=== PATIENT | female | born 1965 | race Caucasian/White ===

== ENCOUNTER 2020-02-15 08:35 | Outpatient (CLI) | payer BC, SELFPAY ==
--- NOTE | 2020-02-27 07:50 | WPDPFTINT ---
PFT Interpretation PFT Interpretation: This PFT met all criteria for ATS standards and reproducibility although it was noted that the patient was unable to complete parts of the flow volume loop or diffusion capacity due to severe shortness of breath and wheezing. FEV/FVC 61% FEV1 36% or 0.71 liters FVC 34% or 0.91 liters TLC 118% RV 214 % RV/TLC 66% DLCO could not be performed. Flow volume loops showed severe expiratory coving Impression: Severe airflow obstruction with severe air trapping. This pattern is suggestive of COPD. Clinical correlation is advised.
--- NOTE | 2020-02-27 07:54 | WPDSIXMINUTE ---
Six Minute Walk Six Minute Walk: The patients O2 sats started at 95% and dropped as low as 88%. It was noted that the patient stopped three times during testing to catch her breath. Total walk distance 228.6 meters after stopping three times conclusion: This patient does not meet criteria for home oxygen therapy by this test but she stopped three times during the test to catch her breath and she was audibly wheezing. I would recommend repeating 6MWT once more stable.
== END 2020-02-15 08:36 | disposition home or self-care (01) ==
PROVIDERS: PCP Physician Assistant; Visit Provider Nurse Practitioner
DX: J44.9 Chronic obstructive pulmonary disease, unspecified (principal)
CPT/HCPCS: 94060; 94618; 94726; 94729

== ENCOUNTER → 2020-07-28 02:35 | Outpatient (CLI) | payer BC, SELFPAY ==
[2020-07-28 19:11] LABS: SARS-CoV-2 RNA PCR Negative
== END ==
PROVIDERS: PCP Physician Assistant; Visit Provider Internal Medicine Gastroenterology
DX: Z01.812 Encounter for preprocedural laboratory examination (principal); Z20.822 Contact with and (suspected) exposure to COVID-19
CPT/HCPCS: C9803; U0003; U0005

== ENCOUNTER 2020-07-31 02:24 | Day surgery (SDC) | payer BC, SELFPAY ==
[2020-07-25 12:41] VITALS: BMI 32.3
[2020-07-31 07:44] VITALS: BP 151/68; PULSE 78; RESP 18; TEMP 36; O2SAT 94; BMI 32.4
--- NOTE | 2020-07-31 07:56 | P.PNAN_ITS ---
Anes - Initial Pre Proc Eval Procedure: Operation Date: 07/31/20 09:00 Proposed Procedures p Esophagogastroduodenoscopy - Blayne Hendrix MD Date/Time: 07/31/20 07:56 Surgeon: Blayne Hendrix MD Pre Op Diagnosis: gerd Patient Data Age: 55 Gender: F Height: 5 ft Weight: 75.3 kg Last Vital Signs Temp 36.0 C L 07/31/20 07:44 Pulse 78 07/31/20 07:44 Resp 18 07/31/20 07:44 BP 151/68 H 07/31/20 07:44 Pulse Ox 94 07/31/20 07:44 Allergies Allergy/AdvReac Type Severity Reaction Status Date / Time pneumococcal vaccine Allergy Difficulty Verified 07/31/20 07:43 Breathing Home Medications Medication Instructions Recorded Confirmed Type albuterol sulfate 2.5 mg INHALATION Q4-6H PRN 07/04/20 07/25/20 History amlodipine 5 mg tablet 5 mg PO DAILY 07/04/20 07/25/20 History famotidine 40 mg tablet 40 mg PO DAILY 07/04/20 07/25/20 History lisinopril 10 1 tablet PO DAILY 07/04/20 07/25/20 History mg-hydrochlorothiazide 12.5 mg tablet atorvastatin 10 mg tablet 10 mg PO DAILY 07/10/20 07/25/20 History azithromycin 250 mg tablet 250 mg PO DAILY 07/10/20 07/25/20 History budesonide-formoterol HFA 160 2 puff INHALATION Q12H 07/10/20 07/25/20 History mcg-4.5 mcg/actuation aerosol inhaler fluticasone propionate 50 1 spray INTRANASAL BID 07/10/20 07/25/20 History mcg/actuation nasal spray,suspension prednisone 20 mg tablet 20 mg PO BID 07/10/20 07/25/20 History ibuprofen 800 mg PO DAILY 07/25/20 07/25/20 History Patient hx anesthesia problems: none Family hx anesthesia problems: none PMFSH Past Medical History Medical History COPD (chronic obstructive pulmonary disease) GERD (gastroesophageal reflux disease) HTN (hypertension) Hyperlipidemia Obese Social History Social History Years smoked: 30 Smoking status: Former smoker Tobacco type: cigarettes Alcohol intake: never Substance use: never Substance use type: does not use Living arrangements: with family Gender identity (if verbalized by the patient): Female Spiritual care concerns: No Anes - Eval Final PreProcedure Day of Procedure 07/31/20 07:56 Patient weight: obese Heart: regular rate and rhythm Lungs: decreased breath sounds and wheezes Airway: Mallampati scale class II Neurological: alert and oriented Last oral intake: >/= 8 hours ASA classification: III Emergent: no Anesthetic plan: proceed Anesthesia type and monitoring: general GIVS and standard monitoring Other findings: alb neb Informed Consent: The patient's anesthetic plan and its attendant risks and benefits were discussed with the patient/family/POA. Questions were solicited a nd answers provided to the satisfaction of the patient/family/POA.
[2020-07-31 08:05] VITALS: PULSE 71; RESP 22
[2020-07-31] MEDS: ALBUTEROL SULFATE NEB 2.5 MG/3 ML INH INHALATION (08:05)
[2020-07-31] MEDS: LACTATED RINGERS 1,000 ML 150 ML IV CONT (08:13)
[2020-07-31 08:16] VITALS: PULSE 74; RESP 22
--- NOTE | 2020-07-31 08:34 | WPDHPUPDATE1 ---
History and Physical Update Update Date/Time: 07/31/20 08:34 History and Physical has been reviewed, including an updated exam of the patient. There are NO changes in the patient's condition. Risks, benefits, and alternatives have been discussed and questions answered. Patient agrees to proceed with procedure.
[2020-07-31 08:45] VITALS: BP 124/60; PULSE 70; RESP 21; O2SAT 95
[2020-07-31 08:55] VITALS: BP 122/62; PULSE 72; RESP 22; O2SAT 95
[2020-07-31 09:05] VITALS: BP 137/66; PULSE 65; RESP 20; O2SAT 97
== END 2020-07-31 09:20 | disposition home or self-care (01) ==
PROVIDERS: PCP Physician Assistant; Visit Provider Internal Medicine Gastroenterology
PROC: 0DJ08ZZ Inspection of Upper Intestinal Tract, Via Natural or Artificial Opening Endoscopic (ICD-10-PCS; CPT 43235; principal; 2020-07-31 09:00)
DX: K21.9 Gastro-esophageal reflux disease without esophagitis (principal); K29.50 Unspecified chronic gastritis without bleeding; Z79.51 Long term (current) use of inhaled steroids; J44.9 Chronic obstructive pulmonary disease, unspecified; I10 Essential (primary) hypertension; E78.5 Hyperlipidemia, unspecified; Z87.891 Personal history of nicotine dependence; E66.9 Obesity, unspecified; Z68.32 Body mass index [BMI] 32.0-32.9, adult
CPT/HCPCS: 43239; 88305; 88342; 94640; J2001; J2704; J7120

== ENCOUNTER 2020-10-31 00:25 | Day surgery (SDC) | payer BC, SELFPAY ==
[2020-10-19 08:14] VITALS: BMI 32.3
[2020-10-31 07:45] VITALS: BP 137/81; PULSE 82; RESP 16; TEMP 36.1; O2SAT 94
[2020-10-31] MEDS: LACTATED RINGERS 1,000 ML 150 ML IV CONT (07:49)
--- NOTE | 2020-10-31 08:07 | WPDANESEPPF ---
Anes - Initial Pre Proc Eval Procedure: Operation Date: 10/31/20 09:15 Proposed Procedures p Colonoscopy - Blayne Hendrix MD Date/Time: 10/31/20 08:07 Surgeon: Blayne Hendrix MD Pre Op Diagnosis: abnormal stools Patient Data Age: 55 Gender: F Height: 1.52 m Weight: 72.2 kg Last Vital Signs Temp 36.1 C L 10/31/20 07:45 Pulse 82 10/31/20 07:45 Resp 16 10/31/20 07:45 BP 137/81 10/31/20 07:45 Pulse Ox 94 10/31/20 07:45 Allergies Allergy/AdvReac Type Severity Reaction Status Date / Time pneumococcal vaccine Allergy Difficulty Verified 10/31/20 07:44 Breathing Home Medications Medication Instructions Recorded Confirmed Type albuterol sulfate 2.5 mg INHALATION Q4-6H PRN 07/04/20 10/31/20 History famotidine 40 mg tablet 40 mg PO DAILY 07/04/20 10/31/20 History lisinopril 10 1 tablet PO DAILY 07/04/20 10/31/20 History mg-hydrochlorothiazide 12.5 mg tablet atorvastatin 10 mg tablet 10 mg PO DAILY 07/10/20 10/31/20 History budesonide-formoterol HFA 160 2 puff INHALATION Q12H 07/10/20 10/31/20 History mcg-4.5 mcg/actuation aerosol inhaler fluticasone propionate 50 1 spray INTRANASAL BID 07/10/20 10/31/20 History mcg/actuation nasal spray,suspension mometasone 1 applic TOPICAL DAILY 10/19/20 10/31/20 History Patient hx anesthesia problems: none Family hx anesthesia problems: none PMFSH Past Medical History Medical History COPD (chronic obstructive pulmonary disease) GERD (gastroesophageal reflux disease) HTN (hypertension) Hyperlipidemia Obese Social History Social History Smoking packs per day: 1 Smoking cigarettes per day: 20.0 Years smoked: 39 Smoking pack-years: 39.00 Smoking status: Former smoker Tobacco type: cigarettes Alcohol intake: current Drinks per week: 6 Substance use: never Substance use type: does not use Living arrangements: with family Gender identity (if verbalized by the patient): Female Spiritual care concerns: No Anes - Eval Final PreProcedure Day of Procedure 10/31/20 08:07 Patient weight: obese Heart: regular rate and rhythm Lungs: clear to auscultation and normal air movement Airway: Mallampati scale class II Neurological: alert and oriented Last oral intake: >/= 8 hours ASA classification: III Emergent: no Anesthetic plan: proceed Anesthesia type and monitoring: general GIVS Informed Consent: The patient's anesthetic plan and its attendant risks and benefits were discussed with the patient/family/POA. Questions were solicited and answers provided to the satisfaction of the patient/family/POA.
--- NOTE | 2020-10-31 09:30 | PM.HPGS ---
History of Present Illness History of Present Illness Consent: Risks, benefits, and alternatives have been discussed and questions answered. Patient agrees to proceed with procedure. Chief complaint: abnormal stools Narrative: Medina Cox is a 55 year old female with intermittent loose stool and blood for last month, also cramping. She had a colonoscopy over a year ago. Review of Systems Constitutional: Constitutional: Denies headache(s) and Denies weakness Eyes: Eyes: Denies blurry vision ENT: Reports Normal hearing present, Denies headache(s) and Denies neck pain Cardiovascular: Cardiovascular: Denies chest pain and Denies dyspnea Respiratory: Respiratory: Denies dyspnea Gastrointestinal: Gastrointestinal: Reports no additional gastrointestinal complaints Genitourinary: Genitourinary: Denies dysuria Musculoskeletal: Musculoskeletal: Denies neck pain Integumentary/Breasts: Skin/Breast: Denies dry skin Neurologic: Reports Normal hearing present, Denies headache(s) and Denies weakness Psychiatric: Psychiatric: Denies anxiety Endocrine: Endocrine: Denies change in body appearance Hematologic/Lymphatic: Hematologic/Lymphatic: Denies easy bleeding Allergic/Immunologic: Allergic/Immunologic: Denies urticaria PMFSH Past Medical History Medical History (Updated 10/31/20 @ 09:30 by Blayne Hendrix MD) Blood in stool COPD (chronic obstructive pulmonary disease) GERD (gastroesophageal reflux disease) HTN (hypertension) Hyperlipidemia Obese Social History Social History Smoking packs per day: 1 Smoking cigarettes per day: 20.0 Years smoked: 39 Smoking pack-years: 39.00 Smoking status: Former smoker Tobacco type: cigarettes Alcohol intake: current Drinks per week: 6 Substance use: never Substance use type: does not use Living arrangements: with family Gender identity (if verbalized by the patient): Female Spiritual care concerns: No Meds Home Medications and Allergies Home Medications Medication Instructions Recorded Confirmed Type albuterol sulfate 2.5 mg INHALATION Q4-6H PRN 07/04/20 10/31/20 History famotidine 40 mg tablet 40 mg PO DAILY 07/04/20 10/31/20 History lisinopril 10 1 tablet PO DAILY 07/04/20 10/31/20 History mg-hydrochlorothiazide 12.5 mg tablet atorvastatin 10 mg tablet 10 mg PO DAILY 07/10/20 10/31/20 History budesonide-formoterol HFA 160 2 puff INHALATION Q12H 07/10/20 10/31/20 History mcg-4.5 mcg/actuation aerosol inhaler fluticasone propionate 50 1 spray INTRANASAL BID 07/10/20 10/31/20 History mcg/actuation nasal spray,suspension mometasone 1 applic TOPICAL DAILY 10/19/20 10/31/20 History Allergies Allergy/AdvReac Type Severity Reaction Status Date / Time pneumococcal vaccine Allergy Difficulty Verified 10/31/20 07:44 Breathing Vital Signs Vital Signs - 24 hr 10/31/20 07:45 Temperature 96.9 F L Pulse Rate 82 Respiratory Rate 16 Blood Pressure 137/81 Pulse Oximetry 94 Exam Const: General: comfortable and no acute distress HENMT: General nose exam: Normal nares present Eyes: General: appearance normal, both eyes and all related structures Neck: Neck: no JVD Resp: Auscultation: clear to auscultation bilaterally Cardio: Rate: regular rate Rhythm: regular rhythm GI: Inspection: non-distended GI Palp: Yes Soft to palpation Skin: General skin exam: normal color Neuro: General: gait normal Speech: normal speech Extrem: General: normal to inspection Psych: Mental Status: mental status grossly normal Assessment and Plan Assessment and plan (1) Blood in stool: Code(s): K92.1 - Melena Status: Acute Assessment and Plan: colonoscopy, consider random colon bx because loose stool
[2020-10-31 09:50] VITALS: BP 113/66; PULSE 76; RESP 18; O2SAT 96
[2020-10-31 10:00] VITALS: BP 139/79; PULSE 78; RESP 19; O2SAT 98
[2020-10-31 10:10] VITALS: BP 152/86; PULSE 71; RESP 20; O2SAT 98
== END 2020-10-31 10:21 | disposition home or self-care (01) ==
PROVIDERS: PCP Physician Assistant; Visit Provider Internal Medicine Gastroenterology
PROC: 0DJD8ZZ Inspection of Lower Intestinal Tract, Via Natural or Artificial Opening Endoscopic (ICD-10-PCS; CPT 45378; principal; 2020-10-31 09:15)
DX: K92.1 Melena (principal); R19.7 Diarrhea, unspecified; K64.8 Other hemorrhoids; J44.9 Chronic obstructive pulmonary disease, unspecified; K21.9 Gastro-esophageal reflux disease without esophagitis; I10 Essential (primary) hypertension; E78.5 Hyperlipidemia, unspecified; E66.9 Obesity, unspecified; Z68.31 Body mass index [BMI] 31.0-31.9, adult; Z87.891 Personal history of nicotine dependence; Z79.51 Long term (current) use of inhaled steroids
CPT/HCPCS: 45380; 88305; J2704; J7120

== ENCOUNTER 2021-12-10 12:26 | Outpatient (CLI) | payer OTHER, SELFPAY ==
--- NOTE | ~2021-12-10 | XR_ITS ---
EXAM: XR hip LT min 2V DATE: 12/10/2021 12:47 HISTORY: LEFT GROIN PAIN, LEFT HIP PAIN X 2 WKS. NKI . COMPARISON: None available. FINDINGS: Decreased mineralization. Linear ossific fragment adjacent to the greater tuberosity, with sclerotic margins. No lytic or blastic lesion. Mild superior left hip joint space narrowing. No eros ion or periosteal change. Soft tissues within normal limits. IMPRESSION: Possible greater tuberosity avulsion fracture, which may be chronic. Correlate with pain/ tenderness over the greater tuberosity and any history of injury. Mild left hip osteoarthritis. Reviewed, dictated and finalized at location K. IMPRESSION: Possible greater tuberosity avulsion fracture, which may be chronic . Correlate with pain/tenderness over the greater tuberosity and any history of injury. Mild left hip osteoarthritis.
== END 2021-12-10 12:27 | disposition home or self-care (01) ==
PROVIDERS: PCP Nurse Practitioner; Visit Provider Nurse Practitioner
DX: R10.32 Left lower quadrant pain (principal); M16.12 Unilateral primary osteoarthritis, left hip
CPT/HCPCS: 73502

== ENCOUNTER 2021-12-24 12:50 | Outpatient (CLI) | payer OTHER, SELFPAY ==
--- NOTE | ~2021-12-24 | XR_ITS ---
EXAMINATION: XR lg joint inject/asp w image DATE: 12/24/2021 13:48 INDICATION: Left hip pain. TECHNIQUE: A time-out was performed to verify the patient's name, date of , and procedure to b e performed. The procedure including the risks, benefits, and alternatives was discussed with the pat ient. Risks discussed included bleeding and infection. The patient understood the risks and agreed to proceed. The skin overlying the left hip joint was prepped and draped in usual sterile fashion. An esthetic was administered with 1% lidocaine subcutaneously. A 22 G needle was advanced under fluoros copic guidance into the joint. Subsequently, injectate consisting of 5 mL 1% lidocaine and 2 mL 10 m g/mL Kenalog was instilled. The needle was removed and the entry site was cleaned and dressed. Ther e were no immediate complications. Fluoroscopy exposure time was 0.1 minutes. The total number of howard ges was 1. FINDINGS: Real-time fluoroscopy demonstrates the needle in the left hip joint. Patient's pain prior t o procedure:10/07. Patient's pain following the procedure: 11/07. IMPRESSION: 1. Fluoroscopy guided left hip joint injection of local anesthetic and steroid . Reviewed, dictated and finalized at location A.
== END 2021-12-24 12:51 | disposition home or self-care (01) ==
PROVIDERS: PCP Nurse Practitioner; Visit Provider Nurse Practitioner
DX: M25.552 Pain in left hip (principal)
CPT/HCPCS: 20610; 77002; J3301

== ENCOUNTER 2022-02-16 11:54 | Outpatient (CLI) | payer OTHER, SELFPAY ==
--- NOTE | ~2022-02-16 | DEXA_ITS ---
Bone Density Report Name: HUGO BECKER Age: 57 Sex: Female Ethnicity: White Date of : 1965 Indication: postmenopausal; screening for osteoporosis; asthma or emphysema; hysterectomy; Referring Provider: JOSE G, LUZ Leon Study: Bone densitometry was performed. Exam Date: February 16, 2022 Accession number: [id number] Bone Density: Region BMD T-score Z-score Classification AP Spine(L1-L4) 0.641 -3.7 -2.3 Osteoporosis Femoral Neck (Left) 0.587 -2.4 -1.1 Osteopenia Total Hip (Left) 0.848 -0.8 0.1 Normal Femoral Neck (Right) 0.758 -0.8 0.4 Normal Total Hip (Right) 0.877 -0.5 0.4 Normal Total Hip Mean 0.863 -0.7 0.3 Normal World Health Organization criteria for BMD impression classify patients as: Normal (T-score at or above -1.0), Osteopenia (T-score between -1.0 and -2.5), or Osteoporosis (T-score at or below -2.5). 10-year Fracture Risk: FRAX not reported because: Some T-score for Spine Total or Hip Total or Femoral Neck at or below -2.5 Clinical Information Provided by Patient: Has the following medical conditions: Asthma or Emphysema, Hysterectomy Patient maximum height was 60 Drinks caffeinated beverages Onset of menses at age 10 Impression: The patient has osteoporosis, based on the Total Spine T-score. Discussion: HIGH RISK OF FRACTURE. BONE DENSITY IS UNDESIRABLY LOW AT ONE OR MORE SKELETAL SITES, CONSISTENT WITH OSTEOPOROSIS. ALSO, BONE DENSITY IS LOWER THAN EXPECTED FOR AGE AND SEX AT ONE OR MORE SKELETAL SITES; RECOMMEND A DILIGENT SEARCH FOR SECONDARY CAUSES OF BONE LOSS. This patient's lowest T-score meets the World Health Organization's (WHO) criteria for osteoporosis at one or more sites (T-score -2.5 or below). In untreated patients, the risk of osteoporotic fracture increases approximately two-fold for each 1.0 SD decrease in T-score. Low bone density is not the only risk factor for fracture; also consider factors such as patient's age, frailty or poor health, risk of falling, risk of injury, previous osteoporotic fracture, family history of osteoporosis, cigarette smoking, low body weight, etc. Not everyone with low bone mineral density has osteoporosis; osteomalacia and other metabolic bone disorders should also be considered. Patients who have osteoporosis should be evaluated for specific diseases and conditions (secondary causes) that may cause or contribute to bone loss. The [place] [employer]ocrinologists (AACE) and National Osteoporosis Foundation (NOF) recommend pharmacologic intervention for all postmenopausal women whose T-score is in this range. Also, this patient's bone mineral density is below the range considered normal for healthy age-, sex-, and race-matched controls at least one site (Z-score -2.0 or below). This warrants careful e
== END 2022-02-16 11:55 | disposition home or self-care (01) ==
LOC: ANHIMG 11:57
PROVIDERS: PCP Nurse Practitioner; Visit Provider Nurse Practitioner
DX: Z78.0 Asymptomatic menopausal state (principal); F17.218 Nicotine dependence, cigarettes, with other nicotine-induced disorders; M81.0 Age-related osteoporosis without current pathological fracture; M85.852 Other specified disorders of bone density and structure, left thigh
CPT/HCPCS: 77080

== ENCOUNTER 2022-03-06 15:31 | Outpatient (CLI) | payer OTHER, SELFPAY ==
--- NOTE | ~2022-03-06 | MR_ITS ---
EXAMINATION: MR lumbar spine wo/w con DATE: 03/06/2022 17:22 INDICATION: Frequent falls. Lumbar radiculopathy. TECHNIQUE: Magnetic resonance imaging (MRI) of the lumbar spine was performed without and with 19 mL Multihance intravenous contrast. Sequences included sagittal T2-weighted FSE, sagittal T2-weighted FS FSE, and sagittal and axial T1-weighted FSE. Postcontrast sequences included axial T2-weighted FSE, sagittal T1-weighted FSE, and axial and sagittal T1-weighted FS FSE. COMPARISON: None FINDINGS: Alignment is normal. Vertebral body heights are normal. Bilateral L5 pars interarticularis defects. N ormal marrow signal. Disc heights are normal. The conus medullaris terminates at L1. There is normal signal in the caudal spinal cord. No abnormally enhancing lesions identified. Paravertebral soft tiss ues are unremarkable. The following disc levels are specifically discussed: T12-L1: The disc does not extend beyond the endplate margin. There is mild bilateral facet joint oste oarthritis. There is no neural foraminal stenosis. There is no central canal stenosis. L1-L2: Disc is mildly bulging. There is mild bilateral facet joint osteoarthritis. There is no neural foraminal stenosis. There is minimal central canal stenosis. L2-L3: Disc is mildly bulging. There is mild left and minimal right facet joint osteoarthritis. There is mild bilateral neural foraminal stenosis. There is mild central canal stenosis. L3-L4: Disc is mildly bulging. There is mild bilateral facet joint osteoarthritis. There is mild bila teral neural foraminal stenosis. There is mild central canal stenosis. L4-L5: The disc does not extend beyond the endplate margin. There is mild right and minimal left face t joint osteoarthritis. There is mild bilateral neural foraminal stenosis. There is no central canal stenosis. L5-S1: Annular fissure and small central to right paracentral disc extrusion with disc material exten ding 1-2 mm cephalad to the level of the inferior endplate of L5. There is mild bilateral facet joint osteoarthritis. There is mild left and mild to moderate right neural foraminal stenosis. There is no central canal stenosis. IMPRESSION: 1. 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 Reviewed, dictated and finalized at location A. LATION ENGINEMAN
--- NOTE | ~2022-03-06 | XR_ITS ---
XR_CERV2-3V_CR DATE: 03/06/2022 16:33 INDICATION: Chronic neck pain for 3 weeks. No injury. TECHNIQUE: AP, open-mouth, lateral views COMPARISON: None FINDINGS: The cervical curvature is intact on the lateral view. Minimal dextroscoliosis. C1 and C2 are normally aligned and the odontoid process is intact. No fracture or dislocation or lock ed facet or prevertebral soft tissue swelling is detected. There is mild degenerative disc disease at C3-4, C4-5 and C5-6. The patient is edentulous IMPRESSION: Mild degenerative disc disease of mid cervical spine Reviewed, dictated and finalized at Location A. Reviewed, dictated and finalized at location B. NICAL ASSISTANCE CONSULTANT
== END 2022-03-06 15:32 | disposition home or self-care (01) ==
PROVIDERS: PCP Nurse Practitioner; Visit Provider Nurse Practitioner
DX: R29.6 Repeated falls (principal); M47.26 Other spondylosis with radiculopathy, lumbar region; M50.30 Other cervical disc degeneration, unspecified cervical region
CPT/HCPCS: 72040; 72158; A9577

== ENCOUNTER 2022-04-19 14:31 | Outpatient (CLI) | payer OTHER, SELFPAY ==
--- NOTE | ~2022-04-19 | MM_ITS ---
EXAMINATION: MM screening clark BI w autumn HISTORY: Screening mammogram TECHNIQUE: Craniocaudal and mediolateral oblique 3-D tomosynthesis images were obtained and synthetic 2-D images were generated. CAD analysis was submitted and interpreted. COMPARISON: No prior mammogram is available for comparison at this institution. BREAST PARENCHYMAL COMPOSITION: The breasts are almost entirely fatty. FINDINGS: No suspicious mass, calcification, or architectural distortion are identified in either yoli ast to suggest malignancy. There has been no suspicious interval change. IMPRESSION: 1. No mammographic evidence of malignancy. 2. Recommend routine screening mammography in one year. BI-RADS Category 2: Benign finding(s). Reviewed, dictated and finalized at location A. FINISHER
== END 2022-04-19 14:32 | disposition home or self-care (01) ==
LOC: ANHIMG 14:32
PROVIDERS: PCP Nurse Practitioner; Visit Provider Nurse Practitioner
DX: Z12.31 Encounter for screening mammogram for malignant neoplasm of breast (principal)
CPT/HCPCS: 77063; 77067

== ENCOUNTER 2022-05-27 09:58 | Outpatient (CLI) | payer OTHER, SELFPAY ==
--- NOTE | ~2022-05-27 | CT_ITS ---
EXAMINATION:CT diagnostic chest wo con DATE: 05/27/2022 10:31 INDICATION: Severe chronic obstructive pulmonary disease. TECHNIQUE: Computed tomography (CT) of the chest was performed without intravenous contrast. Automate d exposure control and iterative reconstruction technique were employed. The dose-length product (DLP ) was 461.93 mGy-cm. COMPARISON: None. FINDINGS: There is minimal scarring in paraspinal right lower lobe. No pleural effusion. The heart si ze is normal. There are coronary artery calcifications. No pericardial effusion. There are changes of cholecystectomy. There is mild thoracic spondylosis. IMPRESSION: 1. No evidence of malignancy. Reviewed, dictated and finalized at location A. UTIVE OFFICE MANAGER
[2022-05-27 10:25] VITALS: PULSE 81; O2SAT 92
[2022-05-27 10:30] VITALS: PULSE 95; O2SAT 85
[2022-05-27 10:35] VITALS: PULSE 91; O2SAT 87
[2022-05-27 10:40] VITALS: PULSE 92; O2SAT 92
[2022-05-27 10:55] VITALS: PULSE 88; O2SAT 92
--- NOTE | 2022-05-27 11:00 | HOMEO2EVAL ---
Evaluation was performed at [facility] Home Oxygen Evaluation RC: Home Oxygen (O2) Evaluation Start: 05/27/22 10:56 Freq: Status: Active Protocol: RPE Activity Type Activity Date Activity User E-sign Co-sign Detail Recorded Client Recorded Date Recorded By Document 05/27/22 10:25 [email or web address] 05/27/22 11:00 PKH Document 05/27/22 10:30 [email or web address] 05/27/22 11:00 PKH Document 05/27/22 10:35 [email or web address] 05/27/22 11:00 PK Document 05/27/22 10:40 [email or web address] 05/27/22 11:00 PK Document 05/27/22 10:55 [email or web address] 05/27/22 11:00 [facility] 05/27/22 05/27/22 05/27/22 10:25 10:30 10:35 Home O2 Evaluation [Oxygen] -Test Phase Resting Exercise Exercise -Oxygen Delivery Room Air Room Air Nasal Cannula -Oxygen Flow Rate (L/min) 1 [Pulse Oximetry] -Pulse Oximetry (90-100 %) 92 85 L 87 L [Pulse Rate] -Pulse Rate (60-100 beats/min) 81 95 91 [Evaluation] -Activity Tolerance Good [Charges] -Treatment Charges O2 Evaluation - Outpatient 05/27/22 05/27/22 10:40 10:55 Home O2 Evaluation [Oxygen] -Test Phase Exercise Resting -Oxygen Delivery Nasal Cannula Room Air -Oxygen Flow Rate (L/min) 2 [Pulse Oximetry] -Pulse Oximetry (90-100 %) 92 92 [Pulse Rate] -Pulse Rate (60-100 beats/min) 92 88 [Evaluation] -Activity Tolerance [Charges] -Treatment Charges
--- NOTE | 2022-05-27 11:00 | HOMEO2EVAL ---
Evaluation was performed at [facility] Home Oxygen Evaluation RC: Home Oxygen (O2) Evaluation Start: 05/27/22 10:56 Freq: Status: Active Protocol: RPE Activity Type Activity Date Activity User E-sign Co-sign Detail Recorded Client Recorded Date Recorded By Document 05/27/22 10:25 [email or web address] 05/27/22 11:00 PKH Document 05/27/22 10:30 [email or web address] 05/27/22 11:00 PKH Document 05/27/22 10:35 [email or web address] 05/27/22 11:00 PK Document 05/27/22 10:40 [email or web address] 05/27/22 11:00 PK Document 05/27/22 10:55 [email or web address] 05/27/22 11:00 [facility] 05/27/22 05/27/22 05/27/22 10:25 10:30 10:35 Home O2 Evaluation [Oxygen] -Test Phase Resting Exercise Exercise -Oxygen Delivery Room Air Room Air Nasal Cannula -Oxygen Flow Rate (L/min) 1 [Pulse Oximetry] -Pulse Oximetry (90-100 %) 92 85 L 87 L [Pulse Rate] -Pulse Rate (60-100 beats/min) 81 95 91 [Evaluation] -Activity Tolerance Good [Charges] -Treatment Charges O2 Evaluation - Outpatient 05/27/22 05/27/22 10:40 10:55 Home O2 Evaluation [Oxygen] -Test Phase Exercise Resting -Oxygen Delivery Nasal Cannula Room Air -Oxygen Flow Rate (L/min) 2 [Pulse Oximetry] -Pulse Oximetry (90-100 %) 92 92 [Pulse Rate] -Pulse Rate (60-100 beats/min) 92 88 [Evaluation] -Activity Tolerance [Charges] -Treatment Charges
--- NOTE | 2022-05-29 17:21 | WPDPFTINT ---
PFT Procedure Performed PFT Procedure Performed Spirometry with Pre/Post Bronchodilator Plethysmography (Lung Vol) Diffusing Cap (DLCO) Flow Vol Loop PFT Interpretation DOS: 05/27/2022 REQUESTING: Betsey Lyon [facility] REASON FOR TESTING: COPD PULMONARY FUNCTION TESTS Results are reliable and reproducible. Spirometry: Pre bronchodilator FEV1 is 0.6 L, 28% predicted, extremely reduced. Pre bronchodilator FVC is 1.2 L, 44%, extremely reduced. FEV1/FVC ratio is 50%, reduced, consistent with airflow obstruction. After bronchodilator, FEV1 drops by 14%, FVC drops by 35%. FEV1 is 0.52 L, 24% predicted and FVC is 0.78 L, 28% predicted. The post bronchodilator FEV1/ FVC ratio is 67%. Lung volumes: Total lung capacity is 4.10 L, 93% predicted, normal. Residual volume 2.70 L, 153% predicted, increased. This is consistent with severe air trapping. RV/TLC 66%, increased. Airway resistance 5.45, 362% predicted, increased. Diffusion: DLCO is 8.6, 43% predicted, severely reduced. DLCO/ VA is 5.94 L, 128% predicted, diffusion corrects for alveolar volume. Flow volume loop: Scooping of the expiratory limb is consistent with airflow obstruction IMPRESSION: Extremely severe obstructive ventilatory impairment, severe air trapping and severe diffusion impairment that corrects for alveolar volume. Bronchodilator administration causes a drop in flows. Clinical correlation is recommended regarding use of bronchodilators. This pattern is consistent with COPD. Compared to a prior study 02/15/2020, the patient has had a drop in FEV1, was 0.71 L which was 36% predicted, now FEV1 is 0.6 L, 28% predicted. Otherwise, the remaining values are better. The FVC is better, was 0.91 L and 34% predicted, now FVC is 1.2 L, 44% predicted. Airflow obstruction was present on the prior study. Total lung capacity was 118% predicted and now is 93%. This shows improvement in hyperinflation. Residual volume was 214% now 153% so this shows improvement in air trapping. On the prior study the DLCO could not be performed due to shortness of breath. On the current study, the patient was able to perform DLCO. Leticia Hu MD
== END 2022-05-27 09:59 | disposition home or self-care (01) ==
PROVIDERS: PCP Nurse Practitioner; Visit Provider Nurse Practitioner
DX: J44.9 Chronic obstructive pulmonary disease, unspecified (principal); R94.2 Abnormal results of pulmonary function studies
CPT/HCPCS: 71250; 94060; 94618; 94726; 94729

== ENCOUNTER 2022-12-13 13:06 | Outpatient (CLI) | payer OTHER, SELFPAY ==
--- NOTE | ~2022-12-13 | XR_ITS ---
Cervical Spine: AP, lateral, open-mouth views Clinical History: Pain Findings: The normal lordotic curve is maintained. The vertebral bodies and posterior elements appea r intact. There are mild degenerative changes of the cervical spine. Pre-vertebral soft tissues are u nremarkable. Impression: Mild degenerative disc changes in the cervical spine. Reviewed, dictated and finalized at location . Impression: Mild degenerative disc changes in the cervical spine.
--- NOTE | ~2022-12-13 | XR_ITS ---
Lumbosacral Spine: AP and lateral views Clinical History: Pain Findings: The normal lordotic curve is maintained. The vertebral bodies and posterior elements are i ntact. The intervertebral disc spaces are preserved. 7 mm anterolisthesis of L5 over S1 noted. The s acroiliac joints are normally outlined. Impression: 7 mm anterolisthesis of L5 over S1. Reviewed, dictated and finalized at location M. Impression: 7 mm anterolisthesis of L5 over S1.
--- NOTE | ~2022-12-13 | XR_ITS ---
Thoracic spine: Clinical Indication: Back pain AP and lateral views were performed. No fracture is seen. There is normal alignment of the vertebrae. The intervertebral disc spaces appe ar normal. Paravertebral soft tissues appear normal. Impression: No significant abnormalities noted. Reviewed, dictated and finalized at [facility]. Impression: No significant abnormalities noted.
== END 2022-12-13 13:07 | disposition home or self-care (01) ==
LOC: ANHIMG 13:08
PROVIDERS: PCP Nurse Practitioner; Visit Provider Nurse Practitioner
DX: M54.50 Low back pain, unspecified (principal); M81.0 Age-related osteoporosis without current pathological fracture; M50.30 Other cervical disc degeneration, unspecified cervical region
CPT/HCPCS: 72040; 72072; 72100

== ENCOUNTER 2023-03-13 12:09 | Outpatient (CLI) | payer OTHER, SELFPAY ==
--- NOTE | ~2023-03-13 | XR_ITS ---
Cervical Spine: AP, lateral, open-mouth views Clinical History: Pain Findings: The normal lordotic curve is maintained. The vertebral bodies and posterior elements appea r intact. There are mild degenerative disc changes throughout the cervical spine. Pre-vertebral soft tissues are unremarkable. Impression: Mild degenerative disc disease in the cervical spine. Reviewed, dictated and finalized at [facility]. IT RISK REVIEW OFFICER Impression: Mild degenerative disc disease in the cervical spine.
--- NOTE | ~2023-03-13 | US_ITS ---
EXAMINATION: US venous doppler [facility] DATE: 03/13/2023 12:56 INDICATION: Lower limb swelling. TECHNIQUE: Grayscale ultrasound images without and with compression and Doppler ultrasound images of the bilateral lower extremity veins were obtained. COMPARISON: None. FINDINGS: The visualized portions of right common femoral vein, profunda (deep) femoral vein, femoral vein, pop liteal vein, peroneal veins, posterior tibial veins, and greater saphenous vein outflow are patent. The visualized portions of left common femoral vein, profunda femoral vein, femoral vein, popliteal v ein, peroneal veins, posterior tibial veins, and greater saphenous vein outflow are patent. IMPRESSION: 1. No deep venous thrombosis. Reviewed, dictated and finalized at location A. NEY SWEEPER
== END 2023-03-13 12:10 | disposition home or self-care (01) ==
PROVIDERS: PCP Nurse Practitioner; Visit Provider Nurse Practitioner
DX: M79.89 Other specified soft tissue disorders (principal); M50.30 Other cervical disc degeneration, unspecified cervical region
CPT/HCPCS: 72040; 93970

== ENCOUNTER 2023-05-24 07:41 | Outpatient (CLI) | payer OTHER, SELFPAY ==
--- NOTE | ~2023-05-24 | US_ITS ---
US abdomen complete EXAMINATION: US Abdomen Complete INDICATION: Abdomen pain PROCEDURE: Realtime High Resolution abdomen ultrasound. COMPARISON: No prior studies for comparison FINDINGS: Gallbladder is surgically absent. Common bile duct measures 4 mm. Liver echotexture is increased, consistent with fatty infiltration.. Pancreas within normal limits. Pancreatic tail is obscured by bowel gas. Spleen is unremarkeable. Renal echotexture is within norm al limits bilaterally without hydronephrosis, contour deforming mass or renal stone. Right kidney julio sures 10 cm. Left kidney measures 10.5 cm. Visualized aspects of the aorta and IVC are within normal limits. Portal vein is patent. No sonograph ic Borrero's sign indicated by the technologist. IMPRESSION: 1: Fatty infiltration of the liver. Reviewed, dictated and finalized at location A. NG MACHINE SETTER
== END 2023-05-24 07:42 | disposition home or self-care (01) ==
LOC: ANHIMG 07:42
PROVIDERS: PCP Nurse Practitioner; Visit Provider Nurse Practitioner Family
DX: R10.9 Unspecified abdominal pain (principal); K76.0 Fatty (change of) liver, not elsewhere classified
CPT/HCPCS: 76700

== ENCOUNTER 2023-05-30 15:39 | Outpatient (CLI) | payer OTHER, SELFPAY ==
--- NOTE | ~2023-05-30 | CT_ITS ---
EXAMINATION:CT lung screening DATE: 05/30/2023 15:54 INDICATION: Nicotine dependence, uncomplicated. Current smoker with 24 pack year history. TECHNIQUE: Computed tomography (CT) of the chest was performed without intravenous contrast. Automate d exposure control and iterative reconstruction technique were employed. The dose-length product (DLP ) was 294.02 mGy-cm. COMPARISON: Chest CT 05/27/2022 FINDINGS: The lungs demonstrate mild atelectasis. There are new clusters of centrilobular nodules and tree-in-bud opacities in left lower lobe. The largest nodule measures 5 mm. No pleural effusion. The heart size is normal. There are coronary artery calcifications. No pericardial effusion. There are c hanges of cholecystectomy. There is mild thoracic spondylosis. There is levoscoliosis of upper thorac ic spine. IMPRESSION: 1. Lung-RADS category 3: Probably benign. Further evaluation is recommended with noncontrast low-dose chest CT in 6 months. Reviewed, dictated and finalized at location A. RIDER IMPRESSION: 1. Lung-RADS category 3: Probably benign. Further evaluation is recommended wit h noncontrast low-dose chest CT in 6 months.
== END 2023-05-30 15:40 | disposition home or self-care (01) ==
PROVIDERS: PCP Nurse Practitioner
DX: Z12.2 Encounter for screening for malignant neoplasm of respiratory organs (principal); F17.210 Nicotine dependence, cigarettes, uncomplicated; R91.8 Other nonspecific abnormal finding of lung field
CPT/HCPCS: 71271

== ENCOUNTER 2023-06-01 10:26 | Emergency (ER) | payer OTHER, SELFPAY ==
[2023-06-01] VITALS (10 sets, daily range): BP systolic 137–178; BP diastolic 54–80; PULSE 83–94; RESP 14–25; TEMP 36.6; O2SAT 93–100
--- NOTE | ~2023-06-01 | XR_ITS ---
EXAMINATION: XR chest 1V portable DATE: 06/01/2023 10:59 INDICATION: Chest pain. Shortness of breath. TECHNIQUE: A single frontal view of the chest was obtained. COMPARISON: Chest CT 05/30/23 FINDINGS: There is no pneumonia, pleural effusion, or pneumothorax. The heart size is normal. There i s a prominent right paracardial fat pad. IMPRESSION: 1. No acute cardiopulmonary disease. Reviewed, dictated and finalized at location A. MAN
--- NOTE | 2023-06-01 10:42 | ECG_ITS ---
Measurements Intervals [place] Rate: 87 P: 55 IL: 210 QRS: 66 QRSD: 102 T: 70 QT: 370 QTc: 446 Interpretive Statements SINUS RHYTHM WITH FIRST DEGREE AV BLOCK LOW QRS VOLTAGE IN PRECORDIAL LEADS BASELINE ARTIFACT- I, II, AVR, AVL, AVF, V2-V3 BORDERLINE ECG NO PREVIOUS ECG AVAILABLE FOR COMPARISON Electronically Signed On 06-01-2023 15:27:25 TEST ADMINISTRATOR by Henok Watkins D.O.
--- NOTE | 2023-06-01 10:44 | ED.SOB ---
HPI - SOB/Dyspnea General Chief Complaint: Chest Pain Stated Complaint: MULTI C/O Time Seen by Provider: 06/01/23 10:29 Source: patient Mode of arrival: ambulatory Limitations: no limitations History of Present Illness HPI Narrative: Medina is a 4-year-old female patient presenting to the ER today with complaints shortness of breath, leg swelling, and left-sided chest pain that started 2 days ago. She reports she has got a sharp pain to the left chest. Is audibly wheezing in the ER today. Did take her home medications this morning which included her blood pressure/diuretic and breathing treatment. Rates her chest discomfort 10 and 10 currently. SpO2 94-95% on room air. Patient has an increased work to breathe. Is able to speak in full sentences. Current smoker Related Data Home Medications Medication Instructions Recorded Confirmed albuterol sulfate 2.5 mg/3 mL 2.5 mg inhalation Q4-6H PRN 07/04/20 05/07/23 (0.083 %) solution for nebulization Shortness Of Breath budesonide-formoterol HFA 160 2 puff inhalation Q12H 07/10/20 05/07/23 mcg-4.5 mcg/actuation aerosol inhaler (Symbicort) fluticasone propionate 50 1 spray intranasal BID 07/10/20 05/07/23 mcg/actuation nasal spray,suspension amitriptyline 100 mg tablet 100 mg PO QHS 12/19/21 05/07/23 amlodipine 2.5 mg tablet 2.5 mg PO DAILY 12/19/21 05/07/23 formoterol fumarate 20 mcg/2 mL 20 mcg inhalation ONCE 12/19/21 05/07/23 solution for nebulization (Perforomist) lisinopril 10 1 tablet PO DAILY 12/19/21 05/07/23 mg-hydrochlorothiazide 12.5 mg tablet revefenacin 175 mcg/3 mL solution 175 mcg inhalation DAILY 12/19/21 05/07/23 for nebulization (Yuzechariah) Allergies Allergy/AdvReac Type Severity Reaction Status Date / Time pneumococcal vaccine Allergy Difficulty Verified 06/01/23 10:43 Breathing Review of Systems Review of Systems: Pertinent positives per HPI. Patient denies any fever, chills, rash, headache, visual changes, dizziness, palpitations, nausea, vomiting, diarrhea, constipation, abdominal pain, or any urinary issues. PMFSH Past Medical History Medical History Abdominal pain Asthma Blood in stool COPD (chronic obstructive pulmonary disease) GERD (gastroesophageal reflux disease) HTN (hypertension) Hyperlipidemia Obese Tobacco use Surgical History Surgical History History of History of hysterectomy Family History Family History Mother Asthma Sibling Asthma Diabetes mellitus Heart disease Social History Social History Smoking packs per day: 1 Smoking cigarettes per day: 20.0 Years smoked: 39 Smoking pack-years: 39.00 Smoking status: Current every day smoker Tobacco type: cigarettes Alcohol intake: current Drinks per week: 6 Substance use: never Substance use type: does not use Living arrangements: with family Additional occupation/education comments: disabled Gender identity (if verbalized by the patient): Female Spiritual care concerns: No Comments At the time of my signature, I reviewed and agree with the nursing past medical, surgical, social, and family history. There is no relevant family history pertinent to the patient complaint. Exam Narrative: General: Well-developed, morbidly obese, in no apparent distress Head: Normocephalic, atraumatic Eyes: Pupils equally round and reactive to light bilaterally, EOM intact, sclera and conjunctive clear, no discharge, lids normal Ears: TMs intact and clear, ear canals clear, no drainage, grossly hearing normal. Nose: Nares patent, clear discharge, no inflammation, no sinus tenderness. Mouth: Oral pharynx without lesions or masses, good dentition, MMM. Neck: Supple, trachea midline, no enlargement of anterior or posterior cervical
[2023-06-01 11:01] LABS: Basophils Absolute Auto 0.1 K/mm3 (0.0-0.1); Eosinophils Absolute Auto 0.4 K/mm3 (0-0.3); Eosinophils Percent Auto 4.9 % (0-4.4); Hematocrit 38.8 % (37.0-47.0); Hemoglobin 11.9 g/dL (12.0-15.0); Immature Granulocyte Absolute 0.05 K/mm3 (0.00-0.031); Immature Granulocyte Percent A 0.7 % (0-0.5); Lymphocytes Absolute Auto 1.62 K/mm3 (0.9-3.2); Lymphocytes Percent Auto 22.7 % (18.3-44.2); Mean Corpuscular HGB Conc 30.7 g/dl (32-36); Mean Corpuscular Hemoglobin 28.8 pg (26-34); Mean Corpuscular Volume 93.9 fl (80-100); Mean Platelet Volume 9.6 fl (7.4-10.4); Monocytes Absolute Auto 0.6 K/mm3 (0.1-0.6); Monocytes Percent Auto 8.5 % (2.6-8.5); Neutrophils Absolute Auto 4.4 K/mm3 (1.3-6.7); Neutrophils Percent Auto 62.2 % (45.5-73.1); Platelet Count Result 217 k/mm3 (150-375); Red Blood Count 4.13 M/mm3 (4.2-5.4); Red Cell Distribution Width 14.4 % (11.5-14.5); White Blood Count 7.1 K/mm3 (4.5-10.0)
[2023-06-01] MEDS: IPRATROPIUM BR 0.02% INH SOLN 0.5 MG/2.5 ML VIAL 1.5 MG INHALATION (11:06)
[2023-06-01] MEDS: ALBUTEROL SULFATE NEB 2.5 MG/3 ML INH 15 MG INHALATION (11:06)
[2023-06-01 11:11] LABS: INR 0.9; Prothrombin Time 12.3 Seconds (11.1-14.7)
[2023-06-01] MEDS: ASPIRIN 81 MG CHEWABLE TABLET 324 MG PO (11:11)
[2023-06-01] MEDS: FUROSEMIDE INJ 40 MG/4 ML VIAL IV PUSH (11:11)
[2023-06-01 11:12] LABS: Partial Thromboplastin Time 27.1 SECONDS (22.3-36.8)
[2023-06-01 11:13] LABS: Alanine Aminotransferase 16 U/L (6-35); Albumin Level 3.9 g/dL (3.5-5.1); Alkaline Phosphatase 143 U/L (38-126); Anion Gap 3 mmol/L (8-16); Aspartate Amino Transferase 23 U/L (14-36); Bilirubin,Total 0.4 mg/dL (0.2-1.3); Blood Urea Nitrogen 14 mg/dL (7-17); Calcium 9.1 mg/dL (8.4-10.2); Carbon Dioxide 31 mmol/L (22-30); Chloride 103 mmol/L (98-107); Estimated CRCL calculation 85 ml/min; Estimated Glomerular Filt Rate > 60; Glucose 134 mg/dL (65-110); Sodium 137 mmol/L (137-145)
[2023-06-01 11:25] LABS: NT Pro B Type Natriuretic Pept 120 pg/mL (19.9-100); Troponin I < 0.012 ng/mL (0.000-0.034)
[2023-06-01 11:37] LABS: Influenza A QL RT-PCR Negative (Negative); Influenza B QL RT-PCR Negative (Negative); RSV RNA, RT-PCR Negative (Negative); SARS-CoV-2 RNA PCR Negative (Negative)
[2023-06-01] MEDS: methylPREDNISolone SOD SUCC 125 MG VIAL IV PUSH (12:44)
--- NOTE | 2023-06-01 13:54 | ECG_ITS ---
Measurements Intervals [place] Rate: 84 P: 69 MA: 203 QRS: 56 QRSD: 87 T: 72 QT: 355 QTc: 421 Interpretive Statements SINUS RHYTHM BASELINE ARTIFACT- I, II, III, AVR, AVL, AVF, V1-V6 NORMAL ECG COMPARED TO ECG 06/01/2023 10:43:41 NO SIGNIFICANT CHANGES Electronically Signed On 06-01-2023 15:29:52 SWEATBAND FLANGER by Henok Watkins D.O.
[2023-06-01 14:36] LABS: Troponin I < 0.012 ng/mL (0.000-0.034)
== END 2023-06-01 15:06 | disposition home or self-care (01) ==
PROVIDERS: Emergency Provider Nurse Practitioner Family; PCP Nurse Practitioner
DX: J44.1 Chronic obstructive pulmonary disease with (acute) exacerbation (principal); I10 Essential (primary) hypertension; E78.5 Hyperlipidemia, unspecified; E66.9 Obesity, unspecified; Z68.39 Body mass index [BMI] 39.0-39.9, adult; K21.9 Gastro-esophageal reflux disease without esophagitis; F17.210 Nicotine dependence, cigarettes, uncomplicated; Z90.710 Acquired absence of both cervix and uterus; I44.0 Atrioventricular block, first degree
CPT/HCPCS: 36415; 71045; 80053; 83880; 84484; 85025; 85610; 85730; 87637; 93005; 94640; 96374; 96375; 99284; A9270; J1940; J2930

== ENCOUNTER 2023-06-24 07:56 | Outpatient (CLI) | payer OTHER, SELFPAY ==
--- NOTE | ~2023-06-24 | CT_ITS ---
EXAMINATION:CT diagnostic chest wo con DATE: 06/24/2023 08:17 INDICATION: Wheezing. TECHNIQUE: Computed tomography (CT) of the chest was performed without intravenous contrast. Automate d exposure control and iterative reconstruction technique were employed. The dose-length product (DLP ) was 716.52 mGy-cm. COMPARISON: Chest CT 05/30/2023 FINDINGS: The lungs demonstrate minimal atelectasis. There is a cluster of tree-in-bud opacities in l eft lower lobe with interval improvement. No pleural effusion. The heart size is normal. No pericardi al effusion. There are changes of cholecystectomy. There is mild thoracic spondylosis. IMPRESSION: 1. Cluster of tree-in-bud opacities in left lung lower lobe with interval improvement, likely infecti on/inflammation. Reviewed, dictated and finalized at location A. IMPRESSION: 1. Cluster of tree-in-bud opacities in left lung lower lobe with interval impro vement, likely infection/inflammation.
== END 2023-06-24 07:57 | disposition home or self-care (01) ==
PROVIDERS: PCP Nurse Practitioner; Visit Provider Nurse Practitioner
DX: R06.2 Wheezing (principal); R91.8 Other nonspecific abnormal finding of lung field
CPT/HCPCS: 71250

== ENCOUNTER 2023-07-11 12:37 | Emergency (ER) | payer OTHER, SELFPAY ==
[2023-07-11] VITALS (14 sets, daily range): BP systolic 111–175; BP diastolic 69–119; PULSE 75–95; RESP 17–24; TEMP 36.4–37; O2SAT 93–100
--- NOTE | ~2023-07-11 | XR_ITS ---
EXAMINATION: XR chest 1V portable DATE: 07/11/2023 14:34 INDICATION: Chest pain. Shortness of breath. TECHNIQUE: A single frontal view of the chest was obtained. COMPARISON: Chest single view 06/01/2023, chest CT 06/24/2023 FINDINGS: There is no pneumonia, pleural effusion, or pneumothorax. The heart size is normal. IMPRESSION: 1. No acute cardiopulmonary disease. Reviewed, dictated and finalized at location A.
--- NOTE | 2023-07-11 12:38 | ECG_ITS ---
SEE SCANNED COPY FOR CONFIRMED REPORT MTDD
[2023-07-11 13:41] LABS: Basophils Absolute Auto 0.1 K/mm3 (0.0-0.1); Eosinophils Absolute Auto 0.3 K/mm3 (0-0.3); Eosinophils Percent Auto 3.2 % (0-4.4); Hematocrit 43.5 % (37.0-47.0); Hemoglobin 13.4 g/dL (12.0-15.0); Immature Granulocyte Absolute 0.05 K/mm3 (0.00-0.031); Immature Granulocyte Percent A 0.6 % (0-0.5); Lymphocytes Absolute Auto 2.17 K/mm3 (0.9-3.2); Lymphocytes Percent Auto 26.7 % (18.3-44.2); Mean Corpuscular HGB Conc 30.8 g/dl (32-36); Mean Corpuscular Hemoglobin 29.4 pg (26-34); Mean Corpuscular Volume 95.4 fl (80-100); Mean Platelet Volume 9.9 fl (7.4-10.4); Monocytes Absolute Auto 0.8 K/mm3 (0.1-0.6); Monocytes Percent Auto 9.6 % (2.6-8.5); Neutrophils Absolute Auto 4.8 K/mm3 (1.3-6.7); Neutrophils Percent Auto 58.9 % (45.5-73.1); Platelet Count Result 233 k/mm3 (150-375); Red Blood Count 4.56 M/mm3 (4.2-5.4); Red Cell Distribution Width 15.2 % (11.5-14.5); White Blood Count 8.1 K/mm3 (4.5-10.0)
--- NOTE | 2023-07-11 13:47 | ED.GENADULT ---
HPI - General Adult General Chief complaint: Chest Pain Stated complaint: chest pain Time Seen by Provider: 07/11/23 13:31 History of Present Illness HPI narrative: Patient is a 58-year-old female who presents ER with chest pain. Tightness in center of the chest. Associated shortness of breath. She is wheezing and more does smoke typical. She wears 2 L chronically. No fevers or chills or sweats. No new productive cough.r Related Data Home Medications Medication Instructions Recorded Confirmed albuterol sulfate 2.5 mg/3 mL 2.5 mg inhalation Q4-6H PRN 07/04/20 05/07/23 (0.083 %) solution for nebulization Shortness Of Breath budesonide-formoterol HFA 160 2 puff inhalation Q12H 07/10/20 05/07/23 mcg-4.5 mcg/actuation aerosol inhaler (Symbicort) fluticasone propionate 50 1 spray intranasal BID 07/10/20 05/07/23 mcg/actuation nasal spray,suspension amitriptyline 100 mg tablet 100 mg PO QHS 12/19/21 05/07/23 amlodipine 2.5 mg tablet 2.5 mg PO DAILY 12/19/21 05/07/23 lisinopril 10 1 tablet PO DAILY 12/19/21 05/07/23 mg-hydrochlorothiazide 12.5 mg tablet Allergies Allergy/AdvReac Type Severity Reaction Status Date / Time pneumococcal vaccine Allergy Difficulty Verified 07/03/23 15:07 Breathing Review of Systems Review of Systems: All systems reviewed & are unremarkable except as noted in HPI and below Constitutional: Constitutional: Reports no additional constitutional complaints ENT: Reports system reviewed and no additional complaints, except as documented Cardiovascular: Cardiovascular: Reports chest pain, Denies rapid heart rate and Denies radiating jaw, neck or arm pain Respiratory: Respiratory: Reports cough, Reports dyspnea and Reports wheezing Gastrointestinal: Gastrointestinal: Reports no additional gastrointestinal complaints Musculoskeletal: Musculoskeletal: Reports no additional musculoskeletal complaints PMFSH Past Medical History Medical History Abdominal pain Asthma Blood in stool COPD (chronic obstructive pulmonary disease) GERD (gastroesophageal reflux disease) HTN (hypertension) Hyperlipidemia Obese Tobacco use Surgical History Surgical History History of History of hysterectomy Family History Family History Mother Asthma Sibling Asthma Diabetes mellitus Heart disease Social History Social History (Updated 07/03/23 @ 15:14 by Jaclyn Denson) Social History: Caffeine-daily Smoking packs per day: 1 Smoking cigarettes per day: 20.0 Years smoked: 39 Smoking pack-years: 39.00 Smoking status: Current every day smoker Tobacco type: cigarettes Alcohol intake: current Drinks per week: 6 Substance use: never Substance use type: does not use Do You Feel Safe in your Home?: Yes Lack of Transportation: No Lack of Food: Never True Current Housing: I Have Housing Concerned About Future Housing: No Difficulty Paying Gas/Electric Bills: No Difficulty Paying for Meds: No Currently Unemployed: No Education: High School Diploma/GED Difficulty w/ Childcare or Family Care: No Living arrangements: with family Additional occupation/education comments: disabled Gender identity (if verbalized by the patient): Female Spiritual care concerns: No Exam Narrative: GENERAL: chronically ill-appearing, well-nourished, and in no acute distress. HEAD: Normocephalic, atraumatic. ENT: Mucous membranes moist. NECK: Supple. CHEST: Expiratory wheezing. Mild respiratory distress. HEART: Regular rate and rhythm. Normal peripheral pulses. ABDOMEN: Soft, nontender, nondistended. EXTREMITIES: Normal range of motion. No edema. SKIN: Warm, dry, no rash. NEURO: Alert and oriented x3. PSYCH: Normal mood and affect. Course Course Emergency Course: patient feels much better after her hour long nebulizer t
[2023-07-11 13:52] LABS: INR 0.9; Prothrombin Time 12.5 Seconds (11.1-14.7)
[2023-07-11 13:53] LABS: Partial Thromboplastin Time 26.5 Seconds (22.3-36.8)
[2023-07-11] MEDS: methylPREDNISolone SOD SUCC 125 MG VIAL IV PUSH (13:55)
[2023-07-11] MEDS: IPRATROPIUM BR 0.02% INH SOLN 0.5 MG/2.5 ML VIAL 1.5 MG INHALATION ×2 (14:16→15:58)
[2023-07-11] MEDS: ALBUTEROL SULFATE NEB 2.5 MG/3 ML INH 15 MG INHALATION ×2 (14:16→15:58)
[2023-07-11 14:53] LABS: Alanine Aminotransferase 16 U/L (6-35); Albumin Level 4.4 g/dL (3.5-5.1); Alkaline Phosphatase 130 U/L (38-126); Anion Gap 3 mmol/L (4-12); Aspartate Amino Transferase 24 U/L (14-36); Bilirubin,Total 0.5 mg/dL (0.2-1.3); Blood Urea Nitrogen 18 mg/dL (7-17); Calcium 9.8 mg/dL (8.4-10.2); Carbon Dioxide 32 mmol/L (22-30); Chloride 103 mmol/L (98-107); Estimated CRCL calculation 77 ml/min; Estimated Glomerular Filt Rate > 60; Glucose 99 mg/dL (65-110); Lipase 54 U/L (23-300); Potassium 4.3 mmol/L (3.4-5.0); Sodium 138 mmol/L (137-145)
[2023-07-11 15:05] LABS: NT Pro B Type Natriuretic Pept < 20 pg/mL (19.9-100); Troponin I < 0.012 ng/mL (0.000-0.034)
--- NOTE | 2023-07-12 12:57 | ECG_ITS ---
SEE SCANNED COPY FOR CONFIRMED REPORT MTDD
== END 2023-07-11 17:35 | disposition home or self-care (01) ==
PROVIDERS: Emergency Provider Emergency Medicine; PCP Nurse Practitioner
DX: J44.1 Chronic obstructive pulmonary disease with (acute) exacerbation (principal); I10 Essential (primary) hypertension; E78.5 Hyperlipidemia, unspecified; E66.9 Obesity, unspecified; Z68.41 Body mass index [BMI] 40.0-44.9, adult; K21.9 Gastro-esophageal reflux disease without esophagitis; F17.210 Nicotine dependence, cigarettes, uncomplicated; Z90.710 Acquired absence of both cervix and uterus; R94.31 Abnormal electrocardiogram [ECG] [EKG]
CPT/HCPCS: 36415; 71045; 80053; 83690; 83880; 84484; 85025; 85610; 85730; 93005; 94640; 96374; 99284; J2919

== ENCOUNTER 2023-07-28 12:55 | Outpatient (CLI) | payer OTHER, SELFPAY ==
--- NOTE | ~2023-07-28 | MR_ITS ---
EXAMINATION: MR brain/brain stem wo con DATE: 07/28/2023 14:27 INDICATION: Headache. TECHNIQUE: Magnetic resonance imaging (MRI) of the brain and brainstem was performed without intraven ous contrast. COMPARISON: None. FINDINGS: There are scattered areas of nonspecific increased T2-weighted signal intensity in the cere bral white matter and del. There is no intracranial hemorrhage, acute infarction, or abnormal intrac ranial mass lesion. The ventricles are normal in size. There is mild mucosal thickening in the parana david sinuses. There are likely changes of ocular lens replacement surgeries. The mastoid air cells are normal. IMPRESSION: 1. Mild nonspecific cerebral white matter disease and pontine disease, which likely represents chroni c small vessel ischemic disease. Reviewed, dictated and finalized at location A. IMPRESSION: 1. Mild nonspecific cerebral white matter disease and pontine disease, which keyona colindres represents chronic small vessel ischemic disease.
--- NOTE | ~2023-07-28 | MR_ITS ---
EXAMINATION: MR lumbar spine wo con DATE: 07/28/2023 14:27 INDICATION: Sciatica. Low back pain. TECHNIQUE: Magnetic resonance imaging (MRI) of the lumbar spine was performed without intravenous con trast. Sequences included sagittal T2-weighted FSE, sagittal T2-weighted FS FSE, sagittal T1-weighted FSE, and axial T2-weighted FSE. COMPARISON: Lumbar spine MRI 03/06/22 FINDINGS: There is 2 mm anterolisthesis of L5 on S1. Vertebral body heights and intervertebral disc h eights are normal. There are chronic bilateral L5 pars defects. The distal spinal cord signal intensi ty is normal. The conus medullaris is at T12-L1. The following disc levels are specifically discussed : L1-L2: There is a central protrusion. There is moderate right and mild left facet joint osteoarthriti s. There is no neural foraminal stenosis. There is mild central canal stenosis. L2-L3: The disc is bulging. There is mild bilateral facet joint osteoarthritis. There is mild bilater al neural foraminal stenosis. There is mild central canal stenosis. L3-L4: The disc is bulging. There is mild bilateral facet joint osteoarthritis. There is mild bilater al neural foraminal stenosis. There is no central canal stenosis. L4-L5: The disc does not extend beyond the endplate margin. There is mild bilateral facet joint osteo arthritis. There is no neural foraminal stenosis. There is no central canal stenosis. L5-S1: There is a central protrusion. There is mild bilateral facet joint osteoarthritis. There is mi ld bilateral neural foraminal stenosis. There is mild central canal stenosis. IMPRESSION: 1. Chronic bilateral L5 pars defects. 2. Stable mild lumbar spondylosis. Reviewed, dictated and finalized at location A.
== END 2023-07-28 12:56 | disposition home or self-care (01) ==
LOC: ANHIMG 12:57
PROVIDERS: PCP Nurse Practitioner; Visit Provider Student in an Organized Health Care Education/Training Program
DX: R51.9 Headache, unspecified (principal); M47.896 Other spondylosis, lumbar region; R90.82 White matter disease, unspecified
CPT/HCPCS: 70551; 72148

== ENCOUNTER 2023-08-15 07:38 | Outpatient (CLI) | payer MEDICARE, MEDICAID, SELFPAY ==
--- NOTE | ~2023-08-15 | CT_ITS ---
CT of the Abdomen and Pelvis: Indication: Abdominal pain Technique: 2.5 mm axial scans were obtained through the abdomen and pelvis following intravenous adm inistration of 100 cc of Omnipaque 350. Dose reduction technique was used on this scan by utilizing a utomated exposure control and iterative reconstruction technique. The dose-length product (DLP) was 1 268.92 mGy-cm. Findings: Scans through the lung bases are unremarkable. The liver, spleen, pancreas, adrenals and kidneys are within normal limits. Cholecystectomy clips are present. No evidence of aortic aneurysm. No lymphadenopathy. No bowel obstruction or bowel wall thickening. There is no evidence to suggest acute appendicitis. Images through the pelvis were performed. Urinary bladder unremarkable. No pelvic mass seen. No ascit es. There are bilateral L5 pars interarticularis defects. Impression: No acute abnormality. Bilateral L5 pars interarticularis defects. Reviewed, dictated and finalized at [facility]. Impression: No acute abnormality. Bilateral L5 pars interarticularis defects.
[2023-08-15 08:06] LABS: Estimated Glomerular Filt Rate > 60
== END 2023-08-15 07:39 | disposition home or self-care (01) ==
PROVIDERS: PCP Nurse Practitioner; Visit Provider Nurse Practitioner
DX: R10.11 Right upper quadrant pain (principal); R10.13 Epigastric pain; M53.86 Other specified dorsopathies, lumbar region
CPT/HCPCS: 74177; Q9967

== ENCOUNTER 2023-09-03 10:03 | Outpatient (CLI) | payer MEDICARE, MEDICAID, SELFPAY ==
[2023-09-03 11:49] LABS: Appearance Urine Clear (Clear); Bacteria Urine None Seen /hpf; Bilirubin Urine Negative (Negative); Blood Urine Negative (Negative); Color Urine Yellow (Yellow); Glucose Urine UA Negative (Negative); Ketones Urine Negative (Negative); Leukocyte Esterase Ur 1+ LEU/UL (Negative); Nitrate Urine Negative (Negative); Non Pathogenic Casts 0-2; Protein Urine Negative (Negative); RBC Urine 0-2 /hpf (0-2); Specific Grav Ur 1.014 (1.001-1.035); Squamous Epithelial Cell Urine Few /hpf (Few); Urobilinogen Urine 0.2 mg/dL (<2.0)
[2023-09-03 11:50] LABS: Add Urine Microscopic? YES
== END 2023-09-03 10:04 | disposition home or self-care (01) ==
PROVIDERS: PCP Nurse Practitioner; Visit Provider Nurse Practitioner Family
DX: R33.8 Other retention of urine (principal)
CPT/HCPCS: 81001; 87077; 87086; 87088

== ENCOUNTER 2023-09-05 09:06 | Outpatient (CLI) | payer MEDICARE, MEDICAID, SELFPAY ==
--- NOTE | ~2023-09-05 | CT_ITS ---
CT scan of the Neck Technique: 2.5 mm axial scans were obtained through the neck after intravenous administration of 75 c c Omnipaque 350. Coronal and sagittal reconstructions of the neck were obtained. Dose reduction techn ique was used on this scan by utilizing automated exposure control and iterative reconstruction techn ique. The dose-length product (DLP) was 562.55 mGy-cm. Clinical History: Wheezing, shortness of breath Findings: There is no evidence of any significant cervical lymphadenopathy. Several small, nonenlarged jugulo- digastric and posterior cervical lymph nodes are noted bilaterally. Parapharyngeal spaces appear norm al bilaterally. The parotid and submandibular glands appear normal. Apparent soft tissue thickening of the soft palate/uvula, with relative narrowing of the nasopharynx posterior to it.. No soft tissue masses are seen in the neck. The thyroid gland appears normal. Images of the lung apices reveal no abnormalities. Impression: Nonspecific thickening of the soft palate/uvula, with relative narrowing of the inferior nasopharynx posterior to it. Reviewed, dictated and finalized at location . Impression: Nonspecific thickening of the soft palate/uvula, with relative narrowing of the inferior nasopharynx posterior to it.
== END 2023-09-05 09:07 | disposition home or self-care (01) ==
LOC: ANHIMG 09:09
PROVIDERS: PCP Nurse Practitioner; Visit Provider Nurse Practitioner
DX: R06.2 Wheezing (principal); R06.02 Shortness of breath
CPT/HCPCS: 70491; Q9967

== ENCOUNTER 2023-09-17 07:57 | Outpatient (CLI) | payer MEDICARE, MEDICAID, SELFPAY ==
--- NOTE | ~2023-09-17 | NM_ITS ---
EXAM: NM gastric emptying study DATE: 09/17/2023 13:43 INDICATION: Unspecified abdominal pain. TECHNIQUE: A gastric emptying study was performed using the methodology of Gómez CATHERINE, et al. J Nucl Med 2007; 48:568-572. The patient was given a meal consisting of 2 scrambled eggs labeled with 1 mCi Tc-99m sulfur colloid, 2 slices of toast, two packages of jam, and approximately 120 mL of water. Si multaneous anterior and posterior 1-min images of the abdomen were obtained with the patient supine a t multiple time points over a total period of 4 hours. The geometric mean of anterior and posterior v iews was determined, and the percentage retention was calculated for each time point. COMPARISON: CT abdomen and pelvis 08/15/2023 FINDINGS: Gastric retention of the radiotracer-labeled meal was 39%, 18%, and 2% at the 1-hour, 2-ho ur, and 4-hour time points, respectively. With this technique, apparent rapid gastric emptying is sug gested by <30% gastric retention at 1 hour. Delayed gastric emptying is defined by gastric retention of >90% at 1 hour, >60% retention at 2 hours, or >10% retention at 4 hours. IMPRESSION: 1. Normal gastric emptying. Reviewed, dictated and finalized at location A. IMPRESSION: 1. Normal gastric emptying.
== END 2023-09-17 07:58 | disposition home or self-care (01) ==
LOC: ANHIMG 07:57
PROVIDERS: PCP Nurse Practitioner; Visit Provider Nurse Practitioner Family
DX: R10.9 Unspecified abdominal pain (principal); K21.9 Gastro-esophageal reflux disease without esophagitis
CPT/HCPCS: 78264; A9541

== ENCOUNTER 2023-09-23 01:57 | Day surgery (SDC) | payer MEDICARE, MEDICAID, SELFPAY ==
[2023-09-12 08:28] VITALS: BMI 41.3
[2023-09-23 10:14] VITALS: BP 151/70; PULSE 77; RESP 18; TEMP 36.1; O2SAT 97
--- NOTE | 2023-09-23 10:26 | WPDANESEPPF ---
Anes - Initial Pre Proc Eval Procedure: Operation Date: 09/23/23 11:00 Proposed Procedures p Esophagogastroduodenoscopy - Blayne Hendrix MD Date/Time: 09/23/23 10:26 Surgeon: Blayne Hendrix MD Pre Op Diagnosis: GERD, Abdominal Pain, Dysphagia Patient Data Age: 58 Gender: F Height: 1.52 m Weight: 95.1 kg Last Vital Signs Temp 36.1 C L 09/23/23 10:14 Pulse 77 09/23/23 10:14 Resp 18 09/23/23 10:14 BP 151/70 H 09/23/23 10:14 Pulse Ox 97 09/23/23 10:14 O2 Del Method Room Air 09/23/23 10:14 Allergies Allergy/AdvReac Type Severity Reaction Status Date / Time pneumococcal vaccine Allergy Difficulty Verified 09/23/23 10:13 Breathing Home Medications Medication Instructions Recorded Confirmed Type albuterol sulfate 2.5 mg/3 mL 2.5 mg inhalation Q4-6H PRN 07/04/20 09/12/23 History (0.083 %) solution for nebulization Shortness Of Breath budesonide-formoterol HFA 160 2 puff inhalation Q12H 07/10/20 09/12/23 History mcg-4.5 mcg/actuation aerosol inhaler (Symbicort) fluticasone propionate 50 1 spray intranasal BID 07/10/20 09/12/23 History mcg/actuation nasal spray,suspension amitriptyline 100 mg tablet 100 mg PO QHS 12/19/21 09/12/23 History amlodipine 2.5 mg tablet 2.5 mg PO DAILY 12/19/21 09/12/23 History lisinopril 10 1 tablet PO DAILY 12/19/21 09/12/23 History mg-hydrochlorothiazide 12.5 mg tablet omeprazole 40 mg capsule,delayed 40 mg PO DAILY 1 month #30 caps 07/07/23 09/12/23 Rx release prednisone 50 mg tablet 50 mg PO DAILY #7 tabs 07/11/23 09/12/23 Rx Patient hx anesthesia problems: none Family hx anesthesia problems: none Results Review: All pre-operative results and documents have been reviewed as part of the pre-operative evaluation. PMFSH Past Medical History Medical History Abdominal pain Asthma Blood in stool COPD (chronic obstructive pulmonary disease) GERD (gastroesophageal reflux disease) HTN (hypertension) Hyperlipidemia Obese Tobacco use Surgical History Surgical History History of History of hysterectomy Family History Family History Mother Asthma Sibling Asthma Diabetes mellitus Heart disease Social History Social History Social History: Caffeine-daily Smoking packs per day: 1 Smoking cigarettes per day: 20.0 Years smoked: 40 Smoking pack-years: 40.00 Smoking status: Current every day smoker Tobacco type: cigarettes Alcohol intake: current Drinks per week: 2 Substance use: never Substance use type: does not use Do You Feel Safe in your Home?: Yes Lack of Transportation: No Lack of Food: Never True Current Housing: I Have Housing Concerned About Future Housing: No Difficulty Paying Gas/Electric Bills: No Difficulty Paying for Meds: No Currently Unemployed: No Education: High School Diploma/GED Difficulty w/ Childcare or Family Care: No Living arrangements: other Additional living arrangements comments: with sp Additional occupation/education comments: disabled Gender identity (if verbalized by the patient): Female Spiritual care concerns: No Anes - Eval Final PreProcedure Day of Procedure 09/23/23 10:26 Patient weight: morbidly obese Heart: regular rate and rhythm Lungs: clear to auscultation Airway: Mallampati scale class II Neurological: alert and oriented Last oral intake: >/= 8 hours ASA classification: III Emergent: no Anesthetic plan: proceed Anesthesia type and monitoring: general GIVS and standard monitoring Results Review: All pre-operative results and documents have been reviewed as part of the pre-operative evaluation. Informed Consent: The patient's anesthetic plan and its attendant risks and benefits were discussed with the pa
[2023-09-23] MEDS: LACTATED RINGERS 1,000 ML 150 ML IV CONT (10:30)
--- NOTE | 2023-09-23 10:58 | WPDHPUPDATE1 ---
History and Physical Update Update Date/Time: 09/23/23 10:58 History and Physical has been reviewed, including an updated exam of the patient. There are NO changes in the patient's condition. Risks, benefits, and alternatives have been discussed and questions answered. Patient agrees to proceed with procedure.
[2023-09-23 11:08] VITALS: BP 117/45; PULSE 74; RESP 21; O2SAT 100
[2023-09-23 11:18] VITALS: BP 118/51; PULSE 71; RESP 17; O2SAT 100
[2023-09-23 11:28] VITALS: BP 120/50; PULSE 76; RESP 17; O2SAT 98
== END 2023-09-23 11:32 | disposition home or self-care (01) ==
PROVIDERS: PCP Nurse Practitioner; Referring Provider Nurse Practitioner Family; Visit Provider Internal Medicine Gastroenterology
PROC: 0DJ08ZZ Inspection of Upper Intestinal Tract, Via Natural or Artificial Opening Endoscopic (ICD-10-PCS; CPT 43235; principal; 2023-09-23 11:00)
DX: K21.00 Gastro-esophageal reflux disease with esophagitis, without bleeding (principal); K29.50 Unspecified chronic gastritis without bleeding; R13.10 Dysphagia, unspecified; R10.9 Unspecified abdominal pain; R33.8 Other retention of urine; J44.9 Chronic obstructive pulmonary disease, unspecified; I10 Essential (primary) hypertension; E66.9 Obesity, unspecified; Z72.0 Tobacco use; Z68.41 Body mass index [BMI] 40.0-44.9, adult
CPT/HCPCS: 43239; 88305; J2001; J2704; J7120

== ENCOUNTER 2023-10-07 08:31 | Outpatient (CLI) | payer MEDICARE, MEDICAID, SELFPAY ==
--- NOTE | ~2023-10-07 | MR_ITS ---
MR brain IAC wo con Ordering provider: Yessica Cruz History: . FACIAL DROOP . Comparison: None. Technique: MRI brain and internal auditory canals without contrast with thin slice coronal and sagitt al images through the internal auditory canals was performed per protocol. FINDINGS: BONES: Normal. CRANIOCERVICAL JUNCTION: normal. PITUITARY: Normal. MAJOR INTRACRANIAL VESSELS: Normal flow void. Left vertebral artery is not demonstrated. OPTIC NERVES AND CRANIAL NERVES VII AND VIII COMPLEXES: Grossly normal. BRAIN PARENCHYMA AND CSF SPACES: Mild nonspecific T2 white matter hyperintensities are seen in a sybil ateral periventricular and deep white matter distribution which are likely related to chronic ischemi c small vessel disease. Mild diffuse cortical atrophy. The brainstem and cerebellum are normal. No ac [place] or chronic intracranial hemorrhage. No extra axial fluid collections. Diffusion weighted and ADC mapping images reveal no recent ischemia. No midline shift or mass effect. No abnormal contrast enhan cement. PARANASAL SINUSES: Left sphenoid sinus disease. Bilateral maxillary and ethmoid sinus disease. SUPERFICIAL/SURROUNDING SOFT TISSUES: Normal. IACs: --MASTOIDS: Normal. --EXTERNAL AUDITORY CANALS AND MIDDLE EARS: Normal. --COCHLEA AND SEMICIRCULAR CANALS: Normal bilaterally. --EUSTACHIAN TUBES/FOSSAE OF ROSENMUELLER: Normal. --ABNORMAL ENHANCEMENT: None. IMPRESSION: 1. No acute intracranial process. 2. Multiple T2 and FLAIR hyperintense signal areas in the white matter suggestive of white matter di sease versus deep white matter ischemic changes. 3. Left sphenoid, bilateral ethmoid and bilateral maxillary sinus disease. 4. No definite abnormality in both IAC. Reviewed, dictated and finalized at location A. IMPRESSION: 1. No acute intracranial process. 2. Multiple T2 and FLAIR hyperintense signal areas in the white matter suggest wanda of white matter disease versus deep white matter ischemic changes. 3. Left sphenoid, bilateral ethmoid and bilateral maxillary sinus disease. 4. No definite abnormality in both IAC.
== END 2023-10-07 08:32 | disposition home or self-care (01) ==
LOC: ANHIMG 08:34
PROVIDERS: PCP Nurse Practitioner
DX: R29.810 Facial weakness (principal); J32.0 Chronic maxillary sinusitis; J32.2 Chronic ethmoidal sinusitis; J32.3 Chronic sphenoidal sinusitis
CPT/HCPCS: 70551

== ENCOUNTER 2023-11-18 08:32 | Outpatient (CLI) | payer MEDICARE, MEDICAID, SELFPAY ==
--- NOTE | ~2023-11-18 | XR_ITS ---
EXAMINATION: XR UGIAC w barium swallow DATE: 11/18/2023 09:12 INDICATION: Gastroesophageal reflux disease without esophagitis. TECHNIQUE: The patient drank thick barium, gas-producing crystals, and thin barium. Fluoroscopy of th e esophagus, stomach, and proximal small bowel was performed. Fluoroscopy exposure time was 1.1 minut es. The total number of images was 514. Total dose-area product was 3.811 Gy-cm^2. COMPARISON: CT abdomen and pelvis 08/15/2023 FINDINGS: There is no mass or stricture of the esophagus. Esophageal motility is normal. There is no hiatal hernia. The stomach and proximal small bowel show normal folding patterns. Surgical clips in t he right upper quadrant are likely from cholecystectomy. IMPRESSION: 1. Normal upper gastrointestinal series. Reviewed, dictated and finalized at location A.
== END 2023-11-18 08:33 | disposition home or self-care (01) ==
PROVIDERS: PCP Nurse Practitioner; Visit Provider Nurse Practitioner Family
DX: K21.9 Gastro-esophageal reflux disease without esophagitis (principal)
CPT/HCPCS: 74246

== ENCOUNTER 2023-11-27 08:40 | Outpatient (CLI) | payer MEDICARE, MEDICAID, SELFPAY ==
[2023-11-27 10:32] LABS: Erythrocyte Sedimentation Rate 15 mm/hr (0-20)
[2023-11-27 10:35] LABS: CRP 0.6 mg/dL (<1.0)
[2023-11-27 11:16] LABS: Complement C3 150 mg/dL (88-165); Rheumatoid Factor < 12.0 IU/ML (<12)
[2023-11-28 14:09] LABS: Myeloperoxidase Antibody <1.0 AI; Proteinase 3 PR3 Antibodies <1.0 AI; SS-A <1.0 NEG AI (<1.0 NEG); SS-B <1.0 NEG AI (<1.0 NEG)
[2023-11-28 15:03] LABS: Cyclic Citrullinated Peptide <16 UNITS
[2023-11-29 14:08] LABS: Anti Glomerular Basement Memb <1.0 AI
[2023-12-03 10:18] LABS: ANCA Screen NEGATIVE (NEGATIVE)
== END 2023-11-27 08:41 | disposition home or self-care (01) ==
PROVIDERS: PCP Nurse Practitioner; Visit Provider Nurse Practitioner
DX: R06.2 Wheezing (principal); G89.4 Chronic pain syndrome; R68.2 Dry mouth, unspecified
CPT/HCPCS: 36415; 83520; 85652; 86036; 86038; 86039; 86140; 86160; 86200; 86225; 86235; 86430

== ENCOUNTER 2024-01-09 09:30 | Outpatient (CLI) | payer MEDICARE, MEDICAID, SELFPAY ==
[2024-01-09 10:44] LABS: Rheumatoid Factor < 12.0 IU/ML (<12)
[2024-01-09 10:46] LABS: Anion Gap 6 mmol/L (4-12); Blood Urea Nitrogen 21 mg/dL (7-17); CRP 0.6 mg/dL (<1.0); Calcium 8.8 mg/dL (8.4-10.2); Carbon Dioxide 31 mmol/L (22-30); Chloride 102 mmol/L (98-107); Estimated Glomerular Filt Rate > 60; Glucose 146 mg/dL (65-110); Potassium 3.8 mmol/L (3.4-5.0); Sodium 139 mmol/L (137-145)
[2024-01-09 10:49] LABS: Erythrocyte Sedimentation Rate 15 mm/hr (0-20)
[2024-01-12 14:33] LABS: SS-A <1.0 NEG AI (<1.0 NEG); SS-B <1.0 NEG AI (<1.0 NEG)
[2024-01-13 15:43] LABS: Cyclic Citrullinated Peptide <16 UNITS
[2024-01-14 08:24] LABS: Anti Nuclear Antibody Pattern Cytoplasmic; Anti Nuclear Antibody Titer 1:40 titer
[2024-01-15 12:19] LABS: ANCA Screen NEGATIVE (NEGATIVE)
[2024-01-16 09:24] LABS: Myeloperoxidase Antibody <1.0 AI; Proteinase 3 PR3 Antibodies <1.0 AI
== END 2024-01-09 09:31 | disposition home or self-care (01) ==
PROVIDERS: PCP Nurse Practitioner; Visit Provider Nurse Practitioner
DX: R06.2 Wheezing (principal); G89.4 Chronic pain syndrome; R68.2 Dry mouth, unspecified; F17.218 Nicotine dependence, cigarettes, with other nicotine-induced disorders
CPT/HCPCS: 36415; 80048; 85652; 86036; 86038; 86039; 86140; 86200; 86235; 86430

== ENCOUNTER 2024-01-19 11:04 | Emergency (ER) | payer MEDICARE, MEDICAID, SELFPAY ==
--- NOTE | ~2024-01-19 | US_ITS ---
BILATERAL LOWER EXTREMITY VENOUS ULTRASOUND Ordering provider: Ronny Camacho MD History: . leg swelling . Comparison: None. FINDINGS: RIGHT LOWER EXTREMITY VEINS: --COMMON FEMORAL: Patent and free of thrombus. Normal compressibility, phasic flow and augmentation. --PROXIMAL SUPERFICIAL FEMORAL: Patent and free of thrombus. Normal compressibility, phasic flow and augmentation. --DISTAL SUPERFICIAL FEMORAL: Patent and free of thrombus. Normal compressibility, phasic flow and au gmentation. --POPLITEAL: Patent and free of thrombus. Normal compressibility, phasic flow and augmentation. --POSTERIOR TIBIAL: Patent and free of thrombus. Normal compressibility, phasic flow and augmentation . LEFT LOWER EXTREMITY VEINS: --COMMON FEMORAL: Patent and free of thrombus. Normal compressibility, phasic flow and augmentation. --PROXIMAL SUPERFICIAL FEMORAL: Patent and free of thrombus. Normal compressibility, phasic flow and augmentation. --DISTAL SUPERFICIAL FEMORAL: Patent and free of thrombus. Normal compressibility, phasic flow and au gmentation. --POPLITEAL: Patent and free of thrombus. Normal compressibility, phasic flow and augmentation. --POSTERIOR TIBIAL: Patent and free of thrombus. Normal compressibility, phasic flow and augmentation . IMPRESSION: Negative bilateral lower extremity venous US. No deep vein thrombosis. Reviewed, dictated and finalized at location A.
--- NOTE | ~2024-01-19 | XR_ITS ---
XR chest 1V portable Ordering provider: Ronny Camacho MD History: 58 years Female with . SOB . Comparison: July 11, 2023 FINDINGS: MEDIASTINUM: The cardiac silhouette is not enlarged. LUNGS: No infiltrates, effusions or pneumothorax. Slightly prominent markings in the lower lobes. OTHER: No free air under the diaphragm. Degenerative changes of the spine. IMPRESSION: No acute cardiopulmonary pathology. Reviewed, dictated and finalized at location A.
[2024-01-19 11:10] VITALS: BP 134/49; PULSE 90; RESP 20; TEMP 36.4; O2SAT 96
--- NOTE | 2024-01-19 12:03 | ED_ITS ---
HPI - Extremity Problem General Chief complaint: Extremity Problem,Nontraumatic Stated complaint: bilateral swelling & pain r/o DVT Time Seen by Provider: 01/19/24 11:33 History of Present Illness HPI Narrative: 58-year-old female presents emergency department for evaluation for bilateral leg swelling that started approximately 2 weeks ago. Patient also complains of bilateral leg pain. Patient denies any falls or injuries. Patient does have history of CHF and does take Lasix. Related Data Home Medications Medication Instructions Recorded Confirmed albuterol sulfate 2.5 mg/3 mL 2.5 mg inhalation Q4-6H PRN 07/04/20 11/05/23 (0.083 %) solution for nebulization Shortness Of Breath budesonide-formoterol HFA 160 2 puff inhalation Q12H 07/10/20 11/05/23 mcg-4.5 mcg/actuation aerosol inhaler (Symbicort) fluticasone propionate 50 1 spray intranasal BID 07/10/20 11/05/23 mcg/actuation nasal spray,suspension amitriptyline 100 mg tablet 100 mg PO QHS 12/19/21 11/05/23 amlodipine 2.5 mg tablet 2.5 mg PO DAILY 12/19/21 11/05/23 lisinopril 10 1 tablet PO DAILY 12/19/21 11/05/23 mg-hydrochlorothiazide 12.5 mg tablet Allergies Allergy/AdvReac Type Severity Reaction Status Date / Time pneumococcal vaccine Allergy Difficulty Verified 01/19/24 11:12 Breathing Review of Systems Review of Systems: All systems reviewed & are unremarkable except as noted in HPI and below PMFSH Past Medical History Medical History Abdominal pain Asthma Blood in stool COPD (chronic obstructive pulmonary disease) GERD (gastroesophageal reflux disease) HTN (hypertension) Hyperlipidemia Obese Tobacco use Surgical History Surgical History History of History of hysterectomy Family History Family History Mother Asthma Sibling Asthma Diabetes mellitus Heart disease Social History Social History Social History: Caffeine-daily Smoking packs per day: 1 Smoking cigarettes per day: 20.0 Years smoked: 40 Smoking pack-years: 40.00 Smoking status: Current every day smoker Tobacco type: cigarettes Alcohol intake: current Drinks per week: 2 Substance use: never Substance use type: does not use Do You Feel Safe in your Home?: Yes Lack of Transportation: No Lack of Food: Never True Current Housing: I Have Housing Concerned About Future Housing: No Difficulty Paying Gas/Electric Bills: No Difficulty Paying for Meds: No Currently Unemployed: No Education: High School Diploma/GED Difficulty w/ Childcare or Family Care: No Living arrangements: other Additional living arrangements comments: with sp Additional occupation/education comments: disabled Gender identity (if verbalized by the patient): Female Spiritual care concerns: No Exam Narrative: APPEARANCE: Well appearing, no pain, no distress, well-nourished. HEAD: normocephalic, atraumatic. EYES: PERRLA/EOMI, conjunctivae clear. NOSE: Normal no drainage EARS:TMS clear with good light reflex. THROAT: Pharynx clear, no exudate. NECK: Supple. No adenopathy, no masses. RESPIRATORY: Airway patent, respirations nonlabored. Clear to auscultation bilaterally, no rales, rhonchi, wheezing. CARDIOVASCULAR: Regular rate and rhythm without murmurs rubs or gallops. ABDOMINAL: Soft, nontender, nondistended, normal bowel sounds MUSCULOSKELETAL: Moves all extremities. Strength/ROM intact, No edema, No calf tenderness. NEURO: Alert. Cranial nerves II through XII intact. Grossly intact SKIN: Warm, dry. Normal Color Course Vital Signs Vital signs: Vital Signs Temperature 97.6 F 01/19/24 11:10 Pulse Rate 90 01/19/24 11:10 Respiratory Rate 20 01/19/24 11:10 Blood Pressure 134/49 L 01/19/24 11:10 Pulse Oximetry 96 01/19/24 11:10 Oxygen Delivery Room Air 01/19/24 11:10 Temperature 97.6 F 01/19/24 11:10 Pulse Rate 84 01/19/24 14:18 Respiratory Rate 18 01/19/24 14:18 Blood Pressure 164/81 H 01/19/24 14:18 Pulse Oximetry 94 01/19/24 14:18 Oxygen Delivery Room Air 01/19/24 12:44 Fraction of Inspired Oxygen 21 01/19/24 12:44 MDM - Extremity (Nontraumatic) MDM Narrative Medical decision making narrative: 4-year-old female presents emergency department for evaluation for lower extremity swelling. ultrasound was negative for DVT. Patient is afebrile with no leukocytosis and a stable hemoglobin. Low concern for cellulitis. Patient was treated with Lasix for the lower extremity swelling. Patient was also eliceo asulo with albuterol for her underlying COPD. Patient was also provided medication for pain control. All questions concerns were addressed patient was comfortable plan with discharge and close follow-up. Differential Diagnosis Differential diagnosis: Likely superficial thrombophlebitis, lower extremity edema and deep vein thrombosis of lower extremity Lab Data 01/19/24 12:14 01/19/24 12:14 Labs: Lab Results 01/19/24 01/19/24 Range/Units 11:54 12:14 WBC 6.4 (4.5-10.0) K/mm3 RBC 4.13 L (4.2-5.4) M/mm3 Hgb 12.5 (12.0-15.0) g/dL Hct 38.8 (37.0-47.0) % MCV 93.9 (80-100) fl MCH 30.3 (26-34) pg MCHC 32.2 (32-36) g/dl RDW 13.9 (11.5-14.5) % Plt Count 194 (150-375) k/mm3 MPV 9.8 (7.4-10.4) fl Immature Gran % (Auto) 0.6 H (0-0.5) % Neut % (Auto) 66.3 (45.5-73.1) % Lymph % (Auto) 20.0 (18.3-44.2) % [place] % (Auto) 7.8 (2.6-8.5) % Eos % (Auto) 4.5 H (0-4.4) % Baso % (Auto) 0.8 (0.2-1.2) % Lymph # (Auto) 1.29 (0.9-3.2) K/mm3 [place] # (Auto) 0.5 (0.1-0.6) K/mm3 Eos # (Auto) 0.3 (0-0.3) K/mm3 Baso # (Auto) 0.1 (0.0-0.1) K/mm3 Abs Immat Gran (auto) 0.04 H (0.00-0.031) K/mm3 Absolute Neuts (auto) 4.3 (1.3-6.7) K/mm3 Absolute Nucleated RBC 0.000 (0.0-0.012) K/mm3 Nucleated RBC % 0.0 (0.0-0.2) % PT 12.8 (11.1-14.7) Seconds INR 0.9 APTT 26.0 (22.3-36.8) Seconds Sodium 139 (137-145) mmol/L Potassium 3.8 (3.4-5.0) mmol/L Chloride 102 (98-107) mmol/L Carbon Dioxide 34 H (22-30) mmol/L Anion Gap 3 L (4-12) mmol/L BUN 13 D (7-17) mg/dL Creatinine 0.70 (0.7-1.0) mg/dL Estim Creat Clear Calc Not Reportable Estimated GFR > 60 (59 - ) Glucose 87 (65-110) mg/dL Calcium 9.2 (8.4-10.2) mg/dL NT-Pro-B Natriuret Pep 165 H (19.9-100) pg/mL Influenza A (RT-PCR) Negative (Negative) Influenza B (RT-PCR) Negative (Negative) RSV (RT-PCR) Negative (Negative) SARS-CoV-2 RNA (RT-PCR) Negative (Negative) Discharge Plan Discharge Clinical Impression: Acute dyspnea, COPD (chronic obstructive pulmonary disease), Leg edema Patient Disposition: Home, Self-Care Condition: Stable Instructions: Antibiotic Form Additional Instructions: Ibuprofen for pain control. [place] as needed for additional pain control. Continue to take your water pill as directed. Have close follow-up with your primary care physician. If you have any worsening symptoms then please call or return to the emergency department Prescriptions: New hydrocodone-acetaminophen 5-325 mg tablet 1 tablet PO Q12H PRN (Reason: pain) Qty: 10 0RF No Action fluticasone propionate 50 mcg/actuation spray,suspension 1 spray intranasal BID Rx Instructions: administer into each nostril budesonide-formoterol [Symbicort] 160-4.5 mcg/actuation HFA aerosol inhaler 2 puff inhalation Q12H amitriptyline 100 mg tablet 100 mg PO QHS amlodipine 2.5 mg tablet 2.5 mg PO DAILY lisinopril-hydrochlorothiazide 10-12.5 mg tablet 1 tablet PO DAILY metoclopramide HCl [Reglan] 5 mg tablet 5 mg PO BID 30 Days Qty: 60 3RF albuterol sulfate 2.5 mg /3 mL (0.083 %) solution for nebulization 2.5 mg inhalation Q4-6H PRN (Reason: Shortness Of Breath) prednisone 50 mg tablet 50 mg PO DAILY Qty: 7 0RF omeprazole 40 mg capsule,delayed release(DR/EC) See Rx Instructions .ROUTE .COMPLEX Qty: 30 6RF Dose Instruction: Take 1 capsule by mouth once daily Rx Instructions: Take 1 capsule by mouth once daily Follow-up/Referrals: Carroll,JOHN Johnson [Primary Care Provider] -
[2024-01-19 12:25] LABS: Basophils Absolute Auto 0.1 K/mm3 (0.0-0.1); Basophils Percent Auto 0.8 % (0.2-1.2); Eosinophils Absolute Auto 0.3 K/mm3 (0-0.3); Eosinophils Percent Auto 4.5 % (0-4.4); Hematocrit 38.8 % (37.0-47.0); Hemoglobin 12.5 g/dL (12.0-15.0); Immature Granulocyte Absolute 0.04 K/mm3 (0.00-0.031); Immature Granulocyte Percent A 0.6 % (0-0.5); Lymphocytes Absolute Auto 1.29 K/mm3 (0.9-3.2); Mean Corpuscular HGB Conc 32.2 g/dl (32-36); Mean Corpuscular Hemoglobin 30.3 pg (26-34); Mean Corpuscular Volume 93.9 fl (80-100); Mean Platelet Volume 9.8 fl (7.4-10.4); Monocytes Absolute Auto 0.5 K/mm3 (0.1-0.6); Monocytes Percent Auto 7.8 % (2.6-8.5); Neutrophils Absolute Auto 4.3 K/mm3 (1.3-6.7); Neutrophils Percent Auto 66.3 % (45.5-73.1); Platelet Count Result 194 k/mm3 (150-375); Red Blood Count 4.13 M/mm3 (4.2-5.4); Red Cell Distribution Width 13.9 % (11.5-14.5); White Blood Count 6.4 K/mm3 (4.5-10.0)
[2024-01-19 12:36] LABS: Influenza A QL RT-PCR Negative (Negative); Influenza B QL RT-PCR Negative (Negative); RSV RNA, RT-PCR Negative (Negative); SARS-CoV-2 RNA PCR Negative (Negative)
[2024-01-19 12:37] LABS: Anion Gap 3 mmol/L (4-12); Blood Urea Nitrogen 13 mg/dL (7-17); Calcium 9.2 mg/dL (8.4-10.2); Carbon Dioxide 34 mmol/L (22-30); Chloride 102 mmol/L (98-107); Estimated Glomerular Filt Rate > 60; Glucose 87 mg/dL (65-110); Potassium 3.8 mmol/L (3.4-5.0); Sodium 139 mmol/L (137-145)
[2024-01-19 12:40] LABS: INR 0.9; Prothrombin Time 12.8 Seconds (11.1-14.7)
[2024-01-19 12:44] VITALS: PULSE 80; RESP 20; O2SAT 98
[2024-01-19] MEDS: ALBUTEROL SULFATE NEB 2.5 MG/3 ML INH 5 MG INHALATION (12:44)
[2024-01-19 12:46] LABS: NT Pro B Type Natriuretic Pept 165 pg/mL (19.9-100)
[2024-01-19 13:02] VITALS: PULSE 105; RESP 24
[2024-01-19] MEDS: FUROSEMIDE INJ 40 MG/4 ML VIAL IV PUSH (14:15)
[2024-01-19] MEDS: HYDROcodone/acetaminophen (*CRX) 5-325 MG TABLET 1 TAB PO (14:16)
[2024-01-19 14:18] VITALS: BP 164/81; PULSE 84; RESP 18; O2SAT 94
== END 2024-01-19 14:20 | disposition home or self-care (01) ==
PROVIDERS: Emergency Provider Emergency Medicine; PCP Nurse Practitioner
DX: R60.0 Localized edema (principal); R06.00 Dyspnea, unspecified; J44.9 Chronic obstructive pulmonary disease, unspecified; Z20.822 Contact with and (suspected) exposure to COVID-19; I11.0 Hypertensive heart disease with heart failure; I50.9 Heart failure, unspecified; E78.5 Hyperlipidemia, unspecified; E66.9 Obesity, unspecified; Z68.41 Body mass index [BMI] 40.0-44.9, adult; K21.9 Gastro-esophageal reflux disease without esophagitis; F17.210 Nicotine dependence, cigarettes, uncomplicated
CPT/HCPCS: 36415; 71045; 80048; 83880; 85025; 85610; 85730; 87637; 93970; 94640; 96374; 99284; A9270; J1940

== ENCOUNTER 2024-02-16 08:37 | Outpatient (CLI) | payer MEDICARE, MEDICAID, SELFPAY ==
--- NOTE | 2024-02-16 | ECHO_ITS ---
Patient Info Name: Medina Cox Age: 59 years : 1965 Gender: Female Ht: 59 in Wt: 213 lbs BSA: 2.07 m2 HR: 90 bpm BP: 184 / 101 mmHg Heart Rhythm: Sinus Rhythm Technical Quality: Poor Exam Date: 02/16/2024 9:10 AM Exam Location: Echo Lab Patient Status: Outpatient Admit Date: 02/16/2024 Staff Ordering Physician: DanielPaula Credit Adjuster: Diana May RDCS Attending Provider: DnaielPaula Exam Type: CA echo dop color flow w con Study Info Indications I50.30 - Unspecified diastolic (congestive) heart failure R60.0 - Localized edema Complete two-dimensional, color flow and Doppler transthoracic echocardiogram is performed with contrast to opacify the left ventricle and to improve the deliniation of the left ventricle endocardial borders. Strain analysis performed. Contrast/Agitated Saline Contrast/Ag. Saline: Definity Amount: 2.00 ml New IV Access: Outer Forearm and Right Site Condition: No extravasation, Site dressing applied and IV removed Reason for Poor Study: patient body habitus Summary 1. Technically challenging exam, saline contrast injected to improve visualization. 2. Normal left ventricular size thickness systolic and diastolic function. 3. Trivial amount of tricuspid insufficiency. 4. Sinus rhythm. Left Ventricle Left ventricular chamber dimension is normal. Left ventricular systolic function is normal, estimated at 65-70%. The left ventricular diastolic function is normal. Right Ventricle Right ventricular chamber dimension is normal. Left Atria Left atrial chamber dimension is normal. Right Atria Right atrial chamber dimension is normal. Aortic Valve The aortic valve is trileaflet. There is no aortic valve sclerosis. There is no aortic valve stenosis. Pulmonic Valve The pulmonic valve is not well visualized. Mitral Valve The mitral valve has normal leaflets. Tricuspid Valve The tricuspid valve leaflets are normal. There is trace tricuspid valve regurgitation. Pericardium/Pleural The pericardium appears normal. Aorta The aortic root size at the sinus of Valsalva is normal. Left Ventricular Outflow Tract Name Value Normal LVOT 2D LVOT Diameter 2.01 cm LVOT Doppler LVOT Peak Gradient 5 mmHg LVOT Mean Gradient 3 mmHg LVOT VTI 24.68 cm LVOT VTI/AV VTI Ratio 0.80 LVOT Stroke Volume 78.18 ml LVOT CO 5.91 l/min LVOT CI 2.86 L/min/m2 Pulmonic Valve Name Value Normal RVOT Doppler RVOT Peak Gradient 6 mmHg PV Doppler PV Peak Gradient 8 mmHg Mitral Valve Name Value Normal MV Doppler MV Decel [place] 569.38 cm/s2 MV PHT 0 s MV Area (PHT) 4.66 cm2 4.00-5.00 MV Diastolic Function MV E Peak Velocity 92.74 cm/s MV A Peak Velocity 82.64 cm/s MV E/A 1.12 MV Decel Time 0 s Tricuspid Valve Name Value Normal TV Regurgitation Doppler TR Peak Velocity 284.66 cm/s TR Peak Gradient 32 mmHg Estimated PAP/RSVP RA Pressure 10 mmHg <=5 PA Systolic Pressure 42 mmHg <36 RV Systolic Pressure 42 mmHg <36 Aorta Name Value Normal Ascending Aorta Ao Root Diameter (MM) 2.88 cm Ao Root Diam Index (MM) 1.39 cm/m2 Aortic Valve Name Value Normal AV Doppler AV Peak Velocity 134.75 cm/s AV Peak Gradient 7 mmHg AV Mean Gradient 5 mmHg AV VTI 30.74 cm AV Area (Cont Eq VTI) 2.54 cm2 >=3.00 AV Area (Cont Eq Ayana) 2.72 cm2 AV Regurgitation 2D LVOT Area 3.17 cm2 Ventricles Name Value Normal LV Dimensions 2D/MM IVS Diastolic Thickness (2D) 0.62 cm 0.60-1.00 IVS Diastole Thickness (MM) 0.75 cm 0.60-0.90 LVID Diastole (2D) 4.06 cm 3.80-5.20 LVID Diastole (MM) 4.50 cm 3.80-5.20 LVIW Diastolic Thickness (2D) 1.15 cm 0.60-0.90 LVIW Diastolic Thickness (MM) 1.01 cm 0.60-0.90 LVID Systole (2D) 2.65 cm 2.20-3.50 LVID Systole (MM) 2.45 cm 2.20-3.50 LVOT Diameter 2.01 cm LV Mass (2D Cubed) 109.48 g 67.00-162.00 LV Mass Index (2D Cubed) 0.01 g/cm2 0.00-0.01 Relative Wall Thickness (2D) 0.56 LV Mass (MM Cubed) 128.62 g 67.00-162.00 LV Mass Index (MM Cubed) 0.01 g/cm2 0.00-0.01 Relative Wall Thickness (MM) 0.45 LV Fractional Shortening/Ejection Fraction 2D/MM LV Fractional Shortening (2D) 35 % 27-45 LV Fractional Shortening (MM) 50 % 27-45 LV EF (MM Teicholz) 81 % 54-74 LV EF (2D Teicholz) 64 % 54-74 LV Diastolic Volume (4C MOD) 83.79 ml LV EF (4C MOD) 69 % LV Diastolic Volume (2C MOD) 62.68 ml LV EF (2C MOD) 57 % LV Diastolic Volume (BP MOD) 73.34 ml 46.00-106.00 LV Diastolic Volume Index (BP MOD) 0.04 l/m2 0.03-0.06 LV Systolic Volume (BP MOD) 26.74 ml 14.00-42.00 LV Systolic Volume Index (BP MOD) 0.01 l/m2 0.01-0.02 LV EF (BP MOD) 64 % 54-74 LV Diastolic Length (4C) 7.89 cm LV Systolic Length (4C) 6.26 cm LV Stroke Volume (4C MOD) 58.12 ml Atria Name Value Normal LA Dimensions LA Dimension (MM) 3.28 cm 2.70-3.80 LA Volume (4C A-L) 43.47 ml RA Dimensions RA Area (4C) 10.77 cm2 <=18.00 EchoPAC Name Value Normal AutoEF LVCO_BiP_Q (Nxya3YDG) 2.61 l/min LVEF_BiP_Q (Fhnf0UYN) 43 % LVSV_BiP_Q (Gtwi5TCK) 33.66 ml LVVED_BiP_Q (Ivus0QJM) 78.94 ml LVVES_BiP_Q (Cebc2BGP) 45.28 ml HR_4Ch_Q (Pdpv1WXJ) 74 1/min LVCO_4Ch_Q (Mpyh2QJU) 1.90 l/min LVEF_4Ch_Q (Kotf3OFZ) 36 % LVLd_4Ch_Q (Lcyj1IAM) 8.76 cm LVLs_4Ch_Q (Xhjj2LCC) 7.74 cm LVSV_4Ch_Q (Nbqf2CVK) 25.72 ml LVVED_4Ch_Q (Ekdd5VVK) 71.25 ml LVVES_4Ch_Q (Hyuk8DCO) 45.53 ml HR_2Ch_Q (Zdhk2JNN) 75 1/min LVCO_2Ch_Q (Jenj9LYM) 3.33 l/min LVEF_2Ch_Q (Jfae6DVL) 50 % LVLd_2Ch_Q (Ukcf6SZD) 8.61 cm LVLs_2Ch_Q (Xnch6XEI) 7.25 cm LVSV_2Ch_Q (Kgxm7LGX) 44.26 ml LVVED_2Ch_Q (Dkbj9DJO) 89.42 ml LVVES_2Ch_Q (Dtav9BAO) 45.15 ml [place] AA peak sys SL (AWMA) 5 % AAS peak sys SL (AWMA) 13 % AI peak sys SL (AWMA) 5 % AL peak sys SL (AWMA) 3 % AP peak sys SL (AWMA) 3 % peak sys SL (AWMA) 12 % AVC (AWMA) 0 s BA peak sys SL (AWMA) 19 % BAS peak sys SL (AWMA) 18 % BI peak sys SL (AWMA) 23 % BL peak sys SL (AWMA) 14 % BP peak sys SL (AWMA) 21 % BS peak sys SL (AWMA) 15 % G peak SL(A2C) (AWMA) 12 % G peak SL(A4C) (AWMA) 13 % G peak SL(APLAX) (AWMA) 13 % G peak SL(Avg) (AWMA) 12 % MA peak sys SL (AWMA) 6 % MAS peak sys SL (AWMA) 15 % FL peak sys SL (AWMA) 16 % ML peak sys SL (AWMA) 9 % MP peak sys SL (AWMA) 10 % MS peak sys SL (AWMA) 19 % Report Signatures
[2024-02-16] MEDS: PERFLUTREN LIPID MICROSPHERES 1.5 ML VIAL DILUTED TO 10 ML TOTAL VOLUME IV PUSH (09:50)
--- NOTE | 2024-02-16 13:09 | IVDEFINITY ---
Prior to administration of IV Definity the patient was educated on the risks and benefits of the imaging enhancing agent including potential adverse side effects. The patient verbalized understanding. Allergies were verified. No exclusion criteria were identified and at least one of the following inclusion criteria were met: 1) physician request, 2) patient technically difficult to image (per the [place] [employer] guidelines of two or more segments not discernable within the apical view), or 3) questionable left ventricular function. ?
== END 2024-02-16 08:38 | disposition home or self-care (01) ==
LOC: ANHCARD 08:41
PROVIDERS: PCP Nurse Practitioner
DX: R60.9 Edema, unspecified (principal); I50.30 Unspecified diastolic (congestive) heart failure; I10 Essential (primary) hypertension
CPT/HCPCS: C8929; Q9957

== ENCOUNTER 2024-05-31 13:44 | Outpatient (CLI) | payer MEDICARE, MEDICAID, SELFPAY | END 2024-05-31 13:45 | disposition home or self-care (01) | LOC: ANHLAB 13:46 | PROVIDERS: PCP Nurse Practitioner; Visit Provider Nurse Practitioner Family | DX: R19.5 Other fecal abnormalities (principal) | CPT/HCPCS: 87045; 87427; 87449 ==

== ENCOUNTER 2024-06-18 14:22 | Outpatient (CLI) | payer MEDICARE, MEDICAID, SELFPAY ==
--- NOTE | ~2024-06-18 | MM_ITS ---
EXAMINATION: MM screening [facility] BI w autumn HISTORY: Screening TECHNIQUE: Craniocaudal and mediolateral oblique 3-D tomosynthesis images were obtained and synthetic 2-D images were generated. CAD analysis was submitted and interpreted. COMPARISON: Comparison to multiple prior studies sequentially, with oldest reviewed study dated 04/19. BREAST PARENCHYMAL COMPOSITION: Not Dense: The breasts are almost entirely fatty. FINDINGS: There is no evidence of suspicious mass, calcification, or architectural distortion to sugg est malignancy in either breast. There has been no suspicious interval change. IMPRESSION: 1. No mammographic evidence of malignancy. 2. Recommend routine screening mammography in one year. BI-RADS Category 1: Negative Reviewed, dictated and finalized at location B.
--- OUTSIDE RECORDS SUMMARY | 2024-06-18 14:41 | XMS_ITS | Encounter Summary ---
Author Organization [facility] Address [address] [place] [address] Care Team Providers Care Molded Goods Inspector Trimmer Name Role Phone Nettie Hodges NP Primary Care Provider [phone] Reason for Referral * Surgical (Routine) - Closed Specialty Diagnoses / Procedures Referred By Gerardo dowling Referred To Contact Procedures Case request operating room: INJECTION SI JOINT Naida Gaines MD Three [facility] [address] [place] [address] Phone: tel: fax: Referral ID Status Reason Start Date Expiration Date Visits Re quested Visits Authorized [id number] Closed 11/26/2017 12/27/2018 1 1 Encounter Details Date Type Department Care Team (Late st Contact Info) Description 11/26/2017 Prep for Procedure [facility] [address] [place], [place] [id number] Naida Gaines MD Three [facility] [address] [place] [id number] Social History Tobacco Use Types Packs/Day Years Used Date Smoking Tobacco: Every Day Cigarettes 0.5 40 Smokeless Tobacco: Never Comments:She verbalized unde rstanding of the benefits of smoking cessation and states she is currently trying to quit, down to 1/2 PPD Alcohol Use Standard Drinks/Week Comments Yes 0 (1 standard drink = 0.6 oz pur e alcohol) rare beer Comments No Sex and Gender Information Value Date Recorded Sex Assigned at Female 04/26/2024 7:07 AM PRESSURE WASHER Legal Sex Female 2:16 PM PRESSURE WASHER Gender Identity Female 04/26/2024 9:06 AM PRESSURE WASHER Sexual Orientation Straight 04/26/2024 1: 33 PM PRESSURE WASHER 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, [address] [place] [phone] Shila Ruiz MD 3 [place] [address] 08/12/2024 11:00 AM CDT Office Visit [facility] - [address], [address] [place] [phone] Gracy Blair APRN 3 [facility] [address] [place] [address] 09/16/2024 10:40 AM CDT Office Visit [facility] [place] [address] [place] [address] Maurisio Jeong MD [address] [place] [address] 09/24/2024 10:00 AM CDT Office Visit [facility] [phone] Paula Sanchez MD Three [facility] [address] [place] [address] 10/28/2024 11:00 AM CDT Office Visit [facility] 3 [facility], [address] [place] [address] Gracy Blair APRN 3 [facility] [address] [place] [address] 11/01/2024 1:20 PM CDT Office Visit [facility] - [address] [facility] [address] [place] [address] Nettie Hodges NP [address] [place] [address] documented as of this encounter Visit Diagnoses Not on filedocumented in this encounter Additional Health Concerns Infection Onset Date Last Indicated Resolved Time COVID-19 Rule Out 04/03/2022 04/03/2022 04/03/2022 11:18 AM PRESSURE WASHER documented as of this encounter Care Teams Molded Goods Inspector Trimmer Relationship Specialty Start Date End Date Nettie Hodges NP [address] [place] [address] PCP - General NURSE PRACTITIONER 09/10/21 documented as of this encounter
--- OUTSIDE RECORDS SUMMARY | 2024-06-18 14:41 | XMS_ITS | Encounter Summary ---
Author Organization [facility] Address [facility] [place] [address] Care Team Providers Care Service Clerk Name Role Phone Nettie Hodges NP Primary Care Provider [phone] Encounter Details Date Type Department Care Team ([facility] Contact Info) Description 09/25/2022 MyChart Message Enc [facility] - [facility] [address] [place], [place] [address] [place], [facility] Provider Air Quality Message Social History Tobacco Use Types Packs/Day Years Used Date Smoking Tobacco: Every Day Cigarettes 0.3 40 Passive Smoke Exposure: Current Smokeless Tobacco: Never Comments:10/04/21-states not r melita to quit Alcohol Use Standard Drinks/Week Comments Yes 10 (1 standard drink = 0.6 oz pu re alcohol) rare beer PHQ-2 Answer Date Recorded Patient Health Questionnaire-2 Score 0 04/03/2022 Comments No Sex and Gender Information Value Date Recorded Sex Assigned at Female 04/26/2024 7:07 AM STOCK PITCHER Legal Sex Female 2:16 PM STOCK PITCHER Gender Identity Female 04/26/2024 9:06 AM STOCK PITCHER Sexual Orientation Straight 04/26/2024 1: 33 PM STOCK PITCHER 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 No / Unsure 08/28/2022 12:44 PM CDT documented as of this encounter Plan of Treatment Upcoming Encounters Date Type Department Care Team (Late Contact Info) Description 06/30/2024 8:00 AM CDT [facility] [address] [facility], [address] [place] [phone] Shila Ruiz MD 3 [facility] [place] [address] 08/12/2024 11:00 AM CDT [facility] [address] [facility], [address] [place] [phone] Gracy Blair LEAN MANAGER [address] [facility] [address] [place] [address] 09/16/2024 10:40 AM CDT Office Visit [facility] [place] [address] [place] [address] Maurisio Jeong MD [address] [place] [address] 09/24/2024 10:00 AM CDT Office Visit [facility] [phone] Paula Sanchez MD [facility] [address] [place] [address] 10/28/2024 11:00 AM CDT [facility] [address] [facility], [address] [place] [phone] Gracy Blair, LEAN MANAGER [address] [facility] [address] [place] [address] 11/01/2024 1:20 PM CDT Office Visit [facility] Family Medicine - [address] [facility] [address] [place] [address] Nettie Hodges NP [address] [place] [address] documented as of this encounter Visit Diagnoses Not on filedocumented in this encounter Care Teams Service Clerk Relationship Specialty Start Date End Date Nettie Hodges NP [address] [place] [address] PCP - General NURSE PRACTITIONER 09/10/21 documented as of this encounter
--- OUTSIDE RECORDS SUMMARY | 2024-06-18 14:41 | XMS_ITS | Clinical Summary ---
Author Organization [facility] Address [address] [place] [address] Care Team Providers Care Baking Powder Mixer Name Role Phone Fabian Elizabeth NURSE LDR-SMOOTH PLATER Primary Care Provider Source Comments [facility],non-owned Affiliates and Associated Physician Practices is amultiple site organization consisting of ambulatory clinics and hospital sitesin [place], [place], [place] and [place]. This disclosure is being madepursuant to the Care Everywhere program and may not contain all information available regarding this patient. Last updated [employer] [facility] Allergies No known active allergies Medications * Be aware that medications may not be up to date on this document. Alwaysverify current medications with the patient. Medication Sig Dispensed Refills Start Date End Date Status acetylcysteine 600 MG capsuleIndications:P anlobular emphysema (HCC) Take 1 (one) capsule by mouth 2 times daily 60 capsule 5 11/16/2021 Active azithromycin (Zithromax) 250 MG tablet Take 2 tabs today, then 1 tab daily for next 4 days 6 tablet 12/27/2021 Active formoterol (Perforomist) 20 MCG/2ML nebulizer solution Inhale 20 mcg by mouth 2 times daily Active albuterol (Proventil;Ventolin) (2.5 MG/3ML) 0.083% nebulizer solution Inhale by mouth 4 times daily Active budesonide (Pulmicort) 0.25 MG/2ML nebulizer suspension Inhale 0.25 mg by mouth 2 times daily Active revefenacin (Yupelri) 175 MCG/3ML nebulizer solution Inhale 175 mcg by mouth once daily Active Active Problems Problem Noted Date Diagnosed Date Primary hypertension 11/16/2021 Panlobular emphysema 11/16/2021 Obesity 11/16/2021 Chronic respiratory failure with hypoxia 022 Social History Tobacco Use Types Packs/Day Years Used Date Smoking Tobacco: Former Cigarettes Tobacco Cessation:Counseling Given: No Alcohol Use Standard Drinks/Week Comments Yes 4 (1 standard drink = 0.6 oz pur e alcohol) PHQ-2 Answer Date Recorded PHQ2 TOTAL SCORE 0 11/16/2021 Sex and Gender Information Value Date Recorded Sex Assigned at Not on file Gender Identity Not on file Sexual Orientation Not on file Last Filed Vital Signs Vital Sign Reading Time Taken Comments Blood Pressure 156/86 12/27/2021 1:34 PM CDT Pulse 82 12/27/2021 1:34 PM CDT Temperature 36.2 C (97.1 F) 12/27/2021 1:34 PM CDT Respiratory Rate 28 12/27/2021 1:34 PM CDT Oxygen Saturation 96% 12/27/2021 1:34 PM CDT Inhaled Oxygen Concentration - - Weight 91.2 kg (201 lb) 12/27/2021 1:34 PM CDT Height 149.9 cm (4' 11 ) 12/27/2021 1:34 PM CDT Body Mass Index 40.6 12/27/2021 1:34 PM CDT Plan of Treatment Health Maintenance Due Date Last Done Comments COLOGUARD (AGES 45-75) - COLON CA SCREENING 1963 COLON MONITORING 1963 COLONOSCOPY - COLON CA SCREENING 1963 CT COLONOGRAPHY - COLON CA SCREENING 1963 Colorectal Cancer Screening 1963 FIT - COLON CA SCREENING 1963 FLEX SIG - COLON CA SCREENING 1963 LIPID TESTING 1963 MEDICARE AWV 12 MONTHS 1963 PAP SMEAR 1963 HIV SCREENING 1978 DTAP/TDAP/TD VACCINES (1 - Tdap) 1982 PNEUMOCOCCAL VACCINE 50+ (1 of 2 - PCV) 1982 PNEUMOCOCCAL VACCINE (1 of 2 - PCV) 1982 ZOSTER VACCINE (1 of 2) 2013 SCREENING FOR DIABETES 11/16/2021 4, 01/14/2014, 01/13/2014, Additional history exists Respiratory Syncytial Virus (RSV) Vaccine Pt: or over 60 yrs (1 - Risk 60-74 years 1-dose series) 2023 COVID-19 VACCINE ( season) 2023 03/15/2021, 07/21/2020, 06/30/2020 DEPRESSION SCREENING 03/31/2024 11/16/2021 MAMMOGRAM 04/19/2024 04/19/2022, 04/19/2022 HEPATITIS C SCREENING Completed 02/27/2022 INFLUENZA VACCINE Completed 12/31/2023, , 12/07/2021, Additional history exists HEPATITIS B VACCINE Aged Out No longe r eligible based on patient's age to complete this topic HIB VACCINE Aged Out No longer eligi ble based on patient's age to complete this topic HPV VACCINE Aged Out No longer eligi ble based on patient's age to complete this topic MENINGOCOCCAL (Group B) VACCINE SHARED DECISION-MAKING Aged Out No longer eligible based on patient's age to complete this topic MENINGOCOCCAL GROUPS A/C/Y/W VACCINE Aged Out No longer eligible based on patient's age to complete this topic Procedures Procedure Name Priority Date/Time Associated Diagnosis Comments COMPREHENSIVE METABOLIC PANEL Routine 01/15/2014 5:30 AM CDT from Last 3 Months or Most Recently Relevant to Health Maintenance Results * (ABNORMAL) COMPREHENSIVE METABOLIC PANEL (01/15/2014 5:30 AM CDT) BUN 9 7 - 26 mg/dL [facility] Creatinine 0.7 0.6 - 1.2 mg/dL [facility] Sodium 140 136 - 145 mmol/L [facility] Potassium 3.6 3.5 - 4.5 mmol/L [facility] Chloride 107 98 - 107 mmol/L [facility] CO2 28 22 - 29 mmol/L [facility] Glucose 85 70 - 115 mg/dL [facility] Calcium 8.3(L) 8.4 - 10.2 mg/dL [facility] Protein Total 4.8(L) 6.0 - 8.3 g/dL [facility] Albumin 2.7(L) 3.4 - 5.0 g/dL [facility] Bilirubin Total 0.3 0.2 - 1.2 mg/dL [facility] Alkaline Phosphatase 79 40 - 150 Units/L [facility] ALT 7 0 - 55 Units/L [facility] AST 12 5 - 34 Units/L [facility] Anion Gap 9 8 - 18 [facility] BUN/Creatinine Ratio 13 7 - 23 [facility] Osmolality Calculated 273 270 - 300 mOsm/kg [facility] Albumin/Globulin Ratio 1.3 1.1 - 2.3 [facility] eGFR >60 >60 mL/min/1.7 3 m2 [facility] Blood specimen (specimen) BLOOD SPECIMEN / Unknown 01/15/2014 5:30 AM CDT 01/15/2014 5:40 AM CDT Tami Beard MD LAB - CHEMISTRY ESHA MILLAN [facility] [address] [phone] from Last 3 Months or Most Recently Relevant to Health Maintenance Care Teams Baking Powder Mixer Relationship Specialty Start Date End Date Fabian Elizabeth, NURSE LDR-SMOOTH PLATER [address] [place] [id number] PCP - General 08/18/20
--- OUTSIDE RECORDS SUMMARY | 2024-06-18 14:41 | XMS_ITS | Data Portability ---
Author Organization [facility], Main Office Address [address] [place] [address] Care Team Providers Care Soil Conservation Aide Name Role Phone BETONIDHI KendallA Primary Care Provider Assessment No assessment recorded. Plan of Treatment Reminders Order Date Submit Date Provider Last Modified By Organization Details Last Modified Time Details Appointments None recorded. Lab hepatic function panel, serum 2022 023 ARNALDO [facility], [address], [address], [place], [address], 3 08:37:35 igg subclasses + total, serum 2022 023 [email or web address] [facility], 2022 Migd[address], [address], [place], [address], 3 10:19:48 Referral None recorded. Procedures None recorded. Surgeries None recorded. Imaging None recorded. Medication Orders Symbicort 160 mcg-4.5 mcg/actuati on HFA aerosol inhaler 2022 023 [facility], [address] [place], [address], 3 14:50:22 Spiriva with HandiHaler 18 mcg and inhalation capsules 2022 023 [facility], [address] [place], [address], 3 14:50:26 prednisone 20 mg tablet 2022 023 [facility], [address] [place] [address], [address], 3 14:45:23 ciprofloxac in 750 mg tablet 2022 023 [facility], [address] [place] [address], [address], 3 14:45:25 Daliresp 500 mcg tablet 2022 023 [facility], [address] [place] [address], [address], 14:45:27 Daliresp 250 mcg tablet 2022 023 [facility], [address] [place] [address], [address], 3 14:45:25 budesonide 0.5 mg/2 mL suspension for nebulizatio n 2022 023 [facility], [address] [place] [address], [address], 14:47:45 Brovana 15 mcg/2 mL solution for nebulizatio n [address] [facility], [address] [place] [address], [address], 18:00:40 Yupelri 175 mcg/3 mL solution for nebulizatio n [address] [facility], [address] [place] [address], [address], 3 15:58:42 azithromyci n 500 mg tablet 2022 [address] [place] [address] Pharmacy [facility], [address] [place] [address], [address], 3 19:50:51 prednisone 10 mg tablet 2022 023 [facility]LDO [facility], [address] [facility], [place], [address], 16:07:22 Patient TargetsNo targets recorded. Patient InstructionsNo instructions recorded. Reason for Referral None Reported. Results Created Date Observation Date Name Description Value Unit Range Abnormal Flag Note LastModifiedBy Organization Detail LastModifiedTime 01/11/2001/11/2023 HEPAT IC FUNCT ION PANEL (7) protein, total 6.3 g/dL 6.0-8. 5 Not Available [facility] ([facility] [place] [facility] [address] [place], [address], 01/11/2023 08:37:34 01/11/2001/11/2023 HEPAT IC FUNCT ION PANEL (7) albumin 4.3 g/dL 3.8-4. 9 Not Available [facility] ([facility] [place] [facility] [address] [place], [address], 01/11/2023 08:37:34 01/11/2001/11/2023 HEPAT IC FUNCT ION PANEL (7) bilirubin, total 0.2 mg/dL 0.0-1. 2 Not Available [facility] ([facility] [place] [place] [facility] [address] [place], [address], 01/11/2023 08:37:34 01/11/2001/11/2023 HEPAT IC FUNCT ION PANEL (7) bilirubin, direct 0.13 mg/dL 0.00-0 .40 Not Available [facility] ([facility] [place] [place] [facility] [address] [place], [address], 01/11/2023 08:37:34 01/11/2001/11/2023 HEPAT IC FUNCT ION PANEL (7) alkaline phosphatase 146 IU/L 44-121 above high normal Not Available [facility] ([facility] [place] [place] [facility] [address] [place], [address], 01/11/2023 08:37:34 01/11/20 23 01/11/2023 HEPAT IC FUNCT ION PANEL (7) AST (SGOT) 26 IU/L 0-40 Not Available [facility] ([facility] [place] [place] [facility] [address] [facility], [place], [address], 01/11/2023 08:37:34 01/11/20 23 01/11/2023 HEPAT IC FUNCT ION PANEL (7) ALT (SGPT) 24 IU/L 0-32 Not Available [facility] ([facility] [place] [place] [facility] 0 [facility], [place], [address], 01/11/2023 08:37:34 05/27/19 23 05/27/2022 six minut e walk test* No observ ation record ed. [id number] [place] [address] (Cardiology & Emg) [address] [place] [address] [address] [facility], [place], [address], 05/29/2022 13:58:16 05/27/19 23 05/27/2022 CT, chest , w/o contr ast No observ ation record ed. [id number] [facility], [place], [address], 05/29/2022 13:58:16 06/13/19 23 05/27/2022 six minut e walk test* No observ ation record ed. BARCODE Not Available 2022 13:57:22 07/23/19 23 05/27/2022 compl ete PFT w/ post [facility] hodil ator dorene metry * No observ ation record ed. BARCODE Not Available 2022 17:09:53 Result Notes None recorded. Problems Name Problem SNOMED Code Status Onset Date Resolution Date Notes Provider Name and Address Organization Details Recorded Time Chronic back pain 476391877 Active 2017 Not Available [facility] 3 13:56:49 Chronic obstructiv e pulmonary disease 61825927 Active 2017 Not Available [facility] 3 13:56:49 Disorder of thyroid gland 33986686 Active 2017 Not Available [facility] 3 13:56:49 Pain in both feet 5159603776794 9102 Active 2021 Not Available [facility] 3 13:56:49 Chondromal acia of right patella 9667372302407 9108 Active 2020 Not Available [facility] 3 13:56:49 Pain in throat 255376858 Active 2021 Not Available [facility] 3 13:56:49 Insomnia 233735982 Active Not Available [facility] 3 13:56:49 Asthma 260770362 Active 2018 Not Available [facility] 3 13:56:49 Gastroesop hageal reflux disease 772166125 Active Not Available [facility] 3 13:56:49 Gastroesop hageal reflux disease without esophagiti s 840834641 Active 2021 Not Available [facility] 3 13:56:49 Sore throat 664072873 Active 2021 Not Available [facility] 3 13:56:49 Feeling of lump in throat 043224398 Active 2020 Not Available [facility] 3 13:56:49 Chest pain 36868107 Active 2018 Not Available [facility] 3 13:56:49 Tear of medial meniscus of knee 069249949 Active 2020 Not Available [facility] 3 13:56:50 Chondromal acia of left patella 3791010283014 06 Active 2020 Not Available [facility] 3 13:56:50 Current tear of lateral cartilage AND/OR meniscus of knee Active Not Available [facility] 3 13:56:50 Severe chronic obstructiv e pulmonary disease 141461532 Active 2018 Not Available [facility] 3 13:56:50 Daytime hypersomni a 4116093178937 2 Active 2018 Not Available [facility] 3 13:56:50 Hypoxia 922478429 Active 2018 Not Available [facility] 3 13:56:50 Chronic respirator y failure 00640356 Active 2018 Not Available [facility] 3 13:56:50 Obesity 923254510 Active 2017 Not Available [facility] 3 13:56:50 Irritable bowel syndrome characteri zed by constipati on 881297359 Active 2021 Not Available [facility] 3 13:56:50 Swelling of lower jaw region 337708726 Active 2021 Not Available [facility] 3 13:56:50 Foot pain 56536712 Active Not Available [facility] 3 13:56:50 Hyperlipid emia 74048360 Active 2017 Not Available [facility] 3 13:56:51 Wheezing 80813632 Active 2020 Not Available [facility] 3 13:56:51 Essential hypertensi on 46081923 Active 2017 Not Available [facility] 3 13:56:51 Dyspnea on exertion 98185332 Active 2018 Not Available [facility] 3 13:56:51 Smoker 44077537 Active 2017 Not Available [facility] 3 13:56:51 Epigastric pain 29569575 Active 2021 Not Available [facility] 3 13:56:51 Degenerati ve joint disease of ankle AND/OR foot 99779546 Active 2020 Not Available [facility] 3 13:56:51 Fatigue 76907112 Active 2020 Not Available [facility] 3 13:56:51 Pain in face 87201393 Active 2021 Not Available [facility] 3 13:56:51 Acute exacerbati on of chronic asthmatic bronchitis 781545760 Active 2022 Betsey Lyon, APPLICATION DEVELOPMENT DIRECTOR-BC [address] [facility], [facility] [address], [place], [address] , [facility] 3 16:06:00 Immunoglob ulins outside reference range 347720802 Active 2022 Betsey Sonali, [facility] [address] [facility], [address], [place], [address] , [facility] 3 20:05:02 Acute exacerbati on of chronic obstructiv e pulmonary disease 085987614 Active [address] [facility] [address] [facility] [address], [place], [address] , [facility] 3 14:41:15 Edema of lower extremity 685018161 Active [address] [facility] [address] [facility], [facility] [address], [place], [address] , [facility] 3 16:40:34 Problem Notes None recorded. Procedures Surgical History Date Name Laterality Status Provider Name and Address Organization Details Recorded Time Knee Surgery completed Not Available [facility] 05/29/2022 13:56:14 completed Not Available [facility] 0 05/29/2022 13:56:14 Imaging Results Imaging Date Name Status LastModified by Organization Details LastModified Time 05/27/2022 six minute walk test* completed [id number] [facility] (Cardiology & Emg) [address] [place] [address], [address], 05/29/2022 13:58:16 05/27/2022 CT, chest, w/o contrast completed [id number], [address], 05/29/2022 13:58:16 05/27/2022 six minute walk test* completed [facility] Information not available 06/12/2022 13:57:22 05/27/2022 complete PFT w/ post bronchodilator spirometry* completed [facility] Information not available 07/22/2022 17:09:53 Procedure Notes None recorded. Medical Equipment None Reported. Allergies Allergen ID Allergen Name Allergen Category Reaction Reaction Severity Criticality Documentation Date Start Date Code Code System Note Provider Name and Address Organization Details Recorded Time 26027 Pneumococ gregorio vaccine Not available Not available Not available Not available 05/29/2022 93431 7 RxNorm Not Available [facility] 3 13:58:14 Medications Name Sig Start Date Stop Date Status Note LastModified by Organization Details LastModified Time cyclobenz aprine 10 mg tablet TAKE 1 TABLET BY MOUTH ONCE DAILY AT BEDTIME FOR 30 DAYS 06/06 completed Not Available Not Available Not Available amoxicill in 500 mg capsule 05/13 completed Not Available Not Available Not Available latanopro st 0.005 % eye drops 05/13 completed Not Available Not Available Not Available bupropion HCl SR 150 mg tablet,12 hr sustained -release 11/04 completed Not Available Not Available Not Available pilocarpi ne 5 mg tablet TAKE 1 TABLET BY MOUTH THREE TIMES DAILY 05/23 completed Not Available Not Available Not Available atorvasta tin 80 mg tablet TAKE 1 TABLET BY MOUTH NIGHTLY AT BEDTIME active Not Available Not Available No t Available nystatin 100,000 unit/mL oral suspensio n TAKE 5 ML BY MOUTH 4 TIMES DAILY FOR 10 DAYS active Not Available Not Available No t Available prednison e 10 mg tablet TAKE 6 TABLETS BY MOUTH ONCE DAILY FOR 3 DAYS AND THEN TAKE 5 TABS ONCE DAILY FOR 3 DAYS AND THEN TAKE 4 TABS ONCE DAILY FOR 3 DAYS AND THEN TAKE 3 TABS ONCE DAILY FOR 3 DAYS AND THEN TAKE 2 TABS ONCE DAILY FOR 3 DAYS AND THEN TAKE 1 ONCE DAILY FOR 3 DAYS active Not Available Not Available No t Available doxycycli ne hyclate 100 mg capsule TAKE 1 CAPSULE BY MOUTH TWICE DAILY FOR 10 DAYS active Not Available Not Available No t Available atorvasta tin 20 mg tablet TAKE 1 TABLET BY MOUTH NIGHTLY AT BEDTIME active Not Available Not Available No t Available albuterol sulfate 2.5 mg/3 mL (0.083 %) solution for nebulizat ion USE 1 VIAL IN NEBULIZE R THREE TIMES DAILY NEEDED active Not Available Not Available No t Available ciproflox acin 750 mg tablet Take 1 tablet every 12 hours by oral route as directed for 7 days. active Not Available Not Available No t Available citalopra m 40 mg tablet 11/04 completed Not Available Not Available Not Available atorvasta tin 10 mg tablet TAKE 1 TABLET BY MOUTH ONCE DAILY 01/14 completed Not Available Not Available Not Available lisinopri l 20 mg-hydroc hlorothia zide 12.5 mg tablet TAKE 1 TABLET BY MOUTH ONCE DAILY IN THE MORNING active Not Available Not Available No t Available azithromy conner 250 mg tablet TAKE 2 TABLETS BY MOUTH ON DAY 1, AND THEN TAKE 1 TABLET BY MOUTH ONCE A DAY ON DAY 2 THROUGH DAY 5 active Not Available Not Available No t Available ibuprofen 800 mg tablet TAKE 1 TABLET BY MOUTH THREE TIMES DAILY WITH MEALS 09/22 completed Not Available Not Available Not Available ofloxacin 0.3 % eye drops 05/13 completed Not Available Not Available Not Available tizanidin e 4 mg tablet 11/04 completed Not Available Not Available Not Available fluconazo le 150 mg tablet 06/09 completed Not Available Not Available Not Available benzonata te 200 mg capsule TAKE 1 CAPSULE BY MOUTH THREE TIMES DAILY NEEDED FOR 10 DAYS TAKE WITH 1 2 GLASSES OF WATER NEEDED FOR COUGH 05/23 completed Not Available Not Available Not Available doxepin 25 mg capsule 11/04 completed Not Available Not Available Not Available sumatript an 100 mg tablet 11/04 completed Not Available Not Available Not Available hydrocodo ne 5 mg-acetam inophen 325 mg tablet 06/01 completed Not Available Not Available Not Available meloxicam 15 mg tablet TAKE 1 TABLET BY MOUTH ONCE DAILY IN THE MORNING FOR 30 DAYS 05/23 completed Not Available Not Available Not Available lisinopri l 20 mg tablet TAKE 1 TABLET BY MOUTH ONCE DAILY active Not Available Not Available No t Available ondansetr on HCl 4 mg tablet TAKE 1 TABLET BY MOUTH EVERY 8 HOURS 06/06 completed Not Available Not Available Not Available famotidin e 40 mg tablet TAKE 1 TABLET BY MOUTH AT BEDTIME FOR ACID REFLUX active Not Available Not Available No t Available prednison e 20 mg tablet TAKE 2 TABLETS BY MOUTH ONCE DAILY FOR 5 DAYS active Not Available Not Available No t Available alendrona te 70 mg tablet TAKE 1 TABLET BY MOUTH ONCE A WEEK TAKE 30 MINUTES BEFORE THE FIRST FOOD/DRI NK/MED AND AVOID LYING DOWN FOR 30 MINUTES AFTER TAKING active Not Available Not Available No t Available clindamyc in HCl 150 mg capsule 11/04 completed Not Available Not Available Not Available Nexium 40 mg capsule,d elayed release Take 1 capsule every day by oral route. 06/01 completed Not Available Not Available Not Available topiramat e 25 mg tablet TAKE 1 TABLET BY MOUTH TWICE DAILY active Not Available Not Available No t Available amlodipin e 2.5 mg tablet TAKE 1 TABLET BY MOUTH ONCE DAILY active Not Available Not Available No t Available metronida zole 500 mg tablet 06/09 completed Not Available Not Available Not Available ciproflox acin 250 mg tablet Take 1 tablet every 12 hours by oral route. 05/13 completed Not Available Not Available Not Available amlodipin e 5 mg tablet TAKE 1 TABLET BY MOUTH ONCE DAILY active Not Available Not Available No t Available ciproflox acin 500 mg tablet TAKE 1 TABLET BY MOUTH TWICE DAILY FOR 10 DAYS 05/23 completed Not Available Not Available Not Available sulfameth oxazole 800 mg-trimet hoprim 160 mg tablet Take 1 tablet every 12 hours by oral route as directed for 10 days. 12/07 completed Not Available Not Available Not Available omeprazol e 40 mg capsule,d elayed release TAKE 1 CAPSULE BY MOUTH ONCE DAILY active Not Available Not Available No t Available amitripty line 50 mg tablet 11/04 completed Not Available Not Available Not Available triamcino lone acetonide 0.1 % topical cream 11/04 completed Not Available Not Available Not Available baclofen 20 mg tablet 11/04 completed Not Available Not Available Not Available ketorolac 0.5 % eye drops 05/13 completed Not Available Not Available Not Available prednison e 10 mg tablets in a dose pack Take 1 tab by mouth, 3 times a day for 3 daysTake 1 tab by mouth 2 times a day for 2 daysTake 1 tab by mouth once a day for 1 day 05/23 completed Not Available Not Available Not Available oxycodone -acetamin ophen 5 mg-325 mg tablet 06/09 completed Not Available Not Available Not Available alprazola m 0.25 mg tablet TAKE 1 TABLET BY MOUTH ONCE FOR 1 DOSE. TAKE 30 MINUTES PRIOR TO MRI. active Not Available Not Available No t Available prednisol one acetate 1 % eye drops,tejinder pension 05/13 completed Not Available Not Available Not Available nitroglyc caryn 0.4 mg/hr transderm al 24 hour patch APPLY 1 PATCH TOPICALL Y TO SKIN ONCE DAILY 01/14 completed Not Available Not Available Not Available Kenalog 10 mg/mL suspensio n for injection In office injectio n administ ered by the provider 05/23 completed [facility]: [phone] 4-20 Not Available Not Available Not Available benzonata te 100 mg capsule TAKE 1 CAPSULE BY MOUTH EVERY 8 HOURS NEEDED active Not Available Not Available No t Available pantopraz ole 40 mg tablet,de layed release Take 1 tablet every day by oral route before meals for 30 days. active Not Available Not Available No t Available nortripty line 10 mg capsule 11/04 completed Not Available Not Available Not Available ranitidin e 150 mg tablet Take 1 tablet twice a day by oral route as directed for 30 days. active Not Available Not Available No t Available lisinopri l 10 mg tablet Take 1 tablet every day by oral route. 06/01 completed Not Available Not Available Not Available prednison e 50 mg tablet Take 1 tablet every day by oral route as directed for 5 days. 07/16 completed Not Available Not Available Not Available Combivent 18 mcg-103 mcg/actua tion aerosol inhaler 11/04 completed Not Available Not Available Not Available lisinopri l 30 mg tablet TAKE 1 TABLET BY MOUTH ONCE DAILY FOR 30 DAYS active Not Available Not Available No t Available gabapenti n 300 mg capsule Take 1 capsule 3 times a day by oral route. 05/13 completed Not Available Not Available Not Available omeprazol e 20 mg capsule,d elayed release TAKE 1 CAPSULE BY MOUTH ONCE DAILY BEFORE MEAL(S) FOR 30 DAYS 08/01 completed Not Available Not Available Not Available budesonid e 0.5 mg/2 mL suspensio n for nebulizat ion Inhale 2 mL twice a day by nebuliza tion route as directed for 30 days. 2022 active Not Available Not Available Not Avai lable lisinopri l 20 mg-hydroc hlorothia zide 25 mg tablet TAKE 1 TABLET BY MOUTH ONCE DAILY active Not Available Not Available No t Available diclofena c sodium 75 mg tablet,de layed release Take 1 tablet twice a day by oral route as needed. active Not Available Not Available No t Available monteluka st 10 mg tablet TAKE 1 TABLET BY MOUTH ONCE DAILY IN THE EVENING FOR 30 DAYS active Not Available Not Available No t Available hydrochlo rothiazid e 25 mg tablet TAKE 1/2 (ONE-MARY F) TABLET BY MOUTH IN THE MORNING active Not Available Not Available No t Available mupirocin 2 % topical ointment 06/09 completed Not Available Not Available Not Available zolpidem 5 mg tablet 11/04 completed Not Available Not Available Not Available furosemid e 20 mg tablet TAKE 1 TABLET BY MOUTH ONCE DAILY NEEDED TO LOWER EXTREME SWELLING active Not Available Not Available No t Available mirtazapi ne 15 mg tablet 11/04 completed Not Available Not Available Not Available ergocalci ferol (vitamin D2) 1,250 mcg (50,000 unit) capsule Take 1 capsule po every week for 8 weeks active Not Available Not Available No t Available levofloxa conner 500 mg tablet TAKE 1 TABLET BY MOUTH EVERY 24 HOURS FOR 7 DAYS active Not Available Not Available No t Available levofloxa conner 750 mg tablet Take 1 tablet every day by oral route as directed for 7 days. active Not Available Not Available No t Available methylpre dnisolone 4 mg tablets in a dose pack take as directed 01/14 completed Not Available Not Available Not Available albuterol sulfate HFA 90 mcg/actua tion aerosol inhaler INHALE 2 PUFFS BY MOUTH EVERY 6 HOURS NEEDED FOR WHEEZING active Not Available Not Available No t Available lisinopri l 40 mg tablet TAKE 1 TABLET BY MOUTH ONCE DAILY active Not Available Not Available No t Available cefdinir 300 mg capsule Take 1 capsule every 12 hours by oral route for 7 days. active Not Available Not Available No t Available fluticaso ne propionat e 50 mcg/actua tion nasal spray,tejinder pension USE 1 SPRAY(S) IN EACH NOSTRIL TWICE DAILY active Not Available Not Available No t Available amitripty line 100 mg tablet TAKE 1 TABLET BY MOUTH NEEDED AT BEDTIME active Not Available Not Available No t Available loratadin e 10 mg tablet TAKE 1 TABLET BY MOUTH ONCE DAILY IN THE MORNING FOR 30 DAYS 05/23 completed Not Available Not Available Not Available amoxicill in 875 mg-potass ium clavulana te 125 mg tablet TAKE 1 TABLET BY MOUTH EVERY 12 HOURS FOR 14 DAYS 05/23 completed Not Available Not Available Not Available rizatript an 5 mg tablet TAKE 1 TABLET BY MOUTH NEEDED FOR MIGRAINE . MAY REPEAT IN 2 HOURS IF NEEDED TIMES ONE DOSE active Not Available Not Available No t Available azithromy conner 500 mg tablet TAKE 1 TABLET BY MOUTH THREE TIMES A WEEK (FRIDAY, AND FRIDAY) FOR 28 DAYS active Not Available Not Available No t Available Klor-Con M20 mEq tablet,ex tended release 11/04 completed Not Available Not Available Not Available Spiriva with [employer] r 18 mcg and inhalatio n capsules INHALE 1 PUFF BY MOUTH ONCE DAILY active Not Available Not Available No t Available mometason e 0.1 % topical solution APPLY 2 SOLUTION TOPICALL Y TWICE DAILY active Not Available Not Available No t Available lidocaine (PF) 10 mg/mL (1 %) injection solution In office injectio n administ ered by the provider 05/23 completed [facility]: [id number] 09-14 Not Available Not Available Not Available Brovana 15 mcg/2 mL solution for nebulizat ion Inhale 2 mL twice a day by inhalati on route as directed for 30 days. 2022 active Not Available Not Available Not Avai lable acetylcys teine 600 mg capsule Take 1 capsule twice a day by oral route as directed for 30 days. active Not Available Not Available No t Available Symbicort 160 mcg-4.5 mcg/actua tion HFA aerosol inhaler INHALE 2 PUFFS BY MOUTH TWICE DAILY active Not Available Not Available No t Available Symbicort 80 mcg-4.5 mcg/actua tion HFA aerosol inhaler INHALE 2 PUFFS BY MOUTH TWICE DAILY DIRECTED FOR 30 DAYS active Not Available Not Available No t Available peg 3350 240 gram-elec trolytes 22.72 gram-6.72 g-5.84 g powdr for soln 05/13 completed Not Available Not Available Not Available formotero l fumarate 20 mcg/2 mL solution for nebulizat ion USE 1 VIAL IN NEBULIZE R TWICE DAILY DIRECTED active Not Available Not Available No t Available Voltaren 1 % topical gel 11/04 completed Not Available Not Available Not Available Aerochamb er Plus Flow-Vu USE DIRECTED active Not Available Not Available No t Available Daliresp 500 mcg tablet active Prior Auth request for Daliresp 500mcg Edwards Not Available Not Available Not Available Linzess 290 mcg capsule take one tablet by mouth every day 2021 active Not Available Not Available Not Avai lable Spiriva Respimat 2.5 mcg/actua tion solution for inhalatio n Inhale 2 puffs every day by inhalati on route as directed for 30 days. 01/03 completed Not Available Not Available Not Available Incruse Ellipta 62.5 mcg/actua tion powder for inhalatio n Inhale 1 puff every day by inhalati on route as directed for 30 days. 01/03 completed Not Available Not Available Not Available roflumila st 250 mcg tablet Take 1 tablet every day by oral route for 28 days. active Not Available Not Available No t Available Yupelri 175 mcg/3 mL solution for nebulizat ion Inhale 3 mL every day by nebuliza tion route as directed for 30 days. 2022 active Not Available Not Available Not Avai lable Lagevrio 200 mg capsule (EUA) TAKE 4 CAPSULES BY MOUTH TWICE DAILY FOR 5 DAYS active Not Available Not Available No t Available Vitals Date Recorded Body mass index (BMI) Body height Oxygen saturation Oxygen saturation in Arterial blood by Pulse oximetry Heart rate Body temperature Body weight Systolic blood pressure Diastolic blood pressure Provider Name and Address Organization Details Last Updated DateTime 3 41.2 kg/m2 149.86 cm 95 % 95 % 80 /min 96.7 [degF] 93409.8 4 g 124 mm[Hg] 70 mm[Hg] Not Available [facility] 3 13:56:31 Date Recorded Body weight Body temperature Heart rate Oxygen saturation Oxygen saturation in Arterial blood by Pulse oximetry Inhaled oxygen flow rate Systolic blood pressure Diastolic blood pressure Provider Name and Address Organization Details Last Updated DateTime 3 75782.0 3 g 97.2 [degF] 84 /min 96 % 96 % 2 L/min 138 mm[Hg] 84 mm[Hg] Eugenia Thompson MA [place] [employer] 3 15:00:25 Date Recorded Body height Body mass index (BMI) Body weight Body temperature Heart rate Oxygen saturation Oxygen saturation in Arterial blood by Pulse oximetry Systolic blood pressure Diastolic blood pressure Provider Name and Address Organization Details Last Updated DateTime 3 149.86 cm 41.8 kg/m2 86431.6 2 g 97.3 [degF] 82 /min 94 % 94 % 138 mm[Hg] 68 mm[Hg] Juana Jacques GCW 3 14:37:29 Date Recorded Body height Body mass index (BMI) Body weight Body temperature Heart rate Oxygen saturation Oxygen saturation in Arterial blood by Pulse oximetry Systolic blood pressure Diastolic blood pressure Provider Name and Address Organization Details Last Updated DateTime 3 149.86 cm 40.8 kg/m2 13718.6 6 g 97.2 [degF] 98 /min 99 % 99 % 132 mm[Hg] 64 mm[Hg] Juana Jacques GCW 3 14:21:12 Date Recorded Body height Body temperature Provider N rebecca and Address Organization Details Last Updated DateTime 02/24/2023 149.86 cm 97.2 [degF] Simran Ortega MA GCW 02/24/2023 14:05:44 Social History Question Answer Notes LastModified by Organizat ion Details LastModified Time Tobacco Smoking Status Former Smoker quit 2016 Simran Ortega MA null, [email or web address] 09/18/2022 14:12:11 Do You Have An Advance Directive? No [id number] Information not available 05/29/2022 What Is Your Level Of Alcohol Consumption? Moderate One Beer Every Now And Then [id number] Information not available 05/29/2022 What Is Your Level Of Caffeine Consumption? Moderate [id number] Information not available 05/29/2022 How Much Tobacco Do You Chew? None [id number] Information not available 05/29/2022 In The 14 Days Before Symptom Onset, Have You Had Close Contact With A Laboratory-confi rmed COVID-19 While That Case Was Ill? No Information not available 09/18/2022 In The 14 Days Before Symptom Onset, Have You Had Close Contact With A Person Who Is Under Investigation For COVID-19 While That Person Was Ill? No Information not available 09/18/2022 What Type Of Diet Are You Following? REGULAR [id number] Information not available 05/29/2022 Which Illicit Or Recreational Drugs Have You Used? None Information not available 09/18/2022 Do You Or Have You Ever Used E-cigarettes Or Vape? Never Used Electronic Cigarettes Information not available 09/18/2022 Do You Have An Electrostatic Air Filter? 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 No Information not available 09/18/2022 Do You Have A Medical Power Of Otolaryngology Surgeon? No Information not available 09/18/2022 Do You Have Moisture Problems In Your Home? No Information not available 09/18/2022 What Was The Date Of Your Most Recent Tobacco Screening? 01/30/2021 Information not available 09/18/2022 How Many Children Do You Have? 2 Information not available 09/18/2022 Do You Have Any Pets? Yes Information not available 09/18/2022 What Is Your Relationship Status? [id number] Information not available 05/29/2022 Do You Have Smoke And Carbon Monoxide Detectors In Your Home? Yes Information not available 09/18/2022 At What Age Did You Start Smoking Tobacco? 11 Information not available 09/18/2022 Are You Passively Exposed To Smoke? Yes Multiple People In Family Smoke Around Patient Information not available 09/18/2022 Do You Or Have You Ever Used Smokeless Tobacco? Never Used Smokeless Tobacco [id number] Information not available 05/29/2022 How Much Tobacco Do You Smoke? 2 PPD 2 1/2 [id number].[id number] Information not available 05/29/2022 Do You Feel Stressed (tense, Restless, Nervous, Or Anxious, Or Unable To Sleep At Night)? [id number] Information not available 09/18/2022 Do You Use Any Illicit Or Recreational Drugs? No Information not available 09/18/2022 How Many Years Have You Smoked Tobacco? 41 Information not available 09/18/2022 Have You Recently Traveled Abroad? No Information not available 09/18/2022 Do You Have Any Dietary Restrictions? No Information not available 09/18/2022 Sex: Female Functional Status Question Answer Note LastModified by Organizat ion Details LastModified Time What is your exercise level? Moderate Pulmonary Rehab 3x weekly [id number] Information not available 05/29/2022 Mental Status None recorded. Family History Relationship Description Onset Age of this Age Resolved Age Notes LastModified by Organization Details LastModified Time Unspecified Relation Hypertensive disorder [id number] Not available 05/29/2022 13:56:14 Father Diabetes mellitus [id number] Not available 05/29/2022 13:56:14 Father Asthma [id number] Not available 05/29/2022 13:56:14 Medical History Condition Response MRSA N LUNG DISEASE/DISORDER N RADIATION / CHEMOTHERAPY N COPD Y BLOOD DISEASES N EAR OR HEARING PROBLEMS N DEPRESSION (INCLUDING POST ) N STROKE/TIA N ULCERS N OBESITY N ANEURYSM N USE OF BLOOD THINNERS N PARATHYROID DISEASE N CHF N AIDS/HIV N FRACTURES N HYPERTENSION N TOURETTE'S N BLOOD TRANSFUSION N ANEMIA/BLOOD DISORDER Y CHRONIC EAR INFECTIONS N TUBERCULOSIS N SLEEP APNEA N ALLERGIES/HAYFEVER N INSOMNIA N HIGH CHOLESTEROL / HYPERLIPIDEMIA N HYPERTHYROIDISM N HYPOTHYROIDISM N HAVE YOU BEEN HOSPITALIZED OR SEEN IN [facility] IN THE PAST YEAR ? N HISTORY WITH COMPLICATIONS WITH ANESTHES IA ? N NO SIGNIFICANT PAST MEDICAL HISTORY N DIABETES, TYPE N ENT N SEASONAL ALLERGIES N HEARTBURN / REFLUX N HEPATITIS / LIVER DISEASE N SLEEP DISORDER N HEADACHES/MIGRAINES N SEIZURES/EPILEPSY N PACEMAKER N DIZZINESS N HEART DISEASE/HEART PROBLEMS N CANCER: SPECIFY N ANESTHESIA COMPLICATIONS N Gynecological HistoryNo gynecological history recorded. Obstetrics History GPAL:G 0 P 0 0 0 0 Immunizations Vaccine Type Date Status Note Provider Nam e and Address Organization Details Recorded Time COVID-19, mRNA, LNP-S, PF, 30 mcg/0.3 mL dose 1 completed Not Available [facility] 05/29/2022 13:58:13 COVID-19, mRNA, LNP-S, PF, 30 mcg/0.3 mL dose 1 completed Not Available [facility] 05/29/2022 13:58:13 Influenza, split virus, quadrivalent, preservative 0 completed Not Available [facility] 05/29/2022 13:58:13 Past Encounters Encounter ID Performer Location Encounter Start Date Encounter Closed Date Diagnosis/Indication Diagnosis SNOMED-CT Code Diagnosis ICD10 Code Diagnosis Note [id number] [facility] [place] [address] [place] [address] 06/12/2020 00:00:00 06/12/2020 14:28:35 [id number] [facility] [place] [address] [place] [address] 06/27/2020 00:00:00 06/27/2020 10:34:36 [id number] [facility] [place] [address] [place] [address] 07/25/2020 00:00:00 07/25/2020 13:47:03 [id number] [facility] [place] [address] [place] [address] 09/22/2020 00:00:00 09/24/2020 16:47:01 [id number] [facility] [place] [address] [place] [address] 10/11/2020 00:00:00 10/11/2020 11:48:51 [id number] [facility] [place] [address] [place] [address] 10/17/2020 00:00:00 10/17/2020 23:43:14 [id number] [facility] [place] [address] [place] [address] 10/26/2020 00:00:00 10/26/2020 11:08:56 [id number] [facility] [place] [address] [place] [address] 11/24/2020 00:00:00 11/24/2020 15:58:50 [id number] _ATHENA_M IGRATION_ DEFAULT_1 _1 , 12/15/2020 00:00:00 12/17/2020 20:35:32 [id number] [facility] Ortho [address] [place] [address] 01/02/2021 00:00:00 01/02/2021 09:24:03 [id number] [facility] [place] [address] [place] [address] 01/30/2021 00:00:00 01/30/2021 16:39:13 [id number] _ATHENA_M IGRATION_ DEFAULT_1 _1 , 02/20/2021 00:00:00 02/20/2021 17:00:17 [id number] [facility] [address] [place] [address] 02/20/2021 00:00:00 02/20/2021 09:27:56 [id number] [facility] [place] [address] [facility], [address] [place] [address], [place] [address] 03/12/2021 00:00:00 03/12/2021 15:46:54 [id number] [facility] [address] [place] [address] 03/20/2021 00:00:00 03/20/2021 10:27:26 [id number] [facility] [place] [address], [address] [place] [address], [place] [address] 04/04/2021 00:00:00 04/04/2021 15:34:22 [id number] _ATHENA_M IGRATION_ DEFAULT_1 _1 , 05/23/2021 00:00:00 05/23/2021 12:00:04 [id number] _ATHENA_M IGRATION_ DEFAULT_1 _1 , 06/06/2021 00:00:00 06/06/2021 12:16:25 [id number] [facility] [place] [address] [place] [address] 06/21/2021 00:00:00 06/21/2021 21:00:22 [id number] _ATHENA_M IGRATION_ DEFAULT_1 _1 , 06/27/2021 00:00:00 06/27/2021 11:34:57 [id number] [facility] [place] [address] [facility] [place] [address] 07/19/2021 00:00:00 07/19/2021 12:24:12 [id number] _ATHKAMI_M IGRATION_ DEFAULT_1 _1 , 08/01/2021 00:00:00 08/01/2021 15:13:36 [id number] _ATHENA_M IGRATION_ DEFAULT_1 _1 , 08/03/2021 00:00:00 08/05/2021 21:02:16 [id number] [facility] [place] [address] [place] [address] 09/14/2021 00:00:00 09/14/2021 15:52:38 [id number] [facility] [place] [address] [place] [address] 10/05/2021 00:00:00 10/05/2021 16:48:56 [id number] [facility] [place] [address] [place] [address] 12/07/2021 00:00:00 12/07/2021 16:02:35 [id number] [facility] [place] [address] [place] [address] 01/01/2022 00:00:00 01/01/2022 23:10:10 [id number] [facility] [place] [address] [place] [address] 02/12/2022 00:00:00 02/12/2022 16:43:42 [id number] [facility] [place] [address] [place] [address] 03/13/2022 00:00:00 03/13/2022 19:17:45 [id number] [facility] [place] [address] [place] [address] 04/15/2022 00:00:00 04/15/2022 16:40:53 [id number] [facility] [place] [address] [place] [address] 05/14/2022 00:00:00 05/14/2022 15:32:14 [id number] [facility] [place] [address] [place] [address] 07/16/2022 14:50:26 07/16/2022 16:29:48 Acute exacerbation of chronic asthmatic bronchitis 940241220 J44.1 Prednisone today Severe chr onic obstructive pulmonary disease 283178527 J44.9 Severe obstructio n.PFT 11/24/20 with FEV1 23%RV 258, TLC 137, FRC 231.DLCO 69Repeat testing in chartConti nue ICS/LABA/L AMA medication , nebulizerC ontinue NIVBudeson rain, Brovana, YupelriAlb uterol PRN - discussed indication s for useMucomys t BIDShe is aware of reportable signs and symptoms Chronic re spiratory failure 84357334 J96.10 Reports no benefit from NIV Dyspnea on exertion 6084 5006 R06.09 Multifacto ralOxygen as directedIn haled therapy as aboveweigh t lossIncrea se activitySh e must quit smoking Fatigue 44057272 R53.83 Multifacto ralFollow with PCM for labs Nicotine dependence 5629 4008 Z87.891 Smoking cessation counseling and techniques reviewed at length. L iterature reviewed.A void triggers, support groups.Dis traction techniques Greater than 3 but less than 10 minutes spent discussing cessation. Declines NRT.Discus sed Rx options if needed in the future. [id number] Betsey Sonali [facility] [place] [address] [place] [address] 09/18/2022 14:11:44 09/18/2022 17:54:57 Severe chronic obstructive pulmonary disease 259287309 J44.9 Severe obstructio n.PFT 11/24/20 with FEV1 23%RV 258, TLC 137, FRC 231.DLCO 69Repeat testing in chartConti nue ICS/LABA/L AMA medication per nebulizerB udesGael merinovanaIsela has tried and failed NIVAlbuter ol PRN - discussed indication s for useMucomys t BIDStart Azithromyc in three times per week, consider DalirespSh e declines PRShe is aware of reportable signs and symptoms Chronic re spiratory failure 50919885 J96.10 Reports no benefit from NIV - she has returned this Dyspnea on exertion 6084 5006 R06.09 Multifacto ralOxygen as directedIn haled therapy as aboveweigh t lossIncrea se activitySh e must quit smokingRAS T, QUantifero n GOLD, IGE, Alpha1, BNP, eosinophil s, HP panel all normal Fatigue 64382437 R53.83 Multifacto ralFollow with PCM for labs Nicotine dependence 5629 4008 Z87.891 Smoking cessation counseling and techniques reviewed at length. L iterature reviewed.A void triggers, support groups.Dis traction techniques Greater than 3 but less than 10 minutes spent discussing cessation. Declines NRT.Discus sed Rx options if needed in the future. Wheezing 62757242 R06.2 Persistent and chronic.No t resolved with triple inhaled therapy plus albuterol. No improvemen t with steroids.C T chest with no evidence of nodule, mass, adenopathy , bronchiect asis, or other lesion.His tory of polyps on vocal cords Immunoglob ulins outside reference range 304459770 R89.4 IGG total level lowRepeat [id number] Betsey Lyon, [facility] [place] [address] [place] [address] 01/10/2023 14:00:56 01/10/2023 15:03:08 Long-term drug therapy 363816544 Z79.899 [facility] Severe chr onic obstructive pulmonary disease 290242352 J44.9 Severe obstructio n.PFT 11/24/20 with FEV1 23%RV 258, TLC 137, FRC 231.DLCO 69Repeat testing in chartConti nue ICS/LABA/L AMA medication per nebulizerB udesonide, Brovana, YupelriOrd ered todayShe has tried and failed NIV due to intoleranc eAlbuterol PRN - discussed indication s for useMucomys t BIDContinu e Azithromyc in three times per week, consider Daliresp as aboveShe declines TN, has completed this previously and reports no clinical benefitShe is aware of reportable signs and symptomsAd vised vaccines this fall Chronic re spiratory failure 23030723 J96.10 Reports no benefit from NIV - she has returned this Dyspnea on exertion 6084 5006 R06.09 Multifacto ralOxygen as directedIn haled therapy as aboveWeigh t lossIncrea se activitySh e must quit smokingRAS T, QUantifero n GOLD, IGE, Alpha1, BNP, eosinophil s, HP panel all normal Fatigue 72168918 R53.83 Multifacto ralFollow with PCM for labsAHI per in lab sleep study 2019 was 2.7, negative Wheezing 16076659 R06.2 Persistent and chronic.No t resolved with triple inhaled therapy plus albuterol. No improvemen t with steroids.C T chest with no evidence of nodule, mass, adenopathy , bronchiect asis, or other lesion.His tory of polyps on vocal cords, follow ENTSmoking cessation Immunoglob ulins outside reference range 526017895 R89.4 IGG total level low (497)Previ ous order for immunology Nicotine dependence 5629 4008 Z87.891 Smoking cessation counseling and techniques reviewed at length. L iterature reviewed.A void triggers, support groups.Dis traction techniques Greater than 3 but less than 10 minutes spent discussing cessation. Declines NRT.Discus sed Rx options if needed in the future. Acute exac erbation of chronic obstructive pulmonary disease 817086749 J44.1 Discussed emergently reportable S/S Dependence on supplemental oxygen 2266680585 07 Z99.81 2 liters at night and 2 liters with activity.6 MWT 05/2022We have discussed the risks of hypoxia, including .She has good use and clinical benefit [id number] Betsey Lyon, APPLICATION DEVELOPMENT DIRECTOR-[facility] Pulmonolo [facility] [place] [address] [place] [address] 02/24/2023 14:02:05 02/24/2023 15:20:11 Severe chronic obstructive pulmonary disease 243264179 J44.9 Severe obstructio n.PFT 11/24/20 with FEV1 23%RV 258, TLC 137, FRC 231.DLCO 69Repeat testing in chart, not significan tly changedBud esonide, Brovana, Yupelri not coveredSym bicort 160 and Spiriva per insurance coverageWe have discussed strict maintenanc e compliance Ordered todayShe has tried and failed NIV due to intoleranc eAlbuterol PRN - discussed indication s for useMucomys t BIDContinu e Azithromyc in three times per week, consider Daliresp after compliance with maintenanc e medication sShe declines TN, has completed this previously and reports no clinical benefitShe is aware of reportable signs and symptomsAd vised vaccines this fall Long-term drug therapy 179431606 Z79.899 May initiate DalirespLF T 12/2022 with very mildly elevated alk phos Chronic re spiratory failure 91992628 J96.10 Reports no benefit from NIV - she has returned this Dyspnea on exertion 6084 5006 R06.09 Multifacto ralOxygen as directedIn haled therapy as aboveWeigh t lossIncrea se activitySh e must quit smokingRAS T, QUantifero n GOLD, IGE, Alpha1, BNP, eosinophil s, HP panel all normal Dependence on supplemental oxygen 4373604191 07 Z99.81 2 liters at night and 2 liters with activity.6 MWT 05/2022We have discussed the risks of hypoxia, including .She has good use and clinical benefit Fatigue 91853454 R53.83 Multifacto ralFollow with PCM for labsAHI per in lab sleep study 2019 was 2.7, negativeSh e declines re-study Wheezing 28216652 R06.2 Persistent and chronic.No improvemen t with steroids.C T chest 05/2022 with no evidence of nodule, mass, adenopathy , bronchiect asis, or other lesion.His tory of polyps on vocal cords, follow ENTSmoking cessation Immunoglob ulins outside reference range 700331949 R89.4 IGG total level low (497)Previ ous order for immunology , she has not followed through with this Nicotine dependence 5629 4008 Z87.891 Smoking cessation counseling and techniques reviewed at length. L iterature reviewed.A void triggers, support groups.Dis traction techniques Greater than 3 but less than 10 minutes spent discussing cessation. Declines NRT.Discus sed Rx options if needed in the future.CT as detailed above Edema of mónica ower extremity 267097107 R60.0 BLE 2-3+ pittingShe refuses ERCalled PCM, set up appointmen t for first available Health Concerns Section Related Observation LastModified by Organization Detai ls LastModified Time None Recorded Concern Status LastModified by Organization Details LastModified Time None Recorded Advance Directives Directive N: Payers Encounter Date Sequence Insurance Name Policy Number Policy Webster Covered Member ID Webster Member ID Guarantor Name 07/16/2022 1 [facility] (MEDICAID HMO) [id number] Medina Cox [id number] Medina Cox 09/18/2022 1 [facility] (MEDICAID HMO) [id number] Medina Cox [id number] Medina Cox 01/10/2023 1 [facility] (MEDICAID HMO) [id number] Medina Cox [id number] Medina Cox 02/24/2023 1 [facility] (MEDICAID HMO) [id number] 0003 Medina Cox [id number] Medina Cox Notes Date Note Type Note Provider Name and Address Organization Details Recorded Time 3 text/html Medina presents to follow up on COVID19 infection diagnosed on April 03, severe COPD/emphysema, dyspnea, activity intolerance, cough, wheezingContinues to have falls since last OV and has had MRIs completed tCOmpleted PT with no benefit.Continues to use NIV but tells me she has no clinical benefitDyspnea with any activity, also with wheezingCompliance with all nebulized medicationsActivity tolerance and stamina are poor, she is mainly sedentaryCan not lay flat at night, wheezing is audibleNo unintentional weight loss, no chest painDenies hemoptysisNo recent respiratory infectionShe is smoking 4 cigarettes per dayReports a cold for the last week Betsey Lyon, APPLICATION DEVELOPMENT DIRECTOR-[facility] [address], [facility] [address], [place], [address], [facility] [employer] 07/16/2022 20:24:17 3 text/html Medina presents to follow up on COVID19 infection diagnosed on April 03, severe COPD/emphysema, dyspnea, activity intolerance, cough, wheezing, nicotine dependenceSHnicolás continues to have good and bad days, tells me this is largely dependent on the weather and activity levelsShnicolás has returned her NIVDyspnea with any activity, also with wheezingCompliance with all nebulized medicationsActivity tolerance and stamina are poor, she is mainly sedentaryCan not lay flat at night, wheezing is audibleDoes have some GI issues, no dejon GERDNo unintentional weight loss, no chest painDenies hemoptysisNo recent respiratory infectionShe continues to smoke about 4 cigarettes per dayCompliant with oxygen as directed, she has good use and benefit [facility] [address], [facility] [address], [place], [address], [employer] 09/18/2022 20:06:02 3 text/html Medina presents to follow up on COVID19 infection diagnosed on April 03, severe COPD/emphysema, dyspnea, activity intolerance, cough, wheezing, nicotine dependenceShnicolás continues to have good and bad days, tells me this is largely dependent on the weather and activity levelsShe has returned her NIVDyspnea with any activity, also with wheezingWheezing is not resolved with nebulizer.Compliance with all nebulized medications per her report.Activity tolerance and stamina are poor, she is mainly sedentaryCan not lay flat at night, wheezing is audibleDoes have some GI issues, no dejon GERDNo unintentional weight loss, no chest painDenies hemoptysisNo recent respiratory infectionShe continues to smoke about 4 cigarettes per dayCompliant with oxygen as directed, she has good use and benefit2 liters with activity and sleep.Symptoms of increased dyspnea, cough, and mucous production started 3 days ago. also felt ill at that time. OLE Sam [address], [facility] [address], [place], [address], [employer] 01/12/2023 16:08:49 3 text/html Medina presents to follow up on COVID19 infection diagnosed on April 03, severe COPD/emphysema, dyspnea, activity intolerance, cough, wheezing, nicotine dependenceShe has been sick for 3 weeks with fatigue, cough, congestion, weakness. Fell yesterday with no LOCALso with changes in vision and significant swelling in both legs.Dyspnea with any activity, also with wheezingWheezing is not resolved with nebulizer.She is not using any maintenance medication.Nebulizers were denied and she does not feel like any other inhalers helped herActivity tolerance and stamina are poor, she is mainly sedentaryCan not lay flat at night, wheezing is audibleDoes have some GI issues, no dejon GERDNo unintentional weight loss, no chest painDenies hemoptysisShe continues to smoke about 4 cigarettes per dayCompliant with oxygen as directed, she has good use and benefit2 liters with activity and sleep. Betsey Lyon, [facility]- [address], [facility] [address], [place], [address], [place] [facility] 02/24/2023 16:41:43 OBGyn Episode No OBEpisode recorded.
--- OUTSIDE RECORDS SUMMARY | 2024-06-18 14:41 | XMS_ITS | Clinical Summary ---
Author Organization [facility] HealthCare Care Team Providers Care Game Bird Farmer Name Role Phone Nettie Hodges MD Primary Care Provider [phone] Allergies No known active allergies Medications lisinopriL (PRINIVIL,ZESTR IL) 30 mg tablet Take 1 tablet (30 mg total) by mouth daily 3 Active omeprazole (PriLOSEC) 40 mg capsule Take 1 capsule (40 mg total) by mouth daily Active albuterol HFA (PROVENTIL HFA,VENTOLIN HFA,PROAIR HFA) 90 mcg/actuation inhaler Inhale 2 puffs every 6 (six) hours as needed for wheezing Active amitriptyline (ELAVIL) 100 mg tablet 1 tablet (100 mg total) nightly 4 Active fluticasone propionate (FLONASE) 50 mcg/actuation nasal spray Administer 2 sprays into each nostril daily 16 g 11 4 Active furosemide (LASIX) 40 mg tablet Take 1 tablet (40 mg total) by mouth 2 (two) times a day 60 tablet 4 Active predniSONE (DELTASONE) 10 mg tablet Take 4 tablets (40 mg) by mouth daily For three days 30 mg po daily for 3 days 20 mg po daily for 3 days 10 mg po daily for 3 days 30 tablet 4 Active Additional Information Patient not taking.Reported on 06/18/2023 guaiFENesin ER (MUCINEX) 600 mg 12 hr tablet Take 1 tablet (600 mg total) by mouth 2 (two) times a day 60 tablet 4 Active famotidine (PEPCID) 40 mg tabletIndicatio ns:Gastroesopha geal reflux disease, unspecified whether esophagitis present Take 1 tablet (40 mg total) by mouth daily 30 tablet 11 4 Active formoterol (PERFOROMIST) 20 mcg/2 mL nebulizer solution Take 2 mL (20 mcg total) by nebulization 2 (two) times a day 1 Active dupilumab (Dupixent Pen) pen injectorIndicat ions:Centrilobu lar emphysema (HCC) Inject 2 mL (300 mg total) under the skin every 14 (fourteen) days 4 mL 11 4 Active budesonide-glyc opyr-formoterol (Breztri Aerosphere) 160-9-4.8 mcg/actuation inhalerIndicati ons:Chronic bronchitis, unspecified chronic bronchitis type (HCC) INHALE 2 PUFFS BY MOUTH TWICE DAILY RINSE AND SPIT AFTER USE-USE WITH AEROCHAMBER 11 g 11 5 Active Active Problems Problem Noted Date Diagnosed Date Dyspnea on exertion 06/01/2024 Assessment & Plan (06/01/2024 2:11 PM CONE OPERATOR): This is persistent and severe. She has also developed intermittent chest and arm pain. I will repeat an echocardiogram and CT chest Her last cardiac catheterization was in 2020 and demonstrated 30% stenosis of the RCA Ultimately she may need a left and right heart catheterization, as echocardiogram has been a technically difficult study in the past and not useful in evaluating for pulmonary hypertension Chronic respiratory failure with hypoxia, on home O2 therapy 03/03/2024 Assessment & Plan (06/01/2024 2:07 PM CONE OPERATOR): Continue supplemental oxygen with sleep at 4 liters She is aware of the risks of both hypoxia and hypercapnia Assessment & Plan (03/03/2024 9:05 PM CONE OPERATOR): Continue supplemental oxygen with sleep Increase to 4 liters. We have discussed the risks of hypoxia. Obstructive sleep apnea 03/03/2024 Assessment & Plan (03/03/2024 9:10 PM CONE OPERATOR): We have had an extensive conversation about the risks of uncorrected F[place] She was unable to tolerate NIV in the past and declines PAP therapy Pulmonary nodule 08/22/2023 Assessment & Plan (10/16/2023 11:06 PM CDT): New in the left lower lobe on CT chest 06/03/2023 Follow-up CT 6 months from prior, due 11/2023 Assessment & Plan (08/22/2023 1:44 PM CDT): New 2 left lower lobe on CT chest 06/03/2023 Follow-up CT 6 months from prior, due 11/2023 Dependence on supplemental oxygen 06/18/2023 Assessment & Plan (06/18/2023 3:38 PM CDT): Continue supplemental oxygen at 2 L with activity She is good use and clinical benefit Gastroesophageal reflux disease 06/18/2023 Assessment & Plan (06/01/2024 2:08 PM CONE OPERATOR): Continue famotidine and omeprazole daily A continue to believe that GERD is a direct contributing factor to her persistent wheezing Keep follow up appointments with GI, I recommend manometry/pH testing Assessment & Plan (03/03/2024 9:06 PM CONE OPERATOR): Continue famotidine and omeprazole daily Although her symptoms are atypical, I do think she has reflux that is a contributor to her symptom and would benefit from further evaluation Keep follow up appointments with GI, she may need manometry/pH testing Assessment & Plan (10/16/2023 11:10 PM CDT): Continue famotidine and omeprazole daily Although her symptoms are atypical, I do think she has GERD and would benefit from further evaluation Keep follow up appointments with GI This is a likely contributor to her persistent wheezing Assessment & Plan (08/22/2023 1:41 PM CDT): Continue famotidine and omeprazole daily Avoid trigger foods Elevate head of bed while sleeping Do not eat 2-3 hours before bed I have strongly encouraged a GI follow-up Assessment & Plan (06/18/2023 3:39 PM CDT): She has not well-controlled on PPI Add famotidine 40 p.o. daily Recommend she follow up with GI Wheezing 06/18/2023 Assessment & Plan (06/01/2024 2:09 PM CONE OPERATOR): This is chronic, persistent, and unrelieved by inhaled therapy and prednisone She is on maximum inhaled therapy I continue to recommend further GI workup Assessment & Plan (03/03/2024 9:09 PM CONE OPERATOR): This is chronic, persistent, and unrelieved by inhaled therapy and prednisone I continue to feel that she needs GI evaluation I have cautioned her on the overuse of albuterol Consider HRCT to assess for dynamic airway collapse Assessment & Plan (10/16/2023 11:11 PM CDT): This is chronic, persistent, and unrelieved by inhaled therapy and prednisone I continue to feel that she needs GI evaluation I have cautioned her on the overuse of albuterol Assessment & Plan (08/22/2023 1:40 PM CDT): I am unsure that I have ever had an evaluation with [facility] that she was not wheezing She has no clinical benefit from prednisone or albuterol and is on maximum inhaled triple therapy CT chest did not reveal significant etiology I strongly believe that her wheezing has another causative factor, most likely GI in origin and I have encouraged her to make a follow-up what their office Assessment & Plan (06/18/2023 3:41 PM CDT): Persistent despite inhaled therapy Concerns for dynamic airway collapse Will order high-resolution CT with inspiratory and expiratory films Nicotine dependence, cigarettes, uncomplicated 0 06/18/2023 Assessment & Plan (06/01/2024 2:08 PM CONE OPERATOR): - Smoking cessation counseling and techniques reviewed at length - Avoid triggers and use distraction techniques - She is aware of the [place] Tobacco Quit line: 3-926-ELQI-YES for free services - 5 minutes spent discussing cessation She is pre-contemplative, I have encouraged her to cut back and she is aware that her symptoms will likely continue to worsen as long as she is actively smoking Her annual lung cancer screening is due this month I have placed an order and she will schedule this at [facility] Assessment & Plan (03/03/2024 9:07 PM CONE OPERATOR): - Smoking cessation counseling and techniques reviewed at length - Avoid triggers and use distraction techniques - She is aware of the [place] Tobacco Quit line: 2-301-ORWM-YES for free services - 5 minutes spent discussing cessation She is pre-contemplative, I have encouraged her to cut back Assessment & Plan (10/16/2023 11:08 PM CDT): - Smoking cessation counseling and techniques reviewed at length - Avoid triggers and use distraction techniques - She is aware of the [place] Tobacco Quit line: 4-106-PTIU-YES for free services - 3 minutes spent discussing cessation Assessment & Plan (08/22/2023 1:40 PM CDT): - Smoking cessation counseling and techniques reviewed at length - Avoid triggers and use distraction techniques - Participate in support groups - Information given regarding [place] Tobacco Quit line: 5-488-EFQH-YES for free services 3 minutes spent discussing cessation Assessment & Plan (06/18/2023 3:43 PM CDT): - Smoking cessation counseling and techniques reviewed at length - Avoid triggers and use distraction techniques - Participate in support groups - Information given regarding [place] Tobacco Quit line: 9-143-YKKI-YES for free services 4 minutes spent discussing cessation COPD exacerbation 06/02/2023 Chronic obstructive pulmonary disease 11/28/2020 Assessment & Plan (06/01/2024 2:06 PM CONE OPERATOR): Continue Breztri 2 puffs twice daily with aerochamber Albuterol as needed ONLY, discussed indications for use and counseled her on overuse Peripheral eosinophilia , last count 400. Continue Dupixent for COPD She has tried and failed countless inhaled therapies over the years and she is optimally medicated for her COPD She must quit smoking I recommend pulmonary rehab Assessment & Plan (03/03/2024 9:05 PM CONE OPERATOR): Continue Breztri 2 puffs twice daily. I have instructed her on compliance Albuterol as needed ONLY, discussed indications for use and counseled her on overuse Mild peripheral eosinophilia , last count 400. Start dupixent for COPD Assessment & Plan (10/16/2023 11:13 PM CDT): Continue Breztri 2 puffs twice daily. I have instructed her on compliance Albuterol as needed ONLY, discussed indications for use and counseled her on overuse Check CBC, she may qualify for biologic therapy Assessment & Plan (08/22/2023 1:44 PM CDT): She has tried and failed multiple combinations of inhaled therapy, including nebulizers Continue Breztri twice per day Albuterol as needed only, discussed indications from use although in the past she has not had significant clinical benefit or resolution of wheezing with use Assessment & Plan (06/18/2023 3:46 PM CDT): Severe COPD, tried on multiple inhalers Best benefit from Breztri Continue this 2 puffs twice per day Samples to patient Spencer ordered today, may have to prior authorize She will complete patient assistance program paperwork Continue albuterol as needed only Discussed indications for use Encounters Date Type Department Care Team Description 06/01/2024 9:30 AM CONE OPERATOR Office Visit [facility] Medical [facility] Pulmonary at [address] [place] [address] [phone] Betsey Lyon NP Chronic respiratory failure with hypoxia, on home O2 therapy (HCC) (Primary Dx); Centrilobular emphysema (HCC); Gastroesophageal reflux disease, unspecified whether esophagitis present; Dyspnea on exertion; Wheezing; Nicotine dependence, cigarettes, uncomplicated 06/01/2024 Telephone [facility] Pulmonary at [address] [place] [address] [phone] Erin Felder LPN Faxed orders to [facility] from Last 3 Months Medical History Medical History Date Comments COPD (chronic obstructive pulmonary disease) (HC C) Asthma Wheezing 06/18/2023 Nicotine dependence, cigarettes, uncomplicated 0 06/18/2023 Pulmonary nodule 08/22/2023 Family History Medical History Relation Name Comments Hypertension Father Hypertension Mother Relation Name Status Comments Father Mother Social History Tobacco Use Types Packs/Day Years Used Date Smoking Tobacco: Every Day Cigarettes 0.5 48.2 Started: 1976 Passive Smoke Exposure: Current Tobacco Cessation:Ready to Q uit: Not Asked; Counseling Given: Not Answered AUDIT-C Answer Date Recorded Q1: How often do you have a drink containing alcohol? 4 or more times a week 06/01/2024 Average Number of Drinks Not on file 025 Frequency of Binge Drinking Not on file 06/2024 Personal Safety Answer Date Recorded Have you ever been in or are you currently in a harmful physical or emotional relationship or is someone making you feel afraid or unsafe? Denies 06/02/2023 Comments Unknown Sex and Gender Information Value Date Recorded Sex Assigned at Not on file Legal Sex Female 12:55 AM CONE OPERATOR Gender Identity Not on file Sexual Orientation Not on file Obstetrics History Last Filed Vital Signs Vital Sign Reading Time Taken Comments Blood Pressure 118/62 06/01/2024 9:09 AM CONE OPERATOR Pulse 81 06/01/2024 9:09 AM CONE OPERATOR Temperature 36.3 C (97.3 F) 06/01/2024 9:09 AM CONE OPERATOR Respiratory Rate 18 06/01/2024 9:09 AM CONE OPERATOR Oxygen Saturation 94% 06/01/2024 9:09 AM CONE OPERATOR Inhaled Oxygen Concentration - - Weight 94 kg (207 lb 3.2 oz) 06/01/2024 9:09 AM CONE OPERATOR Height 152.4 cm (5') 06/01/2024 9:09 AM CONE OPERATOR Body Mass Index 40.47 06/01/2024 9:09 AM CONE OPERATOR Plan of Treatment Health Maintenance Due Date Last Done Comments Cervical Cancer Screening 1963 Colon Cancer Screening-Colonoscopy 1963 Depression Screening 1963 Hepatitis C Screening 1963 DTaP/Tdap/Td Vaccine (1 - Tdap) 1974 Hepatitis B Screening 1981 Regular Well Visit/Exam 18-64 1981 Pneumococcal vaccine <65 (1 of 2 - PCV) 1982 Lung Cancer Screening 2013 Zoster Vaccine (1 of 2) 2013 Breast Cancer Screening-Mammogram 04/19/2023 023, 04/19/2022 Covid-19 Vaccine (2023- 5 season) 2023 03/15/2021, 07/21/2020, 06/30/2020 Influenza Vaccine Completed 12/31/2023, , 12/07/2021, Additional history exists Insurance FRANCIS[place] DOSHI [id number] MEDICARE [facility] Address: [address] [address] [place] [address] Advance Directives For more information, please contact: [phone] * Full Code (Latest Code Status on File) Date Activated Date Inactivated Comments 06/02/2023 9:46 PM 06/04/2023 4:04 PM Healthcare Agents on File Name Relationship Healthcare Agent Relationshi p Communication Tonny Cox Spouse Health Care Agent Belkys Guzmán Sister First Alternate Health Care Agent Care Teams Game Bird Farmer Relationship Specialty Start Date End Date Nettie Hodges MD PCP - General Nurse Practitioner 02/25/23
--- OUTSIDE RECORDS SUMMARY | 2024-06-18 14:41 | XMS_ITS | Referral Summary ---
Author Organization [facility] HealthCare Care Team Providers Care Machine Container Washer Name Role Phone Nettie Hodges MD Primary Care Provider [phone]- [phone] Encounters Date Type Department Care Team Description 06/01/2024 Telephone [facility] Medical [facility] Pulmonary at [address] [place] [phone] Erin Felder LPN Faxed orders to [facility] 06/01/2024 9:30 AM WHEAT CLEANER Office Visit [facility] Pulmonary at [address] [place] [phone] Betsey Lyon NP Chronic respiratory failure with hypoxia, on home O2 therapy (HCC) (Primary Dx); Centrilobular emphysema (HCC); Gastroesophageal reflux disease, unspecified whether esophagitis present; Dyspnea on exertion; Wheezing; Nicotine dependence, cigarettes, uncomplicated from Last 3 Months Allergies No known active allergies Medications lisinopriL [...] 06/01/2024 Assessment & Plan (06/01/2024 2:11 PM WHEAT CLEANER): This is persistent and severe. She has [...] 03/03/2024 Assessment & Plan (06/01/2024 2:07 PM WHEAT CLEANER): Continue supplemental oxygen with sleep at 4 liters She is aware of the risks of both hypoxia and hypercapnia Assessment & Plan (03/03/2024 9:05 PM WHEAT CLEANER): Continue supplemental oxygen with sleep Increase to 4 liters. We have discussed the risks of hypoxia. Obstructive sleep apnea 03/03/2024 Assessment & Plan (03/03/2024 9:10 PM WHEAT CLEANER): We have had an extensive conversation about [...] 06/18/2023 Assessment & Plan (06/01/2024 2:08 PM WHEAT CLEANER): Continue famotidine and omeprazole daily A continue to believe that GERD is a direct contributing factor to her persistent wheezing Keep follow up appointments with GI, I recommend manometry/pH testing Assessment & Plan (03/03/2024 9:06 PM WHEAT CLEANER): Continue famotidine and omeprazole daily Although her [...] 06/18/2023 Assessment & Plan (06/01/2024 2:09 PM WHEAT CLEANER): This is chronic, persistent, and unrelieved by inhaled therapy and prednisone She is on maximum inhaled therapy I continue to recommend further GI workup Assessment & Plan (03/03/2024 9:09 PM WHEAT CLEANER): This is chronic, persistent, and unrelieved by [...] 06/18/2023 Assessment & Plan (06/01/2024 2:08 PM WHEAT CLEANER): - Smoking cessation counseling and techniques reviewed at length - Avoid triggers and use distraction techniques - She is aware of the [place] Tobacco Quit line: 1-523-UROJ-YES for free services - 5 minutes spent discussing cessation She is pre-contemplative, I have encouraged her to cut back and she is aware that her symptoms will likely continue to worsen as long as she is actively smoking Her annual lung cancer screening is due this month I have placed an order and she will schedule this at [facility] Assessment & Plan (03/03/2024 9:07 PM WHEAT CLEANER): - Smoking cessation counseling and techniques reviewed at length - Avoid triggers and use distraction techniques - She is aware of the [place] Tobacco Quit line: 6-653-EAZS-YES for free services - 5 minutes spent discussing cessation She is pre-contemplative, I have encouraged her to cut back Assessment & Plan (10/16/2023 11:08 PM CDT): - Smoking cessation counseling and techniques reviewed at length - Avoid triggers and use distraction techniques - She is aware of the [place] Tobacco Quit line: 3-440-TODT-YES for free services - 3 minutes spent discussing cessation Assessment & Plan (08/22/2023 1:40 PM CDT): - Smoking cessation counseling and techniques reviewed at length - Avoid triggers and use distraction techniques - Participate in support groups - Information given regarding [place] Tobacco Quit line: 8-640-LLDI-YES for free services 3 minutes spent discussing cessation Assessment & Plan (06/18/2023 3:43 PM CDT): - Smoking cessation counseling and techniques reviewed at length - Avoid triggers and use distraction techniques - Participate in support groups - Information given regarding [place] Tobacco Quit line: 6-370-FVGB-YES for free services 4 minutes spent discussing cessation COPD exacerbation 06/02/2023 Chronic obstructive pulmonary disease 11/28/2020 Assessment & Plan (06/01/2024 2:06 PM WHEAT CLEANER): Continue Breztri 2 puffs twice daily with [...] rehab Assessment & Plan (03/03/2024 9:05 PM WHEAT CLEANER): Continue Breztri 2 puffs twice daily. I [...] as needed only Discussed indications for use Social History Tobacco Use Types Packs/Day Years [...] on file Legal Sex Female 12:55 AM WHEAT CLEANER Gender Identity Not on file Sexual Orientation Not on file Last Filed Vital Signs Vital Sign Reading Time Taken Comments Blood Pressure 118/62 06/01/2024 9:09 AM WHEAT CLEANER Pulse 81 06/01/2024 9:09 AM WHEAT CLEANER Temperature 36.3 C (97.3 F) 06/01/2024 9:09 AM WHEAT CLEANER Respiratory Rate 18 06/01/2024 9:09 AM WHEAT CLEANER Oxygen Saturation 94% 06/01/2024 9:09 AM WHEAT CLEANER Inhaled Oxygen Concentration - - Weight 94 kg (207 lb 3.2 oz) 06/01/2024 9:09 AM WHEAT CLEANER Height 152.4 cm (5') 06/01/2024 9:09 AM WHEAT CLEANER Body Mass Index 40.47 06/01/2024 9:09 AM WHEAT CLEANER Plan of Treatment Not on file Insurance [facility] PLAN FRANCIS[place] DOSHI [id number] [facility] PLAN [facility] MEDICARE Advance Directives For more information, please contact: [phone] * Full Code (Latest Code Status on File) Date Activated Date Inactivated Comments 06/02/2023 9:46 PM 06/04/2023 4:04 PM Healthcare Agents on File Name Relationship Healthcare Agent [facility] Communication Tonny Cox Spouse Health Care Agent Belkys Rg [facility] Health Care Agent Care Teams Machine Container Washer Relationship Specialty Start Date End Date Nettie Hodges MD PCP - General Nurse Practitioner 02/25/23
--- OUTSIDE RECORDS SUMMARY | 2024-06-18 14:41 | XMS_ITS | CONTINUITY OF CARE DOCUMENT ---
Author Name fawn augustine Address Unknown Organization [facility] Address [address] [place] [address] Phone [phone] Care Team Providers Care Profiler Hand Name Role Phone Steve Cordova MD Unavailable MANSI GAYTAN Unavailable MANSI GAYTAN Unavailable PROBLEMS Condition Status Date Provider Notes Family History of Hypertension: completed - Steve Cordova MD Family History of Hypertension: completed - Steve Cordova MD Cardiology examination completed 3 - Steve Cordova MD Asthma active ? Dion Adame MD (History of) Severe COPD active Steve Cordova MD Hyperlipidemia active ? Dion Adame MD Hypertension active ? Dion Adame MD Chest pain-type to be determined active Dion Adame MD Shortness of breath active Steve Cordova MD SLEEP APNEA active Steve Cordova MD ENCOUNTERS Date Type Provider Location Encounter Diag nosis 3 - 3 In-person encounter Office Visit Steve Cordova MD [facility] 2 - 2 In-person encounter Office Visit Steve Cordova MD [facility] 2 - 3 In-person encounter Office Visit Steve Cordova MD [facility] Family History of Hypertension:Family History of Hypertension:Cardiology examinationSevere COPDShortness of breathSLEEP APNEA 1 - 2 In-person encounter Office Visit Dion Adame MD [facility] 3 - 3 In-person encounter Office Visit Dion Adame MD [facility] AsthmaSevere COPDHyperlipidemiaHypertensionChest pain-type to be determined VITAL SIGNS Date Observation Value Provider Body Mass Index (Ratio) 32.81 kg/m2 Sammi Cordova MD Inhaled O2 2 L/min [facility] blood pressure, resting Yes [facility] blood pressure, cuff size regular [facility] blood pressure, diastolic 80 mm[Hg] [facility] blood pressure, systolic 140 mm[Hg] [facility] oxygen saturation, oximetry 96 % [facility] pulse rate 80 /min [facility] respiratory rate E&M 18 /min [facility] weight E&M 168 [lb_av] [facility] height E&M 60 [in_i] [facility] Body Mass Index (Ratio) 33.20 kg/m2 Sammi Cordova MD blood pressure, cuff size regular Ke [facility] blood pressure, diastolic 80 mm[Hg] [facility] blood [facility], systolic 146 mm[Hg] Galileo Sheets oxygen saturation, oximetry 92 % Diana Sheets respiratory rate E&M 16 /min Diana guerra pulse rate 73 /min Diana soto weight E&M 170 [lb_av] Diana Martinez [facility] height E&M 60 [in_i] Diana Martinez [facility] blood pressure, resting Yes [place] Body Mass Index (Ratio) 32.61 kg/m2 [place] blood pressure, cuff size large [facility], diastolic 96 mm[Hg] Contreras rri [facility] blood pressure, systolic 170 mm[Hg] [facility] oxygen saturation, oximetry 90 % Diana Sudeep respiratory rate E&M 18 /min Diana Mabry charlie pulse rate 78 /min Diana Martinez [facility] weight E&M 167 [lb_av] Diana Weavernicolás [facility] height E&M 60 [in_i] Diana Martinez [facility] Body Mass Index (Ratio) 32.22 kg/m2 Mahad Adame MD blood pressure, cuff size regular Cy kerri Jacques blood pressure, diastolic 80 mm[Hg] Taiwo Jacques blood pressure, systolic 150 mm[Hg] Mirna Jacques oxygen saturation, oximetry 98 % Jaz Jacques respiratory rate E&M 16 /min Jaz Jacques pulse rate 70 /min Jaz Purdy l weight E&M 165 [lb_av] Jaz Jose Angelbel l height E&M 60 [in_i] Jaz Jose Angelbel l Body Mass Index (Ratio) 32.42 kg/m2 Mahad Adame MD blood pressure, cuff size regular Cy kerri Jacques blood pressure, diastolic 80 mm[Hg] Cy kerri Jacques blood pressure, systolic 144 mm[Hg] Mirna Jacques oxygen saturation, oximetry 96 % Jaz Jacques respiratory rate E&M 16 /min Jaz Jacques pulse rate 73 /min Jaz sales height E&M 60 [in_i] Jaz sales weight E&M 166 [lb_av] Jaz sales ALLERGIES No Known Drug Allergies RESULTS Date Observation Value Provider Reference Range Interpretation Location 0 lipoprotein, beta, serum, point, quantitative, calculated 74 mg/dL [facility] 0-99 0 HDL cholesterol, serum 95 mg/dL [facility] >39 0 triglyceride, serum, random 166 mg/dL [facility] 0-149 High 0 cholesterol, serum 196 mg/dL [facility] [id number] 5878/03/1 7 LDL cholesterol, serum 94 mg/dL Garry Lea HISTORY OF MEDICATION USE Medication Status Instructions Dates Provider Indications Com michael Nitro-Dur 0.4 mg/hr patch 24 hour completed Apply 1 patch to skin once a day - Cathy Fang Nitro-Dur 0.2 mg/hr patch 24 hour completed Apply 1 patch to skin every 24 hours - Steve Cordova MD Lipitor 10 mg tablet active 1 tablet by mouth once a day Steve Cordova MD ibuprofen 800 mg tablet active tablet by mouth three times a day as needed Diana Sheets famotidine 40 mg tablet active tablet by mouth once a day Diana Sheets omeprazole 20 mg tablet,delayed release (DR/EC) active 1 tablet by mouth once a day Diana Sheets AMLODIPINE BESYLATE 5 MG ORAL TABLET completed ONE TAB. DAILY - Diana Sheets INCRUSE ELLIPTA 62.5 MCG/INH INHALATION AEROSOL POWDER BREATH ACTIVATED completed Inhale 1 puff once a day - Diana Sheets fluticasone propionate 50 mcg/actuation spray,suspensio n active Use 1 spray into both nostrils once a day Jaz Jacques MONTELUKAST SODIUM 10 MG ORAL TABLET completed TAke 1 tablet once a day - Diana Sheets albuterol sulfate 1.25 mg/3 mL solution for nebulization active Take as directed Jaz Jacques lisinopril-hydr ochlorothiazide 20-12.5 mg tablet active tablet by mouth once a day Diana Sheets Symbicort 160-4.5 mcg/actuation HFA aerosol inhaler active Inhale 2 puff as needed Jaz Jacques ProAir HFA 90 mcg/actuation HFA aerosol inhaler active Inhale 2 puff every four to six hours as needed Jaz Jacques SOCIAL HISTORY Date Observation Value Provider social history E&M Marital Statu s: Kaila odalis: 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 Dion Adame MD social history reviewed E&M revi ewed - no changes required Dion Adame MD smoking history, tot al pack/day 2 PPD Jaz Jacques smoking, year quit 2017 Jaz nielsen cigarette use yes Jaz fleming smoking status Former smoker Jaz muniz FAMILY HISTORY Family Member Condition Full Sister Family History of Hy pertension: Full Sister Family History of Di abetes: Mother Family History of Di abetes: Father Family History of Hy pertension: INSURANCE PROVIDERS Payer name Policy type / Coverage type Digna red democrat ID [facility] [id number] ADVANCE DIRECTIVES Name Date DISCUSSED - NO DECISION MADE TREATMENT PLAN Date Name Performer [id number],S,unchanged. mo nish willis fromCOPAna María Cordova MD [id number],S,u nchanged, minimal epicardial disease, microvascualer or secondary to severe copd. w will start nitro patch Steve Cordova MD Cardiology:unchanged. karli maddox fromCOPAna María Cordova MD Cardiology:unchanged , minimal epicardial disease, microvascualer or secondary to severe copd. w will start nitro patch Steve Cordova MD Cardiology Follow up : B P today: 146/80 P rior BP: 170/96 (05/22/2020) Labs Reviewed: L DL: 94 (06/14/2018) The following medications were removed from the medication list: Amlodipine Besylate 5 Mg Oral Tablet (Amlodipine besylate) ..... One tab. daily Her updated medication list for this problem includes: Lisinopril-hydrochlorothiazide 20-12.5 Mg Oral Tablet (Lisinopril-hydrochlorothiazide) ..... Once a day Steve Cordova MD Cardiology Follow up :C/p Cardiac cath which demonstrated minimal and non-obstructive CAD. Will start statin and f/u in 6 months Steve Cordova MD Cardiology Follow up :Started on Statin today Her updated medication list for this problem includes: Lipitor 10 Mg Oral Tablet (Atorvastatin calcium) ..... One tab. daily Steve Cordova MD Cardiology Follow up :BP today: 170/96 P rior BP: 150/80 (08/18/2018) Will add Amlodipine 5mg daily. Steve Cordova MD Cardiology Follow up :Had sleep study via her vat washer. Steve Cordova MD Cardiology Follow up :Per Betsey Lyon. Steve Cordova MD Cardiology Follow up :Has chest tightness radiating to her back and L arm. Also RAMIREZ. She has had negative stress tests in the past. LDCT showed some coronary artery calcifications. We will arrange left heart cath to rule out CAD, as she has recurrent symptoms and her severe lung disease and wheezing precludes regadenosine stress test. Steve Cordova MD Cardiology follow up Dion morillo MD Cardiology follow up Dion morillo MD Cardiology follow up Dion morillo MD Cardiology follow up Dion morillo MD Cardiology follow up :All tests normal. CP appears to be non-cardiac. Dion Adame MD Cardiology hospital follow up Ra sameer Adame MD Cardiology hospital follow up Ra sameer Adame MD Cardiology hospital follow up Ra sameer Adame MD Cardiology hospital follow up Ra sameer Adame MD Cardiology hospital follow up Ra sameer Adame MD Date Name Complete Echo LIPID PANEL Arterial Duplex to r /o pseudoanuerysm Cardiac Cath - L/R - GC 6 minute walk test Complete Echo Stress Regadenoson Sleep Study Home HISTORY OF PROCEDURES Procedure Date Procedure Name Provider Procedure Notes S tatus EKG Steve Cordova MD completed EKG Steve Cordova MD completed EKG Dion Adame MD complete d Regadenoson, 4 units Dion Adame MD completed Cardiolite, 2 units Dion Adame MD completed SPECT Images Michelle Taylor MD compl eted Stress EKG Michelle Taylor MD complet ed EKG Dion Adame MD complete d
--- OUTSIDE RECORDS SUMMARY | 2024-06-18 14:42 | XMS_ITS | Encounter Summary ---
Author Organization [facility] Address [address] [place] [id number] Care Team Providers Care Fish Stringer Assembler Name Role Phone Nettie Hodges NP Primary Care Provider [phone] Encounter Details Date Type Department Care Team (Late Contact Info) Description 12/17/2022 Alitaliat Message Enc [facility] Family Medicine [facility] [address] [place] [address] [phone] Nettie Hodges, EARL [address] [place] [address] xray results Social History Tobacco Use Types Packs/Day Years Used Date Smoking Tobacco: Every Day Cigarettes 0.3 40 Passive Smoke Exposure: Current Smokeless Tobacco: Never Comments:Smokes 2 cigarettes /day currently trying to quit Alcohol Use Standard Drinks/Week Comments Yes 3.3 (1 standard drink = 0.6 oz p ure alcohol) rare beer PHQ-2 Answer Date Recorded Patient Health Questionnaire-2 Score 0 04/03/2022 Comments No Sex and Gender Information Value Date Recorded Sex Assigned at Female 04/26/2024 7:07 AM MACHINE IRONER Legal Sex Female 2:16 PM MACHINE IRONER Gender Identity Female 04/26/2024 9:06 AM MACHINE IRONER Sexual Orientation Straight 04/26/2024 1: 33 PM MACHINE IRONER 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 [place] [address] 09/16/2024 10:40 AM CDT Office Visit [facility] - [place] [address] [place] [address] Maurisio Jeong MD [address] [place] [address] 09/24/2024 10:00 AM CDT Office Visit [facility] [phone] Paula Sanchez MD [address] [place] [address] 10/28/2024 11:00 AM CDT [facility] [address], [address] [place] [phone] Gracy Blair SHIP RUNNER [address] [facility] [address] [place] [address] 11/01/2024 1:20 PM CDT Office Visit [facility] Family Medicine - [address] [place] [address] Nettie Hodges NP [address] [place] [address] documented as of this encounter Visit Diagnoses Not on filedocumented in this encounter Care Teams Fish Stringer Assembler Relationship Specialty Start Date End Date Nettie Hodges NP [address] [place] [address] PCP - General NURSE PRACTITIONER 09/10/21 documented as of this encounter
--- OUTSIDE RECORDS SUMMARY | 2024-06-18 14:42 | XMS_ITS | Data Portability ---
Author Organization [facility] Address [address] [place] [address] Assessment No assessment recorded. Plan of Treatment Reminders Order Date Submit Date Provider Last Modified By Organization Details Last Modified Time Details Appointments None recorded . Lab None recorded . Referral sleep medicine referral 2021 ANTHONY Boogie MD, [address] [place], [address], 16:10:[address] referral - Plantar fasciiti s . Please eval and treat . Thank you 2021 022 ATHENAFAX Not available 11:35:09 orthoped ic surgeon referral - bilatera l knee pain . PLease eval and treat . Thank you 2020 021 [facility], [address] [facility], [place], [address], 09:27:30 Procedures None recorded . Surgeries None recorded . Imaging MAMMO, screenin g, digital, bilatera l 2020 021 [facility] ([facility]), [address] [place], [address], 11:22:41 Medication Orders amitript yline 100 mg tablet 2021 [facility], [address] [facility], [place], [address], 15:32:32 albutero l sulfate HFA 90 mcg/actu ation aerosol inhaler 2021 [facility], [address] [place], [address], 2 15:32:41 predniso ne 20 mg tablet 2021 [facility], [address] [place] [address], [address], 2 15:32:43 Symbicor t 160 mcg-4.5 mcg/actu ation HFA aerosol inhaler 2021 [facility], [address] [place] [address], [address], 15:32:45 Pennsaid 20 mg/gram/ actuatio n (2 %) topical soln in metered- dose pump 2021 [place] [address] [facility], [address] [place] [address], [id number], 15:38:32 lisinopr il 20 mg-hydro chloroth iazide 12.5 mg tablet 2021 [facility], [address] [place] [address], [address], 15:36:22 omeprazo le 20 mg capsule, delayed release 2021 [facility] [address], [address] [place] [address], [address], 2 15:30:50 benzonat ate 200 mg capsule 2021 [facility] [address], [address] [place] [address], [address], 01/03/202 2 14:50:21 amoxicil manjinder 875 mg-potas sium clavulan ate 125 mg tablet 2021 [facility], [address] [place] [address], [address], 15:18:32 cycloben zaprine 10 mg tablet 2021 [facility], [address] [place] [address], [address], 14:50:17 predniso ne 20 mg tablet 2021 [facility], [address] [place] [address], [address], 14:50:20 cycloben zaprine 10 mg tablet 2020 [facility], [address] [place] [address], [address], 13:01:46 Symbicor t 160 mcg-4.5 mcg/actu ation HFA aerosol inhaler 2020 [facility], [address] [place] [address], [address], 13:00:13 loratadi ne 10 mg tablet 2020 [facility], [address] [place] [address], [address], 13:00:11 monteluk ast 10 mg tablet 2020 [facility], [address] [place] [address], [address], 13:00:41 ciproflo xacin 500 mg tablet 2020 021 adriel [facility], [address] [place], [address], 12:18:07 predniso ne 20 mg tablet 2020 021 ARNALDO [facility], [address] [place], [address], 12:43:40 Patient TargetsNo targets recorded. Patient Instructions Encounter Date Encounter Id Patient Instructions Last Modified By Organization Details Last Modified Time 07/03/2021 [id number] waalk-in here in 7 days for free Danuta [email or web address] Not available 07/05/2021 15:14:52 Reason for Referral Orthopedic Surgeon Referral for Pain in right knee bilateral knee pain . PLease eval and treat . 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 Please eval and treat . Thank you Referring Physician: [facility], Encounter Date: 07/03/2021 Sleep Medicine Referral for Sleep apnea Referring Physician: [facility], Encounter Date: 07/03/2021 Results Created Date Observation Date Name Description Value Unit Range Abnormal Flag Note LastModifiedBy Organization Detail LastModifiedTime 12/15/1912/14/2020 XR, chest No observ ation record ed. [email or web address] [facility] [address] [place], [address], 12/27/2020 15:10:40 01/31/20 21 12/14/2020 XR, chest No observ ation record ed. [facility] [address] [place], [address], 02/02/2021 10:56:17 01/31/20 21 01/30/2021 XR, chest , 2 view No observ ation record ed. [facility] [address] [place], [address], 02/02/2021 10:56:22 03/05/20 21 03/05/2021 MAMMO , scree leola, digit al, bilat eral No observ ation record ed. [facility] [address] [place], [address], 04/02/2021 16:58:25 03/13/20 21 03/13/2021 MRI, knee, w/o contr ast No observ ation record ed. [facility] [address] [place], [address], 05/11/2021 13:14:37 03/29/20 21 03/29/2021 nellie gonzalez ow study No observ ation record ed. [facility] [address] [place], [address], 05/11/2021 13:15:17 05/26/19 22 05/26/2021 XR, chest No observ ation record ed. [facility] [address] [place], [address], 06/27/2021 14:50:26 05/26/19 22 05/26/2021 CT, abdom en + pelvi s, w/ contr ast No observ ation record ed. [facility] [address] [place], [address], 06/27/2021 14:19:30 06/15/19 22 06/14/2021 LDCT, chest , for lung cance r von bhagat No observ ation record ed. [facility] [address] [place], [address], 07/03/2021 10:27:14 06/29/19 22 06/28/2021 US, head + neck, soft tissu e No observ ation record ed. [email or web address] [facility] [address] [place], [address], 07/03/2021 09:23:13 06/29/19 22 06/28/2021 CT, maxil lofac ial, w/o contr ast No observ ation record ed. [email or web address] [facility] [address] [place], [address], 07/03/2021 10:23:31 Result Notes None recorded. Problems Name Problem SNOMED Code Status Onset Date Resolution Date Notes Provider Name and Address Organization Details Recorded Time Migraine 70484788 Active 2017 Not Available [facility] 2 15:38:22 Prolapsed lumbar interverte bral disc 754878048 Active 2017 Not Available [facility] 2 15:38:21 Neck pain 50593055 Active 2017 Not Available [facility] 2 15:38:22 Essential hypertensi on 94887619 Active Not Available [facility] 2 15:38:22 Insomnia 827303307 Active Not Available [facility] 2 15:38:22 Pleurisy 187364346 Active Not Available [facility] 2 15:38:21 Chronic obstructiv e pulmonary disease 57217723 Active see PFTs 2019 Not Available [facility] 2 15:38:22 Pain in right knee Active 2018 Not Available [facility] 2 15:38:21 Serum vitamin B12 below reference range 925212721 Active 2018 Not Available [facility] 2 15:38:22 Hyperlipid emia 29276866 Active 2018 Not Available [facility] 2 15:38:22 Acute sinusitis 28708513 Active 2018 Not Available [facility] 2 15:38:22 Herpes labialis 0596973 Active 2018 Not Available [facility] 2 15:38:22 Sleep apnea 56206260 Active 2018 Not Available [facility] 2 15:38:22 Aphthous ulcer of mouth 615680853 Active 2019 Not Available [facility] 2 15:38:21 Lower abdominal pain 51944394 Active 2019 Not Available [facility] 2 15:38:21 Acute pharyngiti s 924683926 Active 2019 Not Available [facility] 2 15:38:21 Allergic rhinitis 72768217 Active 2019 Not Available [facility] 2 15:38:22 Neck swelling 051839398 Active 2019 Not Available [facility] 2 15:38:22 Pain in left knee Active 2019 Not Available [facility] 2 15:38:22 Administra tion of influenza vaccine Active 2019 Not Available [facility] 2 15:38:22 Screening for malignant neoplasm of colon Active 2020 Not Available [facility] 2 15:38:22 Hemorrhoid s 58982200 Active 2020 Not Available [facility] 2 15:38:21 Pain in left foot 8481903439602 07 Active 2020 Not Available [facility] 2 15:38:22 Upper respirator y infection 86253616 Active 2020 Not Available [facility] 2 15:38:21 Chronic thoracic back pain 9287753395627 03 Active 2020 Not Available [facility] 2 15:38:22 Screening for malignant neoplasm of breast Active 2020 Not Available [facility] 2 15:38:22 Wheezing 91108440 Active 2021 Not Available [facility] 2 15:38:22 Plantar fasciitis 772978436 Active 2021 Not Available [facility] 2 15:38:22 Bronchitis 75171282 Active Not Available [facility] 2 15:38:21 Low back pain 084184262 Active Not Available [facility] 2 15:38:21 Eczema 44977968 Active Not Available [facility] 2 15:38:22 Acute urinary tract infection 945388490 Active Not Available [facility] 2 15:38:21 Right upper quadrant pain 773685790 Active Not Available [facility] 2 15:38:22 Snoring 95291563 Active Not Available [facility] 2 15:38:22 Gastroesop hageal reflux disease 786881885 Active Not Available [facility] 2 15:38:22 Shoulder pain 41110635 Active Not Available [facility] 2 15:38:22 Bacterial vaginosis 207746989 Active Not Available [facility] 2 15:38:22 Sexual desire disorder 01514399 Active Not Available [facility] 2 15:38:22 Sinusitis 01778105 Active Not Available [facility] 2 15:38:22 Sialoadeni tis 82151758 Active Not Available [facility] 2 15:38:21 Problem Notes None recorded. Procedures Surgical History Date Name Laterality Status Provider Name and Address Organization Details Recorded Time 08/01/19 21 endoscopy completed SUSAN Rodriguez [facility] 08/07/2020 14:29:38 12/30/19 18 Xcapsl ctrc rmvl cplx wo ecp completed SUSAN Rodriguez 06/30/2018 16:57:41 02/28/20 11 Most Recent Mammogram completed SUSAN Galeana 03/13/2015 15:05:19 01/01/20 11 Hysterectomy completed SUSNA Galeana 03/13/2015 15:07:24 04/25/19 11 Endometrial Biopsy completed SUSAN Galeana 03/13/2015 15:06:32 01/31/20 10 Date of Last Pap Smear completed SUSAN Galeana 03/13/2015 15:05:19 03/31/19 08 Cholecystectomy completed SUSAN Galeana 03/13/2015 15:08:13 04/06/18 85 Caesarean Section completed SUSAN Galeana [facility] 03/13/2015 15:05:54 05/23/18 83 Caesarean Section completed Yecenia Deluca MA [facility] 03/13/2015 15:06:04 Imaging Results Imaging Date Name Status LastModified by Organiz ation Details LastModified Time 12/14/2020 XR, chest completed [facility] [address] [place], [address], 12/27/2020 15:10:40 12/14/2020 XR, chest completed [facility] [address] [place], [address], 02/02/2021 10:56:17 01/30/2021 XR, chest, 2 view completed [facility] [address] [place], [address], 02/02/2021 10:56:22 03/05/2021 MAMMO, screening, digital, bilateral completed [facility] [address] [place], [address], 04/02/2021 16:58:25 03/13/2021 MRI, knee, w/o contrast completed [facility] [address] [place], [address], 05/11/2021 13:14:37 03/29/2021 barium swallow study completed [facility] [address] [place], [address], 05/11/2021 13:15:17 05/26/2021 XR, chest completed [facility] [address] [place], [address], 06/27/2021 14:50:26 05/26/2021 CT, abdomen + pelvis, w/ contrast completed [facility] [address] [place], [address], 06/27/2021 14:19:30 06/14/2021 LDCT, chest, for lung cancer screening completed [facility] [address] [place], [address], 07/03/2021 10:27:14 06/28/2021 US, head + neck, soft tissue completed [email or web address] [facility] [address] [place], [address], 07/03/2021 09:23:13 06/28/2021 CT, maxillofacial, w/o contrast completed [facility] [address] [place], [address], 07/03/2021 10:23:31 Procedure Notes None recorded. Medical Equipment None Reported. Allergies Allergen ID Allergen Name Allergen Category Reaction Reaction Severity Criticality Documentation Date Start Date Code Code System Note Provider Name and Address Organization Details Recorded Time 431322 Pneumococ gregorio vaccine Not available Not available Not available Not available 06/30/2018 32182 7 RxNorm Not Available Not Available Not Available Medications Name Sig Start Date Stop Date Status Note LastModified by Organization Details LastModified Time symbicort 160-4.5 mcg/act aero 07/23 completed Not Available Not Available Not Available baclofen 20 mg tabs 04/07 completed Not Available Not Available Not Available ranitidin e hcl 150 mg tabs 04/07 completed Not Available Not Available Not Available mirtazapi ne 15 mg tabs 04/07 completed Not Available Not Available Not Available triamcino lone acetonide 0.1 % crea 04/07 completed Not Available Not Available Not Available citalopra m hydrobrom rain 40 mg tabs 04/07 completed Not Available Not Available Not Available ciproflox acin hcl 500 mg tabs 04/07 completed Not Available Not Available Not Available ventolin hfa 108 (90 base) mcg/actae rs 06/30 completed Not Available Not Available Not Available bupropion hcl sr 150 mg tb12 04/07 completed Not Available Not Available Not Available ibuprofen 800 mg tabs 06/30 completed irritati ng stomach . Not Available Not Available Not Available metronida zole 500 mg tabs 04/07 completed Not Available Not Available Not Available prednison e 20 mg tabs 04/07 completed Not Available Not Available Not Available Prescript ion - Prior Authoriza tion Request active Not Available Not Available Not Available nortripty line hcl 10 mg caps 04/07 completed Not Available Not Available Not Available voltaren 1 % gel 04/07 completed Not Available Not Available Not Available cyclobenz aprine 10 mg tablet Take 1 tablet every day by oral route at bedtime for 30 days. active Not Available Not Available No t Available amoxicill in 500 mg capsule 06/30 completed Not Available Not Available Not Available latanopro st 0.005 % eye drops 06/30 completed Not Available Not Available Not Available bupropion HCl SR 150 mg tablet,12 hr sustained -release TAKE ONE TABLET BY MOUTH TWICE DAILY 04/07 completed Not Available Not Available Not Available promethaz ine-DM 6.25 mg-15 mg/5 mL oral syrup Take 5 mL every 4 hours by oral route as needed for 10 days. 2020 active Not Available Not Available Not Avai lable pilocarpi ne 5 mg tablet TAKE 1 TABLET BY MOUTH THREE TIMES DAILY active Not Available Not Available No t Available prednison e 10 mg tablet active Not Available Not Available Not Available atorvasta tin 20 mg tablet 04/07 completed Not Available Not Available Not Available albuterol sulfate 2.5 mg/3 mL (0.083 %) solution for nebulizat ion active Not Available Not Available Not Available citalopra m 40 mg tablet Take 1 tablet every day by oral route. 04/07 completed Not Available Not Available Not Available trazodone 50 mg tablet Take 1 tablet every day by oral route at bedtime for 30 days. 04/07 completed Not Available Not Available Not Available atorvasta tin 10 mg tablet TAKE 1 TABLET BY MOUTH ONCE DAILY active Not Available Not Available No t Available lisinopri l 20 mg-hydroc hlorothia zide 12.5 mg tablet TAKE 1 TABLET BY MOUTH ONCE DAILY IN THE MORNING active Not Available Not Available No t Available azithromy conner 250 mg tablet TAKE 2 TABLETS BY MOUTH ON DAY 1 AND THEN TAKE 1 TABLET BY MOUTH ONCE A DAY ON DAY 2 THROUGH DAY 5 02/19 completed Not Available Not Available Not Available ibuprofen 800 mg tablet TAKE 1 TABLET BY MOUTH THREE TIMES DAILY WITH MEALS 10/17 completed stomach issues Not Available Not Available Not Available Lidocaine Viscous 2 % mucosal solution Take 10 mL every 3 hours by oral route as needed for 10 days. 2019 active Not Available Not Available Not Avai lable ofloxacin 0.3 % eye drops 06/30 completed Not Available Not Available Not Available tizanidin e 4 mg tablet TAKE 1 TABLET BY MOUTH EVERY 8 HOURS NEEDED 06/30 completed Not Available Not Available Not Available fluconazo le 150 mg tablet Take 1 tablet every 72 hours by oral route for 9 days. 01/31 completed Not Available Not Available Not Available benzonata te 200 mg capsule TAKE 1 CAPSULE BY MOUTH THREE TIMES DAILY NEEDED FOR 10 DAYS TAKE WITH 1 2 GLASSES OF WATER NEEDED FOR COUGH 2021 active Not Available Not Available Not Avai lable doxepin 25 mg capsule Take 1 capsule( s) as needed by oral route at bedtime for 30 days. 04/07 completed Not Available Not Available Not Available sumatript an 100 mg tablet Take 1 tablet as needed by oral route for 9 days. 07/23 completed Not Available Not Available Not Available hydrocodo ne 5 mg-acetam inophen 325 mg tablet active Not Available Not Available Not Available meloxicam 15 mg tablet active Not Available Not Available Not Available lisinopri l 20 mg tablet 06/30 completed Not Available Not Available Not Available ondansetr on HCl 4 mg tablet TAKE 1 TABLET BY MOUTH EVERY 8 HOURS active Not Available Not Available No t Available famotidin e 40 mg tablet TAKE 1 TABLET BY MOUTH AT BEDTIME FOR ACID REFLUX active Not Available Not Available No t Available prednison e 20 mg tablet TAKE 2 TABLETS BY MOUTH TWICE DAILY FOR 2 DAYS, THEN 1 TABLET TWICE DAILY FOR 5 DAYS, THEN TAKE 1/2 TABLET TWICE DAILY FOR 2 DAYS, THEN TAKE 1/2 TABLET FOR 1 DAY. TAKE SECOND DOSE EVERY DAY AT NOON active Not Available Not Available No t Available clindamyc in HCl 150 mg capsule Take 1 capsule every 6 hours by oral route for 10 days. 06/30 completed Not Available Not Available Not Available metronida zole 500 mg tablet Take 1 tablet twice a day by oral route for 7 days. 07/23 completed Not Available Not Available Not Available ciproflox acin 250 mg tablet 06/30 completed Not Available Not Available Not Available amlodipin e 5 mg tablet TAKE 1 TABLET BY MOUTH ONCE DAILY active Not Available Not Available No t Available ciproflox acin 500 mg tablet TAKE 1 TABLET BY MOUTH TWICE DAILY FOR 10 DAYS 02/19 completed Not Available Not Available Not Available sulfameth oxazole 800 mg-trimet hoprim 160 mg tablet TAKE 1 TABLET BY MOUTH EVERY 12 HOURS DIRECTED FOR 10 DAYS active Not Available Not Available No t Available triamcino lone acetonide 0.1 % topical cream APPLY A THIN LAYER TO THE AFFECTED AREA(S) BY TOPICAL ROUTE 2 TIMES PER DAY 04/07 completed Not Available Not Available Not Available baclofen 20 mg tablet Take 1 tablet 3 times a day by oral route for 30 days. 04/07 completed Not Available Not Available Not Available ketorolac 0.5 % eye drops 06/30 completed Not Available Not Available Not Available methylpre dnisolone acetate 80 mg/mL suspensio n for injection Take 1 mL by injectio n route for 1 day. 01/31 completed Not Available Not Available Not Available oxycodone -acetamin ophen 5 mg-325 mg tablet 06/30 completed Not Available Not Available Not Available hydrocort isone 2.5 % topical cream with perineal applicato r APPLY A THIN LAYER TO THE AFFECTED AREA(S) BY TOPICAL ROUTE 2-4 TIMESDAI LY 2020 active Not Available Not Available Not Avai lable amitripty line 25 mg tablet Take 2 tablets as needed by oral route at bedtime for 30 days. 06/30 completed Not Available Not Available Not Available prednisol one acetate 1 % eye drops,tejinder pension 06/30 completed Not Available Not Available Not Available nitroglyc caryn 0.4 mg/hr transderm al 24 hour patch APPLY 1 PATCH TOPICALL Y TO SKIN ONCE DAILY active Not Available Not Available No t Available baclofen 10 mg tablet Take 1 tablet 3 times a day by oral route as needed for 30 days. 06/30 completed Not Available Not Available Not Available benzonata te 100 mg capsule TAKE 1 CAPSULE BY MOUTH EVERY 8 HOURS NEEDED 12/20 completed Not Available Not Available Not Available pantopraz ole 40 mg tablet,de layed release TAKE 1 TABLET BY MOUTH ONCE DAILY BEFORE MEAL(S) FOR 30 DAYS active Not Available Not Available No t Available nortripty line 10 mg capsule Take 1 capsule as needed by oral route at bedtime for 30 days. 04/07 completed Not Available Not Available Not Available ranitidin e 150 mg tablet Take 1 tablet twice a day by oral route before meals for 30 days. 06/30 completed Not Available Not Available Not Available lisinopri l 10 mg tablet 06/30 completed Not Available Not Available Not Available gabapenti n 300 mg capsule 06/30 completed Not Available Not Available Not Available omeprazol e 20 mg capsule,d elayed release TAKE 1 CAPSULE BY MOUTH ONCE DAILY BEFORE MEAL(S) FOR 30 DAYS active Not Available Not Available No t Available budesonid e 0.5 mg/2 mL suspensio n for nebulizat ion USE 1 VIAL IN NEBULIZE R TWICE DAILY DIRECTED FOR 30 DAYS active Not Available Not Available No t Available lisinopri l 20 mg-hydroc hlorothia zide 25 mg tablet 07/18 completed Not Available Not Available Not Available monteluka st 10 mg tablet TAKE 1 TABLET BY MOUTH ONCE DAILY IN THE EVENING FOR 30 DAYS active Not Available Not Available No t Available mupirocin 2 % topical ointment APPLY A SMALL AMOUNT OF OINTMENT TOPICALL Y TO THE AFFECTED AREA(S) THREE TIMES DAILY 01/31 completed Not Available Not Available Not Available zolpidem 5 mg tablet 04/07 completed Not Available Not Available Not Available furosemid e 20 mg tablet active Not Available Not Available Not Available mirtazapi ne 15 mg tablet Take 1 tablet every day by oral route as needed for 30 days. 04/07 completed Not Available Not Available Not Available ergocalci ferol (vitamin D2) 1,250 mcg (50,000 unit) capsule TAKE 1 CAPSULE BY MOUTH ONCE A WEEK FOR 8 WEEKS active Not Available Not Available No t Available levofloxa conner 500 mg tablet Take 1 tablet every 24 hours by oral route for 7 days. 01/31 completed Not Available Not Available Not Available levofloxa conner 750 mg tablet active Not Available Not Available No t Available methylpre dnisolone 4 mg tablets in a dose pack 06/30 completed Not Available Not Available Not Available albuterol sulfate HFA 90 mcg/actua tion aerosol inhaler INHALE 2 PUFFS BY MOUTH EVERY 8 HOURS NEEDED 2021 active Not Available Not Available Not Avai lable cefdinir 300 mg capsule 01/31 completed Not Available Not Available Not Available fluticaso ne propionat e 50 mcg/actua [...] DAILY IN THE MORNING FOR 30 DAYS active Not Available Not Available No t Available amoxicill in 875 mg-potass ium clavulana te 125 mg tablet TAKE 1 TABLET BY MOUTH EVERY 12 HOURS FOR 14 DAYS 05/28 completed Not Available Not Available Not Available Vitamin B-12 1,000 mcg tablet Take 1 tablet twice a day by oral route with meals. 2020 active Not Available Not Available Not Avai labary OraMagicR x mouthwash TAKE 5 ML BY MOUTH FIVE TIMES DAILY NEEDED FOR 10 DAYS 01/31 completed Not Available Not Available Not Available acyclovir 5 % topical cream APPLY TO THE AFFECTED AREA(S) BY TOPICAL ROUTE 5 TIMES PER DAY 2020 active Not Available Not Available Not Avila labary Klor-Con M20 mEq tablet,ex tended release 04/07 completed Not Available Not Available Not Available Spiriva with [employer] r 18 mcg and inhalatio n capsules INHALE 1 PUFF BY MOUTH ONCE DAILY DIRECTED 09/04 completed Not Available Not Available Not Available mometason e 0.1 % topical solution APPLY 2 SOLUTION TOPICALL Y TWICE DAILY active Not Available Not Available No t Available Symbicort 160 mcg-4.5 mcg/actua tion HFA aerosol inhaler INHALE 2 PUFFS BY MOUTH TWICE DAILY DIRECTED 2021 active Not Available Not Available Not Avai lable Symbicort 80 mcg-4.5 mcg/actua tion HFA aerosol inhaler INHALE 2 PUFFS BY MOUTH TWICE DAILY DIRECTED FOR 30 DAYS 09/04 completed Not Available Not Available Not Available peg 3350 240 gram-elec trolytes 22.72 gram-6.72 g-5.84 g powdr for soln 06/30 completed Not Available Not Available Not Available Voltaren 1 % topical gel APPLY 2 GRAM TO THE AFFECTED AREA(S) BY TOPICAL ROUTE 4 TIMES PER DAY 04/07 completed Not Available Not Available Not Available Aerochamb er Plus Flow-Vu USE DIRECTED active Not Available Not Available No t Available Pennsaid 20 mg/gram/a ctuation (2 %) topical soln in metered-d ose pump APPLY 2 PUMPS (40 MG) TO THE AFFECTED KNEE(S) BY TOPICAL ROUTE 2 TIMES PER DAY 2021 active Not Available Not Available Not Avai lable Incruse Ellipta 62.5 mcg/actua tion powder for inhalatio n 09/04 completed Not Available Not Available Not Available Vitals Date Recorded Body height Body mass index (BMI) Body weight Oxygen saturation Oxygen saturation in Arterial blood by Pulse oximetry Heart rate Body temperature Systolic blood pressure Diastolic blood pressure Provider Name and Address Organization Details Last Updated DateTime 1 151.13 cm 32.8 kg/m2 49562.7 4 g 97 % 97 % 84 /min 98.1 [degF] 132 mm[Hg] 82 mm[Hg] Jessica Tipton [place] - [facility] 1 12:20:59 Date Recorded Body height Body mass index (BMI) Body weight Oxygen saturation Oxygen saturation in Arterial blood by Pulse oximetry Heart rate Systolic blood pressure Diastolic blood pressure Provider Name and Address Organization Details Last Updated DateTime 2 151.13 cm 34.4 kg/m2 95405.9 2 g 98 % 98 % 87 /min 140 mm[Hg] 82 mm[Hg] Ernestine Kee [place] [facility] 2 14:41:03 Date Recorded Body height Body mass index (BMI) Body weight Oxygen saturation Oxygen saturation in Arterial blood by Pulse oximetry Heart rate Body temperature Systolic blood pressure Diastolic blood pressure Provider Name and Address Organization Details Last Updated DateTime 2 151.13 cm 35.3 kg/m2 32968.7 2 g 95 % 95 % 80 /min 98.4 [degF] 140 mm[Hg] 72 mm[Hg] Jessica Tipton [place] - [facility] 15:23:29 Date Recorded Body height Body mass index (BMI) Body weight Oxygen saturation Oxygen saturation in Arterial blood by Pulse oximetry Heart rate Systolic blood pressure Diastolic blood pressure Provider Name and Address Organization Details Last Updated DateTime 2 151.13 cm 36.4 kg/m2 50005.8 3 g 96 % 96 % 85 /min 148 mm[Hg] 96 mm[Hg] Jessica Tipton [place] - [facility] 2 14:47:59 Social History Question Answer Notes LastModified by Organizat ion Details LastModified Time Tobacco Smoking Status Former Smoker 07/01/19 19 quit 01/2018 Jessica Tiptno [place] null, [place] [facility] 06/30/2018 16:56:48 Do You Have An Advance Directive? No Information not available 03/13/2015 What Is Your Level Of Alcohol Consumption? None Information not available 02/21/2014 Are You Blind Or Do You Have Difficulty Seeing? No Information not available 08/07/2020 Is Blood Transfusion Acceptable In An Emergency? Yes Information not available 03/13/2015 What Is Your Level Of Caffeine Consumption? Moderate Information not available 02/21/2014 How Much Tobacco Do You Chew? None Information not available 02/21/2014 Are You Currently Employed? Yes Information not available 03/13/2015 Are You Deaf Or Do You Have Serious Difficulty Hearing? No Information not available 08/07/2020 What Type Of Diet Are You Following? 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 With Others Information not available 03/13/2015 Marital Status Informatio n not available 02/21/2014 What Was The Date Of Your Most Recent Tobacco Screening? 07/03/2021 Information not available 07/03/2021 How Many Children Do You Have? 2 Information not available 03/13/2015 Performs Monthly Self-breast Exam? Yes Information not available 03/13/2015 Do You Use Protection During Sex? No Information not available 03/13/2015 What Is Your Relationship Status? Information not available 03/13/2015 Do You Use Your Seat Belt Or Car Seat Routinely? Yes Information not available 08/07/2020 Seat Belts Used Routinely Yes Information not available 03/13/2015 Are You Sexually Active? No Information not available 03/13/2015 Do You Have Smoke And Carbon Monoxide Detectors In Your Home? Yes Information not available 08/07/2020 At What Age Did You Start Smoking Tobacco? 12 Information not available 02/21/2014 Are You Passively Exposed To Smoke? No Information not available 08/07/2020 How Much Tobacco Do You Smoke? No Information not available 06/30/2018 General Stress Level Medium Information not available 03/13/2015 Do You Feel Stressed (tense, Restless, Nervous, Or Anxious, Or Unable To Sleep At Night)? [id number] Information not available 08/07/2020 Do You Use Any Illicit Or Recreational Drugs? No Information not available 08/07/2020 Do You Use Sunscreen Routinely? No Information not available 03/13/2015 Has Tobacco Cessation Counseling Been Provided? Yes Information not available 12/18/2020 On What Date Was Tobacco Cessation Counseling Provided? 07/03/2021 Information not available 07/03/2021 How Many Years Have You Smoked Tobacco? 38 Information not available 03/13/2015 Sex: Female Functional Status Question Answer Note LastModified by Organization D etails LastModified Time Are you able to care for yourself? Yes Information not available 08/07/2020 What is your exercise level? Moderate Information not available 02/21/2014 Mental Status None recorded. Family History Relationship Description Onset Age of this Age Resolved Age Notes LastModified by Organization Details LastModified Time Father Asthma [email or web address] Not available 03/13/2015 22:43:07 Father Hypertensive disorder [email or web address] Not available 03/13 22:43:07 Medical History Condition Response Coronary Artery Disease N Kidney Cyst N Blood Diseases N Hyperthyroidism N Blood disorders N Blood Transfusion N MRSA N Emphysema N Depression N COPD Y Blood Clots N Pneumonia N Premature N Peripheral Arterial Disease N Edema N TIA N Headaches/Migraines N Anxiety Disorder N Obesity N Polyps N Infertility N Acid Reflux (GERD) Y Hematuria N Stroke N Neck Injury N Polio N Hospital Admission other than N Neurologic Disorder N Other Sleep Disorders N Rheumatoid Arthritis N Fibromyalgia N Abdominal Aortic Aneurysm Repair N Kidney Disease N Heart Conditions N Heart Disease/Heart Problems N Hospitalizations N Brain Tumors N Acne N Skin Problems N Eating Disorder N Meningitis N Constipation N Tuberculosis N Cerebral Palsy N Myocardial Infarction N Asthma Y Substance Abuse N Peripheral Vascular Disease N Vertigo N Sleep Disorder N Cirrhosis N Pulmonary Embolism N Chicken Pox N Hematologic Disease N Flomax Use Past or Present N Anxiety/Depression N Thyroid Disease N Colon Cancer N Lung Disease N Glaucoma N Developmental or Behavioral Disorders N Bipolar N Pacemaker N Diverticulitis/Diverticulosis N Orthopedic Problems N Anesthesia Complications N Orthotics N Head Injury/Concussion N Congenital Anomalies N Larry Bite N Chronic Kidney Disease N Endometriosis N Liver Disease N Schizophrenia N Dialysis N Speech Delay N Chronic Obstructive Pulmonary Disease Y Parkinson's Disease N Thyroid Problems N GI Problems N Developmental Delay N Anemia N Multiple Sclerosis N Immune System Disorder N Colon Polyps N Heart Attack ([place]) N Diabetes N Cardiomyopathy N Blood Transfusions N Heart Problems/Murmur N Eye Trauma N Congestive Heart Failure (CHF) N Valvular Heart Disease N Hyperlipidemia N Double Vision N Abuse/Domestic Violence N Hepatitis B N Lupus N Epilepsy/Seizures N Reflux/GERD N Aneurysm N Heart Disease N Bronchitis Y Pre-Eclampsia N Hypertension Y Heart Failure N Other N Gout N High Blood Pressure Y Atrial Fibrillation N Kidney Stones N Head Trauma/Injury N Congenital Heart Disease N Spine Problems N Gastrointestinal Disease N Lung Mass N Sinusitis N Obstructive Sleep Apnea N Muscle, Joint, or Bone Problems N Autoimmune disease N Vision or Eye Problems N Arthritis N Blood Clot N Cancer N Seasonal allergies N Leg or Foot Ulcers N Raynaud's Disease N Aortic Aneurysm N Arrhythmia N Headaches N Heart Problems N [place] N Ear or Hearing Problems N Hyperparathyroidism N Migraines N Artificial Joints N Kidney or Bladder Problems N NSAID Use N Encephalitis N PTSD N Ulcers N Prostate Hypertrophy N Bleeding Disorder N AIDS/HIV N Urinary Tract Infection N Back Problems N Allergies N Atrial Flutter N GERD/Reflux N Hepatitis N Autism Spectrum Disorder (ASD) N Breast Cancer N Hernia N Hypothyroidism N Breast Problem N Genitourinary Disease N Deep Vein Thrombosis N Varicose Veins N Cystic Fibrosis N Hearing Loss N Developmental Problems N Carotid Disease N Vitamin D Deficiency N ADHD N Bladder or Kidney Problems N High Cholesterol N [place] N Valvular Abnormalities N Psychiatric/Mental Health Condition N Organ Transplant N Foot Deformity N Allergies/Hayfever N Dyslipidemia N Hyponatremia N Diabetic Eye Disease N Osteoporosis/Osteopenia N Back Pain N Proteinuria N Mental Illness N Neurological Problems N Ovarian Cancer N Bedwetting N Seizures/Epilepsy N Kidney Failure N Ocular trauma N Diverticulitis N Dementia N Sleep Apnea N Mental Problems N Warfarin Management N Osteoporosis N Gynecological History Statement/Question Response Abnormal Pap Y STIs/STDs N HPV Vaccine N Most Recent Mammogram 02/27/2011 Age at Menarche 10 Current Control Method Hysterectom y Age at First Child 16 Sexually Active? N Menses Monthly N Date of Last Pap Smear 01/30/2010 Sexual Problems? N LMP Approximate Desired Control Method None Obstetrics History GPAL:G 2 P 2 0 0 2 Type Value Multiple Births 0 Full Term 2 Induced 0 Spontaneous 0 Premature 0 Living 2 Ectopics 0 Total 2 Immunizations Vaccine Type Date Status Note Provider Nam e and Address Organization Details Recorded Time COVID-19, mRNA, LNP-S, PF, 30 mcg/0.3 mL dose 1 completed Not Available [facility] 10/28/2021 15:38:23 COVID-19, mRNA, LNP-S, PF, 30 mcg/0.3 mL dose 1 completed Not Available [facility] 10/28/2021 15:38:23 Influenza, split virus, quadrivalent, preservative 0 completed SUSAN Rodriguez, [place] - [facility] 02/01/2020 12:57:24 Influenza, split virus, quadrivalent, preservative 1 completed SUSAN [place], [place] [facility] 02/19/2021 13:30:47 Influenza, split virus, quadrivalent, preservative 5 completed Not Available [facility] 04/17/2019 02:32:10 Past Encounters Encounter ID Performer Location Encounter Start Date Encounter Closed Date Diagnosis/Indication Diagnosis SNOMED-CT Code Diagnosis ICD10 Code Diagnosis Note [id number] TRANG French (Adult Med) [address] [place] [address] [id number] 0 02/21/2014 16:30:28 02/21/2014 17:33:23 Essential hypertension 28875277 Insomnia 063750575 Pleurisy 649746467 Chronic ob structive pulmonary disease 53042331 [id number] Kiara (Adult Med) [address] [place] [address] [id number] 0 11/11/2014 15:34:06 11/11/2014 16:40:02 Bronchitis 40103607 Pleurisy 491382929 Low back pain 075385950 Insomnia 388968518 Adult heal th examination 445801695 Eczema 64989023 [id number] OLINDA Hernandez (Adult Med) [address] [place] [address] [id number] 0 01/13/2015 10:49:59 01/16/2015 16:37:15 Right upper quadrant pain 836396337 R10.11 Snoring 66225566 R06.83 Active or passive immunization 862881258 Z23 Chronic ob structive pulmonary disease 66770304 J44.9 Gastroesop hageal reflux disease 092657413 K21.9 Shoulder pain 91026173 M 25.512 Bacterial vaginosis 4197 32287 N76.0 Insomnia 830746932 G47.0 0 [id number] SUSAN Jung ([employer]PER[facility]) [address] [place] [address] [id number] 0 03/13/2015 14:31:21 03/13/2015 16:50:00 Screening mammography 80429521 Z12.31 Sexual chalino alex disorder 21283513 F52.9 Screening for malignant neoplasm of colon 302485995 Z12.11 [id number] TRANG French (Adult Med) [address] [place] [address] [id number] 0 03/16/2015 11:43:53 03/16/2015 18:02:43 Chronic obstructive pulmonary disease 21792674 J44.9 Essential hypertension 42854453 I10 Sinusitis 16574210 J32.9 Bronchitis 83644468 J40 Insomnia 044329429 G47.0 0 Low back pain 007625132 M54.5 [id number] TRANG French (Adult Med) [address] [place] [address] [id number] 0 05/18/2015 11:24:28 05/18/2015 12:19:47 Sinusitis 62164839 J32.9 Chronic ob structive pulmonary disease 41286711 J44.9 Essential hypertension 20147057 I10 Gastroesop hageal reflux disease 654004627 K21.9 Insomnia 139078680 G47.0 0 Low back pain 772020987 M54.5 [id number] TRANG French (Adult Med) [address] [place] [address] 0 07/19/2015 09:16:01 07/19/2015 10:44:11 Sialoadenitis 86739551 K11.20 Essential hypertension 58951064 I10 Gastroesop hageal reflux disease 315718878 K21.9 Insomnia 204241826 G47.0 0 Low back pain 491198770 M54.5 [id number] TRANG French (Adult Med) [address] [place] [address] 0 06/24/2016 16:56:15 06/24/2016 17:55:32 Sinusitis 33287124 J32.9 Sialoadenitis 03740632 K 11.20 Insomnia 662228635 G47.0 0 Gastroesop hageal reflux disease 606916745 K21.9 [id number] TRANG French (Adult Med) [address] [place] [address] [id number] 0 04/07/2017 15:17:44 04/07/2017 16:14:42 Migraine 22263822 G43.909 Low back pain 720894182 M54.5 Sinusitis 07068461 J32.9 Bronchitis 94479439 J40 Insomnia 236526507 G47.0 0 [id number] TRANG French (Adult Med) [address] [place] [address] [id number] 0 05/06/2017 11:30:43 05/06/2017 13:19:07 Sinusitis 46607076 J32.9 Prolapsed lumbar intervertebral disc 749314407 M51.26 Gastroesop hageal reflux disease 578430682 K21.9 Low back pain 081197685 M54.5 Neck pain 37484392 M54.2 [id number] TRANG French (Adult Med) [address] [place] [address] [id number] 0 06/03/2017 11:55:46 06/03/2017 14:18:13 Sinusitis 40249692 J32.9 Low back pain 518323582 M54.5 [id number] TRANG French (Adult Med) [address] [place] [address] [id number] 0 06/30/2018 16:26:54 07/01/2018 10:46:31 Chronic obstructive pulmonary disease 22030721 J44.9 Gastroesop hageal reflux disease 972761436 K21.9 Pain in right knee 26761 25159 85543 M25.561 Low back pain 173932823 M54.5 Essential hypertension 11644723 I10 Serum last min B12 below reference range 794505118 R79.89 Acute urin zarina tract infection 713752161 N39.0 Hyperlipidemia 80903809 E78.5 Insomnia 679366000 G47.0 0 [id number] TRANG French (Adult Med) [address] [place] [address] [id number] 0 07/23/2018 16:00:21 07/23/2018 17:22:16 Acute sinusitis 41354464 J01.90 Chronic ob structive pulmonary disease 82405332 J44.9 Herpes labialis 4992833 B00.1 Essential hypertension 87899484 I10 Gastroesop hageal reflux disease 033813501 K21.9 Low back pain 923098830 M54.5 Insomnia 437076734 G47.0 0 Hyperlipidemia 86248069 E78.5 Prolapsed lumbar intervertebral disc 264733394 M51.26 [id number] TRANG French (Adult Med) [address] [place] [address] [id number] 0 07/19/2019 11:55:49 07/22/2019 13:23:34 Bronchitis 13848785 J40 Neck pain 24334950 M54.2 Herpes labialis 6778215 B00.1 Essential hypertension 43282871 I10 Aphthous u lcer of mouth 107117257 K12.0 Hyperlipidemia 75014438 E78.5 Insomnia 011292462 G47.0 0 Sleep apnea 80516531 G47 .30 [id number] TRANG French (Adult Med) [address] [place] [address] [id number] 0 08/17/2019 08:16:51 08/17/2019 12:20:00 Bronchitis 31983808 J40 Sinusitis 67480236 J32.9 Lower abdominal pain 545 77266 R10.30 Hyperlipidemia 63074347 E78.5 Gastroesop hageal reflux disease 068106285 K21.9 Essential hypertension 67811309 I10 Chronic ob structive pulmonary disease 68903937 J44.9 Insomnia 565630550 G47.0 0 Sleep apnea 48481907 G47 .30 Prolapsed lumbar intervertebral disc 138803480 M51.26 Serum last min B12 below reference range 233674370 R79.89 [id number] Kiara (Adult Med) [address] [place] [address] [id number] 0 09/17/2019 10:14:10 09/17/2019 12:14:43 Pain in right knee 4152677678 43300 M25.561 Low back pain 626539899 M54.5 Chronic ob structive pulmonary disease 80773007 J44.9 Essential hypertension 89095400 I10 Gastroesop hageal reflux disease 696380053 K21.9 Hyperlipidemia 71615387 E78.5 Insomnia 759039669 G47.0 0 Prolapsed lumbar intervertebral disc 994580094 M51.26 Sleep apnea 14002629 G47 .30 Pain in right foot 06591 49073 26423 M79.221 [id number] TRANG French (Adult Med) [address] [place] [address] 81113-618 0 11/09/2019 08:13:23 11/09/2019 11:31:15 Bronchitis 11427820 J40 Chronic ob structive pulmonary disease 53280054 J44.9 Essential hypertension 32932342 I10 Gastroesop hageal reflux disease 740928705 K21.9 Hyperlipidemia 58474461 E78.5 Insomnia 432692578 G47.0 0 Low back pain 857915253 M54.5 Serum last min B12 below reference range 372394344 R79.89 Sleep apnea 27041017 G47 .30 Acute pharyngitis 087416 003 J02.9 [id number] TRANG French (Adult Med) [address] [place] [address] 79873-936 0 12/07/2019 07:56:08 12/07/2019 14:14:13 Chronic obstructive pulmonary disease 70715699 J44.9 Essential hypertension 81195627 I10 Gastroesop hageal reflux disease 527014192 K21.9 Hyperlipidemia 41370441 E78.5 Insomnia 170575383 G47.0 0 Allergic rhinitis 300434 04 J30.9 Neck swelling 209011165 R22.1 Prolapsed lumbar intervertebral disc 847693959 M51.26 Serum last min B12 below reference range 807715549 R79.89 Sleep apnea 35987793 G47 .30 [id number] TRANG French (Adult Med) [address] [place] [address] 75256-681 0 01/04/2020 08:21:59 01/05/2020 10:09:34 Chronic obstructive pulmonary disease 26210318 J44.9 Bronchitis 31876650 J40 Serum last min B12 below reference range 352986308 R79.89 Hyperlipidemia 35242184 E78.5 Gastroesop hageal reflux disease 083487028 K21.9 Pain in right knee 45694 81953 03980 M25.953 [id number] TRANG French (Adult Med) [address] [place] [address] [id number] 0 02/01/2020 11:43:03 02/01/2020 12:43:23 Pain in right knee 9664117837 31570 M25.561 Pain in left knee 889407 2181 98031 M25.562 Bronchitis 72562996 J40 Administra tion of influenza vaccine 32532792 Z23 Neck swelling 311585004 R22.1 Allergic rhinitis 136337 04 J30.9 Chronic ob structive pulmonary disease 76083733 J44.9 Essential hypertension 23466217 I10 Gastroesop hageal reflux disease 995345134 K21.9 Hyperlipidemia 03238029 E78.5 Insomnia 851129002 G47.0 0 Low back pain 919467716 M54.5 Sleep apnea 82832625 G47 .30 [id number] TRANG French (Adult Med) [address] [place] [address] 05349-941 0 03/07/2020 08:23:05 03/07/2020 12:33:26 Allergic rhinitis 11403709 J30.9 Chronic ob structive pulmonary disease 62461589 J44.9 Essential hypertension 25980405 I10 Gastroesop hageal reflux disease 592385090 K21.9 Hyperlipidemia 36735067 E78.5 Insomnia 886608786 G47.0 0 Low back pain 490779525 M54.5 Neck pain 37532604 M54.2 Serum last min B12 below reference range 062993243 R79.89 Sleep apnea 55067069 G47 .30 [id number] TRANG French (Adult Med) [address] [place] [address] [id number] 0 04/10/2020 08:13:06 04/10/2020 11:48:02 Essential hypertension 28373874 I10 Gastroesop hageal reflux disease 388540950 K21.9 Chronic ob structive pulmonary disease 25717678 J44.9 Hyperlipidemia 65739759 E78.5 Low back pain 447024159 M54.5 Pain in left knee 490349 1695 27939 M25.562 Pain in right knee 46140 19874 28269 M25.561 Prolapsed lumbar intervertebral disc 771579896 M51.26 Sleep apnea 04232500 G47 .30 Serum last min B12 below reference range 958395711 R79.89 Insomnia 550946587 G47.0 0 Migraine 01354763 G43.90 9 Neck pain 79967275 M54.2 Neck swelling 443242419 R22.1 Allergic rhinitis 005170 04 J30.9 [id number] TRANG French (Adult Med) [address] [place] [address] 29535-786 0 05/15/2020 08:02:51 05/16/2020 09:50:48 Allergic rhinitis 64454432 J30.9 Chronic ob structive pulmonary disease 38429832 J44.9 Gastroesop hageal reflux disease 268827627 K21.9 Hyperlipidemia 74006476 E78.5 Insomnia 074938803 G47.0 0 Low back pain 594077254 M54.5 Serum last min B12 below reference range 521219391 R79.89 Sleep apnea 53806241 G47 .30 Prolapsed lumbar intervertebral disc 537599516 M51.26 Pain in left knee 328249 6883 92114 M25.562 Pain in right knee 94791 85023 47435 M25.124 [id number] TRANG French (Adult Med) [address] [place] [address] 36460-407 0 07/06/2020 08:35:56 07/06/2020 15:49:22 Acute pharyngitis 212960483 J02.9 Acute sinusitis 43683976 J01.90 Bronchitis 14547899 J40 Allergic rhinitis 242597 04 J30.9 Chronic ob structive pulmonary disease 72188887 J44.9 Essential hypertension 81231437 I10 Gastroesop hageal reflux disease 433602356 K21.9 Hyperlipidemia 12179235 E78.5 Insomnia 403329940 G47.0 0 Low back pain 509929632 M54.5 Neck pain 24408014 M54.2 Pain in left knee 692725 0457 06429 M25.562 Pain in right knee 23802 47837 51308 M25.561 Prolapsed lumbar intervertebral disc 689722918 M51.26 Serum last min B12 below reference range 760225963 R79.89 Sleep apnea 83826336 G47 .30 [id number] TRANG French (Adult Med) [address] [place] [address] 52484-552 0 08/07/2020 09:02:22 08/07/2020 15:35:55 Bronchitis 46417969 J40 Herpes labialis 6294718 B00.1 Essential hypertension 49025915 I10 Allergic rhinitis 999946 04 J30.9 Hyperlipidemia 49502879 E78.5 Insomnia 308626068 G47.0 0 Low back pain 316255875 M54.5 Neck pain 43497917 M54.2 Serum last min B12 below reference range 054677000 R79.89 Sleep apnea 30452945 G47 .30 [id number] TRANG French (Adult Med) [address] [place] [address] 48885-092 0 09/04/2020 09:00:12 09/04/2020 15:24:38 Allergic rhinitis 20277824 J30.9 Chronic ob structive pulmonary disease 56420691 J44.9 Essential hypertension 12546478 I10 Gastroesop hageal reflux disease 539678770 K21.9 Hyperlipidemia 90642074 E78.5 Insomnia 998314093 G47.0 0 Low back pain 852642301 M54.5 Migraine 23582516 G43.90 9 Prolapsed lumbar intervertebral disc 144396302 M51.26 Serum last min B12 below reference range 974180469 R79.89 Sleep apnea 89918797 G47 .30 Screening for malignant neoplasm of colon 733477452 Z12.11 Herpes labialis 9746310 B00.1 Hemorrhoids 70094190 K64 .9 [id number] TRANG French (Adult Med) [address] [place] [address] 09823-513 0 10/17/2020 16:13:30 10/20/2020 19:41:55 Allergic rhinitis 15391200 J30.9 Chronic ob structive pulmonary disease 13671256 J44.9 Essential hypertension 06352139 I10 Gastroesop hageal reflux disease 564438203 K21.9 Hyperlipidemia 99386946 E78.5 Insomnia 232998348 G47.0 0 Low back pain 428743707 M54.5 Neck pain 05010192 M54.2 Sleep apnea 83073509 G47 .30 Serum last min B12 below reference range 756085223 R79.89 Prolapsed lumbar intervertebral disc 078786079 M51.26 Pain in left knee 135803 8499 81706 M25.562 Pain in right knee 02906 89410 47494 M25.772 [id number] TRANG French (Adult Med) [address] [place] [address] 45775-414 0 11/14/2020 07:47:46 11/14/2020 17:14:25 Pain in left foot 1167334827 28654 M79.672 Chronic ob structive pulmonary disease 63437849 J44.9 Bronchitis 28803110 J40 Allergic rhinitis 383212 04 J30.9 Essential hypertension 82463924 I10 Gastroesop hageal reflux disease 140112647 K21.9 Hyperlipidemia 03000065 E78.5 Insomnia 626128638 G47.0 0 Low back pain 334127964 M54.5 Migraine 83064428 G43.90 9 Neck pain 65439408 M54.2 Prolapsed lumbar intervertebral disc 279416361 M51.26 Serum last min B12 below reference range 813476702 R79.89 Sleep apnea 35159365 G47 .30 [id number] TRANG French (Adult Med) [address] [place] [address] 04750-282 0 12/18/2020 08:45:06 12/18/2020 15:49:56 Allergic rhinitis 02876075 J30.9 Chronic ob structive pulmonary disease 62692201 J44.9 Essential hypertension 46723556 I10 Gastroesop hageal reflux disease 842025507 K21.9 Hyperlipidemia 83989931 E78.5 Insomnia 214279237 G47.0 0 Low back pain 279889220 M54.5 Prolapsed lumbar intervertebral disc 741261142 M51.26 Sleep apnea 93797477 G47 .30 Sinusitis 86221661 J32.9 Pain in left knee 923088 6395 51296 M25.562 Pain in right knee 06798 91491 11962 M25.561 Bronchitis 69169778 J40 Serum last min B12 below reference range 739136287 R79.89 [id number] TRANG French (Adult Med) [address] [place] [address] 37633-229 0 02/19/2021 12:03:34 02/19/2021 13:05:34 Administration of influenza vaccine 28385382 Z23 Allergic rhinitis 265105 04 J30.9 Chronic ob structive pulmonary disease 20622868 J44.9 Chronic th oracic back pain 8410832397 02484 M54.6 Screening for malignant neoplasm of breast 429159639 Z12.39 Screening mammography 24 198612 Z12.31 [id number] TRANG French (Adult Med) [address] [place] [address] 01562-161 0 04/02/2021 14:30:30 04/02/2021 15:47:41 Acute sinusitis 55126318 J01.90 Chronic th oracic back pain 6286609859 66175 M54.6 Allergic rhinitis 280011 04 J30.9 Chronic ob structive pulmonary disease 70908638 J44.9 Essential hypertension 41378146 I10 Gastroesop hageal reflux disease 403566411 K21.9 Hyperlipidemia 70119288 E78.5 Insomnia 961439454 G47.0 0 Low back pain 302013306 M54.50 Prolapsed lumbar intervertebral disc 170693308 M51.26 Serum last min B12 below reference range 611938623 R79.89 Sleep apnea 91764737 G47 .30 Neck pain 54869759 M54.2 [id number] TRANG French (Adult Med) [address] [place] [address] [phone] 05/28/2021 14:30:15 05/28/2021 15:41:21 Gastroesophageal reflux disease 118020009 K21.9 Low back pain 092733472 M54.50 Wheezing 72650840 R06.2 Essential hypertension 79210284 I10 Allergic rhinitis 817206 04 J30.9 Chronic ob structive pulmonary disease 33107614 J44.9 Hyperlipidemia 23348911 E78.5 Insomnia 622648314 G47.0 0 Serum last min B12 below reference range 470560419 R79.89 Sleep apnea 59153085 G47 .30 [id number] TRANG French (Adult Med) [address] [place] [address] [phone] 07/03/2021 14:28:15 07/04/2021 11:12:13 Insomnia 311376706 G47.00 Allergic rhinitis 139512 04 J30.9 Chronic ob structive pulmonary disease 67126422 J44.9 Essential hypertension 51996025 I10 Gastroesop hageal reflux disease 824180375 K21.9 Hyperlipidemia 76107154 E78.5 Low back pain 347337925 M54.50 Serum last min B12 below reference range 875790731 R79.89 Sleep apnea 70836016 G47 .30 Plantar fasciitis 385672 003 M72.2 Prolapsed lumbar intervertebral disc 363045554 M51.26 Health Concerns Section Related Observation LastModified by Organization Detai ls LastModified Time None Recorded Concern Status LastModified by Organization Details LastModified Time None Recorded Advance Directives Directive N: Payers Encounter Date Sequence Insurance Name Policy Number Policy Webster Covered Member ID Webster Member ID Guarantor Name 12/18/2020 1 [place] [facility] (MEDICAID REPLACEMENT - HMO) [id number] Medina Kenny [id number] Medina Cox 02/19/2021 1 [place] [facility] [place]PLACEMENT - [place]MO) [id number] Medina Cox [id number] Medina Cox 04/02/2021 1 [place] [facility] [place] REPLACEMENT - HMO) [id number] Medinanicolás Cox [id number] Medina Cox 05/28/2021 1 [place] [facility] [place] REPLACEMENT - [place]MO) [id number] Medinanicolás Cox [id number] Medina Cox 07/03/2021 1 [place] [facility] ([place] REPLACEMENT - HMO) [id number] Medina Kenny [id number] Medina Cox Notes Date Note Type Note Provider Name and Address Organization Details Recorded Time 12/18/2020 text/html pain in back of lungs hurting , went to ED , 2 breathing treatments , asthma flared . COPD bad according to ER doc , steroids Rik Elizabeth PA-C Attn: Accounting,[address] [facility], [place], [address], [place] 12/18/2020 16:17:19 02/19/2021 text/html some wheezing , no fever , gets this way when exposed to dust . Rik Elizabeth PA-C Attn: Accounting,[address] [facility], [place], [address], [place] 02/19/2021 22:09:52 04/02/2021 text/html tightness right shoulder into back of neck worse than left Rik Elizabeth PA-C Attn: Accounting,[address] [facility], [place], [address], [facility] 04/02/2021 17:12:45 05/28/2021 text/html gets sob easily Rik Elizabeth PA-C Attn: Accounting,[address] [facility], [place], [address], [facility] 05/28/2021 17:18:44 07/03/2021 text/html not breathing well at night ..... Rik Elizabeth PA-C Attn: Accounting,[address] [facility], [place], [address], [facility] 07/05/2021 15:15:00 OBGyn Episode No OBEpisode recorded.
--- OUTSIDE RECORDS SUMMARY | 2024-06-18 14:42 | XMS_ITS | Clinical Summary ---
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 Active OXYGEN by Nasal route continuous. 2L at night Active WALKER MISC, DME,Indications:F requent falls,Lumbar radiculopathy 1 Device by Does not apply route daily. 1 Device 02/07/20 22 Active omeprazole (PRILOSEC) 40 MG capsule omeprazole 40 mg capsule,delay ed release TAKE 1 CAPSULE BY MOUTH ONCE DAILY Active BIPAP MACHINE Active albuterol sulfate HFA 108 (90 Base) MCG/ACT inhalerIndication s:Chronic obstructive pulmonary disease, unspecified COPD type ([facility]/HCC HHS/HCC) INHALE 2 PUFFS BY MOUTH EVERY 6 HOURS NEEDED FOR WHEEZING 18 g 11 03/07/20 23 Active Budeson-Glycopyrr ol-Formoterol (BREZTRI AEROSPHERE) 160-9-4.8 MCG/ACT AerosolIndication s:Chronic obstructive pulmonary disease, unspecified COPD type ([facility] HHS/HCC) Inhale 1 puff into the lungs 2 (two) times a day. 10.7 g 1 04/08/19 24 Active famotidine (PEPCID) 40 MG tablet Take 1 tablet (40 mg total) by mouth daily. 07/15/19 24 Active metoclopramide (REGLAN) 5 MG tablet Take 1 tablet (5 mg total) by mouth 2 (two) times daily. 11/07/19 24 Active HYDROcodone-aceta minophen (NORCO) 5-325 MG tablet Take 1 tablet by mouth every 12 (twelve) hours as needed. FOR PAIN 01/19/20 Active furosemide (LASIX) 80 MG tablet Take 1 tablet (80 mg total) by mouth daily. 01/26/20 24 Active DUPIXENT 300 MG/2ML injection (PEN) Inject 2 mLs (300 mg total) into the skin. 03/10/20 24 Active albuterol (PROVENTIL) (2.5 MG/3ML) 0.083% nebulizer solutionIndicatio ns:Chronic obstructive pulmonary disease, unspecified COPD type ([facility]) USE 1 VIAL IN NEBULIZER EVERY 4 HOURS NEEDED FOR WHEEZING 360 mL 04/02/19 25 Active atorvastatin (LIPITOR) 80 MG tabletIndications :Mixed hyperlipidemia TAKE 1 TABLET BY MOUTH NIGHTLY AT BEDTIME 90 tablet 1 04/21/19 25 Active amitriptyline (ELAVIL) 100 MG tabletIndications :Insomnia, unspecified type TAKE 1 TABLET BY MOUTH NEEDED AT BEDTIME 90 tablet 3 06/01/19 25 Active sucralfate (CARAFATE) 1 G tablet Take 1 tablet (1 g total) by mouth 4 (four) times daily before meals and nightly. 05/26/19 25 Active fluconazole (DIFLUCAN) 150 MG tabletIndications :Vaginal itching Take one tablet by mouth, May repeat in 72 hours if needed. 2 tablet 06/02/19 25 Active lisinopril (PRINIVIL) 30 MG tabletIndications :Uncontrolled hypertension Take 1 tablet by mouth once daily 90 tablet 1 06/16/19 25 Active ondansetron (ZOFRAN-ODT) 4 MG disintegrating tablet Take 1 tablet (4 mg total) by mouth. 05/26/19 25 Active amitriptyline (ELAVIL) 100 MG tabletIndications :Insomnia, unspecified type TAKE 1 TABLET BY MOUTH NEEDED AT BEDTIME 90 tablet 12/10/19 24 2024 Discontinued lisinopril (PRINIVIL) 30 MG tabletIndications :Uncontrolled hypertension Take 1 tablet by mouth once daily 90 tablet 03/22/20 24 2024 Discontinued cephALEXin (KEFLEX) 500 MG capsuleIndication s:Acute cystitis without hematuria Take 1 capsule (500 mg total) by mouth 2 (two) times daily for 7 days. 14 capsule 06/10/19 25 2024 Hospital, Clinic, or Other Facility Administered Medication Ordered Dose Route Frequency Start Date End Date Status hylan (SYNVISC ONE) injection 48 mgIndications:Bilateral primary osteoarthritis of knee 48 mg IX Once 06/16/2024 06/16/2024 Ended hylan (SYNVISC ONE) injection 48 mgIndications:Bilateral primary osteoarthritis of knee 48 mg IX Once 06/16/2024 06/16/2024 Ended lidocaine (XYLOCAINE) 2 % injection 3 mLIndications:Bilateral primary osteoarthritis of knee 3 mL Other Once 06/16/2024 06/16/2024 Ended Active Problems Problem Noted Date Diagnosed Date Eczema 11/08/2022 Insomnia 11/08/2022 Right upper quadrant pain 11/08/2022 Shoulder pain 11/08/2022 Bronchitis 11/08/2022 Pleurisy 11/08/2022 Sialoadenitis 11/08/2022 Snoring 11/08/2022 Chronic migraine without aur a without status migrainosus, not intractable 08/29/2022 Tremor of both hands 08/29/2022 Chronic asthmatic bronchitis with acute exacerbation ([facility]) 07/16/2022 Spondylolisthesis of lumbar region 06/27/2022 Fall, initial encounter 05/01/2022 Gait disturbance 05/01/2022 Foraminal stenosis of lumbar region 05/01/2022 Abnormal MRI, lumbar spine 05/01/2022 Osteoporosis 03/08/2022 Overview (03/08/2022): L1-L4 and osteopenia and left femoral neck Fall, subsequent encounter 03/08/2022 Chronic bilateral back pain, unspecified back lo cation 03/08/2022 Chronic pain of both knees 03/08/2022 Panlobular emphysema ([facility]) Burning sensation of throat 10/04/2021 Chronic obstructive pulmonar y disease, unspecified COPD type ([facility]) 10/04/2021 Hypertension, unspecified type 10/04/2021 Gastroesophageal reflux dise ase, unspecified whether esophagitis present 10/04/2021 Cigarette nicotine dependenc e with other nicotine-induced disorder 10/04/2021 Obesity (BMI 30-39.9) 10/04/2021 Pain in both feet 08/03/2021 Plantar fasciitis 07/03/2021 Epigastric pain 06/27/2021 Pain in face 06/21/2021 Pain in throat 06/21/2021 Swelling of mandible 06/21/2021 Irritable bowel syndrome with constipation 06/05 Gastroesophageal reflux disease without esophagi tis 06/05/2021 Sore throat 05/22/2021 Chondromalacia of left patella 03/19/2021 Chondromalacia of right patella 03/19/2021 Tear of medial meniscus of knee 03/19/2021 Chronic thoracic back pain 02/18/2021 Osteoarthritis of ankle or foot 12/15/2020 Upper respiratory infection 12/05/2020 Pain in left foot 11/14/2020 Hemorrhoids 09/04/2020 Sensation of lump in throat 07/25/2020 Wheezing 07/25/2020 Fatigue 07/25/2020 Shortness of breath 05/22/2020 Allergic rhinitis 12/07/2019 Neck swelling 12/07/2019 Acute pharyngitis 11/09/2019 Lower abdominal pain 08/17/2019 Sleep apnea 08/13/2018 Chronic respiratory failure with hypoxia (CMS/HC C [facility]) 07/31/2018 Acute sinusitis 07/23/2018 Herpes labialis 07/23/2018 Low serum vitamin B12 06/30/2018 Asthma ([facility]) 06/29/2018 Overview (11/08/2022): (History of) Hypoxia 06/29/2018 Chest pain 06/29/2018 Daytime hypersomnia 06/29/2018 Dyspnea on exertion 06/29/2018 Hyperlipidemia 11/17/2017 Disorder of thyroid gland 11/04/2017 Smoker 11/04/2017 Chronic obstructive pulmonary disease ([facility] H HS/HCC) 11/04/2017 Overview (11/08/2022): see PFTs 02/15/2020 Primary hypertension 11/04/2017 Obesity 11/04/2017 Sacroiliitis 07/03/2017 Lumbar radiculopathy 05/26/2017 Neck pain 05/05/2017 Herniated lumbar intervertebral disc 05/05/2017 Migraine 04/06/2017 Resolved Problems Problem Noted Date Diagnosed Date Resolved Date Myelopathy ([facility]) 05/01/2022 06/27/2022 Pars defect with spondylolisthesis 05/01/2022 06/27/2022 Encounters Date Type Department Care Team Description 06/16/2024 9:40 AM CDT Office Visit [facility] [place] [address] [place] [address] Maurisio Jeong MD Follow Up (Bilateral knee oa ) 06/16/2024 Travel 06/11/[address] [place] [id number] Nettie Hodges NP Follow Up Call 06/09/2024 Orders Only [address] [place] [address] Nettie Hodges NP 06/01/2024 1:20 PM AUTOMOTIVE PARTS SALESPERSON Office Visit [address] [place] [address] Nettie Hodges NP Vaginal Problem (Patient present with c/o vaginal irritation on the inside with a lot of vaginal itching.) 06/01/2024 - 06/01/2024 11:59 PM AUTOMOTIVE [employer]S SALESPERSON Hospital Encounter [facility] [address] Nettie Hodges NP Discharge Disposition: Home or Self Care (Routine Discharge) 06/01/2024 Travel 06/01/[address] [place] [address] Nettie Hodges NP Information 05/26/2024 Scan HEALTH INFO SRVCS Scanned, [facility] 05/06/[address] [place] [address] Nettie Hodges NP Record Request 05/03/2024 Telephone [facility] [place] [phone] [facility] [address] [place] [address] Nettie Hodges NP COVID-19 04/26/2024 1:20 PM AUTOMOTIVE PARTS SALESPERSON Office Visit [facility] [place] [address] [facility] [address] [place] [address] Nettie Hodges NP Hypertension (Patient presents for 3 month follow up HTN) 04/26/2024 9:00 AM AUTOMOTIVE PARTS SALESPERSON Office Visit [facility] [place] [address] [place] [address] Maurisio Jeong MD Knee Pain (Bilateral knee pain Rt > Lt had cortisone 03/2022 states once lido wore off did not help at all ) 04/26/2024 - 04/26/2024 11:59 PM AUTOMOTIVE PARTS SALESPERSON Hospital Encounter [facility] [address] [place] [address] Maurisio Jeong MD Discharge Disposition: Home or Self Care (Routine Discharge) 04/26/2024 Travel 03/26/2024 10:00 AM AUTOMOTIVE PARTS SALESPERSON Office Visit [facility] [phone] Paula Sanchez MD Hypertension (6mo); CHF 03/26/2024 Travel from Last 3 Months Immunizations Name Administration Dates Next Due Fluzone (IIV3, Trivalent, 0. 5 ML Prefilled Syringe) 12/31/2023 Fluzone 6 Months+ Quad (0.5 mL Prefilled Syringe) 01/10/2023,12/07/2021 Influenza Adult (Generic) 02/19/2021,02/01/2020, 01/13/2015 PFIZER COVID-19 (ORIGINAL FO RMULATION, PURPLE CAP) mRNA, LNP-S, PF, 30 MCG/0.3 ML DOSE 03/15/2021,07/21/2020,06/30/2020 Shingrix 01/13/2024,10/03/2023 Tdap (Generic) 10/03/2023 Family History Medical History Relation Comments Hypertension Brother 1 Seizures Brother 1 Heart Disease Brother 2 DC Brother 2 Heart Disease Brother 3 stint Brother 3 Diabetes Father Hypertension Father No Known Problems Maternal Grandfather Heart Disease Maternal Grandmother pacemaker Maternal Grandmother COPD Mother No Known Problems Paternal Grandfather No Known Problems Paternal Grandmother Hypertension Sister 1 Hypertension Sister 2 Hypertension Sister 3 Relation Status Comments Brother 1 Brother 2 Brother 3 Alive Father Maternal Grandfather Maternal Grandmother Mother Paternal Grandfather Paternal Grandmother Sister 1 Alive Sister 2 Alive Sister 3 Alive Social History Tobacco Use Types Packs/Day Years Used Date Smoking Tobacco: Every Day Cigarettes 0.3 41 Started: 06/04/1983; Last attempted to quit: 06/04/2023 Passive Smoke Exposure: Current Smokeless Tobacco: Never Tobacco Cessation:Ready to Q uit: No; Counseling Given: Yes Alcohol Use Standard Drinks/Week Comments Yes 3.3 (1 standard drink = 0.6 oz p ure alcohol) rare beer PHQ-2 Answer Date Recorded Patient Health Questionnaire-2 Score 0 06/01/2024 Comments No Sex and Gender Information Value Date Recorded Sex Assigned at Female 04/26/2024 7:07 AM AUTOMOTIVE [employer]S SALESPERSON Legal Sex Female 2:16 PM [employer]OMOTIVE [employer] SALESPERSON Gender Identity Female 04/26/2024 9:06 AM AUTOMOTIVE [employer]S SALESPERSON Sexual Orientation Straight 04/26/2024 1: 33 PM AUTOMOTIVE [employer]S SALESPERSON 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 Not on file Not on file Last Filed Vital Signs Vital Sign Reading Time Taken Comments Blood Pressure 117/64 06/16/2024 9:29 AM CDT Pulse 76 06/16/2024 9:29 AM CDT Temperature 36.6 C (97.9 F) 06/01/2024 1:17 PM AUTOMOTIVE [employer] SALESPERSON Respiratory Rate 24 06/01/2024 1:17 PM AUTOMOTIVE [employer]S SALESPERSON Oxygen Saturation 97% 06/01/2024 1:17 PM AUTOMOTIVE [employer]S SALESPERSON Inhaled Oxygen Concentration - - Weight 93.4 kg (206 lb) 06/16/2024 9:29 AM CDT Height 152.4 cm (5') 06/16/2024 9:29 AM CDT pt s tates Body Mass Index 40.23 06/16/2024 9:29 AM CDT Plan of Treatment Upcoming Encounters Date Type Department Care Team (Late st Contact Info) Description 06/30/2024 8:00 AM CDT Office Visit [facility] [address], [address] [place] [phone] Shila Ruiz MD [address] [facility] [place] [address] 08/12/2024 11:00 AM CDT [facility] [address], [address] [place] [phone] Gracy Blair APRN [address] [facility] [address] [place] [address] 09/16/2024 10:40 AM CDT Office Visit [facility] [place] [address] [place] [address] Maurisio Jeong MD [address] [place] [address] 09/24/2024 10:00 AM CDT Office Visit [facility] [phone] Paula Sanchez MD [address] [facility] [address] [place] [address] 10/28/2024 11:00 AM CDT [facility] [address], [address] [place] [phone] Gracy Blair APRN [address] [place] [address] 11/01/2024 1:20 PM CDT Office Visit [facility] [place] [address] [facility] [address] [place] [address] Nettie Hodges, BUFFING AND POLISHING WHEEL REPAIRER [address] [place] [address] Health Maintenance Due Date Last Done Comments Annual Physical 10/04/2022 10/04/2021 RSV Immunization or 60+ Years (1 - Risk 60-74 years 1-dose series) 2023 COVID-19 Vaccine ( season) 2023 03/15/2021, 07/21/2020, 06/30/2020 Mammogram Screening 04/19/2024 04/19/2022 Pneumococcal Vaccine: Pediatrics (0 to 5 Years) and At-Risk Patients (6 to 64 Years) (1 of 2 - PCV) 03/31/2029 Postponed from 1969 (Allergy) Colorectal Cancer Screening Colonoscopy (10 Years) 10/31/2030 10/31/2020 DTaP, Tdap and Td Vaccines (2 - Td or Tdap) 10/02/2033 10/03/2023 Hepatitis C Completed 02/27/2022 Influenza Adult Completed 12/31/2023, 12/29, 12/07/2021, Additional history exists Zoster Vaccines Completed 01/13/2024, 10/03/2023 PHQ-2 (Physician [place]) Completed 06/01/2024 Meningococcal B Vaccine Aged Out No l onger eligible based on patient's age to complete this topic Meningococcal Vaccine Aged Out No corey bruce eligible based on patient's age to complete this topic RSV Immunizations Under 20 Months Aged Out No longer eligible based on patient's age to complete this topic Procedures Procedure Name Priority Date/Time Associated Diagnosis Comments ARTHROCENTESIS MAJOR JOINT W/ ULTRASOUND GUIDANCE Routine 06/16/2024 9:40 AM CDT Bilateral primary osteoarthritis of knee OUS GUIDE NEEDLE PLCMT ORTHO Routine 06/16/2024 9:32 AM CDT Bilateral primary osteoarthritis of knee URINE BACTERIA CULTURE Routine 1:54 PM AUTOMOT[employer] SALESPERSON Symptoms involving urinary system URINALYSIS AUTO DIP Routine 06/01/2024 Symptoms involving urinary system CELL COUNT W/ DIFF BODY FLUID Routine 04/26/2024 7:22 PM AUTOMOTIVE [employer] SALESPERSON Knee effusion, right CRYSTALS, BODY FLUID Routine 04/26/2024 7:22 PM AUTOMOTIVE [employer]S SALESPERSON Knee effusion, right OXR LT KNEE 3V Routine 04/26/2024 9:36 AM AUTOMOTIVE [employer]S SALESPERSON Bilateral primary osteoarthritis of knee OXR RT KNEE 3V Routine 04/26/2024 9:36 AM AUTOMOTIVE PARTS SALESPERSON Bilateral primary osteoarthritis of knee OUS GUIDE NEEDLE PLCMT ORTHO Routine 04/26/2024 9:26 AM AUTOMOTIVE [employer]S SALESPERSON Bilateral primary osteoarthritis of knee ARTHROCENTESIS MAJOR JOINT W/ ULTRASOUND GUIDANCE Routine 04/26/2024 9:00 AM AUTOMOTIVE PARTS SALESPERSON Bilateral primary osteoarthritis of knee Knee effusion, right MG SCREENING W TAYA IOANA DIGI Routine 04/19/2022 12:00 AM AUTOMOTIVE PARTS SALESPERSON Screening mammogram for breast cancer HEPATITIS C ANTIBODY Routine 02/27/2022 12:19 PM AUTOMOTIVE [employer]S SALESPERSON Need for hepatitis C screening test COLONOSCOPY GENERIC (SCAN ORDER) 10/31/2020 from Last 3 Months or Most Recently Relevant to Health Maintenance Results * ARTHROCENTESIS MAJOR JOINT W/ ULTRASOUND GUIDANCE (06/16/2024 9:40 AM CDT) Maurisio Martínez MD - 06/16/2024 9:40 AM CDT Maurisio Jeong MD 06/16/2024 10:32 AM *Lg Jt Arthrocentesis: bilateral knee Synvisc 1 injection on 06/16/2024 9:40 AM Indications: pain Details: 22 G needle, ultrasound-guided lateral approach Medications (Right): (6 mL Synvisc 1 injected into the knee after local anesthesia with 3 cc 2% lidocaine) Medications (Left): (6 mL Synvisc 1 injected into the knee after local anesthesia with 3 cc 2% lidocaine) Outcome: tolerated well, no immediate complications Procedure, treatment alternatives, risks and benefits explained, specific risks discussed. Consent was given by the patient. Patient was prepped and draped in the usual sterile fashion. us Maurisio Jeong MD PROCEDURE/MINOR SURGICAL ORDERA BLES Final Result * OUS GUIDE NEEDLE PLCMT ORTHO (06/16/2024 9:32 AM CDT) Only the most recent of2 resultswithin the time period is included. Anatomical Region Laterality Modality Ultrasound 06/16/2024 8:32 AM CDT Narrative 06/16/2024 8:32 AM CDT This report does not contain a radiologist's interpretation. Please review associated procedure and/or operative report. Procedure Note Vinicius Pace MD - 06/16/2024 This report does not contain a radiologist's interpretation. Please review associated procedure and/or operative report. us Maurisio Jeong MD ULTRASOUND Final Result * URINE BACTERIA CULTURE (06/01/2024 1:54 PM AUTOMOTIVE PARTS SALESPERSON) SPEC DESCRIPTION URINE CLEAN CATCH 06/01/2024 1:54 PM AUTOMOTIVE PARTS SALESPERSON [facility] SPECIAL REQUESTS NO SPECIAL REQUEST 06/01/2024 1:54 PM AUTOMOTIVE PARTS SALESPERSON [facility] CULTURE RESULT >25,000 TO 50,000 CFU/mL ESCHERICHIA COLI 06/04/2024 10:35 AM AUTOMOTIVE PARTS SALESPERSON [facility] URINE SPECIMEN OBTAINED BY CLEAN CATCH PROCEDURE / Unknown 06/01/2024 1:54 PM AUTOMOTIVE PARTS SALESPERSON 06/01/2024 8:53 PM AUTOMOTIVE PARTS SALESPERSON Narrative Organism Antibiotic Method Susceptibility Escherichia coli AMPICILLIN RONNIE (VITEK) Sensitive Escherichia coli AMOXICILLIN/CLAVULANIC A RONNIE (VITEK) Sensitive Escherichia coli AZTREONAM RONNIE (VITEK) Sensitive Escherichia coli CEFEPIME RONNIE (VITEK) Sensitive Escherichia coli CEFTRIAXONE RONNIE (VITEK) Sensitive Escherichia coli CEFAZOLIN RONNIE (VITEK) Sensitive Escherichia coli CIPROFLOXACIN RONNIE (VITEK) Sensitive Escherichia coli ESBL RONNIE (VITEK) NEG: Sensitive Escherichia coli ERTAPENEM RONNIE (VITEK) Sensitive Escherichia coli NITROFURANTOIN RONNIE (VITEK) Sensitive Escherichia coli GENTAMICIN RONNIE (VITEK) Sensitive Escherichia coli IMIPENEM RONNIE (VITEK) Sensitive Escherichia coli LEVOFLOXACIN RONNIE (VITEK) Sensitive Escherichia coli MEROPENEM RONNIE (VITEK) Sensitive Escherichia coli PIPRACIL/TAZO RONNIE (VITEK) Sensitive Escherichia coli TRIMETH-SULFAMETH. RONNIE (VITEK) Sensitive Escherichia coli TETRACYCLINE RONNIE (VITEK) Sensitive Nettie Hodges NP MICROBIOLOGY - GENERAL OR DERABLES Final Result [facility] [address] [place] [address], [place] [phone] [id number] * (ABNORMAL) URINALYSIS AUTO DIP (06/01/2024) COLOR (U) YELLOW YELLOW [address], [place] TRANSPARENCY CLOUDY(A) CLEAR [address], [place] GLUCOSE (U) NEGATIVE NEGATIVE MG/DL [address], [place] BILIRUBIN (U) NEGATIVE NEGATIVE [address], [place] KETONES MG/DL (U) NEGATIVE NEGATIVE MG/DL [address], [place] SPECIFIC GRAVITY (U) 1.010 1.001 - 1.035 [address], [place] BLOOD (U) NEGATIVE NEGATIVE [address], [place] U PH 6.5 5.0 - 9.0 [address], [place] PROTEIN (U) NEGATIVE NEGATIVE mg/dL [address], [place] UROBILINOGEN 0.2 0.2 - 1.0 EU/dL = mg/dL [address], [place] NITRITES NEGATIVE NEGATIVE MG/DL [address], [place] LEUKOCYTES (U) 1+ (SMALL)(A) NEGATIVE [address], [place] URINE SPECIMEN OBTAINED BY CLEAN CATCH PROCEDURE / Unknown 06/01/2024 Nettie Chica Weinacht BUFFING AND POLISHING WHEEL REPAIRER URINE ORDERABLES Final Re sult [address], [place] [address] [place] [address], [place] [phone] * CRYSTALS, BODY FLUID (04/26/2024 7:22 PM AUTOMOTIVE PARTS SALESPERSON) COMMENT PRELIMINARY REPORT: 04/26/2024 9:09 PM AUTOMOTIVE PARTS SALESPERSON [facility] Comment: NO CRYSTALS TO BE REVIEWED BY PATHOLOGIST CRYSTAL SOURCE KNEE,RIGHT 04/26/2024 7:22 PM AUTOMOTIVE PARTS SALESPERSON [facility] INTERPRETATION THIS CRYSTAL REPORT WAS INTERPRETED BY 04/27/2024 2:23 PM AUTOMOTIVE PARTS SALESPERSON [facility] Comment: DR DWAYNE BRANNON THE FLUID IS EXAMINED MICROSCOPICALLY WITH AND WITHOUT POLARIZED LIGHT AND WITH AND WITHOUT FIRST ORDER RED SOFT TILE SETTER UNDER 10X AND 40X MAGNIFICATIONS. THE FLUID CONTAINS FEW WHITE BLOOD CELLS AND FEW RED BLOOD CELLS. THERE ARE NO MONOSODIUM URATE (MSU OR GOUT) OR CALCIUM PYROPHOSPHATE DIHYDRATE (CPPD OR PSEUDOGOUT) CRYSTALS IDENTIFIED. STRUCTURE OF RIGHT KNEE REGION / Unknown 04/26/2024 7:22 PM AUTOMOTIVE PARTS SALESPERSON Maurisio Jeong MD BODY FLUIDS AND STOOLS ORDERABL ES Final Result Performing Organization Address City/[facility]/ZIP Co de Phone Number [facility] [address] [place] [address], [place] [phone] * CELL COUNT W/ DIFF BODY FLUID (04/26/2024 7:22 PM AUTOMOTIVE PARTS SALESPERSON) SOURCE (FLUID) KNEE,RIGHT 04/26/2024 7:22 PM AUTOMOTIVE PARTS SALESPERSON [facility] TOTAL NUCLEATED CELL (BODY FLUID) 0.405 x10'3/uL 04/26/2024 8:57 PM AUTOMOTIVE PARTS SALESPERSON [facility] Comment:REFERENCE RANGE NOT ESTABLISHED RBC (FLUID) 0.002 x10'6/uL 04/26/2024 8:57 PM AUTOMOTIVE PARTS SALESPERSON [facility] Comment:REFERENCE RANGE NOT ESTABLISHED DIFFERENTIAL MANUAL DIFFERENTIAL PERFORMED ON CONCENTRATED CYTOSPIN 04/26/2024 7:22 PM AUTOMOTIVE PARTS SALESPERSON [facility] CELLS COUNTED 100 No COUNTED 04/26/2024 10:27 PM AUTOMOTIVE PARTS SALESPERSON [facility] SEGS (FLUID) 1 % 04/26/2024 10:25 PM AUTOMOTIVE PARTS SALESPERSON [facility] LYMPHS (FLUID) 61 % 04/26/2024 10:25 PM AUTOMOTIVE PARTS SALESPERSON [facility] OTHER MONONUCLEAR CELLS (FLD) 38 % 04/26/2024 10:25 PM AUTOMOTIVE PARTS SALESPERSON [facility] STRUCTURE OF RIGHT KNEE REGION / Unknown 04/26/2024 7:22 PM AUTOMOTIVE PARTS SALESPERSON Maurisio Jeong MD BODY FLUIDS AND STOOLS ORDERABL ES Final Result [facility] [address] [place] [address], [id number] * OXR LT KNEE 3V (04/26/2024 9:36 AM AUTOMOTIVE PARTS SALESPERSON) Anatomical Region Laterality Modality Radiographic La ging Narrative 04/26/2024 9:54 AM AUTOMOTIVE PARTS SALESPERSON Left knee Findings: No acute osseous abnormality, fracture, dislocation. Minimal degenerative changes medial compartment patellofemoral compartment manifest with mild joint space narrowing only. Significant change from previous x-ray 2 years ago Maurisio Jeong MD GENERAL IMAGING Final Result * OXR RT KNEE 3V (04/26/2024 9:36 AM AUTOMOTIVE PARTS SALESPERSON) Anatomical Region Laterality Modality Radiographic La ging Narrative 04/26/2024 9:53 AM AUTOMOTIVE PARTS SALESPERSON Right knee Findings: No acute osseous abnormality, fracture, dislocation. Mild effusion noted. Minimal degenerative changes noted medial compartment patellofemoral compartment with mild joint space narrowing mild subchondral cyst formation. No significant change from previous x-ray 2 years ago. Maurisio Jeong MD GENERAL IMAGING Final Result * ARTHROCENTESIS MAJOR JOINT W/ ULTRASOUND GUIDANCE (04/26/2024 9:00 AM AUTOMOTIVE PARTS SALESPERSON) Narrative Maurisio Jeong MD - 04/26/2024 9:00 AM AUTOMOTIVE PARTS SALESPERSON Maurisio Jeong MD 04/26/2024 9:58 AM *Lg Jt Arthrocentesis: bilateral knee cortisone injection on 04/26/2024 9:00 AM Indications: pain Details: 22 G (Right knee only 25-gauge for the left knee) needle, ultrasound-guided lateral approach Medications (Right): (40 mg triamcinolone mixed with 3 cc 2% lidocaine without epi injected after aspiration of the joint) Aspirate (Right): 15 mL clear and yellow; sent for lab analysis Medications (Left): (40 mg triamcinolone mixed with 3 cc 2% lidocaine without epi) Outcome: tolerated well, no immediate complications Procedure, treatment alternatives, risks and benefits explained, specific risks discussed. Consent was given by the patient. Patient was prepped and draped in the usual sterile fashion. Maurisio Jeong MD PROCEDURE/MINOR SURGICAL ORDERA BLES Final Result * MG SCREENING W TAYA IOANA DIGI (04/19/2022 12:00 AM AUTOMOTIVE PARTS SALESPERSON) Anatomical Region Laterality Modality Breast Bilateral Mammography 04/19/2022 Nettie Hodges BUFFING AND POLISHING WHEEL REPAIRER MAMMO Final Res ult * HEPATITIS C ANTIBODY (02/27/2022 12:19 PM AUTOMOTIVE PARTS SALESPERSON) HEPATITIS C AB 0.2 0.0 - 0.9 s/co ratio [facility] 1 Comment: Negative: < 0.8 Indeterminate: 0.8 - 0.9 Positive: > 0.9 HCV antibody alone does not differentiate between previous resolved infection and active infection. The CDC and current clinical guidelines recommend that a positive HCV antibody result be followed up with an HCV RNA test to support the diagnosis of acute HCV infection. [facility] offers Hepatitis C Virus (HCV) RNA, Diagnosis, ALAN (167424) and Hepatitis C Virus (HCV) Antibody with reflex to Quantitative Real-time PCR ([id number]). 02/27/2022 12:1 9 PM AUTOMOTIVE PARTS SALESPERSON 02/27/2022 Narrative [facility] - 02/28/2022 7:07 AM AUTOMOTIVE PARTS SALESPERSON Performed at: - [facility] [address] [id number] Production Painter: Jace Simons PhD, Phone: [phone] us Nettie Hodges NP LABORATORY Final Res ult [facility] [address] [place] [address] [facility] 1 * COLONOSCOPY GENERIC (SCAN ORDER) (10/31/2020) 10/31/2020 [facility] Scanned SCANNING Final Resu lt from Last 3 Months or Most Recently Relevant to Health Maintenance Insurance MEDICAID MEDICARE Care Teams Large Engine Assembler Relationship Specialty Start Date End Date Nettie Hodges NP [address] [place] [address] PCP - General NURSE PRACTITIONER 09/10/21
--- OUTSIDE RECORDS SUMMARY | 2024-06-18 14:42 | XMS_ITS | Encounter Summary ---
Author Organization [facility] Address [address] [place] [address] Care Team Providers Care Math Tutor Name Role Phone Nettie Hodges NP Primary Care Provider [phone] Encounter Details Date Type Department Care Team (Late st Contact Info) Description 07/28/2023 Abstract [facility], [address] [place] [address] Cristy Lucas MA Social History Tobacco Use Types Packs/Day Years Used Date Smoking Tobacco: Former Cigarettes 0.3 40 0 06/04/1983 - 06/04/2023 Passive Smoke Exposure: Current Smokeless Tobacco: Never Comments:Smokes 2 cigarettes /day currently trying to quit Alcohol Use Standard Drinks/Week Comments Yes 3.3 (1 standard drink = 0.6 oz p ure alcohol) rare beer PHQ-2 Answer Date Recorded Patient Health Questionnaire-2 Score 0 07/29/2023 Comments No Sex and Gender Information Value Date Recorded Sex Assigned at Female 04/26/2024 7:07 AM PROGRESS DEVELOPER Legal Sex Female 2:16 PM PROGRESS DEVELOPER Gender Identity Female 04/26/2024 9:06 AM PROGRESS DEVELOPER Sexual Orientation Straight 04/26/2024 1: 33 PM PROGRESS DEVELOPER 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 Not on file Not on file documented as of this encounter Plan of Treatment Upcoming Encounters Date Type Department Care Team (Late st Contact Info) Description 06/30/2024 8:00 AM CDT Office Visit [facility] [address] [facility], [address] [place] [id number] Shila Ruiz MD [address] [place] [address] 08/12/2024 11:00 AM CDT [facility] [address], [address] [place] [phone] Gracy Blair, VOICE ENGINEER [address] [facility] [address] [place] [address] 09/16/2024 10:40 AM CDT Office Visit [facility] [place] [address] [place] [address] Maurisio Jeong MD [address] [place] [address] 09/24/2024 10:00 AM CDT Office Visit [facility] [phone] Paula Sanchez MD [address] [facility] [address] [place] [address] 10/28/2024 11:00 AM CDT [facility] [address] [facility], [address] [place] [phone] Gracy Blair, VOICE ENGINEER [address] [facility] [address] [place] [address] 11/01/2024 1:20 PM CDT Office Visit [facility] Family Medicine - [address] [facility] [address] [place] [address] Nettie Hodges NP [address] [place] [address] documented as of this encounter Procedures Procedure Name Priority Date/Time Associated Diagnosis Comments BASIC METABOLIC PANEL Routine 07/25/2023 LIPID PANEL Routine 07/25/2023 documented in this encounter Results * (ABNORMAL) BASIC METABOLIC PANEL (07/25/2023) SODIUM S/P/B 141 POTASSIUM S/P/B 4.4 CO2 27 CHLORIDE S/P/B 101 GLUCOSE 104 mg/dL CALCIUM S/P/B 9.3 BUN 21 CREATININE S/P/B 0.75 0.5 - 1.0 EGFR NON-AFR. AMER. 91(A) <=90 07/25/2023 us Default History Genericprovider LABORATORY Edited Result - Final * LIPID PANEL (07/25/2023) CHOLESTEROL 239 HDL 61 TRIGLYCERIDES 224 LDL (CALCULATED) 138 07/25/2023 us Default History Genericprovider LABORATORY Final Result documented in this encounter Visit Diagnoses Not on filedocumented in this encounter Care Teams Math Tutor Relationship Specialty Start Date End Date Nettie Hodges NP [address] [place] [address] PCP - General NURSE PRACTITIONER 09/10/21 documented as of this encounter
== END 2024-06-18 14:23 | disposition home or self-care (01) ==
LOC: ANHIMG 14:24
PROVIDERS: PCP Nurse Practitioner; Visit Provider Nurse Practitioner
DX: Z12.31 Encounter for screening mammogram for malignant neoplasm of breast (principal)
CPT/HCPCS: 77063; 77067

== ENCOUNTER 2024-06-29 09:25 | Inpatient (IN) | payer MEDICARE, MEDICAID, SELFPAY ==
[2024-06-29] VITALS (20 sets, daily range): BP systolic 108–149; BP diastolic 40–108; PULSE 73–97; RESP 18–23; TEMP 36.3–36.6; O2SAT 93–99; BMI 40.9
--- NOTE | 2024-06-29 | ECHO_ITS ---
Patient Info Name: Medina Cox Age: 59 years : 1965 Gender: Female Ht: 59 in Wt: 202 lbs BSA: 2.01 m2 BP: 124 / 51 mmHg Technical Quality: Fair Exam Date: 06/29/2024 2:37 PM Exam Location: Echo Lab Patient Status: Outpatient Admit Date: 06/29/2024 Staff Ordering Physician: Tarsha Schroeder APRN Taxonomy Teacher: Kathi Malloy RDCS Attending Provider: Marlon Smith MD Referring Physician: Elda FRANKS; Exam Type: CA echo dop bubble study w con Study Info Indications - CVA Complete two-dimentional, color flow and Doppler transthoracic echocardiogram is performed with agitated saline and with contrast to opacify the left ventricle and to improve the delineation of the left ventricle endocardial borders. Contrast/Agitated Saline Contrast/Ag. Saline: Definity Amount: 2.00 ml Existing IV Access: Yes IV Access Condition: patent with no signs of infiltration Contrast/Ag. Saline: Agitated Saline Amount: 12.00 ml Existing IV Access: Yes IV Access Condition: patent with no signs of infiltration Summary 1. Left ventricular chamber dimension is normal. 2. Left ventricular systolic function is normal, estimated at >70%. 3. There is mildly increased left ventricular wall thickness. 4. The left ventricular diastolic function is grade I diastolic dysfunction. 5. Right ventricular systolic function is normal. 6. Intact interatrial septum visualized by color flow and agitated saline imaging. Negative bubble study. 7. No significant valvular disease. Left Ventricle Left ventricular chamber dimension is normal. Left ventricular systolic function is normal, estimated at >70%. There is mildly increased left ventricular wall thickness. The left ventricular diastolic function is grade I diastolic dysfunction. Right Ventricle Right ventricular chamber dimension is normal. Right ventricular systolic function is normal. Left Atria Left atrial chamber dimension is normal. Right Atria Right atrial chamber dimension is normal. Atrial Septum Intact interatrial septum visualized by color flow and agitated saline imaging. Negative bubble study. Aortic Valve The aortic valve is not well visualized. There is no aortic valve stenosis. There is no aortic valve regurgitation. Pulmonic Valve The pulmonic valve is not well visualized. Mitral Valve There is trace mitral valve regurgitation. Tricuspid Valve There is trace tricuspid valve regurgitation. Pericardium/Pleural There is no pericardial effusion. Inferior Vena Cava Normal inferior vena cava with >50% collapse upon inspiration consistent with normal right atrial pressure, 3 mmHg. Aorta The aortic root size at the sinus of Valsalva is normal. Left Ventricular Outflow Tract Name Value Normal LVOT 2D LVOT Diameter 1.7 cm LVOT Doppler LVOT Peak Gradient 8 mmHg LVOT Mean Gradient 4 mmHg LVOT VTI 29 cm LVOT VTI/AV VTI Ratio 1.0 LVOT Stroke Volume 69 ml LVOT CO 14.3 l/min LVOT CI 7.1 l/min/m2 Pulmonic Valve Name Value Normal PV Doppler PV Peak Gradient 4 mmHg Mitral Valve Name Value Normal MV Doppler MV Decel Wilkin 248 cm/s2 MV PHT 69 ms MV Area (PHT) 3.2 cm2 4.0-5.0 MV Diastolic Function MV E Peak Velocity 59 cm/s MV A Peak Velocity 64 cm/s MV E/A 0.9 MV Decel Time 239 ms MV Annular TDI MV E/e' (Septal) 5.4 <=8.0 MV E/e' (Lateral) 4.5 <=8.0 MV E/e' (Average) 5.0 Tricuspid Valve Name Value Normal TV Regurgitation Doppler TR Peak Velocity 221 cm/s TR Peak Gradient 20 mmHg Estimated PAP/RSVP RA Pressure 3 mmHg <=5 PA Systolic Pressure 23 mmHg <36 RV Systolic Pressure 23 mmHg <36 Aorta Name Value Normal Ascending Aorta Ao Root Diameter (MM) 2.8 cm Ao Root Diam Index (MM) 1.4 cm/m2 Aortic Valve Name Value Normal AV Doppler AV Peak Velocity 161 cm/s AV Peak Gradient 10 mmHg AV Mean Gradient 6 mmHg AV VTI 28 cm AV Area (Cont Eq VTI) 2.5 cm2 >=3.0 AV Area (Cont Eq Ayaan) 2.1 cm2 AV Regurgitation 2D LVOT Area 2.4 cm2 Ventricles Name Value Normal LV Dimensions 2D/MM IVS Diastolic Thickness (2D) 1.1 cm 0.6-1.0 LVID Diastole (2D) 4.1 cm 3.8-5.2 LVIW Diastolic Thickness (2D) 1.0 cm 0.6-0.9 LVID Systole (2D) 2.3 cm 2.2-3.5 LVOT Diameter 1.7 cm LV Mass (2D Cubed) 140.75 g 67.00-162.00 LV Mass Index (2D Cubed) 70 g/m2 43-95 Relative Wall Thickness (2D) 0.49 LV Fractional Shortening/Ejection Fraction 2D/MM LV Fractional Shortening (2D) 43 % 27-45 LV EF (2D Teicholz) 75 % 54-74 LV Diastolic Volume (4C MOD) 65 ml LV EF (4C MOD) 83 % LV Diastolic Volume (2C MOD) 60 ml LV EF (2C MOD) 64 % LV Diastolic Volume (BP MOD) 62 ml 46-106 LV Diastolic Volume Index (BP MOD) 31 ml/m2 29-61 LV Systolic Volume (BP MOD) 16 ml 14-42 LV Systolic Volume Index (BP MOD) 8 ml/m2 8-24 LV EF (BP MOD) 75 % 54-74 LV Diastolic Length (4C) 7.6 cm LV Systolic Length (4C) 6.2 cm LV Stroke Volume (4C MOD) 54 ml RV Dimensions 2D/MM RVID Diastole (2D) 3.7 cm 2.5-3.5 Atria Name Value Normal LA Dimensions LA Dimension (MM) 3.0 cm 2.7-3.8 LA Volume (4C A-L) 39 ml LA Volume (BP A-L) 34 ml RA Dimensions RA Area (4C) 13.4 cm2 <=18.0 Report Signatures
--- NOTE | ~2024-06-29 | XR_ITS ---
EXAMINATION: XR chest 1V portable 06/29/2024 10:35 INDICATION: Left-sided weakness. Facial droop. PROCEDURE: AP portable chest COMPARISON: 01/19/2024 FINDINGS: The lungs are clear. The cardiomediastinal silhouette is within normal limits. There are no pleural effusions. There is no pneumothorax suspected. IMPRESSION: 1: NO ACUTE CARDIOPULMONARY DISEASE. Reviewed, dictated and finalized at location A.
--- NOTE | ~2024-06-29 | MR_ITS ---
MRI of the brain Clinical History: CVA Technique: Axial and sagittal T1-weighted images were acquired. These were followed by axial T2-weigh saulo, diffusion weighted, gradient, and FLAIR images. Following intravenous administration of 19 cc Pr oHance gadolinium, T1-weighted fat-sat imaging was performed in the axial and coronal planes. COMPARISON: 10/07/2023 Findings: No acute infarct, internal hemorrhage or mass lesion seen. There is mild chronic microvascu lar ischemic change in the periventricular white matter and del. Ventricles and subarachnoid spaces are unremarkable. Orbits are unremarkable. Paranasal sinuses and m astoid air cells are clear. Major flow voids are intact. Sagittal midline structures are intact. No abnormal postcontrast enhancement identified. IMPRESSION: No acute infarct, intracranial hemorrhage, or mass lesion. Stable mild chronic microvascular ischemic changes. Reviewed, dictated and finalized at location .
--- NOTE | ~2024-06-29 | CT_ITS ---
EXAMINATION: CTA BRAIN/CAROTID DATE: 06/29/2024 11:42 INDICATION: Left arm paresthesias and right facial droop TECHNIQUE: Computed tomographic angiography (CTA) of the head and neck was performed with 100 mL Omni paque-350 intravenous contrast. Multiplanar reconstructions and maximum intensity projection 3D-recon structions of the carotid arteries and of the intracranial arteries were created by the technologist on a separate workstation. Precontrast CT of the head was also obtained. Automated exposure control and iterative reconstruction technique were employed.The dose-length product was 999.64 mGy-cm. COMPARISON: Brain MR dated 10/17/2023 FINDINGS: Carotid arteries: Visualized aortic arch and the great vessels arising from the arch are normal in caliber with no evid ent hemodynamically significant stenosis or dissection. The right vertebral artery is dominant. There is small amount of atherosclerotic plaque with 0% stenosis of the right carotid bulb relative to nor mal distal artery lumen diameter (NASCET criteria). There is additional small amount of atherosclerot ic plaque, also with 0% stenosis of the left carotid bulb relative to normal distal artery lumen diam eter. Left thyroid lobe is normal. 8 mm nodular deposits of thyroid tissue at the right thyroid fossa without evident communicating thyroid isthmus which suggests some residual/recurrent thyroid tissue post prior right thyroidectomy. Correlate with surgical history. Cervical soft tissues are otherwise unremarkable. Visualized upper lungs are clear. Head: No acute intracranial hemorrhage, acute infarction or abnormal extra axial fluid collection. There is mild scattered white matter hypoattenuation consistent with chronic small vessel ischemic disease. V entricles are normal and symmetric. No mass/mass effect. No abnormally enhancing brain lesions on the postcontrast imaging. The orbits and mastoid air cells are normal. Mild mucosal thickening in the pa ranasal sinuses. Left-sided antral window procedure. Intracranial arteries The right vertebral artery is dominant and is the sole supply to the basilar artery with the left wilner tebral artery terminating at the left posterior inferior cerebellar artery. There is no hemodynamical ly significant stenosis in the vertebral, basilar and internal carotid arteries. Vertebral arteries a re codominant. There are no aneurysms identified. The right A1 and bilateral P1 segments are patent. The left anterior cerebral artery supplied via the right A1 segment and a patent anterior communicati ng artery. Cerebral arterial arborization appears symmetric. IMPRESSION: 1. 0% stenosis of the right and left carotid bulbs relative to normal distal artery lumen diameter (N ASCET criteria). 2. Mild scattered white matter hypoattenuation consistent with chronic small vessel ischemic disease. No other acute intracranial process or abnormally enhancing brain lesions. 3. Normal variant cerebral arterial anatomy as detailed above with no hemodynamically significant zaid nosis, aneurysm or thrombosis. Reviewed, dictated and finalized at location A. IMPRESSION: 1. 0% stenosis of the right and left carotid bulbs relative to normal distal ar malia lumen diameter (NASCET criteria). 2. Mild scattered white matter hypoattenuation consistent with chronic small ve ssel ischemic disease. No other acute intracranial process or abnormally enhanc ing brain lesions. 3. Normal variant cerebral arterial anatomy as detailed above with no hemodynam ically significant stenosis, aneurysm or thrombosis.
--- NOTE | 2024-06-29 09:34 | ECG_ITS ---
Test Date: 2024-06-29 09:48:42 Measurements Intervals [place] Rate: 83 P: 60 ID: [id number] QRS: 57 QRSD: 90 T: 64 QT: 347 QTc: 408 Interpretive Statements SINUS RHYTHM LOW QRS VOLTAGE IN PRECORDIAL LEADS BASELINE ARTIFACT- I, II, III, AVR, AVL, AVF, V1, V3-V6 BORDERLINE ECG No previous ECG available for comparison Electronically Signed On 06-29-2024 10:00:36 CDT by Henok Watkins D.O.
--- NOTE | 2024-06-29 09:46 | ED_ITS ---
HPI - General Adult General Chief complaint: Neuro Symptoms/Deficit Stated complaint: L side tingling for couple months Time Seen by Provider: 06/29/24 09:34 History of Present Illness HPI narrative: 59-year-old female presenting to the emergency department for evaluation for intermittent left arm tingling and paresthesias that is been going on for the last month and then right sided facial droop that started on Friday. Patient does have history of COPD but does continue to smoke. Does have prior history of CHF Related Data Home Medications ?Medication ?Instructions ?Recorded ?Confirmed ?Last Taken ?Type albuterol sulfate 2.5 mg/3 mL 2.5 mg inhalation Q4-6H PRN 07/04/20 06/29/24 07/30/20 History (0.083 %) solution for nebulization Shortness Of Breath budesonide-formoterol HFA 160 2 puff inhalation Q12H 07/10/20 06/29/24 06/28/24 History mcg-4.5 mcg/actuation aerosol inhaler (Symbicort) fluticasone propionate 50 1 spray intranasal BID 07/10/20 06/29/24 06/28/24 History mcg/actuation nasal spray,suspension amitriptyline 100 mg tablet 100 mg PO QHS 12/19/21 06/29/24 06/28/24 History atorvastatin 80 mg tablet (Lipitor) 80 mg PO DAILY 05/26/24 06/29/24 06/28/24 History furosemide 80 mg tablet 80 mg PO QAM 05/26/24 06/29/24 06/28/24 History lisinopril 30 mg tablet 30 mg PO DAILY 05/26/24 06/29/24 06/29/24 History Allergies Allergy/AdvReac Type Severity Reaction Status Date / Time pneumococcal vaccine Allergy Difficulty Verified 06/29/24 09:50 Breathing Review of Systems 2 Review of Systems: All systems reviewed & are unremarkable except as noted in HPI and below PMFSH Past Medical History Medical History Tobacco use Abdominal pain Asthma Blood in stool Hyperlipidemia Obese COPD (chronic obstructive pulmonary disease) HTN (hypertension) GERD (gastroesophageal reflux disease) Surgical History Surgical History History of cataract extraction History of cholecystectomy History of hysterectomy History of Family History Family History Mother Asthma Sibling Asthma Diabetes mellitus Heart disease Social History Social History Social History: Caffeine-daily Smoking packs per day: 1 Smoking cigarettes per day: 20.0 Years smoked: 40 Smoking pack-years: 40.00 Smoking status: Current every day smoker Alcohol intake: current Drinks per week: 2 Substance use: never Substance use type: does not use Do You Feel Safe in your Home?: Yes Lack of Transportation: No Lack of Food: Never True Current Housing: I Have Housing Concerned About Future Housing: No Difficulty Paying Gas/Electric Bills: No Difficulty Paying for Meds: No Currently Unemployed: No Education: High School Diploma/GED Difficulty w/ Childcare or Family Care: No Living arrangements: other Additional living arrangements comments: with sp Additional occupation/education comments: disabled Gender identity (if verbalized by the patient): Female Spiritual care concerns: No Exam 2 Narrative: APPEARANCE: Well appearing, no pain, no distress, well-nourished. HEAD: normocephalic, atraumatic. EYES: PERRLA/EOMI, conjunctivae clear. Visual kline intact NOSE: Normal no drainage EARS:TMS clear with good light reflex. THROAT: Pharynx clear, no exudate. NECK: Supple. No adenopathy, no masses. RESPIRATORY: Airway patent, respirations nonlabored. Clear to auscultation bilaterally, no rales, rhonchi, wheezing. CARDIOVASCULAR: Regular rate and rhythm without murmurs rubs or gallops. ABDOMINAL: Soft, nontender, nondistended, normal bowel sounds MUSCULOSKELETAL: Moves all extremities. Strength/ROM intact, No edema, No calf tenderness. NEURO: Right-sided facial droop when face at rest, does improve with smiling. No drift or ataxia SKIN: Warm, dry. Normal Color Course Vital Signs Vital signs: Vital Signs Temperature 97.8 F 06/29/24 09:35 Pulse Rate 85 06/29/24 09:35 Respiratory Rate 18 06/29/24 09:35 Blood Pressure 135/70 06/29/24 09:35 Pulse Oximetry 97 06/29/24 09:35 Oxygen Delivery Room Air 06/29/24 09:35 Temperature 97.6 F 06/29/24 14:00 Pulse Rate 73 06/29/24 16:00 Respiratory Rate 20 06/29/24 15:45 Blood Pressure 124/51 L 06/29/24 14:00 Pulse Oximetry 94 06/29/24 15:37 Oxygen Delivery Room Air 06/29/24 15:37 Medical Decision Making MDM Narrative Medical decision making narrative: 59-year-old female history of COPD present to the emergency department for evaluation for intermittent left-sided paresthesia and right-sided facial droop. The right-sided facial droop has been persistent since Friday. Patient is currently afebrile with no leukocytosis and hemoglobin of 12.00. INR is 0.9. No significant abnormalities on her CMP patient had negative troponin. CTA head neck showed no acute abnormalities. Chest x-ray shows no acute cardiopulmonary disease. Patient was started on aspirin. Neurology was consulted. Case will be discussed with hospitalist for admission for further CVA workup. Differential Diagnosis Differential Diagnosis: TIA, CVA Vital Signs Vital Signs: Vital Signs Temperature 97.8 F 06/29/24 09:35 Pulse Rate 85 06/29/24 09:35 Respiratory Rate 18 06/29/24 09:35 Blood Pressure 135/70 06/29/24 09:35 Pulse Oximetry 97 06/29/24 09:35 Oxygen Delivery Room Air 06/29/24 09:35 Temperature 97.6 F 06/29/24 14:00 Pulse Rate 73 06/29/24 16:00 Respiratory Rate 20 06/29/24 15:45 Blood Pressure 124/51 L 06/29/24 14:00 Pulse Oximetry 94 06/29/24 15:37 Oxygen Delivery Room Air 06/29/24 15:37 Lab Data Lab results reviewed: Yes I reviewed the patient's lab results. 06/29/24 09:52 06/29/24 09:52 Labs: Lab Results 06/29/24 06/29/24 Range/Units 09:45 09:52 WBC 9.8 (4.5-10.0) K/mm3 RBC 4.08 L (4.2-5.4) M/mm3 Hgb 12.0 (12.0-15.0) g/dL Hct 37.5 (37.0-47.0) % MCV 91.9 (80-100) fl MCH 29.4 (26-34) pg MCHC 32.0 (32-36) g/dl RDW 14.8 H (11.5-14.5) % Plt Count 220 (150-375) k/mm3 MPV 10.1 (7.4-10.4) fl Immature Gran % (Auto) 0.8 H (0-0.5) % Neut % (Auto) 65.2 (45.5-73.1) % Lymph % (Auto) 22.3 (18.3-44.2) % [place] % (Auto) 7.6 (2.6-8.5) % Eos % (Auto) 3.3 (0-4.4) % Baso % (Auto) 0.8 (0.2-1.2) % Lymph # (Auto) 2.17 (0.9-3.2) K/mm3 [place] # (Auto) 0.7 H (0.1-0.6) K/mm3 Eos # (Auto) 0.3 (0-0.3) K/mm3 Baso # (Auto) 0.1 (0.0-0.1) K/mm3 Abs Immat Gran (auto) 0.08 H (0.00-0.031) K/mm3 Absolute Neuts (auto) 6.4 (1.3-6.7) K/mm3 Absolute Nucleated RBC 0.000 (0.0-0.012) K/mm3 Nucleated RBC % 0.0 (0.0-0.2) % PT 12.1 (11.1-14.7) Seconds INR 0.9 APTT 24.9 (22.3-36.8) Seconds Sodium 136 L (137-145) mmol/L Potassium 3.8 (3.4-5.0) mmol/L Chloride 97 L (98-107) mmol/L Carbon Dioxide 30 (22-30) mmol/L Anion Gap 9 (4-12) mmol/L BUN 30 H D (7-17) mg/dL Creatinine 0.98 (0.7-1.0) mg/dL Estim Creat Clear Calc Not Reportable Estimated GFR 58 L (59 - ) Glucose 162 H (65-110) mg/dL POC Capillary Glucose 168 H (65-105) mg/dl Calcium 9.3 (8.4-10.2) mg/dL Total Bilirubin 0.4 (0.2-1.3) mg/dL AST 19 (14-36) U/L ALT 17 (6-35) U/L Alkaline Phosphatase 126 (38-126) U/L Troponin I < 0.012 (0.000-0.034) ng/mL Total Protein 7.0 (6.3-8.2) g/dL Albumin 4.2 (3.5-5.1) g/dL Imaging Data Radiologist's impression: Impressions Chest X-Ray 06/29/24 10:43 IMPRESSION: 1: NO ACUTE CARDIOPULMONARY DISEASE. Head/Neck CTA 06/29/24 11:45 IMPRESSION: 1. 0% stenosis of the right and left carotid bulbs relative to normal distal artery lumen diameter (NASCET criteria). 2. Mild scattered white matter hypoattenuation consistent with chronic small vessel ischemic disease. No other acute intracranial process or abnormally enhancing brain lesions. 3. Normal variant cerebral arterial anatomy as detailed above with no hemodynamically significant stenosis, aneurysm or thrombosis. Discharge Plan Discharge Clinical Impression: Facial droop, Acute CVA (cerebrovascular accident) Patient Disposition: Still a Patient Condition: Stable
[2024-06-29 09:55] LABS: Glucose Point of Care 168 mg/dl (65-105)
[2024-06-29 10:02] LABS: Basophils Absolute Auto 0.1 K/mm3 (0.0-0.1); Basophils Percent Auto 0.8 % (0.2-1.2); Eosinophils Absolute Auto 0.3 K/mm3 (0-0.3); Eosinophils Percent Auto 3.3 % (0-4.4); Hematocrit 37.5 % (37.0-47.0); Immature Granulocyte Absolute 0.08 K/mm3 (0.00-0.031); Immature Granulocyte Percent A 0.8 % (0-0.5); Lymphocytes Absolute Auto 2.17 K/mm3 (0.9-3.2); Lymphocytes Percent Auto 22.3 % (18.3-44.2); Mean Corpuscular Hemoglobin 29.4 pg (26-34); Mean Corpuscular Volume 91.9 fl (80-100); Mean Platelet Volume 10.1 fl (7.4-10.4); Monocytes Absolute Auto 0.7 K/mm3 (0.1-0.6); Monocytes Percent Auto 7.6 % (2.6-8.5); Neutrophils Absolute Auto 6.4 K/mm3 (1.3-6.7); Neutrophils Percent Auto 65.2 % (45.5-73.1); Platelet Count Result 220 k/mm3 (150-375); Red Blood Count 4.08 M/mm3 (4.2-5.4); Red Cell Distribution Width 14.8 % (11.5-14.5); White Blood Count 9.8 K/mm3 (4.5-10.0)
--- OUTSIDE RECORDS SUMMARY | 2024-06-29 10:02 | XMS_ITS | Clinical Summary ---
Author Organization [facility] Care Team Providers Care Security Guard Supervisor Name Role Phone Nettie Hodges MD Primary Care Provider +1- [phone] Allergies No known active allergies Medications lisinopriL [...] 06/01/2024 Assessment & Plan (06/01/2024 2:11 PM TOOL AND DIE SUPERVISOR): This is persistent and severe. She has [...] 03/03/2024 Assessment & Plan (06/01/2024 2:07 PM TOOL AND DIE SUPERVISOR): Continue supplemental oxygen with sleep at 4 liters She is aware of the risks of both hypoxia and hypercapnia Assessment & Plan (03/03/2024 9:05 PM TOOL AND DIE SUPERVISOR): Continue supplemental oxygen with sleep Increase to 4 liters. We have discussed the risks of hypoxia. Obstructive sleep apnea 03/03/2024 Assessment & Plan (03/03/2024 9:10 PM TOOL AND DIE SUPERVISOR): We have had an extensive conversation about [...] 06/18/2023 Assessment & Plan (06/01/2024 2:08 PM TOOL AND DIE SUPERVISOR): Continue famotidine and omeprazole daily A continue to believe that GERD is a direct contributing factor to her persistent wheezing Keep follow up appointments with GI, I recommend manometry/pH testing Assessment & Plan (03/03/2024 9:06 PM TOOL AND DIE SUPERVISOR): Continue famotidine and omeprazole daily Although her [...] 06/18/2023 Assessment & Plan (06/01/2024 2:09 PM TOOL AND DIE SUPERVISOR): This is chronic, persistent, and unrelieved by inhaled therapy and prednisone She is on maximum inhaled therapy I continue to recommend further GI workup Assessment & Plan (03/03/2024 9:09 PM TOOL AND DIE SUPERVISOR): This is chronic, persistent, and unrelieved by [...] 06/18/2023 Assessment & Plan (06/01/2024 2:08 PM TOOL AND DIE SUPERVISOR): - Smoking cessation counseling and techniques reviewed at length - Avoid triggers and use distraction techniques - She is aware of the [place] Tobacco Quit line: 0-608-CBGM-YES for free services - 5 minutes spent discussing cessation She is pre-contemplative, I have encouraged her to cut back and she is aware that her symptoms will likely continue to worsen as long as she is actively smoking Her annual lung cancer screening is due this month I have placed an order and she will schedule this at [facility] Assessment & Plan (03/03/2024 9:07 PM TOOL AND DIE SUPERVISOR): - Smoking cessation counseling and techniques reviewed at length - Avoid triggers and use distraction techniques - She is aware of the [place] Tobacco Quit line: 8-676-NQLJ-YES for free services - 5 minutes spent discussing cessation She is pre-contemplative, I have encouraged her to cut back Assessment & Plan (10/16/2023 11:08 PM CDT): - Smoking cessation counseling and techniques reviewed at length - Avoid triggers and use distraction techniques - She is aware of the [place] Tobacco Quit line: 7-262-ZSYJ-YES for free services - 3 minutes spent discussing cessation Assessment & Plan (08/22/2023 1:40 PM CDT): - Smoking cessation counseling and techniques reviewed at length - Avoid triggers and use distraction techniques - Participate in support groups - Information given regarding [place] Tobacco Quit line: 8-329-GELA-YES for free services 3 minutes spent discussing cessation Assessment & Plan (06/18/2023 3:43 PM CDT): - Smoking cessation counseling and techniques reviewed at length - Avoid triggers and use distraction techniques - Participate in support groups - Information given regarding [place] Tobacco Quit line: 7-090-UDIQ-YES for free services 4 minutes spent discussing cessation COPD exacerbation 06/02/2023 Chronic obstructive pulmonary disease 11/28/2020 Assessment & Plan (06/01/2024 2:06 PM TOOL AND DIE SUPERVISOR): Continue Breztri 2 puffs twice daily with [...] rehab Assessment & Plan (03/03/2024 9:05 PM TOOL AND DIE SUPERVISOR): Continue Breztri 2 puffs twice daily. I [...] Encounters Date Type Department Care Team Description 06/23/2024 Telephone [facility] Pulmonary at [address] [place] [phone] Sri Atkinson LPN 06/01/2024 9:30 AM TOOL AND DIE SUPERVISOR Office Visit [facility] Pulmonary at [address] [place] [phone] Betsey Lyon, EARL Chronic respiratory failure with hypoxia, on home O2 therapy (HCC) (Primary Dx); Centrilobular emphysema (HCC); Gastroesophageal reflux disease, unspecified whether esophagitis present; Dyspnea on exertion; Wheezing; Nicotine dependence, cigarettes, uncomplicated 06/01/2024 Telephone [facility] Pulmonary at [address] [place] [phone] Erin Felder LPN Faxed orders to [facility] [...] on file Legal Sex Female 12:55 AM TOOL AND DIE SUPERVISOR Gender Identity Not on file Sexual Orientation Not on file Obstetrics History Last Filed Vital Signs Vital Sign Reading Time Taken Comments Blood Pressure 118/62 06/01/2024 9:09 AM TOOL AND DIE SUPERVISOR Pulse 81 06/01/2024 9:09 AM TOOL AND DIE SUPERVISOR Temperature 36.3 C (97.3 F) 06/01/2024 9:09 AM TOOL AND DIE SUPERVISOR Respiratory Rate 18 06/01/2024 9:09 AM TOOL AND DIE SUPERVISOR Oxygen Saturation 94% 06/01/2024 9:09 AM TOOL AND DIE SUPERVISOR Inhaled Oxygen Concentration - - Weight 94 kg (207 lb 3.2 oz) 06/01/2024 9:09 AM TOOL AND DIE SUPERVISOR Height 152.4 cm (5') 06/01/2024 9:09 AM TOOL AND DIE SUPERVISOR Body Mass Index 40.47 06/01/2024 9:09 AM TOOL AND DIE SUPERVISOR Plan of Treatment Health Maintenance Due Date [...] Cancer Screening-Mammogram 04/19/2023 023, 04/19/2022 Covid-19 Vaccine (2023-2 5 season) 2023 03/15/2021, 07/21/2020, 06/30/2020 Influenza Vaccine Completed 12/31/2023, , 12/07/2021, Additional history exists Insurance PLAN FRANCISCO DOSHI [id number] IDPA MEDICARE [facility] Address: [address] [address] [place] [address] Advance Directives For more information, please contact: [phone] * Full Code (Latest Code Status on File) Date Activated Date Inactivated Comments 06/02/2023 9:46 PM 06/04/2023 4:04 PM Healthcare Agents on File Name Relationship Healthcare Agent Relationshi p Communication Tonny Cox Spouse Health Care Agent Belkys Guzmán Sister First Alternate Health Care Agent Care Teams Security Guard Supervisor Relationship Specialty Start Date End Date Nettie Hodges MD PCP - General Nurse Practitioner 02/25/23
--- OUTSIDE RECORDS SUMMARY | 2024-06-29 10:02 | XMS_ITS | Encounter Summary ---
Author Organization [facility] Address [address] [place] [address] Care Team Providers Care Party Plan Sales Unit Advisor Name Role Phone Nettie Hodges NP Primary Care Provider [phone] Encounter Details Date Type Department Care Team (Late Contact Info) Description 06/21/2024 Exchange Labt Message Enc [facility] Family Medicine - [place] [address] [facility] [address] [place] [phone] Nettie Hodges, EARL [address] [place] [address] mammogram Social History Tobacco Use Types Packs/Day Years Used Date Smoking Tobacco: Every Day Cigarettes 0.3 41.1 Started: 06/04/1983; Last attempted to quit: 06/04/2023 Passive Smoke Exposure: Current Smokeless Tobacco: Never Alcohol Use Standard Drinks/Week Comments Yes 3.3 (1 standard drink = 0.6 oz p ure alcohol) rare beer PHQ-2 Answer Date Recorded Patient Health Questionnaire-2 Score 0 06/01/2024 Comments No Sex and Gender Information Value Date Recorded Sex Assigned at Female 04/26/2024 7:07 AM CANCELING MACHINE OPERATOR Legal Sex Female 2:16 PM CANCELING MACHINE OPERATOR Gender Identity Female 04/26/2024 9:06 AM CANCELING MACHINE OPERATOR Sexual Orientation Straight 04/26/2024 1: 33 PM CANCELING MACHINE OPERATOR 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, [address] [place] [phone] Shila Ruiz MD [address] [place] [address] 08/12/2024 11:00 AM CDT [facility] [address] [facility] [address], [address] [place] [phone] Gracy Blair APRN [address] [facility] [address] [place] [address] 09/16/2024 10:40 AM CDT Office Visit [facility] - [place] [address] [place] [address] Maurisio Jeong MD [address] [place] [address] 09/24/2024 10:00 AM CDT Office Visit [facility] [phone] Paula Sanchez MD [address] [facility] [address] [place] [address] 11/01/2024 1:20 PM CDT Office Visit [facility] Family Medicine - [address] [place], [place] [address] Nettie Hodges NP [address] [place], [place] [phone] documented as of this encounter Visit Diagnoses Not on filedocumented in this encounter Care Teams Party Plan Sales Unit Advisor Relationship Specialty Start Date End Date Nettie Hodges NP [address] [place] [address] PCP - General NURSE PRACTITIONER 09/10/21 documented as of this encounter
--- OUTSIDE RECORDS SUMMARY | 2024-06-29 10:02 | XMS_ITS | Referral Summary ---
Author Organization [facility] Care Team Providers Care Manager Specialty Name Role Phone Nettie Hodges MD Primary Care Provider [phone]- [phone] Encounters Date Type Department Care Team Description 06/23/2024 Telephone [facility] Medical [facility] Pulmonary at [address] [place] [phone] Sri Atkinson LPN 06/01/2024 Telephone [facility] Pulmonary at [address] [place] [phone] Erin Felder LPN Faxed orders to [facility] 06/01/2024 9:30 AM WINK CUTTER OPERATOR Office Visit [facility] Pulmonary at [address] [place] [phone] Betsey Lyon, X RAY TECHNICIAN Chronic respiratory failure with hypoxia, on home [...] SPIT AFTER USE-USE WITH AEROCHAMBER 11 g 5 Active Active Problems Problem Noted Date Diagnosed Date Dyspnea on exertion 06/01/2024 Assessment & Plan (06/01/2024 2:11 PM WINK CUTTER OPERATOR): This is persistent and severe. She [...] 03/03/2024 Assessment & Plan (06/01/2024 2:07 PM WINK CUTTER OPERATOR): Continue supplemental oxygen with sleep at 4 liters She is aware of the risks of both hypoxia and hypercapnia Assessment & Plan (03/03/2024 9:05 PM WINK CUTTER OPERATOR): Continue supplemental oxygen with sleep Increase to 4 liters. We have discussed the risks of hypoxia. Obstructive sleep apnea 03/03/2024 Assessment & Plan (03/03/2024 9:10 PM WINK CUTTER OPERATOR): We have had an extensive conversation [...] 06/18/2023 Assessment & Plan (06/01/2024 2:08 PM WINK CUTTER OPERATOR): Continue famotidine and omeprazole daily A continue to believe that GERD is a direct contributing factor to her persistent wheezing Keep follow up appointments with GI, I recommend manometry/pH testing Assessment & Plan (03/03/2024 9:06 PM WINK CUTTER OPERATOR): Continue famotidine and omeprazole daily Although [...] 06/18/2023 Assessment & Plan (06/01/2024 2:09 PM WINK CUTTER OPERATOR): This is chronic, persistent, and unrelieved by inhaled therapy and prednisone She is on maximum inhaled therapy I continue to recommend further GI workup Assessment & Plan (03/03/2024 9:09 PM WINK CUTTER OPERATOR): This is chronic, persistent, and unrelieved [...] 06/18/2023 Assessment & Plan (06/01/2024 2:08 PM WINK CUTTER OPERATOR): - Smoking cessation counseling and techniques reviewed at length - Avoid triggers and use distraction techniques - She is aware of the [place] Tobacco Quit line: 5-622-VGSO-YES for free services - 5 minutes spent discussing cessation She is pre-contemplative, I have encouraged her to cut back and she is aware that her symptoms will likely continue to worsen as long as she is actively smoking Her annual lung cancer screening is due this month I have placed an order and she will schedule this at [facility] Assessment & Plan (03/03/2024 9:07 PM WINK CUTTER OPERATOR): - Smoking cessation counseling and techniques reviewed at length - Avoid triggers and use distraction techniques - She is aware of the [place] Tobacco Quit line: 7-629-JTIE-YES for free services - 5 minutes spent discussing cessation She is pre-contemplative, I have encouraged her to cut back Assessment & Plan (10/16/2023 11:08 PM CDT): - Smoking cessation counseling and techniques reviewed at length - Avoid triggers and use distraction techniques - She is aware of the [place] Tobacco Quit line: 1-357-VHYE-YES for free services - 3 minutes spent discussing cessation Assessment & Plan (08/22/2023 1:40 PM CDT): - Smoking cessation counseling and techniques reviewed at length - Avoid triggers and use distraction techniques - Participate in support groups - Information given regarding [place] Tobacco Quit line: 9-357-NSTP-YES for free services 3 minutes spent discussing cessation Assessment & Plan (06/18/2023 3:43 PM CDT): - Smoking cessation counseling and techniques reviewed at length - Avoid triggers and use distraction techniques - Participate in support groups - Information given regarding [place] Tobacco Quit line: 9-391-MBHN-YES for free services 4 minutes spent discussing cessation COPD exacerbation 06/02/2023 Chronic obstructive pulmonary disease 11/28/2020 Assessment & Plan (06/01/2024 2:06 PM WINK CUTTER OPERATOR): Continue Breztri 2 puffs twice daily [...] rehab Assessment & Plan (03/03/2024 9:05 PM WINK CUTTER OPERATOR): Continue Breztri 2 puffs twice daily. [...] on file Legal Sex Female 12:55 AM WINK CUTTER OPERATOR Gender Identity Not on file Sexual Orientation Not on file Last Filed Vital Signs Vital Sign Reading Time Taken Comments Blood Pressure 118/62 06/01/2024 9:09 AM WINK CUTTER OPERATOR Pulse 81 06/01/2024 9:09 AM WINK CUTTER OPERATOR Temperature 36.3 C (97.3 F) 06/01/2024 9:09 AM WINK CUTTER OPERATOR Respiratory Rate 18 06/01/2024 9:09 AM WINK CUTTER OPERATOR Oxygen Saturation 94% 06/01/2024 9:09 AM WINK CUTTER OPERATOR Inhaled Oxygen Concentration - - Weight 94 kg (207 lb 3.2 oz) 06/01/2024 9:09 AM WINK CUTTER OPERATOR Height 152.4 cm (5') 06/01/2024 9:09 AM WINK CUTTER OPERATOR Body Mass Index 40.47 06/01/2024 9:09 AM WINK CUTTER OPERATOR Plan of Treatment Not on file Insurance [facility] PLAN [facility] PLAN MEDICARE Advance Directives For more information, please contact: [phone] * Full Code (Latest Code Status on File) Date Activated Date Inactivated Comments 06/02/2023 9:46 PM 06/04/2023 4:04 PM Healthcare Agents on File Name Relationship Healthcare Agent Relationshi p Communication Tonny Cox Spouse Health Care Agent Belkys Guzmán Sister First Alternate Health Care Agent Care Teams Manager Specialty Relationship Specialty Start Date End Date Nettie Hodges MD PCP - General Nurse Practitioner 02/25/23
--- OUTSIDE RECORDS SUMMARY | 2024-06-29 10:02 | XMS_ITS | Encounter Summary ---
Author Organization [facility] Address [facility] [place] [address] Care Team Providers Care Carrier Operator Name Role Phone Nettie Hodges NP Primary Care Provider [phone] Encounter Details Date Type Department Care Team (Late Contact Info) Description 09/25/2022 MyChart Message Enc [facility] - [facility] [address] [place], [place] [address] [employer] Provider Air Quality Message Social [...] Sex Assigned at Female 04/26/2024 7:07 AM CULLET WASHER Legal Sex Female 2:16 PM CULLET WASHER Gender Identity Female 04/26/2024 9:06 AM CULLET WASHER Sexual Orientation Straight 04/26/2024 1: 33 PM CULLET WASHER 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 [address] [facility], [address] [place] [phone] Shila Ruiz MD [address] [place] [address] 08/12/2024 11:00 AM CDT [facility] [address] [facility], [address] [place] [phone] Gracy Blair APRN [address] [facility] [address] [place] [address] 09/16/2024 10:40 AM CDT Office Visit [facility] - [place] [address] [place] [address] Maurisio Jeong MD [address] [place] [address] 09/24/2024 10:00 AM CDT Office Visit [facility] [phone] Paula Sanchez MD [address] [facility] [address] [place] [address] 11/01/2024 1:20 PM CDT Office Visit [facility] Family Medicine - [address] [facility] [address] [place], [place] [address] Nettie Hodges NP [address] [place], [place] [phone] documented as of this encounter Visit Diagnoses Not on filedocumented in this encounter Care Teams Carrier Operator Relationship Specialty Start Date End Date Nettie Hodges NP [address] [place] [address] PCP - General NURSE PRACTITIONER 09/10/21 documented as of this encounter
--- OUTSIDE RECORDS SUMMARY | 2024-06-29 10:02 | XMS_ITS | CONTINUITY OF CARE DOCUMENT ---
Author Name fawn augustine Address Unknown Organization [facility] Address [address] [facility] [facility] [address] [place] [address] Phone [phone] Care Team Providers Care Dehydrogenation Converter Helper Name Role Phone Steve Cordova MD Unavailable [phone] MANSI GAYTAN Unavailable [phone] MANSI GAYTAN Unavailable [phone] PROBLEMS Condition Status Date Provider Notes Family [...] In-person encounter Office Visit Steve Cordova MD [facility] 2 - 2 In-person encounter Office Visit Steve Cordova MD [facility] 2 - 3 In-person encounter Office Visit Steve Cordova MD [facility] Family History of Hypertension:Family History of Hypertension:Cardiology examinationSevere COPDShortness of breathSLEEP APNEA 1 - 2 In-person encounter Office Visit Dion Adame MD [facility] 3 - 3 In-person encounter Office Visit Dion Adame MD [facility] AsthmaSevere COPDHyperlipidemiaHypertensionChest pain-type to be determined VITAL SIGNS Date Observation Value Provider Body Mass Index (Ratio) 32.81 kg/m2 Sammi Cordova MD Inhaled O2 2 L/min [facility] blood pressure, resting Yes [facility] blood pressure, cuff size regular [facility] blood pressure, diastolic 80 mm[Hg] [facility] blood pressure, systolic 140 mm[Hg] [facility] oxygen saturation, oximetry 96 % [facility] pulse rate 80 /min [facility] respiratory rate E&M 18 /min [facility] weight E&M 168 [lb_av] [facility] height E&M 60 [in_i] [facility] Body Mass Index (Ratio) 33.20 kg/m2 Sammi Cordova MD blood pressure, cuff size regular Ke rri Kendallambreen blood pressure, diastolic 80 mm[Hg] [facility]ri [facility] blood pressure, systolic 146 mm[Hg] Galileo Sheets oxygen saturation, oximetry 92 % Diana Sheets respiratory rate E&M 16 /min Diana guerra pulse rate 73 /min Diana soto weight E&M 170 [lb_av] Diana Martinez [facility] height E&M 60 [in_i] Diana Martinez [facility] blood pressure, resting Yes [place] Body Mass Index (Ratio) 32.61 kg/m2 [place] [facility] blood pressure, cuff size large Ke hudson Weaverthe [facility] blood pressure, diastolic 96 mm[Hg] Contreras rri [facility]the [facility] blood pressure, systolic 170 mm[Hg] Galileo Tollivervaleriaconorthe [facility] oxygen saturation, oximetry 90 % Diana Sudeep respiratory rate E&M 18 /min Diana Mabry charlie pulse rate 78 /min Diana Martinez [facility] weight E&M 167 [lb_av] Diana Weavernicolás [facility] height E&M 60 [in_i] Diana Martinez [facility] Body Mass Index (Ratio) 32.22 kg/m2 Mahad [...] High 0 cholesterol, serum 196 mg/dL [employer] [id number] 6232/03/1 7 LDL cholesterol, serum 94 mg/dL Garry [...] Statu s: Kaila odalis: 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 mo nish willis fromCOPAna María Cordova MD [id number],S,u nchanged, minimal epicardial disease, microvascualer or secondary [...] Follow up :Had sleep study via her baseball pitcher. Steve Cordova MD Cardiology Follow up :Per [...]
--- OUTSIDE RECORDS SUMMARY | 2024-06-29 10:02 | XMS_ITS | Encounter Summary ---
Author Organization [facility] Address [address] [place] [id number] Care Team Providers Care Financial Dealers Name Role Phone Nettie Hodges NP Primary Care Provider [phone] Reason for Visit * Reason Onset Date Comments Problem 06/28/2024 Left arm numbnes s and tingling Encounter Details Date Type Department Care Team ([facility] Contact Info) Description 06/28/2024 Telephone [facility] - [place] [address] [facility] [address] [place] [address] [id number] Nettie Hodges NP [address] [place] [address] [phone] Problem (Left arm numbness and tingling) Social History Tobacco Use Types Packs/Day Years [...] Sex Assigned at Female 04/26/2024 7:07 AM TIRE FIXER Legal Sex Female 2:16 PM TIRE FIXER Gender Identity Female 04/26/2024 9:06 AM TIRE FIXER Sexual Orientation Straight 04/26/2024 1: 33 PM TIRE FIXER 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 I was talking about speech slurring and facial droop. She did not tell me earlier that she had those things. I told her that if that is the case than she needs to go to the ER immediately. Sister says that she is stubborn and that she won't go to the ER. I said well I can not make her go, but you need to know that is the recommendation. She said thanks anyway and ended the conversation. I said that I could make an appointment but that my advice was that she go to ER. She was did not schedule and it did not sound like there was any intention of going to the ER. * Dasha Martinez LPN - 06/28/2024 2:00 PM CDT Left a voicemail for patient to call back. DASHA MARTINEZ LPN 06/28/24 Nothing with in the last year as far as seeing neuro or neck imaging. * Nettie Hodges NP - 06/28/2024 1:22 PM CDT Next available but inform of warning signs/symptoms she must seek ER care of she could habe having a stroke. He has a lot of neck/back issues so is could be a bulging disc. See follows with neurologyas well so can see when she saw neuro last and what they recommended. See if she had an EMG and recent imaging of her C spine. * Dasha Martinez LPN - 06/28/2024 1:11 PM CDT Patient's sister called and she is having L arm numbness and tingling. She says that she would likeher seen but she is refusing to go to the ED. She has no other sx. She is walking okay, no cognitive changes, no facial drooping or speech problem. Sister does say she has history of back pain. I am going to call back and offer an appointment with you. How urgent do you feel it is. Want me to work in or look for next opening?? documented in this encounter Plan of Treatment Upcoming Encounters Date Type Department Care Team (Late st Contact Info) Description 06/30/2024 8:00 AM CDT Office Visit [facility] [address] [facility], [address] [place] [id number] Shila Ruiz MD [address] [place] [address] 08/12/2024 11:00 AM CDT Office Visit [facility] [address] [facility], [address] [place] [address] Gracy Blair APRN [address] [facility] [address] [place] [phone] 09/16/2024 10:40 AM CDT Office Visit [facility] - [place] [address] [place] [address] Maurisio Jeong MD [address] [place] [address] 09/24/2024 10:00 AM CDT Office Visit [facility] [phone] Paula Sanchez MD [address] [facility] [address] [place] [address] 11/01/2024 1:20 PM CDT Office Visit [facility] - [place] [address] [facility] [address] [place] [id number] Nettie Hodges NP [address] [place] [phone] documented as of this encounter Visit Diagnoses Not on filedocumented in this encounter Care Teams Financial Dealers Relationship Specialty Start Date End Date Nettie Hodges NP [address] [place] [id number] PCP - General NURSE PRACTITIONER 09/10/21 documented as of this encounter
--- OUTSIDE RECORDS SUMMARY | 2024-06-29 10:03 | XMS_ITS | Data Portability ---
Author Organization [facility] Address [address] [place] [address] Assessment No assessment recorded. Plan of Treatment Reminders Order Date Submit Date Provider Last Modified By Organization Details Last Modified Time Details Appointments None recorded . Lab None recorded . Referral sleep medicine referral 2021 ANTHONY Boogie MD, [address] [place], [address], 16:10:[address] referral - Plantar fasciiti s . Please eval and treat . Thank you 2021 022 ATHENAFAX Not available 11:35:09 orthoped ic surgeon referral - bilatera l knee pain . PLease eval and treat . Thank you 2020 021 [facility], [address] [facility], [place], [address], 09:27:30 Procedures None recorded . Surgeries None recorded . Imaging MAMMO, screenin g, digital, bilatera l 2020 021 [facility] ([facility]), [address] [place], [address], 11:22:41 Medication Orders amitript yline 100 mg tablet 2021 [facility], [address] [facility], [place], [address], 15:32:32 albutero l sulfate HFA 90 mcg/actu ation aerosol inhaler 2021 [facility], [address] [place], [address], 2 15:32:41 predniso ne 20 mg tablet 2021 [facility], [address] [place] [address], [address], 2 15:32:43 Symbicor t 160 mcg-4.5 mcg/actu ation HFA aerosol inhaler 2021 [facility] [address], [address] [place] [address], [address], 15:32:45 Pennsaid 20 mg/gram/ actuatio n (2 %) topical soln in metered- dose pump 2021 [place] [address] [facility], [address] [place] [address], [id number], 15:38:32 lisinopr il 20 mg-hydro chloroth iazide 12.5 mg tablet 2021 [facility], [address] [place] [address], [address], 15:36:22 omeprazo le 20 mg capsule, delayed release 2021 [facility] [address], [address] [place] [address], [address], 2 15:30:50 benzonat ate 200 mg capsule 2021 [facility] [address], [address] [place] [address], [address], 01/03/202 2 14:50:21 amoxicil manjindre 875 mg-potas sium clavulan ate 125 mg tablet 2021 [facility], [address] [place] [address], [address], 15:18:32 cycloben zaprine 10 mg tablet 2021 [facility] [address], [address] [place] [address], [address], 14:50:17 predniso ne 20 mg tablet 2021 [facility] [address], [address] [place] [address], [address], 14:50:20 cycloben zaprine 10 mg tablet 2020 [facility] [address], [address] [place] [address], [address], 13:01:46 Symbicor t 160 mcg-4.5 mcg/actu ation HFA aerosol inhaler 2020 [facility] [address], [address] [place] [address], [address], 13:00:13 loratadi ne 10 mg tablet 2020 [facility] [address], [address] [place] [address], [address], 13:00:11 monteluk ast 10 mg tablet 2020 [facility] [address], [address] [place] [address], [address], 13:00:41 ciproflo xacin 500 mg tablet 2020 021 adriel [facility], [address] [place], [address], 12:18:07 predniso ne 20 mg tablet 2020 021 ARNALDO [facility], [address] [place], [address], 12:43:40 Patient TargetsNo targets recorded. Patient Instructions Encounter Date Encounter Id Patient Instructions Last Modified By Organization Details Last Modified Time 07/03/2021 [id number] waalk-in here in 7 days for free Danuta [email or web address] Not available 07/05/2021 15:14:52 Reason for Referral Orthopedic Surgeon Referral for Pain in right knee bilateral knee pain . PLease eval and treat . Thank you Referring Physician: [facility], Encounter Date: 12/18/2020 [employer] Referral for Plan tar fasciitis Plantar fasciitis . Please eval and treat . Thank you Referring Physician: [facility], Encounter Date: 07/03/2021 Sleep Medicine Referral for Sleep apnea Referring Physician: [facility], Encounter Date: 07/03/2021 Results Created Date Observation Date Name Description Value Unit Range Abnormal Flag Note LastModifiedBy Organization Detail LastModifiedTime 12/15/1912/14/2020 XR, chest No observ ation record ed. [email or web address] [facility] [address] [place], [address], 12/27/2020 15:10:40 01/31/20 21 12/14/2020 XR, chest No observ ation record ed. [facility] [address] [place], [address], 02/02/2021 10:56:17 01/31/20 21 01/30/2021 XR, chest , 2 view No observ ation record ed. [facility] [address] [place], [address], 02/02/2021 10:56:22 03/05/20 21 03/05/2021 MAMMO , scree leola, digit al, bilat eral No observ ation record ed. [facility] [address] [place], [address], 04/02/2021 16:58:25 03/13/20 21 03/13/2021 MRI, knee, w/o contr ast No observ ation record ed. [facility] [address] [place], [address], 05/11/2021 13:14:37 03/29/20 21 03/29/2021 nellie gonzalez ow study No observ ation record ed. [facility] [address] [place], [address], 05/11/2021 13:15:17 05/26/19 22 05/26/2021 XR, chest No observ ation record ed. [facility] [address] [place], [address], 06/27/2021 14:50:26 05/26/19 22 05/26/2021 CT, abdom en + pelvi s, w/ contr ast No observ ation record ed. [facility] [address] [place], [address], 06/27/2021 14:19:30 06/15/19 22 06/14/2021 LDCT, chest , for lung cance r von bhagat No observ ation record ed. [facility] [address] [place], [address], 07/03/2021 10:27:14 06/29/19 22 06/28/2021 US, head + neck, soft tissu e No observ ation record ed. [email or web address] [facility] [address] [place], [address], 07/03/2021 09:23:13 06/29/19 22 06/28/2021 CT, maxil lofac ial, w/o contr ast No observ ation record ed. [email or web address] [facility] [address] [place], [address], 07/03/2021 10:23:31 Result Notes None recorded. Problems Name Problem SNOMED Code Status Onset Date Resolution Date Notes Provider Name and Address Organization Details Recorded Time Migraine 35377425 Active 2017 Not Available [facility] 2 15:38:22 Prolapsed lumbar interverte bral disc 981239329 Active 2017 Not Available [facility] 2 15:38:21 Neck pain 42486963 Active 2017 Not Available [facility] 2 15:38:22 Essential hypertensi on 14506123 Active Not Available [facility] 2 15:38:22 Insomnia 533487094 Active Not Available [facility] 2 15:38:22 Pleurisy 091486775 Active Not Available [facility] 2 15:38:21 Chronic obstructiv e pulmonary disease 17983527 Active see PFTs 2019 Not Available [facility] 2 15:38:22 Pain in right knee Active 2018 Not Available [facility] 2 15:38:21 Serum vitamin B12 below reference range 894067852 Active 2018 Not Available [facility] 2 15:38:22 Hyperlipid emia 23848877 Active 2018 Not Available [facility] 2 15:38:22 Acute sinusitis 60877957 Active 2018 Not Available [facility] 2 15:38:22 Herpes labialis 7761423 Active 2018 Not Available [facility] 2 15:38:22 Sleep apnea 65502766 Active 2018 Not Available [facility] 2 15:38:22 Aphthous ulcer of mouth 315702226 Active 2019 Not Available [facility] 2 15:38:21 Lower abdominal pain 40997569 Active 2019 Not Available [facility] 2 15:38:21 Acute pharyngiti s 823562077 Active 2019 Not Available [facility] 2 15:38:21 Allergic rhinitis 05617968 Active 2019 Not Available [facility] 2 15:38:22 Neck swelling 342313814 Active 2019 Not Available [facility] 2 15:38:22 Pain in left knee Active 2019 Not Available [facility] 2 15:38:22 Administra tion of influenza vaccine Active 2019 Not Available [facility] 2 15:38:22 Screening for malignant neoplasm of colon Active 2020 Not Available [facility] 2 15:38:22 Hemorrhoid s 98233856 Active 2020 Not Available [facility] 2 15:38:21 Pain in left foot 2437534996383 07 Active 2020 Not Available [facility] 2 15:38:22 Upper respirator y infection 21010142 Active 2020 Not Available [facility] 2 15:38:21 Chronic thoracic back pain 1937568310390 03 Active 2020 Not Available [facility] 2 15:38:22 Screening for malignant neoplasm of breast Active 2020 Not Available [facility] 2 15:38:22 Wheezing 56887298 Active 2021 Not Available [facility] 2 15:38:22 Plantar fasciitis 584831104 Active 2021 Not Available [facility] 2 15:38:22 Bronchitis 28570869 Active Not Available [facility] 2 15:38:21 Low back pain 304831982 Active Not Available [facility] 2 15:38:21 Eczema 62022340 Active Not Available [facility] 2 15:38:22 Acute urinary tract infection 794929745 Active Not Available [facility] 2 15:38:21 Right upper quadrant pain 953635912 Active Not Available [facility] 2 15:38:22 Snoring 85576551 Active Not Available [facility] 2 15:38:22 Gastroesop hageal reflux disease 470473878 Active Not Available [facility] 2 15:38:22 Shoulder pain 63546044 Active Not Available [facility] 2 15:38:22 Bacterial vaginosis 241875311 Active Not Available [facility] 2 15:38:22 Sexual desire disorder 98559583 Active Not Available [facility] 2 15:38:22 Sinusitis 12909696 Active Not Available [facility] 2 15:38:22 Sialoadeni tis 57356904 Active Not Available [facility] 2 15:38:21 Problem Notes None recorded. Procedures Surgical History Date Name Laterality Status Provider Name and Address Organization Details Recorded Time 08/01/19 21 endoscopy completed SUSAN Rodriguez [facility] 08/07/2020 14:29:38 12/30/19 18 Xcapsl ctrc rmvl cplx wo ecp completed SUSAN Rodriguez 06/30/2018 16:57:41 02/28/20 11 Most Recent Mammogram completed SUSAN Galeana 03/13/2015 15:05:19 01/01/20 11 Hysterectomy completed SUSAN Galeana 03/13/2015 15:07:24 04/25/19 11 Endometrial Biopsy completed SUSAN Galeana 03/13/2015 15:06:32 01/31/20 10 Date of Last Pap Smear completed SUSAN Galeana 03/13/2015 15:05:19 03/31/19 08 Cholecystectomy completed SUSAN Galeana 03/13/2015 15:08:13 04/06/18 85 Caesarean Section completed SUSAN Galeana [facility] 03/13/2015 15:05:54 05/23/18 83 Caesarean Section completed Yecenia Deluca MA [facility] 03/13/2015 15:06:04 Imaging Results Imaging Date Name Status LastModified by Organiz ation Details LastModified Time 12/14/2020 XR, chest completed [email or web address] [facility] [address] [place], [address], 12/27/2020 15:10:40 12/14/2020 XR, chest completed [facility] [address] [place], [address], 02/02/2021 10:56:17 01/30/2021 XR, chest, 2 view completed [facility] [address] [place], [address], 02/02/2021 10:56:22 03/05/2021 MAMMO, screening, digital, bilateral completed [facility] [address] [place], [address], 04/02/2021 16:58:25 03/13/2021 MRI, knee, w/o contrast completed [facility] [address] [place], [address], 05/11/2021 13:14:37 03/29/2021 barium swallow study completed [facility] [address] [place], [address], 05/11/2021 13:15:17 05/26/2021 XR, chest completed [facility] [address] [place], [address], 06/27/2021 14:50:26 05/26/2021 CT, abdomen + pelvis, w/ contrast completed [facility] [address] [place], [address], 06/27/2021 14:19:30 06/14/2021 LDCT, chest, for lung cancer screening completed [facility] [address] [place], [address], 07/03/2021 10:27:14 06/28/2021 US, head + neck, soft tissue completed [email or web address] [facility] [address] [place], [address], 07/03/2021 09:23:13 06/28/2021 CT, maxillofacial, w/o contrast completed [facility] [address] [place], [address], 07/03/2021 10:23:31 Procedure Notes None recorded. Medical Equipment None Reported. Allergies Allergen ID Allergen Name Allergen Category Reaction Reaction Severity Criticality Documentation Date Start Date Code Code System Note Provider Name and Address Organization Details Recorded Time 434623 Pneumococ gregorio vaccine Not available Not available Not available Not available 06/30/2018 99331 7 RxNorm Not Available Not Available Not [...] Updated DateTime 1 151.13 cm 32.8 kg/m2 23648.7 4 g 97 % 97 % 84 [...] Updated DateTime 2 151.13 cm 34.4 kg/m2 09287.9 2 g 98 % 98 % 87 [...] Updated DateTime 2 151.13 cm 35.3 kg/m2 39182.7 2 g 95 % 95 % 80 /min 98.4 [degF] 140 mm[Hg] 72 mm[Hg] Jessica Tipton MA MA - [facility] 2 15:23:29 Date Recorded Body height Body mass index (BMI) Body weight Oxygen saturation Oxygen saturation in Arterial blood by Pulse oximetry Heart rate Systolic blood pressure Diastolic blood pressure Provider Name and Address Organization Details Last Updated DateTime 2 151.13 cm 36.4 kg/m2 26360.8 3 g 96 % 96 % 85 /min 148 mm[Hg] 96 mm[Hg] Jessica Tipton MA MA - [facility] 2 14:47:59 Social History Question Answer Notes LastModified by Organizat ion Details LastModified Time Tobacco Smoking Status Former Smoker 07/01/19 19 quit 01/2018 Jessica Tipton MA null, MA - [facility] 06/30/2018 16:56:48 Do You Have An Advance [...] 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 [id number] Information not available 08/07/2020 Do You Use [...] N Blood Diseases N Hyperthyroidism N Blood Transfusion N MRSA N Blood disorders N Emphysema N Blood Clots N COPD Y Depression N Pneumonia N Premature N Peripheral Arterial Disease N Edema N TIA N Headaches/Migraines N Anxiety Disorder N Obesity N Infertility N Polyps N Acid Reflux (GERD) Y Hematuria N [...] Disorder N Colon Polyps N Heart Attack ([place]) N Diabetes N Cardiomyopathy N Blood Transfusions [...] mcg/0.3 mL dose 1 completed Not Available [facility] 10/28/2021 15:38:23 COVID-19, mRNA, LNP-S, PF, 30 mcg/0.3 mL dose 1 completed Not Available [facility] 10/28/2021 15:38:23 Influenza, split virus, quadrivalent, preservative [...] Diagnosis Note [id number] TRANG French (Adult Med) [address] [place] [phone] [id number] 02/21/2014 16:30:28 02/21/2014 17:33:23 Essential hypertension 86346596 Insomnia 234083043 Pleurisy 964379490 Chronic ob structive pulmonary disease 60030181 [id number] Kiara (Adult Med) [address] [place] [id number] [id number] 11/11/2014 15:34:06 11/11/2014 16:40:02 Bronchitis 62829872 Pleurisy 562348442 Low back pain 960955373 Insomnia 118145823 Adult heal th examination 067978789 Eczema 12166139 [id number] OLINDA Hernandez (Adult Med) [address] [place] [phone] 0 01/13/2015 10:49:59 01/16/2015 16:37:15 Right upper quadrant pain 458639005 R10.11 Snoring 06378649 R06.83 Active or passive immunization 027760498 Z23 Chronic ob structive pulmonary disease 28230432 J44.9 Gastroesop hageal reflux disease 859276848 K21.9 Shoulder pain 88605131 M 25.512 Bacterial vaginosis 4197 70882 N76.0 Insomnia 086356203 G47.0 0 [id number] SUSAN Jung (UTILIZATION REVIEW SPECIALIST) [address] [place] [phone] 03/13/2015 14:31:21 03/13/2015 16:50:00 Screening mammography 88556075 Z12.31 Sexual chalino alex disorder 79160065 F52.9 Screening for malignant neoplasm of colon 229479211 Z12.11 [id number] TRANG French (Adult Med) [address] [place] [id number] 0 03/16/2015 11:43:53 03/16/2015 18:02:43 Chronic obstructive pulmonary disease 60683003 J44.9 Essential hypertension 68298227 I10 Sinusitis 54999601 J32.9 Bronchitis 02796381 J40 Insomnia 873255233 G47.0 0 Low back pain 504775408 M54.5 [id number] TRANG French (Adult Med) [address] [place] [id number] 05/18/2015 11:24:28 05/18/2015 12:19:47 Sinusitis 24840730 J32.9 Chronic ob structive pulmonary disease 65150242 J44.9 Essential hypertension 62514119 I10 Gastroesop hageal reflux disease 433210529 K21.9 Insomnia 337985818 G47.0 0 Low back pain 929598809 M54.5 [id number] TRANG French (Adult Med) [address] [place] [address] 0 07/19/2015 09:16:01 07/19/2015 10:44:11 Sialoadenitis 25625014 K11.20 Essential hypertension 18300793 I10 Gastroesop hageal reflux disease 709502412 K21.9 Insomnia 677584971 G47.0 0 Low back pain 090754035 M54.5 [id number] TRANG French (Adult Med) [address] [place] [address] 0 06/24/2016 16:56:15 06/24/2016 17:55:32 Sinusitis 70308521 J32.9 Sialoadenitis 26671077 K 11.20 Insomnia 173417395 G47.0 0 Gastroesop hageal reflux disease 932706474 K21.9 [id number] TRANG French (Adult Med) [address] [place] [id number] 0 04/07/2017 15:17:44 04/07/2017 16:14:42 Migraine 05918542 G43.909 Low back pain 981165352 M54.5 Sinusitis 01241686 J32.9 Bronchitis 57327083 J40 Insomnia 324264767 G47.0 0 [id number] TRANG French (Adult Med) [address] [place] [id number] 05/06/2017 11:30:43 05/06/2017 13:19:07 Sinusitis 15747977 J32.9 Prolapsed lumbar intervertebral disc 217926770 M51.26 Gastroesop hageal reflux disease 876134082 K21.9 Low back pain 470684582 M54.5 Neck pain 45341887 M54.2 [id number] TRANG French (Adult Med) [address] [place] [phone] 0 06/03/2017 11:55:46 06/03/2017 14:18:13 Sinusitis 56679151 J32.9 Low back pain 247503796 M54.5 [id number] TRANG French (Adult Med) [address] [place] [address] [id number] [id number] 06/30/2018 16:26:54 07/01/2018 10:46:31 Chronic obstructive pulmonary disease 07253626 J44.9 Gastroesop hageal reflux disease 542460551 K21.9 Pain in right knee 91779 44446 41145 M25.561 Low back pain 783914408 M54.5 Essential hypertension 15975145 I10 Serum last min B12 below reference range 183995608 R79.89 Acute urin zarina tract infection 386448703 N39.0 Hyperlipidemia 18785385 E78.5 Insomnia 782172605 G47.0 0 [id number] TRANG French (Adult Med) [address] [place] [id number] 0 07/23/2018 16:00:21 07/23/2018 17:22:16 Acute sinusitis 53910299 J01.90 Chronic ob structive pulmonary disease 25143798 J44.9 Herpes labialis 0959377 B00.1 Essential hypertension 84170409 I10 Gastroesop hageal reflux disease 505306173 K21.9 Low back pain 747295535 M54.5 Insomnia 643136371 G47.0 0 Hyperlipidemia 94591672 E78.5 Prolapsed lumbar intervertebral disc 715621204 M51.26 [id number] TRANG French (Adult Med) [address] [place] [id number] 0 07/19/2019 11:55:49 07/22/2019 13:23:34 Bronchitis 40185496 J40 Neck pain 91264685 M54.2 Herpes labialis 6628140 B00.1 Essential hypertension 14374646 I10 Aphthous u lcer of mouth 380908689 K12.0 Hyperlipidemia 56113462 E78.5 Insomnia 556834775 G47.0 0 Sleep apnea 29461838 G47 .30 [id number] TRANG French (Adult Med) [address] [place] [address] [phone] 0 08/17/2019 08:16:51 08/17/2019 12:20:00 Bronchitis 12089955 J40 Sinusitis 21038665 J32.9 Lower abdominal pain 545 40333 R10.30 Hyperlipidemia 39599389 E78.5 Gastroesop hageal reflux disease 749214415 K21.9 Essential hypertension 25881447 I10 Chronic ob structive pulmonary disease 11977712 J44.9 Insomnia 888615974 G47.0 0 Sleep apnea 69734206 G47 .30 Prolapsed lumbar intervertebral disc 652663029 M51.26 Serum last min B12 below reference range 693317579 R79.89 [id number] Kiara (Adult Med) [address] [place] [address] [id number] 0 09/17/2019 10:14:10 09/17/2019 12:14:43 Pain in right knee 6759789943 16578 M25.561 Low back pain 605226498 M54.5 Chronic ob structive pulmonary disease 15346561 J44.9 Essential hypertension 44825187 I10 Gastroesop hageal reflux disease 919358408 K21.9 Hyperlipidemia 08137465 E78.5 Insomnia 756115018 G47.0 0 Prolapsed lumbar intervertebral disc 610335407 M51.26 Sleep apnea 97516847 G47 .30 Pain in right foot 02601 27343 48292 M79.503 [id number] TRANG French (Adult Med) [address] [place] [address] [id number] 0 11/09/2019 08:13:23 11/09/2019 11:31:15 Bronchitis 38589123 J40 Chronic ob structive pulmonary disease 27138181 J44.9 Essential hypertension 90150559 I10 Gastroesop hageal reflux disease 926747202 K21.9 Hyperlipidemia 05752375 E78.5 Insomnia 604265500 G47.0 0 Low back pain 964676250 M54.5 Serum last min B12 below reference range 019888864 R79.89 Sleep apnea 78649089 G47 .30 Acute pharyngitis 697258 003 J02.9 [id number] TRANG French (Adult Med) [address] [place] [address] [id number] 12/07/2019 07:56:08 12/07/2019 14:14:13 Chronic obstructive pulmonary disease 48868846 J44.9 Essential hypertension 78113772 I10 Gastroesop hageal reflux disease 914393985 K21.9 Hyperlipidemia 86191337 E78.5 Insomnia 479136525 G47.0 0 Allergic rhinitis 866174 04 J30.9 Neck swelling 257025115 R22.1 Prolapsed lumbar intervertebral disc 001716857 M51.26 Serum last min B12 below reference range 838536135 R79.89 Sleep apnea 33779350 G47 .30 [id number] TRANG French (Adult Med) [address] [place] [address] [id number] 0 01/04/2020 08:21:59 01/05/2020 10:09:34 Chronic obstructive pulmonary disease 04644383 J44.9 Bronchitis 95767747 J40 Serum last min B12 below reference range 291036717 R79.89 Hyperlipidemia 49062447 E78.5 Gastroesop hageal reflux disease 575685808 K21.9 Pain in right knee 09830 26339 47816 M25.810 [id number] TRANG French (Adult Med) [address] [place] [address] 05559-926 0 02/01/2020 11:43:03 02/01/2020 12:43:23 Pain in right knee 1797947187 98581 M25.561 Pain in left knee 990652 1085 90698 M25.562 Bronchitis 94302015 J40 Administra tion of influenza vaccine 61601928 Z23 Neck swelling 477696490 R22.1 Allergic rhinitis 905713 04 J30.9 Chronic ob structive pulmonary disease 17450001 J44.9 Essential hypertension 98449586 I10 Gastroesop hageal reflux disease 122108256 K21.9 Hyperlipidemia 89577685 E78.5 Insomnia 728338086 G47.0 0 Low back pain 880836529 M54.5 Sleep apnea 75122963 G47 .30 [id number] TRANG French (Adult Med) [address] [place] [address] [id number] 0 03/07/2020 08:23:05 03/07/2020 12:33:26 Allergic rhinitis 45427258 J30.9 Chronic ob structive pulmonary disease 74488669 J44.9 Essential hypertension 58029359 I10 Gastroesop hageal reflux disease 143102097 K21.9 Hyperlipidemia 60429168 E78.5 Insomnia 207453972 G47.0 0 Low back pain 745276266 M54.5 Neck pain 07739479 M54.2 Serum last min B12 below reference range 460280677 R79.89 Sleep apnea 95240175 G47 .30 [id number] TRANG French (Adult Med) [address] [place] [address] [id number] 0 04/10/2020 08:13:06 04/10/2020 11:48:02 Essential hypertension 53853600 I10 Gastroesop hageal reflux disease 398307817 K21.9 Chronic ob structive pulmonary disease 10862100 J44.9 Hyperlipidemia 18033219 E78.5 Low back pain 504018560 M54.5 Pain in left knee 028192 9542 94939 M25.562 Pain in right knee 26593 34966 59212 M25.561 Prolapsed lumbar intervertebral disc 746961982 M51.26 Sleep apnea 99648333 G47 .30 Serum last min B12 below reference range 226202457 R79.89 Insomnia 805911881 G47.0 0 Migraine 06957553 G43.90 9 Neck pain 77523005 M54.2 Neck swelling 316026971 R22.1 Allergic rhinitis 445519 04 J30.9 [id number] TRANG French (Adult Med) [address] [place] [address] [id number] 0 05/15/2020 08:02:51 05/16/2020 09:50:48 Allergic rhinitis 75479960 J30.9 Chronic ob structive pulmonary disease 74672635 J44.9 Gastroesop hageal reflux disease 703819577 K21.9 Hyperlipidemia 45981786 E78.5 Insomnia 790014107 G47.0 0 Low back pain 554861726 M54.5 Serum last min B12 below reference range 184487656 R79.89 Sleep apnea 04308904 G47 .30 Prolapsed lumbar intervertebral disc 648801712 M51.26 Pain in left knee 475241 1528 88129 M25.562 Pain in right knee 31464 68462 06536 M25.519 [id number] TRANG French (Adult Med) [address] [place] [address] 67464-321 0 07/06/2020 08:35:56 07/06/2020 15:49:22 Acute pharyngitis 968371727 J02.9 Acute sinusitis 89008232 J01.90 Bronchitis 17931355 J40 Allergic rhinitis 564411 04 J30.9 Chronic ob structive pulmonary disease 34801157 J44.9 Essential hypertension 66912743 I10 Gastroesop hageal reflux disease 741117101 K21.9 Hyperlipidemia 71356555 E78.5 Insomnia 328126405 G47.0 0 Low back pain 730264066 M54.5 Neck pain 33222928 M54.2 Pain in left knee 953733 8874 57338 M25.562 Pain in right knee 54911 82392 71027 M25.561 Prolapsed lumbar intervertebral disc 236514895 M51.26 Serum last min B12 below reference range 226327792 R79.89 Sleep apnea 10799188 G47 .30 [id number] TRANG French (Adult Med) [address] [place] [address] [phone] 0 08/07/2020 09:02:22 08/07/2020 15:35:55 Bronchitis 02900767 J40 Herpes labialis 3156133 B00.1 Essential hypertension 52343905 I10 Allergic rhinitis 577712 04 J30.9 Hyperlipidemia 71114722 E78.5 Insomnia 837281291 G47.0 0 Low back pain 103405382 M54.5 Neck pain 55140290 M54.2 Serum last min B12 below reference range 578656549 R79.89 Sleep apnea 31543026 G47 .30 [id number] TRANG French (Adult Med) [address] [place] [address] [id number] 0 09/04/2020 09:00:12 09/04/2020 15:24:38 Allergic rhinitis 28792143 J30.9 Chronic ob structive pulmonary disease 85790919 J44.9 Essential hypertension 08519865 I10 Gastroesop hageal reflux disease 251990048 K21.9 Hyperlipidemia 17476997 E78.5 Insomnia 180240684 G47.0 0 Low back pain 438318534 M54.5 Migraine 61165843 G43.90 9 Prolapsed lumbar intervertebral disc 548981629 M51.26 Serum last min B12 below reference range 239063729 R79.89 Sleep apnea 81301193 G47 .30 Screening for malignant neoplasm of colon 871875183 Z12.11 Herpes labialis 9545654 B00.1 Hemorrhoids 72225228 K64 .9 [id number] TRANG French (Adult Med) [address] [place] [address] [phone] 0 10/17/2020 16:13:30 10/20/2020 19:41:55 Allergic rhinitis 35221291 J30.9 Chronic ob structive pulmonary disease 17053633 J44.9 Essential hypertension 57484976 I10 Gastroesop hageal reflux disease 532350126 K21.9 Hyperlipidemia 38260540 E78.5 Insomnia 798774411 G47.0 0 Low back pain 601599649 M54.5 Neck pain 14374645 M54.2 Sleep apnea 79329343 G47 .30 Serum last min B12 below reference range 477355781 R79.89 Prolapsed lumbar intervertebral disc 945627041 M51.26 Pain in left knee 566881 4508 98872 M25.562 Pain in right knee 04881 51661 04977 M25.603 [id number] TRANG French (Adult Med) [address] [place] [address] [phone] 0 11/14/2020 07:47:46 11/14/2020 17:14:25 Pain in left foot 0808121230 21100 M79.672 Chronic ob structive pulmonary disease 46330712 J44.9 Bronchitis 74938111 J40 Allergic rhinitis 817397 04 J30.9 Essential hypertension 44786832 I10 Gastroesop hageal reflux disease 412551398 K21.9 Hyperlipidemia 26640960 E78.5 Insomnia 539198726 G47.0 0 Low back pain 507120766 M54.5 Migraine 31292809 G43.90 9 Neck pain 46959333 M54.2 Prolapsed lumbar intervertebral disc 207543451 M51.26 Serum last min B12 below reference range 815726882 R79.89 Sleep apnea 50359107 G47 .30 [id number] TRANG French (Adult Med) [address] [place] [address] 63440-957 0 12/18/2020 08:45:06 12/18/2020 15:49:56 Allergic rhinitis 49444959 J30.9 Chronic ob structive pulmonary disease 94665577 J44.9 Essential hypertension 88941568 I10 Gastroesop hageal reflux disease 123030026 K21.9 Hyperlipidemia 29617622 E78.5 Insomnia 998421718 G47.0 0 Low back pain 797878256 M54.5 Prolapsed lumbar intervertebral disc 006401766 M51.26 Sleep apnea 65660662 G47 .30 Sinusitis 21292983 J32.9 Pain in left knee 992229 7024 43808 M25.562 Pain in right knee 96608 55910 36653 M25.561 Bronchitis 20460037 J40 Serum last min B12 below reference range 689420163 R79.89 [id number] TRANG French (Adult Med) [address] [place] [address] [phone] 0 02/19/2021 12:03:34 02/19/2021 13:05:34 Administration of influenza vaccine 09626814 Z23 Allergic rhinitis 791750 04 J30.9 Chronic ob structive pulmonary disease 71781749 J44.9 Chronic th oracic back pain 1904102273 36298 M54.6 Screening for malignant neoplasm of breast 284621905 Z12.39 Screening mammography 24 686239 Z12.31 [id number] TRANG French (Adult Med) [address] [place] [address] [phone] 0 04/02/2021 14:30:30 04/02/2021 15:47:41 Acute sinusitis 01305694 J01.90 Chronic th oracic back pain 7413343568 47259 M54.6 Allergic rhinitis 617285 04 J30.9 Chronic ob structive pulmonary disease 93530905 J44.9 Essential hypertension 94786929 I10 Gastroesop hageal reflux disease 568477081 K21.9 Hyperlipidemia 92742141 E78.5 Insomnia 455257540 G47.0 0 Low back pain 318962216 M54.50 Prolapsed lumbar intervertebral disc 675585364 M51.26 Serum last min B12 below reference range 280577530 R79.89 Sleep apnea 63943370 G47 .30 Neck pain 14974147 M54.2 [id number] TRANG French (Adult Med) [address] [place] [address] [phone] 0 05/28/2021 14:30:15 05/28/2021 15:41:21 Gastroesophageal reflux disease 993403804 K21.9 Low back pain 183983930 M54.50 Wheezing 86448128 R06.2 Essential hypertension 28302520 I10 Allergic rhinitis 019009 04 J30.9 Chronic ob structive pulmonary disease 85540817 J44.9 Hyperlipidemia 75924385 E78.5 Insomnia 686808864 G47.0 0 Serum last min B12 below reference range 951714851 R79.89 Sleep apnea 42144687 G47 .30 [id number] TRANG French (Adult Med) [address] [place] [address] [id number] 0 07/03/2021 14:28:15 07/04/2021 11:12:13 Insomnia 494057708 G47.00 Allergic rhinitis 627230 04 J30.9 Chronic ob structive pulmonary disease 79592943 J44.9 Essential hypertension 16399050 I10 Gastroesop hageal reflux disease 416318687 K21.9 Hyperlipidemia 34083608 E78.5 Low back pain 339454397 M54.50 Serum last min B12 below reference range 714429240 R79.89 Sleep apnea 11116723 G47 .30 Plantar fasciitis 901067 003 M72.2 Prolapsed lumbar intervertebral disc 742771762 M51.26 Health Concerns Section Related Observation LastModified by Organization Detai ls LastModified Time None Recorded Concern Status LastModified by Organization Details LastModified Time None Recorded Advance Directives Directive N: Payers Encounter Date Sequence Insurance Name Policy Number Policy Webster Covered Member ID Webster Member ID Guarantor Name 12/18/2020 1 [place] [facility] (MEDICAID REPLACEMENT - HMO) [id number] Medina Kenny [id number] Medina Cox 02/19/2021 1 [place] [facility] (MEDICAID REPLACEMENT - HMO) [id number] Medina Cox [id number] Medina Cox 04/02/2021 1 [place] [facility] (MEDICAID REPLACEMENT - HMO) [id number] Medinanicolás Cox [id number] Medina Cox 05/28/2021 1 [place] [facility] (MEDICAID REPLACEMENT - HMO) [id number] Medinanicolás Cox [id number] Medina Cox 07/03/2021 1 [place] [facility] (MEDICAID REPLACEMENT - HMO) [id number] Medina Kenny [id number] Medina Cox Notes Date Note Type Note Provider Name and Address Organization Details Recorded Time 12/18/2020 text/html pain in back of lungs hurting , went to ED , 2 breathing treatments , asthma flared . COPD bad according to ER doc , steroids Rik Elizabeth PA-C Attn: Accounting,[address] [facility], [place], [address], [place] 12/18/2020 16:17:19 02/19/2021 text/html some wheezing , no fever , gets this way when exposed to dust . Rik Elizabeth PA-C Attn: Accounting,[address] [facility], [place], [address], [place] 02/19/2021 22:09:52 04/02/2021 text/html tightness right shoulder into back of neck worse than left Rik Elizabeth PA-C Attn: Accounting,[address] [facility], [place], [address], [facility] 04/02/2021 17:12:45 05/28/2021 text/html gets sob easily Rik Elizabeth PA-C Attn: Accounting,[address] [facility], [place], [address], [facility] 05/28/2021 17:18:44 07/03/2021 text/html not breathing well at night ..... Rik Elizabeth PA-C Attn: Accounting,[address] [facility], [place], [address], [facility] 07/05/2021 15:15:00 OBGyn Episode No OBEpisode recorded.
--- OUTSIDE RECORDS SUMMARY | 2024-06-29 10:03 | XMS_ITS | Encounter Summary ---
Author Organization [facility] Address [address] [place] [address] Care Team Providers Care Protection Consultant Name Role Phone Nettie Hodges NP Primary Care Provider [phone] Encounter Details Date Type Department Care Team (Late Contact Info) Description 12/17/2022 Health Discoveryt Message Enc [facility] Family Medicine [facility] [address] [facility] [address] [place] [address] [phone] Nettie Hodges, EARL [address] [place] [address] xray results Social History Tobacco Use Types [...] Sex Assigned at Female 04/26/2024 7:07 AM FOOTWEAR STITCHER Legal Sex Female 2:16 PM FOOTWEAR STITCHER Gender Identity Female 04/26/2024 9:06 AM FOOTWEAR STITCHER Sexual Orientation Straight 04/26/2024 1: 33 PM FOOTWEAR STITCHER 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, [address] [place] [phone] Shila Ruiz MD [address] [place] [address] 08/12/2024 11:00 AM CDT [facility] [address] [facility], [address] [place] [phone] Gracy Blair APRN [address] [facility] [address] [place] [address] 09/16/2024 10:40 AM CDT Office Visit [facility] - [place] [address] [place] [address] Maurisio Jeong MD [address] [place] [address] 09/24/2024 10:00 AM CDT Office Visit [facility]-[address] [address] Paula Sanchez MD [address] [facility] [address] [place] [address] 11/01/2024 1:20 PM CDT Office Visit [facility] Family Medicine - [address] [facility] [address] [place] [address] Nettie Hodges NP [address] [place] [address] documented as of this encounter Visit Diagnoses Not on filedocumented in this encounter Care Teams Protection Consultant Relationship Specialty Start Date End Date Nettie Hodges NP [address] [place] [address] [place] [address] PCP - General NURSE PRACTITIONER 09/10/21 documented as of this encounter
--- OUTSIDE RECORDS SUMMARY | 2024-06-29 10:03 | XMS_ITS | Clinical Summary ---
Author Organization [facility] Address [facility] [place] [address] Care Team Providers Care Electrical Electronics Technician Name Role Phone Nettie Hodges NP Primary Care Provider [phone] Allergies Active Allergy Reactions Criticality Noted Date [...] s:Chronic obstructive pulmonary disease, unspecified COPD type ([facility]/HCC HHS/HCC) INHALE 2 PUFFS BY MOUTH EVERY 6 HOURS NEEDED FOR WHEEZING 18 g 11 03/07/20 23 Active Budeson-Glycopyrr ol-Formoterol (BREZTRI AEROSPHERE) 160-9-4.8 MCG/ACT AerosolIndication s:Chronic obstructive pulmonary disease, unspecified COPD type ([facility] HHS/HCC) Inhale 1 puff into the lungs [...] (twelve) hours as needed. FOR PAIN 01/19/20 24 Active furosemide (LASIX) 80 MG tablet Take 1 tablet (80 mg total) by mouth daily. 01/26/20 24 Active DUPIXENT 300 MG/2ML injection (PEN) Inject 2 mLs (300 mg total) into the skin. 03/10/20 24 Active atorvastatin (LIPITOR) 80 MG tabletIndications :Mixed [...] mg total) by mouth. 05/26/19 25 Active albuterol (PROVENTIL) (2.5 MG/3ML) 0.083% nebulizer solutionIndicatio ns:Chronic obstructive pulmonary disease, unspecified COPD type ([facility]/HCC [facility]) USE 1 VIAL IN NEBULIZER EVERY 4 HOURS NEEDED FOR WHEEZING 360 mL 06/29/19 25 Active amitriptyline (ELAVIL) 100 MG tabletIndications :Insomnia, unspecified type TAKE 1 TABLET BY MOUTH NEEDED AT BEDTIME 90 tablet 12/10/19 24 2024 Discontinued lisinopril (PRINIVIL) 30 MG tabletIndications :Uncontrolled hypertension Take 1 tablet by mouth once daily 90 tablet 03/22/20 24 2024 Discontinued albuterol (PROVENTIL) (2.5 MG/3ML) 0.083% nebulizer solutionIndicatio ns:Chronic obstructive pulmonary disease, unspecified COPD type ([facility]) USE 1 VIAL IN NEBULIZER EVERY 4 HOURS NEEDED FOR WHEEZING 360 mL 04/02/19 25 2024 Discontinued cephALEXin (KEFLEX) 500 MG capsuleIndication [...] 08/29/2022 Chronic asthmatic bronchitis with acute exacerbation ([facility]) 07/16/2022 Spondylolisthesis of lumbar region 06/27/2022 Fall, initial encounter 05/01/2022 Gait disturbance 05/01/2022 Foraminal stenosis of lumbar region 05/01/2022 Abnormal MRI, lumbar spine 05/01/2022 Osteoporosis 03/08/2022 Overview (03/08/2022): L1-L4 and osteopenia and left femoral neck Fall, subsequent encounter 03/08/2022 Chronic bilateral back pain, unspecified back lo cation 03/08/2022 Chronic pain of both knees 03/08/2022 Panlobular emphysema ([facility]) Burning sensation of throat 10/04/2021 Chronic obstructive pulmonar y disease, unspecified COPD type ([facility]) 10/04/2021 Hypertension, unspecified type 10/04/2021 Gastroesophageal reflux [...] apnea 08/13/2018 Chronic respiratory failure with hypoxia ([facility]/ C [facility]) 07/31/2018 Acute sinusitis 07/23/2018 Herpes labialis 07/23/2018 Low serum vitamin B12 06/30/2018 Asthma ([facility]) 06/29/2018 Overview (11/08/2022): (History of) Hypoxia 06/29/2018 Chest pain 06/29/2018 Daytime hypersomnia 06/29/2018 Dyspnea on exertion 06/29/2018 Hyperlipidemia 11/17/2017 Disorder of thyroid gland 11/04/2017 Smoker 11/04/2017 Chronic obstructive pulmonary disease ([facility] H HS/[facility]) 11/04/2017 Overview (11/08/2022): see PFTs 02/15/2020 Primary hypertension 11/04/2017 Obesity 11/04/2017 Sacroiliitis 07/03/2017 Lumbar radiculopathy 05/26/2017 Neck pain 05/05/2017 Herniated lumbar intervertebral disc 05/05/2017 Migraine 04/06/2017 Resolved Problems Problem Noted Date Diagnosed Date Resolved Date Myelopathy ([facility]) 05/01/2022 06/27/2022 Pars defect with spondylolisthesis 05/01/2022 06/27/2022 Encounters Date Type Department Care Team Description 06/28/[address] [address] Nettie Hodges NP Problem (Left arm numbness and tingling) 06/21/2024 MyChart Message Enc [address] [address] Nettie Hodges NP mammogram 06/16/2024 9:40 AM CDT Office Visit [facility] Orthopedic & Sports Medicine [address] [address] Maurisio Jeong MD Follow Up (Bilateral knee oa ) 06/16/2024 Travel 06/11/[address] [place] [address] Nettie Hodges NP Follow Up Call 06/09/2024 Orders Only [address] [place] [address] Nettie Hodges NP 06/01/2024 1:20 PM BOOM MASTER Office Visit [address] [place] [address] Nettie Hodges NP Vaginal Problem (Patient present with c/o vaginal irritation on the inside with a lot of vaginal itching.) 06/01/2024 - 06/01/2024 11:59 PM BOOM MASTER Hospital Encounter [facility] [address] [place] [address] Nettie Hodges NP Discharge Disposition: Home or Self Care (Routine Discharge) 06/01/2024 Travel 06/01/[address] [place] [address] Nettie Hodges NP Information 05/26/2024 Scan HEALTH INFO SRVCS Scanned, [facility] 05/06/[address] [place] [address] Nettie Hodges NP Record Request 05/03/[address] [place] [address] Nettie Hodges NP COVID-19 04/26/2024 1:20 PM BOOM MASTER Office Visit [address] [place] [address] Nettie Hodges NP Hypertension (Patient presents for 3 month follow up HTN) 04/26/2024 9:00 AM BOOM MASTER Office Visit [facility] Orthopedic & Sports Medicine - [place] [address] Maurisio Jeong MD Knee Pain (Bilateral knee pain Rt > Lt had cortisone 03/2022 states once lido wore off did not help at all ) 04/26/2024 - 04/26/2024 11:59 PM BOOM MASTER Hospital Encounter [facility] [address] [place] [address] Maurisio Jeong MD Discharge Disposition: Home or Self Care (Routine Discharge) 04/26/2024 Travel from Last 3 Months Immunizations Name [...] Seizures Brother 1 Heart Disease Brother 2 [place] Brother 2 Heart Disease Brother 3 stint [...] Sex Assigned at Female 04/26/2024 7:07 AM BOOM MASTER Legal Sex Female 2:16 PM BOOM MASTER Gender Identity Female 04/26/2024 9:06 AM BOOM MASTER Sexual Orientation Straight 04/26/2024 1: 33 PM BOOM MASTER 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 Not on file Not on file Last Filed Vital Signs Vital Sign Reading Time Taken Comments Blood Pressure 117/64 06/16/2024 9:29 AM CDT Pulse 76 06/16/2024 9:29 AM CDT Temperature 36.6 C (97.9 F) 06/01/2024 1:17 PM BOOM MASTER Respiratory Rate 24 06/01/2024 1:17 PM BOOM MASTER Oxygen Saturation 97% 06/01/2024 1:17 PM BOOM MASTER Inhaled Oxygen Concentration - - Weight 93.4 kg (206 lb) 06/16/2024 9:29 AM CDT Height 152.4 cm (5') 06/16/2024 9:29 AM CDT pt s natalia Body Mass Index 40.23 06/16/2024 9:29 AM CDT Plan of Treatment Upcoming Encounters Date Type Department Care Team (Late st Contact Info) Description 06/30/2024 8:00 AM CDT [facility] [address] [facility], [address] [place] [phone] Shila Ruiz MD [address] [place] [address] 08/12/2024 11:00 AM CDT [facility] [address] [facility], [address] [place] [phone] Gracy Blair APRN [address] [facility] [address] [place] [address] 09/16/2024 10:40 AM CDT Office Visit [facility] Orthopedic & Sports Medicine - [place] [address] [place] [address] Maurisio Jeong MD [address] [place] [address] 09/24/2024 10:00 AM CDT Office Visit [facility] [address] Paula Sanchez MD [address] [facility] [address] [place] [address] 11/01/2024 1:20 PM CDT Office Visit [facility] Medical Group Family Medicine - [place] [address] [facility] [address] [place] [address] Nettie Hodges, LABORATORY ADMINISTRATIVE DIRECTOR [address] [place] [address] Health Maintenance Due Date Last Done Comments Annual Physical 10/04/2022 10/04/2021 RSV Immunization or 60+ Years (1 - Risk 60-74 years 1-dose series) 2023 COVID-19 Vaccine (4 - 2023-2 5 season) 2023 03/15/2021, 07/21/2020, 06/30/2020 Mammogram Screening 04/19/2024 04/19/2022 Pneumococcal Vaccine: Pediatrics (0 to 5 Years) and At-Risk Patients (6 to 64 Years) (1 of 2 - PCV) 03/31/2029 Postponed from (Allergy) Colorectal Cancer Screening Colonoscopy (10 Years) 10/31/2030 10/31/2020 DTaP, Tdap and Td Vaccines ( 2 - Td or Tdap) 10/02/2033 10/03/2023 Hepatitis C Completed 02/27/2022 Zoster Vaccines Completed 01/13/2024, 10/03/2023 PHQ-2 (Physician [place]) Completed 06/01/2024 Meningococcal B Vaccine Aged Out No l onger eligible based on patient's age to complete this topic Meningococcal Vaccine Aged Out No corey bruce eligible based on patient's age to complete this topic RSV Immunizations Under 20 Months Aged Out No longer eligible b ased on patient's age to complete this topic Procedures Procedure Name Priority Date/Time Associated Diagnosis Comments ARTHROCENTESIS MAJOR JOINT W/ ULTRASOUND GUIDANCE Routine 06/16/2024 9:40 AM CDT Bilateral primary osteoarthritis of knee OUS GUIDE NEEDLE PLCMT ORTHO Routine 06/16/2024 9:32 AM CDT Bilateral primary osteoarthritis of knee URINE BACTERIA CULTURE Routine 1:54 PM BOOM MASTER Symptoms involving urinary system URINALYSIS AUTO DIP Routine 06/01/2024 Symptoms involving urinary system CELL COUNT W/ DIFF BODY FLUID Routine 04/26/2024 7:22 PM BOOM MASTER Knee effusion, right CRYSTALS, BODY FLUID Routine 04/26/2024 7:22 PM BOOM MASTER Knee effusion, right OXR LT KNEE 3V Routine 04/26/2024 9:36 AM BOOM MASTER Bilateral primary osteoarthritis of knee OXR RT KNEE 3V Routine 04/26/2024 9:36 AM BOOM MASTER Bilateral primary osteoarthritis of knee OUS GUIDE NEEDLE PLCMT ORTHO Routine 04/26/2024 9:26 AM BOOM MASTER Bilateral primary osteoarthritis of knee ARTHROCENTESIS MAJOR JOINT W/ ULTRASOUND GUIDANCE Routine 04/26/2024 9:00 AM BOOM MASTER Bilateral primary osteoarthritis of knee Knee effusion, right MG SCREENING W TAYA IOANA DIGI Routine 04/19/2022 12:00 AM BOOM MASTER Screening mammogram for breast cancer HEPATITIS C ANTIBODY Routine 02/27/2022 12:19 PM BOOM MASTER Need for hepatitis C screening test COLONOSCOPY [...] and/or operative report. Procedure Note Vinicius Pace Conversion, MD - 06/16/2024 This report does not contain a radiologist's interpretation. Please review associated procedure and/or operative report. Maurisio Jeong MD ULTRASOUND Final Result * URINE BACTERIA CULTURE (06/01/2024 1:54 PM BOOM MASTER) SPEC DESCRIPTION URINE CLEAN CATCH 06/01/2024 1:54 PM BOOM MASTER [facility] SPECIAL REQUESTS NO SPECIAL REQUEST 06/01/2024 1:54 PM BOOM MASTER [facility] CULTURE RESULT >25,000 TO 50,000 CFU/mL ESCHERICHIA COLI 06/04/2024 10:35 AM BOOM MASTER [facility] URINE SPECIMEN OBTAINED BY CLEAN CATCH PROCEDURE / Unknown 06/01/2024 1:54 PM BOOM MASTER 06/01/2024 8:53 PM BOOM MASTER Narrative Organism Antibiotic Method Susceptibility Escherichia coli [...] MICROBIOLOGY - GENERAL OR DERABLES Final Result Performing Organization Address [facility]/ZIP Co de Phone Number [facility] [address] [place] [address], [place] [phone] * (ABNORMAL) URINALYSIS AUTO DIP (06/01/2024) COLOR [...] CLEAN CATCH PROCEDURE / Unknown 06/01/2024 Nettie Hodges LABORATORY ADMINISTRATIVE DIRECTOR URINE ORDERABLES Final Re sult Performing Organization Address City/[facility]/ZIP Co de Phone Number [address] [place] [address] [place] [address], [place] [phone] * CRYSTALS, BODY FLUID (04/26/2024 7:22 PM BOOM MASTER) COMMENT PRELIMINARY REPORT: 04/26/2024 9:09 PM BOOM MASTER [facility] Comment: NO CRYSTALS TO BE REVIEWED BY PATHOLOGIST CRYSTAL SOURCE KNEE,RIGHT 04/26/2024 7:22 PM BOOM MASTER [facility] INTERPRETATION THIS CRYSTAL REPORT WAS INTERPRETED BY 04/27/2024 2:23 PM BOOM MASTER [facility] Comment: DR DWAYNE BRANNON THE FLUID IS EXAMINED MICROSCOPICALLY WITH AND WITHOUT POLARIZED LIGHT AND WITH AND WITHOUT FIRST ORDER RED PRACTICAL NURSING INSTRUCTOR UNDER 10X AND 40X MAGNIFICATIONS. THE FLUID CONTAINS FEW WHITE BLOOD CELLS AND FEW RED BLOOD CELLS. THERE ARE NO MONOSODIUM URATE (MSU OR GOUT) OR CALCIUM PYROPHOSPHATE DIHYDRATE (CPPD OR PSEUDOGOUT) CRYSTALS IDENTIFIED. STRUCTURE OF RIGHT KNEE REGION / Unknown 04/26/2024 7:22 PM BOOM MASTER us Maurisio Jeong MD BODY FLUIDS AND STOOLS ORDERABL ES Final Result [facility] [address] [place] [address], [place] [phone] * CELL COUNT W/ DIFF BODY FLUID (04/26/2024 7:22 PM BOOM MASTER) SOURCE (FLUID) KNEE,RIGHT 04/26/2024 7:22 PM BOOM MASTER [facility] TOTAL NUCLEATED CELL (BODY FLUID) 0.405 x10'3/uL 04/26/2024 8:57 PM BOOM MASTER [facility] Comment:REFERENCE RANGE NOT ESTABLISHED RBC (FLUID) 0.002 x10'6/uL 04/26/2024 8:57 PM BOOM MASTER [facility] Comment:REFERENCE RANGE NOT ESTABLISHED DIFFERENTIAL MANUAL DIFFERENTIAL PERFORMED ON CONCENTRATED CYTOSPIN 04/26/2024 7:22 PM BOOM MASTER [facility] CELLS COUNTED 100 No COUNTED 04/26/2024 10:27 PM BOOM MASTER [facility] SEGS (FLUID) 1 % 04/26/2024 10:25 PM BOOM MASTER [facility] LYMPHS (FLUID) 61 % 04/26/2024 10:25 PM BOOM MASTER [facility] OTHER MONONUCLEAR CELLS (FLD) 38 % 04/26/2024 10:25 PM BOOM MASTER [facility] STRUCTURE OF RIGHT KNEE REGION / Unknown 04/26/2024 7:22 PM BOOM MASTER Maurisio Jeong MD BODY FLUIDS AND STOOLS ORDERABL ES Final Result [facility] [address] [place] [address], [id number] * OXR LT KNEE 3V (04/26/2024 9:36 AM BOOM MASTER) Anatomical Region Laterality Modality Radiographic La ging Narrative 04/26/2024 9:54 AM BOOM MASTER Left knee Findings: No acute osseous abnormality, fracture, dislocation. Minimal degenerative changes medial compartment patellofemoral compartment manifest with mild joint space narrowing only. Significant change from previous x-ray 2 years ago Maurisio Jeong MD GENERAL IMAGING Final Result * OXR RT KNEE 3V (04/26/2024 9:36 AM BOOM MASTER) Anatomical Region Laterality Modality Radiographic La ging Narrative 04/26/2024 9:53 AM BOOM MASTER Right knee Findings: No acute osseous abnormality, fracture, dislocation. Mild effusion noted. Minimal degenerative changes noted medial compartment patellofemoral compartment with mild joint space narrowing mild subchondral cyst formation. No significant change from previous x-ray 2 years ago. Maurisio Jeong MD GENERAL IMAGING Final Result * ARTHROCENTESIS MAJOR JOINT W/ ULTRASOUND GUIDANCE (04/26/2024 9:00 AM BOOM MASTER) Narrative Maurisio Jeong MD - 04/26/2024 9:00 AM BOOM MASTER Maurisio Jeong MD 04/26/2024 9:58 AM *Lg [...] W TAYA IOANA DIGI (04/19/2022 12:00 AM BOOM MASTER) Anatomical Region Laterality Modality Breast Bilateral Mammography 04/19/2022 Nettie Hodges LABORATORY ADMINISTRATIVE DIRECTOR MAMMO Final Res ult * HEPATITIS C ANTIBODY (02/27/2022 12:19 PM BOOM MASTER) Pathologist [facility] HEPATITIS C AB 0.2 0.0 - 0.9 s/co ratio LABCO 1 Comment: Negative: < 0.8 Indeterminate: 0.8 - 0.9 Positive: > 0.9 HCV antibody alone does not differentiate between previous resolved infection and active infection. The CDC and current clinical guidelines recommend that a positive HCV antibody result be followed up with an HCV RNA test to support the diagnosis of acute HCV infection. [facility] offers Hepatitis C Virus (HCV) RNA, Diagnosis, ALAN ([id number]) and Hepatitis C Virus (HCV) Antibody with reflex to Quantitative Real-time PCR ([id number]). 02/27/2022 12:1 9 PM BOOM MASTER 02/27/2022 Narrative [facility] - 02/28/2022 7:07 AM BOOM MASTER Performed at: [address] [place] [id number] Soccer Referee: Jace Simons PhD, Phone: [phone] us Nettie Hodges NP LABORATORY Final Res ult [facility] [address] [place] [address] [facility] 1 * COLONOSCOPY GENERIC (SCAN ORDER) (10/31/2020) 10/31/2020 [facility] Scanned SCANNING Final Resu lt from Last 3 Months or Most Recently Relevant to Health Maintenance Insurance MEDICAID MEDICARE Care Teams Electrical Electronics Technician Relationship Specialty Start Date End Date Nettie Hodges NP [address] [place] [address] PCP - General NURSE PRACTITIONER 09/10/21
--- OUTSIDE RECORDS SUMMARY | 2024-06-29 10:03 | XMS_ITS | Encounter Summary ---
Author Organization [facility] Address [address] [place] [address] Care Team Providers Care Staff Research Associate Name Role Phone Nettie Hodges NP Primary Care Provider [phone] Encounter Details Date Type Department Care Team (Late st Contact Info) Description 07/28/2023 Abstract [facility], [address] [place] [address] Cristy Lucas MA Social History Tobacco Use [...] Sex Assigned at Female 04/26/2024 7:07 AM GRADES 9 THRU 12 VISITING TEACHER Legal Sex Female 2:16 PM GRADES 9 THRU 12 VISITING TEACHER Gender Identity Female 04/26/2024 9:06 AM GRADES 9 THRU 12 VISITING TEACHER Sexual Orientation Straight 04/26/2024 1: 33 PM GRADES 9 THRU 12 VISITING TEACHER 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 Not on file Not on file documented as of this encounter Plan of Treatment Upcoming Encounters Date Type Department Care Team (Late st Contact Info) Description 06/30/2024 8:00 AM CDT Office Visit [facility] Multispecialty Care - [facility] [address] [facility], [address] [place] [phone] Shila Ruiz MD [address] [place] [address] 08/12/2024 11:00 AM CDT Office Visit [facility] Care - [facility] [address] [facility], [address] [place] [phone] Gracy Blair, ANIMAL NUTRITION CONSULTANT [address] [facility] [address] [place] [address] 09/16/2024 10:40 AM CDT Office Visit [facility] Orthopedic & [facility] Medicine - [place] [address] [place] [address] Maurisio Jeong MD [address] [place] [address] 09/24/2024 10:00 AM CDT Office Visit [facility] [address] Paula Sanchez MD [address] [facility] [address] [place] [address] 11/01/2024 1:20 PM CDT Office Visit [facility] Family Medicine - [address] [place], [place] [phone] Nettie Hodges NP [address] [place] [address] documented as of this encounter Procedures Procedure [...] on filedocumented in this encounter Care Teams Staff Research Associate Relationship Specialty Start Date End Date Nettie Hodges NP [address] [place] [address] PCP - General NURSE PRACTITIONER 09/10/21 documented as of this encounter
--- OUTSIDE RECORDS SUMMARY | 2024-06-29 10:03 | XMS_ITS | Encounter Summary ---
Author Organization [facility] Address [address] [place] [address] Care Team Providers Care Chute Greaser Name Role Phone Nettie Hodges NP Primary Care Provider [phone] Reason for Referral * Surgical (Routine) - Closed Specialty Diagnoses / Procedures Referred By Gerardo dowling Referred To Contact Procedures Case request operating room: INJECTION SI JOINT Naida Gaines MD [address] [facility] [address] [place] [address] Phone: tel: fax: Referral ID Status Reason Start Date Expiration Date Visits Re quested Visits Authorized [id number] Closed 11/26/2017 12/27/2018 1 1 Encounter Details Date Type Department Care Team (Late st Contact Info) Description 11/26/2017 Prep for Procedure [facility] [place], [place] [phone] Naida Gaines MD Three [facility] [address] [place] [phone] Social History Tobacco Use Types Packs/Day Years [...] Sex Assigned at Female 04/26/2024 7:07 AM TECHNICAL PUBLICATIONS WRITER Legal Sex Female 2:16 PM TECHNICAL PUBLICATIONS WRITER Gender Identity Female 04/26/2024 9:06 AM TECHNICAL PUBLICATIONS WRITER Sexual Orientation Straight 04/26/2024 1: 33 PM TECHNICAL PUBLICATIONS WRITER 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 [address] [facility], [address] [place] [phone] Shila Ruiz MD [address] [place] [address] 08/12/2024 11:00 AM CDT Office Visit [facility] - [address], [address] [place] [phone] Gracy Blair APRN 3 [facility] [address] [place] [address] 09/16/2024 10:40 AM CDT Office Visit [facility] - [place] [address] [place] [address] Maurisio Jeong MD [address] [place] [address] 09/24/2024 10:00 AM CDT Office Visit [facility] [address] Paula Sanchez MD Three [facility] [address] [place] [address] 11/01/2024 1:20 PM CDT Office Visit [facility] Medical Group Family Medicine - [address] [facility] [address] [place] [address] Nettie Hodges NP [address] [place] [address] documented as of this encounter Visit Diagnoses Not on filedocumented in this encounter Additional Health Concerns Infection Onset Date Last Indicated Resolved Time COVID-19 Rule Out 04/03/2022 04/03/2022 04/03/2022 11:18 AM TECHNICAL PUBLICATIONS WRITER documented as of this encounter Care Teams Chute Greaser Relationship Specialty Start Date End Date Nettie Hodges NP [address] [place] [address] PCP - General NURSE PRACTITIONER 09/10/21 documented as of this encounter
--- OUTSIDE RECORDS SUMMARY | 2024-06-29 10:03 | XMS_ITS | Clinical Summary ---
Author Organization [facility] [employer] Address [address] [place] [address] Care Team Providers Care Fitter Up Name Role Phone Fabian Elizabeth PARACHUTE FOLDER-CHASSIS DRIVER Primary Care Provider Source Comments [facility] [employer],non-owned Affiliates and Associated Physician Practices is amultiple site organization consisting of ambulatory clinics and hospital sitesin [place], [place], [place] and [place]. This disclosure is being madepursuant to the Care Everywhere program and may not contain all information available regarding this patient. Last updated [employer] Allergies No known active allergies Medications * [...] CDT) BUN 9 7 - 26 mg/dL [facility] Creatinine 0.7 0.6 - 1.2 mg/dL [facility] Sodium 140 136 - 145 mmol/L [facility] Potassium 3.6 3.5 - 4.5 mmol/L [facility] Chloride 107 98 - 107 mmol/L [facility] CO2 28 22 - 29 mmol/L [facility] Glucose 85 70 - 115 mg/dL [facility] Calcium 8.3(L) 8.4 - 10.2 mg/dL [facility] Protein Total 4.8(L) 6.0 - 8.3 g/dL [facility] Albumin 2.7(L) 3.4 - 5.0 g/dL [facility] Bilirubin Total 0.3 0.2 - 1.2 mg/dL [facility] Alkaline Phosphatase 79 40 - 150 Units/L [facility] ALT 7 0 - 55 Units/L [facility] AST 12 5 - 34 Units/L [facility] Anion Gap 9 8 - 18 [facility] BUN/Creatinine Ratio 13 7 - 23 [facility] Osmolality Calculated 273 270 - 300 mOsm/kg [facility] Albumin/Globulin Ratio 1.3 1.1 - 2.3 [facility] eGFR >60 >60 mL/min/1.7 3 m2 [facility] Blood specimen (specimen) BLOOD SPECIMEN / Unknown 01/15/2014 5:30 AM CDT 01/15/2014 5:40 AM CDT Tami Beard MD LAB - CHEMISTRY ESHA MILLAN [facility] [address] [phone] from Last 3 Months or Most Recently Relevant to Health Maintenance Care Teams Fitter Up Relationship Specialty Start Date End Date Fabian Elizabeth, PARACHUTE FOLDER-CHASSIS DRIVER [address] [place] [id number] PCP - General 08/18/20
[2024-06-29 10:15] LABS: Alanine Aminotransferase 17 U/L (6-35); Albumin Level 4.2 g/dL (3.5-5.1); Alkaline Phosphatase 126 U/L (38-126); Anion Gap 9 mmol/L (4-12); Aspartate Amino Transferase 19 U/L (14-36); Bilirubin,Total 0.4 mg/dL (0.2-1.3); Blood Urea Nitrogen 30 mg/dL (7-17); Calcium 9.3 mg/dL (8.4-10.2); Carbon Dioxide 30 mmol/L (22-30); Chloride 97 mmol/L (98-107); Estimated Glomerular Filt Rate 58; Glucose 162 mg/dL (65-110); Potassium 3.8 mmol/L (3.4-5.0); Sodium 136 mmol/L (137-145)
[2024-06-29 10:16] LABS: INR 0.9; Partial Thromboplastin Time 24.9 Seconds (22.3-36.8); Prothrombin Time 12.1 Seconds (11.1-14.7)
[2024-06-29] MEDS: ALBUTEROL SULFATE NEB 2.5 MG/3 ML INH 5 MG INHALATION (10:21)
[2024-06-29 10:26] LABS: Troponin I < 0.012 ng/mL (0.000-0.034)
--- OUTSIDE RECORDS SUMMARY | 2024-06-29 10:28 | XMS_ITS | Referral Summary ---
Author Organization [facility] HealthCare Care Team Providers Care Household Worker Name Role Phone Nettie Hodges MD Primary Care Provider [phone] Encounters Date Type Department Care Team Description 06/23/2024 Telephone [facility] Pulmonary at [address] [place] [phone] Sri Atkinson LPN 06/01/2024 Telephone [facility] Pulmonary at [address] [place] [phone] Erin Felder LPN Faxed orders to Glenn 06/01/2024 9:30 AM MOTHER REPAIRER Office Visit [facility] Pulmonary at [address] [place] [phone] Betsey Lyon, CLINICAL NUTRITIONIST Chronic respiratory failure with hypoxia, on home [...] 06/01/2024 Assessment & Plan (06/01/2024 2:11 PM MOTHER REPAIRER): This is persistent and severe. She has [...] 03/03/2024 Assessment & Plan (06/01/2024 2:07 PM MOTHER REPAIRER): Continue supplemental oxygen with sleep at 4 liters She is aware of the risks of both hypoxia and hypercapnia Assessment & Plan (03/03/2024 9:05 PM MOTHER REPAIRER): Continue supplemental oxygen with sleep Increase to 4 liters. We have discussed the risks of hypoxia. Obstructive sleep apnea 03/03/2024 Assessment & Plan (03/03/2024 9:10 PM MOTHER REPAIRER): We have had an extensive conversation about [...] 06/18/2023 Assessment & Plan (06/01/2024 2:08 PM MOTHER REPAIRER): Continue famotidine and omeprazole daily A continue to believe that GERD is a direct contributing factor to her persistent wheezing Keep follow up appointments with GI, I recommend manometry/pH testing Assessment & Plan (03/03/2024 9:06 PM MOTHER REPAIRER): Continue famotidine and omeprazole daily Although her [...] 06/18/2023 Assessment & Plan (06/01/2024 2:09 PM MOTHER REPAIRER): This is chronic, persistent, and unrelieved by inhaled therapy and prednisone She is on maximum inhaled therapy I continue to recommend further GI workup Assessment & Plan (03/03/2024 9:09 PM MOTHER REPAIRER): This is chronic, persistent, and unrelieved by [...] 06/18/2023 Assessment & Plan (06/01/2024 2:08 PM MOTHER REPAIRER): - Smoking cessation counseling and techniques reviewed at length - Avoid triggers and use distraction techniques - She is aware of the [place] Tobacco Quit line: 4-152-CUAG-YES for free services - 5 minutes spent discussing cessation She is pre-contemplative, I have encouraged her to cut back and she is aware that her symptoms will likely continue to worsen as long as she is actively smoking Her annual lung cancer screening is due this month I have placed an order and she will schedule this at [facility] Assessment & Plan (03/03/2024 9:07 PM MOTHER REPAIRER): - Smoking cessation counseling and techniques reviewed at length - Avoid triggers and use distraction techniques - She is aware of the [place] Tobacco Quit line: 0-163-ZRLM-YES for free services - 5 minutes spent discussing cessation She is pre-contemplative, I have encouraged her to cut back Assessment & Plan (10/16/2023 11:08 PM CDT): - Smoking cessation counseling and techniques reviewed at length - Avoid triggers and use distraction techniques - She is aware of the [place] Tobacco Quit line: 1-208-DRUZ-YES for free services - 3 minutes spent discussing cessation Assessment & Plan (08/22/2023 1:40 PM CDT): - Smoking cessation counseling and techniques reviewed at length - Avoid triggers and use distraction techniques - Participate in support groups - Information given regarding [place] Tobacco Quit line: 3-878-DUBO-YES for free services 3 minutes spent discussing cessation Assessment & Plan (06/18/2023 3:43 PM CDT): - Smoking cessation counseling and techniques reviewed at length - Avoid triggers and use distraction techniques - Participate in support groups - Information given regarding [place] Tobacco Quit line: 8-646-DVDA-YES for free services 4 minutes spent discussing cessation COPD exacerbation 06/02/2023 Chronic obstructive pulmonary disease 11/28/2020 Assessment & Plan (06/01/2024 2:06 PM MOTHER REPAIRER): Continue Breztri 2 puffs twice daily with [...] rehab Assessment & Plan (03/03/2024 9:05 PM MOTHER REPAIRER): Continue Breztri 2 puffs twice daily. I [...] on file Legal Sex Female 12:55 AM MOTHER REPAIRER Gender Identity Not on file Sexual Orientation Not on file Last Filed Vital Signs Vital Sign Reading Time Taken Comments Blood Pressure 118/62 06/01/2024 9:09 AM MOTHER REPAIRER Pulse 81 06/01/2024 9:09 AM MOTHER REPAIRER Temperature 36.3 C (97.3 F) 06/01/2024 9:09 AM MOTHER REPAIRER Respiratory Rate 18 06/01/2024 9:09 AM MOTHER REPAIRER Oxygen Saturation 94% 06/01/2024 9:09 AM MOTHER REPAIRER Inhaled Oxygen Concentration - - Weight 94 kg (207 lb 3.2 oz) 06/01/2024 9:09 AM MOTHER REPAIRER Height 152.4 cm (5') 06/01/2024 9:09 AM MOTHER REPAIRER Body Mass Index 40.47 06/01/2024 9:09 AM MOTHER REPAIRER Plan of Treatment Not on file Insurance [facility] PLAN [facility] PLAN MEDICARE Advance Directives For more information, please contact: [phone] * Full Code (Latest Code Status on File) Date Activated Date Inactivated Comments 06/02/2023 9:46 PM 06/04/2023 4:04 PM Healthcare Agents on File Name Relationship Healthcare Agent Relationshi p Communication Tonny Cox Spouse Health Care Agent Belkys Guzmán Sister First Alternate Health Care Agent Care Teams Household Worker Relationship Specialty Start Date End Date Nettie Hodges MD PCP - General Nurse Practitioner 02/25/23
--- OUTSIDE RECORDS SUMMARY | 2024-06-29 10:28 | XMS_ITS | Clinical Summary ---
Author Organization [facility] HealthCare Care Team Providers Care Still Worker Helper Name Role Phone Nettie Hodges MD Primary Care Provider [phone] Allergies No known active allergies Medications lisinopriL [...] 06/01/2024 Assessment & Plan (06/01/2024 2:11 PM TECHNICAL PROJECT MANAGER): This is persistent and severe. She has [...] 03/03/2024 Assessment & Plan (06/01/2024 2:07 PM TECHNICAL PROJECT MANAGER): Continue supplemental oxygen with sleep at 4 liters She is aware of the risks of both hypoxia and hypercapnia Assessment & Plan (03/03/2024 9:05 PM TECHNICAL PROJECT MANAGER): Continue supplemental oxygen with sleep Increase to 4 liters. We have discussed the risks of hypoxia. Obstructive sleep apnea 03/03/2024 Assessment & Plan (03/03/2024 9:10 PM TECHNICAL PROJECT MANAGER): We have had an extensive conversation about [...] 06/18/2023 Assessment & Plan (06/01/2024 2:08 PM TECHNICAL PROJECT MANAGER): Continue famotidine and omeprazole daily A continue to believe that GERD is a direct contributing factor to her persistent wheezing Keep follow up appointments with GI, I recommend manometry/pH testing Assessment & Plan (03/03/2024 9:06 PM TECHNICAL PROJECT MANAGER): Continue famotidine and omeprazole daily Although her [...] 06/18/2023 Assessment & Plan (06/01/2024 2:09 PM TECHNICAL PROJECT MANAGER): This is chronic, persistent, and unrelieved by inhaled therapy and prednisone She is on maximum inhaled therapy I continue to recommend further GI workup Assessment & Plan (03/03/2024 9:09 PM TECHNICAL PROJECT MANAGER): This is chronic, persistent, and unrelieved by [...] 06/18/2023 Assessment & Plan (06/01/2024 2:08 PM TECHNICAL PROJECT MANAGER): - Smoking cessation counseling and techniques reviewed at length - Avoid triggers and use distraction techniques - She is aware of the [place] Tobacco Quit line: 1-560-WYKW-YES for free services - 5 minutes spent discussing cessation She is pre-contemplative, I have encouraged her to cut back and she is aware that her symptoms will likely continue to worsen as long as she is actively smoking Her annual lung cancer screening is due this month I have placed an order and she will schedule this at [facility] Assessment & Plan (03/03/2024 9:07 PM TECHNICAL PROJECT MANAGER): - Smoking cessation counseling and techniques reviewed at length - Avoid triggers and use distraction techniques - She is aware of the [place] Tobacco Quit line: 4-536-SDJX-YES for free services - 5 minutes spent discussing cessation She is pre-contemplative, I have encouraged her to cut back Assessment & Plan (10/16/2023 11:08 PM CDT): - Smoking cessation counseling and techniques reviewed at length - Avoid triggers and use distraction techniques - She is aware of the [place] Tobacco Quit line: 9-836-MSRH-YES for free services - 3 minutes spent discussing cessation Assessment & Plan (08/22/2023 1:40 PM CDT): - Smoking cessation counseling and techniques reviewed at length - Avoid triggers and use distraction techniques - Participate in support groups - Information given regarding [place] Tobacco Quit line: 0-116-TRJL-YES for free services 3 minutes spent discussing cessation Assessment & Plan (06/18/2023 3:43 PM CDT): - Smoking cessation counseling and techniques reviewed at length - Avoid triggers and use distraction techniques - Participate in support groups - Information given regarding [place] Tobacco Quit line: 4-541-PKRE-YES for free services 4 minutes spent discussing cessation COPD exacerbation 06/02/2023 Chronic obstructive pulmonary disease 11/28/2020 Assessment & Plan (06/01/2024 2:06 PM TECHNICAL PROJECT MANAGER): Continue Breztri 2 puffs twice daily with [...] rehab Assessment & Plan (03/03/2024 9:05 PM TECHNICAL PROJECT MANAGER): Continue Breztri 2 puffs twice daily. I [...] Type Department Care Team Description 06/23/2024 Telephone [facility] Pulmonary at [address] [place] [phone] Sri Atkinson LPN 06/01/2024 9:30 AM TECHNICAL PROJECT MANAGER Office Visit [facility] Pulmonary at [address] [place] [phone] Betsey Lyon, EARL Chronic respiratory failure with hypoxia, on home O2 therapy (HCC) (Primary Dx); Centrilobular emphysema (HCC); Gastroesophageal reflux disease, unspecified whether esophagitis present; Dyspnea on exertion; Wheezing; Nicotine dependence, cigarettes, uncomplicated 06/01/2024 Telephone [facility] Pulmonary at [address] [place] [phone] Erin Felder LPN Faxed orders to Glenn [...] on file Legal Sex Female 12:55 AM TECHNICAL PROJECT MANAGER Gender Identity Not on file Sexual Orientation Not on file Obstetrics History Last Filed Vital Signs Vital Sign Reading Time Taken Comments Blood Pressure 118/62 06/01/2024 9:09 AM TECHNICAL PROJECT MANAGER Pulse 81 06/01/2024 9:09 AM TECHNICAL PROJECT MANAGER Temperature 36.3 C (97.3 F) 06/01/2024 9:09 AM TECHNICAL PROJECT MANAGER Respiratory Rate 18 06/01/2024 9:09 AM TECHNICAL PROJECT MANAGER Oxygen Saturation 94% 06/01/2024 9:09 AM TECHNICAL PROJECT MANAGER Inhaled Oxygen Concentration - - Weight 94 kg (207 lb 3.2 oz) 06/01/2024 9:09 AM TECHNICAL PROJECT MANAGER Height 152.4 cm (5') 06/01/2024 9:09 AM TECHNICAL PROJECT MANAGER Body Mass Index 40.47 06/01/2024 9:09 AM TECHNICAL PROJECT MANAGER Plan of Treatment Health Maintenance Due Date [...] Additional history exists Insurance PLAN [place] DOS[place] [id number] [employer] MEDICARE Advance Directives For more information, please contact: [phone] * Full Code (Latest Code Status on File) Date Activated Date Inactivated Comments 06/02/2023 9:46 PM 06/04/2023 4:04 PM Healthcare Agents on File Name Relationship Healthcare Agent Relationshi p Communication Tonny Cox Spouse Health Care Agent Belkys Guzmán Sister First Alternate Health Care Agent Care Teams Still Worker Helper Relationship Specialty Start Date End Date Nettie Hodges MD PCP - General Nurse Practitioner 02/25/23
--- OUTSIDE RECORDS SUMMARY | 2024-06-29 10:28 | XMS_ITS | Clinical Summary ---
Author Organization [facility] [employer] Address [address] [place] [address] Care Team Providers Care Office Support Associate Name Role Phone Fabian Elizabeth MECHANIC INSULATOR-SAND SHOVELER Primary Care Provider Source Comments [facility] [employer],non-owned Affiliates and Associated Physician Practices is amultiple site organization consisting of ambulatory clinics and hospital sitesin [place], [place], [place] and [place]. This disclosure is being madepursuant to the Care Everywhere program and may not contain all information available regarding this patient. Last updated [employer] Allergies No known active allergies Medications * [...] CDT) BUN 9 7 - 26 mg/dL [facility] Creatinine 0.7 0.6 - 1.2 mg/dL [facility] Sodium 140 136 - 145 mmol/L [facility] Potassium 3.6 3.5 - 4.5 mmol/L [facility] Chloride 107 98 - 107 mmol/L [facility] CO2 28 22 - 29 mmol/L [facility] Glucose 85 70 - 115 mg/dL [facility] Calcium 8.3(L) 8.4 - 10.2 mg/dL [facility] Protein Total 4.8(L) 6.0 - 8.3 g/dL [facility] Albumin 2.7(L) 3.4 - 5.0 g/dL [facility] Bilirubin Total 0.3 0.2 - 1.2 mg/dL [facility] Alkaline Phosphatase 79 40 - 150 Units/L [facility] ALT 7 0 - 55 Units/L [facility] AST 12 5 - 34 Units/L [facility] Anion Gap 9 8 - 18 [facility] BUN/Creatinine Ratio 13 7 - 23 [facility] Osmolality Calculated 273 270 - 300 mOsm/kg [facility] Albumin/Globulin Ratio 1.3 1.1 - 2.3 [facility] eGFR >60 >60 mL/min/1.7 3 m2 [facility] Blood specimen (specimen) BLOOD SPECIMEN / Unknown 01/15/2014 5:30 AM CDT 01/15/2014 5:40 AM CDT Tami Beard MD LAB - CHEMISTRY ESHA MILLAN [facility] [address] [phone] from Last 3 Months or Most Recently Relevant to Health Maintenance Care Teams Office Support Associate Relationship Specialty Start Date End Date Fabian Elizabeth, MECHANIC INSULATOR-SAND SHOVELER [address] [place] [phone] PCP - General 08/18/20
--- OUTSIDE RECORDS SUMMARY | 2024-06-29 10:28 | XMS_ITS | CONTINUITY OF CARE DOCUMENT ---
Author Name fawn augustine Address Unknown Organization [facility] Address [address] [place] [address] Phone [phone] Care Team Providers Care Nursing Home Assistant Name Role Phone Steve Cordova MD Unavailable MANSI GAYTAN Unavailable [phone] MANSI GAYTAN Unavailable [phone] PROBLEMS Condition Status Date Provider Notes Family [...] In-person encounter Office Visit Steve Cordova MD [place] [facility] 2 - 2 In-person encounter Office Visit Steve Cordova MD [place] [facility] 2 - 3 In-person encounter Office Visit Steve Cordova MD [place] [facility] Family History of Hypertension:Family History of Hypertension:Cardiology examinationSevere COPDShortness of breathSLEEP APNEA 1 - 2 In-person encounter Office Visit Dion Adame MD [place] [facility] 3 - 3 In-person encounter Office Visit Dion Adame MD [facility] AsthmaSevere COPDHyperlipidemiaHypertensionChest pain-type to be determined VITAL SIGNS Date Observation Value Provider Body Mass Index (Ratio) 32.81 kg/m2 Sammi Cordova MD Inhaled O2 2 L/min [facility] blood pressure, resting Yes [facility] blood pressure, cuff size regular [facility] blood pressure, diastolic 80 mm[Hg] [facility] blood pressure, systolic 140 mm[Hg] [facility] oxygen saturation, oximetry 96 % [facility] pulse rate 80 /min [facility] respiratory rate E&M 18 /min [facility] weight E&M 168 [lb_av] [facility] height E&M 60 [in_i] [facility] Body Mass Index (Ratio) 33.20 kg/m2 Sammi Cordova MD blood pressure, cuff size regular Ke rri Kendallambreen blood pressure, diastolic 80 mm[Hg] [facility] blood [facility], systolic 146 mm[Hg] Galileo Sheets oxygen saturation, oximetry 92 % Diana Sheets respiratory rate E&M 16 /min Diana guerra pulse rate 73 /min Diana soto weight E&M 170 [lb_av] Diana Martinez [facility] height E&M 60 [in_i] Diana Martinez [facility] blood pressure, resting Yes [place] Body Mass Index (Ratio) 32.61 kg/m2 [place] blood pressure, cuff size large Ke [facility] blood pressure, diastolic 96 mm[Hg] Contreras rri [facility] blood pressure, systolic 170 mm[Hg] Galileo Tollivervaleriaconor[facility] oxygen saturation, oximetry 90 % Diana Sudeep respiratory rate E&M 18 /min Diana Mabry charlie pulse rate 78 /min Diana Martinez [facility] weight E&M 167 [lb_av] Diana Weavernicolás [facility] height E&M 60 [in_i] Diana Martinez [facility] Body Mass Index (Ratio) 32.22 kg/m2 Mahad [...] High 0 cholesterol, serum 196 mg/dL [employer] [phone]/03/1 7 LDL cholesterol, serum 94 mg/dL Garry [...] Statu s: Kaila odalis: 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 Garry Lea social history reviewed E&M revi ewed - no changes required Steve Cordova MD smoking, year quit 2017 Diana aguilarmunir smoking history, tot al pack/day 2 Steve Cordova MD cigarette use yes Diana scott smoking status Former smoker Diana Valentine 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 mo nish willis fromCOPAna María Cordova MD [id number],S,u nchanged, minimal epicardial disease, microvascualer or secondary [...] Follow up :Had sleep study via her marble setter helper. Steve Cordova MD Cardiology Follow up :Per [...]
[2024-06-29] MEDS: ASPIRIN 81 MG CHEWABLE TABLET 324 MG PO (12:32)
--- NOTE | 2024-06-29 12:38 | P.HP_ITS ---
H&P: HPI History of Present Illness Date/Time: 06/29/24 12:38 Chief Complaint: Facial Droop Narrative: 59 y/o F with PMH of COPD, GERD, HTN, HLD, and asthma with right facial droop. The patient presents here from home for further evaluation of left-sided weakness and paresthesias and right-sided facial droop. She initially developed the left-sided paresthesias that effects her left face, left arm, and left leg and left sided chest pain approximately one month ago. No accompanying weakness on the left. Paresthesias are intermittent and have been increasing in duration. She reports the episodes would initially start as left sided chest pain she described as sharp with radiation into her left shoulder and arm that would then develop into paresthesias on the left. Episodes would occur at rest and would last 20-25 mins. No alleviating or aggravating factors. Chest pain was also accompanied by diaphoresis. No nausea, fatigue, or worsened shortness of breath. She then developed a right-sided facial droop on Friday, 06/27. It was first noted by her sister in the morning when she first saw her. Last known well on Friday evening before she went to bed, no exact time given. This is accompanied by new mild tingling now effecting her right side as well and blurred vision (bilateral, improves discomfort). No precipitating trauma or injury to her neck. Endorsing mild coughing, changes in swallowing. She denies dizziness, changes in balance, or focal weakness. She has no known history of CVA. Initial VS at presentation: 97.8? F, HR 85, R 18, 135/70, and 97% on RA. ED workup showed: No leukocytosis, no anemia, normal coags, creatinine 0.98 and GFR 58, initial troponin negative. CXR showed no acute cardiopulmonary disease. Head/neck CTA showed 0% stenosis of the right and left carotid bulbs, mild scattered white matter hypoattenuation, normal variant cerebral arterial anatomy as detailed in findings. EKG showed sinus rhythm, rate 83, low QRS voltage in precordial leads, baseline artifact. Review of Systems Review of Systems: All systems reviewed & are unremarkable except as noted in HPI and below [facility]LY [facility] Past Medical History Medical History Tobacco use Abdominal pain Asthma Blood in stool Hyperlipidemia Obese COPD (chronic obstructive pulmonary disease) HTN (hypertension) GERD (gastroesophageal reflux disease) Surgical History Surgical History History of cataract extraction History of cholecystectomy History of hysterectomy History of Family History Family History Mother Asthma Sibling Asthma Diabetes mellitus Heart disease Social History Social History Social History: Caffeine-daily Smoking packs per day: 1 Smoking cigarettes per day: 20.0 Years smoked: 40 Smoking pack-years: 40.00 Smoking status: Current every day smoker Tobacco type: cigarettes Alcohol intake: current Drinks per week: 2 Substance use: never Substance use type: does not use Do You Feel Safe in your Home?: Yes Lack of Transportation: No Lack of Food: Never True Current Housing: I Have Housing Concerned About Future Housing: No Difficulty Paying Gas/Electric Bills: No Difficulty Paying for Meds: No Currently Unemployed: No Education: High School Diploma/GED Difficulty w/ Childcare or Family Care: No Living arrangements: other Additional living arrangements comments: with sp Additional occupation/education comments: disabled Gender identity (if verbalized by the patient): Female Spiritual care concerns: No Meds Home Medications and Allergies Home Medications ?Medication ?Instructions ?Recorded ?Confirmed ?Type albuterol sulfate 2.5 mg/3 mL 2.5 mg inhalation Q4-6H PRN 07/04/20 06/29/24 History (0.083 %) solution for nebulization Shortness Of Breath budesonide-formoterol HFA 160 2 puff inhalation Q12H 07/10/20 06/29/24 History mcg-4.5 mcg/actuation aerosol inhaler (Symbicort) fluticasone propionate 50 1 spray intranasal BID 07/10/20 06/29/24 History mcg/actuation nasal spray,suspension amitriptyline 100 mg tablet 100 mg PO QHS 12/19/21 06/29/24 History atorvastatin 80 mg tablet (Lipitor) 80 mg PO DAILY 05/26/24 06/29/24 History furosemide 80 mg tablet 80 mg PO QAM 05/26/24 06/29/24 History lisinopril 30 mg tablet 30 mg PO DAILY 05/26/24 06/29/24 History omeprazole 40 mg capsule,delayed 40 mg PO BID 1 month #60 caps 05/26/24 06/29/24 Rx release sucralfate 1 gram tablet (Carafate) 1 g PO QID 1 month #120 tabs 05/26/24 06/29/24 Rx Allergies Allergy/AdvReac Type Severity Reaction Status Date / Time pneumococcal vaccine Allergy Difficulty Verified 06/29/24 09:50 Breathing Vital Signs Vital Signs - 24 hr 06/29/24 09:35 06/29/24 09:36 06/29/24 09:46 Temperature 97.8 F Pulse Rate 85 87 87 Respiratory Rate 18 18 21 H Blood Pressure 135/70 135/70 149/62 H Pulse Oximetry 97 96 96 Oxygen Delivery Room Air 06/29/24 09:57 06/29/24 09:57 06/29/24 09:57 Temperature Pulse Rate 82 97 81 Respiratory Rate 18 20 Blood Pressure 149/62 H 149/62 H Pulse Oximetry 95 97 Oxygen Delivery 06/29/24 10:24 06/29/24 10:31 06/29/24 10:40 Temperature Pulse Rate 82 79 73 Respiratory Rate 22 H 23 H 20 Blood Pressure 132/108 H Pulse Oximetry 99 Oxygen Delivery 06/29/24 11:16 Temperature Pulse Rate 81 Respiratory Rate 23 H Blood Pressure 123/53 L Pulse Oximetry 94 Oxygen Delivery Exam Const: General: comfortable and no acute distress Other: , female, nontoxic appearance HENMT: Face/Nose/Sinus: Normal nares present Mouth: Yes moist mucous membranes Eyes: General: appearance normal, both eyes and all related structures Sclera: sclerae normal Pupils: Equal, round and reactive pupils present EOM: EOMs intact bilaterally Resp: Effort & Inspection: normal respiratory effort Other: Faint expiratory wheeze, worse on the left versus right. No crackles. Cardio: Rate: regular rate Rhythm: regular rhythm Other: S1-S2 present without murmur, rub, ectopy GI: Other: Abdomen soft, nondistended, nontender. Normoactive bowel sounds in all quadrants. Skin: General skin exam: normal color and no rashes or lesions noted Wounds: no wounds Neuro: Other: Paresthesia affecting the left face, left upper extremity, left lateral lower extremity, and right face. +right facial droop. No dysarthria. PERRLA. No gaze palsy. +five in all extremities., A&O x4. Extrem: General: normal to inspection Psych: Mental Status: mental status grossly normal Affect: normal affect Other: Good insight judgment, pleasant H&P: Results Labs Labs: Short CBC 06/29/24 Range/Units 09:52 WBC 9.8 (4.5-10.0) K/mm3 Hgb 12.0 (12.0-15.0) g/dL Hct 37.5 (37.0-47.0) % Plt Count 220 (150-375) k/mm3 BMP 06/29/24 09:52 Sodium 136 L Potassium 3.8 Chloride 97 L Carbon Dioxide 30 BUN 30 H D Creatinine 0.98 Glucose 162 H Calcium 9.3 Cardiac Enzymes 06/29/24 Range/Units 09:52 Troponin I < 0.012 (0.000-0.034) ng/mL Liver Function 06/29/24 Range/Units 09:52 Total Bilirubin 0.4 (0.2-1.3) mg/dL AST 19 (14-36) U/L ALT 17 (6-35) U/L Alkaline Phosphatase 126 (38-126) U/L Albumin 4.2 (3.5-5.1) g/dL Assessment and Plan Assessment and plan (1) Facial droop: Code(s): R29.810 - Facial weakness Status: Acute Assessment and Plan: New right facial droop discovered on 06/27. Last known well on 06/26 prior to going to bed. - admission for observation and telemetry - not candidate for thrombolytics due to time frame, not a candidate for thrombectomy as there was no large vessel occlusion on CTA as well as time frame - CXR: No acute cardiopulmonary disease - CTA: 1. 0% stenosis of the right and left carotid bulbs relative to normal distal artery lumen diameter (NASCET criteria). 2. Mild scattered white matter hypoattenuation consistent with chronic small vessel ischemic disease. No other acute intracranial process or abnormally enhancing brain lesions. 3. Normal variant cerebral arterial anatomy as detailed above with no hem odynamically significant stenosis, aneurysm or thrombosis. - neurology consulted, awaiting formal recs - brain MRI w/wo ordered - echo w/Bubble ordered - neuro checks Q4 - speech/swallow evaluation - PT/OT eval and treat - monitor daily labs, check lipid panel and A1C - start Plavix 75 mg PO, ASA 81 mg - continue Atorvastatin 80 mg daily - consider 30 day event monitoring at discharge (2) Chest pain: Qualifiers: Chest pain type: unspecified Qualified Code(s): R07.9 - Chest pain, unspecified Code(s): R07.9 - Chest pain, unspecified Status: Acute Assessment and Plan: Intermittent left-sided chest pain with radiation into the left shoulder and left arm occurring at rest x1 month. Episodes last approximately 20 - 25 minutes and accompanied by diaphoresis. Reports history of CHF. Last echo on file in 2023 and showed a normal systolic and diastolic function. - EKG, initial: Sinus rhythm, low QRS voltage in precordial leads, baseline artifact, borderline EKG. - Troponin: < 0.012, 3 and 6 hour ordered - ASA 324 given, SL nitro PRN - cardiology consulted, awaiting recs - no previous stress test or cardiac catheterization on file, patient believe she may have had a stress test within the last 5 years - telemetry monitoring (3) HTN (hypertension): Qualifiers: Hypertension type: primary hypertension Qualified Code(s): I10 - Essential (primary) hypertension Code(s): I10 - Essential (primary) hypertension Status: Chronic Assessment and Plan: - chronic, currently 123/53 - continue home medications: Lisinopril - monitor Plan Diet: awaiting ST eval GI Prophylaxis: Not currently indicated DVT Prophylaxis: SCDs Lines: Peripheral Code Status: Full code Quality VTE Prophylaxis VTE prophylaxis: mechanical ordered Hospitalist MIPS Advance Care Plan I have confirmed that the patient's Advanced Care Plan is present, code status is documented, or surrogate decision maker is listed in patient medical record.: Yes Medication Reconciliation I have utilized all available resources to obtain, update and review the patients current medications (includes all prescriptions, OTC, herbals, cannabis, and nutritional supplements).: Yes
--- NOTE | 2024-06-29 13:37 | ADMGEN ---
This patient, Medina Cox, was admitted to Medical Room 251-01. Patient/family oriented to hospital policies and general routines including ID bracelet, bed and alarms, visiting hours, pain management, procedures, bathroom and other care routines, personal items, smoking policy, room service/diet, and visiting hours. Information on how to activate the Rapid Response Team has been discussed. Patient/Family are encouraged to report perceived risks to care and to ask questions if they do not understand what they are told or what they should do.
[2024-06-29] MEDS: PERFLUTREN LIPID MICROSPHERES 1.5 ML VIAL DILUTED TO 10 ML TOTAL VOLUME IV PUSH (14:35)
[2024-06-29 14:48] LABS: Troponin I < 0.012 ng/mL (0.000-0.034)
[2024-06-29] MEDS: ALBUTEROL SULFATE NEB 2.5 MG/3 ML INH INHALATION ×2 (15:35→19:54)
--- NOTE | 2024-06-29 15:59 | IVDEFINITY ---
Prior to administration of IV Definity the patient was educated on the risks and benefits of the imaging enhancing agent including potential adverse side effects. The patient verbalized understanding. Allergies were verified. No exclusion criteria were identified and at least one of the following inclusion criteria were met: 1) physician request, 2) patient technically difficult to image (per the [place] [employer] guidelines of two or more segments not discernable within the apical view), or 3) questionable left ventricular function. ?
[2024-06-29] MEDS: PANTOPRAZOLE 40 MG TABLET PO (16:44)
[2024-06-29] MEDS: SUCRALFATE 1 GM TABLET PO ×2 (16:44→20:47)
[2024-06-29] MEDS: FLUTICASONE PROPIONATE 0.05% NA SPR 16 GM BTL (*BKC) 1 SPRAY NASAL (16:45)
[2024-06-29 18:25] LABS: Troponin I < 0.012 ng/mL (0.000-0.034)
[2024-06-29] MEDS: FLUTICASONE/SALMETEROL 115-21 MCG INHALER 1 PUFF 2 PUFF INHALATION (19:57)
[2024-06-29] MEDS: ACETAMINOPHEN 325 MG TABLET 650 MG PO (20:46)
[2024-06-29] MEDS: AMITRIPTYLINE HCL 25 MG TABLET 100 MG PO (20:48)
[2024-06-29] MEDS: ATORVASTATIN 40 MG TABLET 80 MG PO (20:50)
[2024-06-30] VITALS (9 sets, daily range): BP systolic 116–118; BP diastolic 50–55; PULSE 70–99; RESP 14–16; TEMP 36.3–36.6; O2SAT 89–97
[2024-06-30] MEDS: ALBUTEROL SULFATE NEB 2.5 MG/3 ML INH INHALATION ×2 (02:00→08:02)
[2024-06-30 05:26] LABS: Basophils Absolute Auto 0.1 K/mm3 (0.0-0.1); Eosinophils Absolute Auto 0.3 K/mm3 (0-0.3); Eosinophils Percent Auto 4.3 % (0-4.4); Hematocrit 34.6 % (37.0-47.0); Hemoglobin 10.8 g/dL (12.0-15.0); Immature Granulocyte Absolute 0.04 K/mm3 (0.00-0.031); Immature Granulocyte Percent A 0.6 % (0-0.5); Lymphocytes Absolute Auto 2.05 K/mm3 (0.9-3.2); Lymphocytes Percent Auto 28.8 % (18.3-44.2); Mean Corpuscular HGB Conc 31.2 g/dl (32-36); Mean Corpuscular Hemoglobin 29.6 pg (26-34); Mean Corpuscular Volume 94.8 fl (80-100); Mean Platelet Volume 10.2 fl (7.4-10.4); Monocytes Absolute Auto 0.7 K/mm3 (0.1-0.6); Neutrophils Percent Auto 55.3 % (45.5-73.1); Platelet Count Result 195 k/mm3 (150-375); Red Blood Count 3.65 M/mm3 (4.2-5.4); White Blood Count 7.1 K/mm3 (4.5-10.0)
[2024-06-30 05:45] LABS: Anion Gap 6 mmol/L (4-12); Blood Urea Nitrogen 28 mg/dL (7-17); Carbon Dioxide 32 mmol/L (22-30); Chloride 102 mmol/L (98-107); Cholesterol 130 mg/dL (0-200); Estimated Glomerular Filt Rate > 60; Glucose 137 mg/dL (65-110); HDL Direct 52 mg/dL; Potassium 4.8 mmol/L (3.4-5.0); Sodium 140 mmol/L (137-145); Triglycerides 124 mg/dL (<150)
[2024-06-30 05:56] LABS: LDL Cholesterol Direct 49 mg/dL
[2024-06-30] MEDS: SUCRALFATE 1 GM TABLET PO ×2 (06:02→11:24)
[2024-06-30] MEDS: FLUTICASONE/SALMETEROL 115-21 MCG INHALER 1 PUFF 2 PUFF INHALATION (08:02)
[2024-06-30] MEDS: FLUTICASONE PROPIONATE 0.05% NA SPR 16 GM BTL (*BKC) 1 SPRAY NASAL (09:25)
[2024-06-30] MEDS: FUROSEMIDE 80 MG TABLET PO (09:26)
[2024-06-30] MEDS: lisinopriL 10 MG TABLET 30 MG PO (09:26)
[2024-06-30] MEDS: CLOPIDOGREL BISULFATE 75 MG TABLET PO (09:26)
[2024-06-30] MEDS: PANTOPRAZOLE 40 MG TABLET PO (09:26)
[2024-06-30] MEDS: ASPIRIN 81 MG CHEWABLE TABLET PO (09:26)
--- NOTE | 2024-06-30 09:50 | PM.CNCAR ---
Assessment and Plan Assessment and plan (1) Chest pain: Qualifiers: Chest pain type: unspecified Qualified Code(s): R07.9 - Chest pain, unspecified Code(s): R07.9 - Chest pain, unspecified Status: Acute Plan 1. Atypical chest pain 2. Mild non-obstructive CAD per [facility] 05/2020 3. Chronic HFpEF 4. Hypertension 5. FALLON 6. Tobacco use PLAN: -Chest pain is reproducible on examination, consistent with a musculoskeletal etiology. Troponins are negative, EKG without ischemic changes, and echocardiogram normal. Treatment of musculoskeletal chest pain as per Hospitalist. No additional cardiac testing needs to be done at this time. -Continue ASA, statin, Lasix, Lisinopril. -Patient to follow up with her primary research instrumentation technician after hospital discharge. Cardiology will sign off. History of Present Illness History of Present Illness Consult date/time: 06/30/24 09:50 Requesting physician: Tarsha Schroeder APRN Consult reason: chest pain Reason For Visit: CVA/Facial Droop Narrative: We are consulted for chest pain. This is a 59 year old female who presented with left-sided weakness, paresthesias, right-sided facial droop, spacing out episodes. She also reports intermittent left sided chest pain that is left substernal and underneath her left breast. Lasts for a few minutes. Not associated with exertion. Workup here shows EKG with sinus rhythm without ischemic changes. Troponins are negative x 3. Echocardiogram is normal. I personally reviewed her outside records. Her research instrumentation technician is Dr. Sanchez with [facility]. She has a history of HFpEF, hypertension, FALLON, tobacco use. [facility] in May 2020 showed mild 30% RCA disease. Review of Systems Review of Systems: All systems reviewed & are unremarkable except as noted in HPI and below (HPI) [facility] Past Medical History Medical History Tobacco use Abdominal pain Asthma Blood in stool Hyperlipidemia Obese COPD (chronic obstructive pulmonary disease) HTN (hypertension) GERD (gastroesophageal reflux disease) Surgical History Surgical History History of cataract extraction History of cholecystectomy History of hysterectomy History of Family History Family History Mother Asthma Sibling Asthma Diabetes mellitus Heart disease Social History Social History Social History: Caffeine-daily Smoking packs per day: 1 Smoking cigarettes per day: 20.0 Years smoked: 40 Smoking pack-years: 40.00 Smoking status: Current every day smoker Alcohol intake: current Drinks per week: 2 Substance use: never Substance use type: does not use Do You Feel Safe in your Home?: Yes Lack of Transportation: No Lack of Food: Never True Current Housing: I Have Housing Concerned About Future Housing: No Difficulty Paying Gas/Electric Bills: No Difficulty Paying for Meds: No Currently Unemployed: No Education: High School Diploma/GED Difficulty w/ Childcare or Family Care: No Living arrangements: other Additional living arrangements comments: with sp Additional occupation/education comments: disabled Gender identity (if verbalized by the patient): Female Spiritual care concerns: No Meds Home Medications and Allergies Home Medications ?Medication ?Instructions ?Recorded ?Confirmed ?Type albuterol sulfate 2.5 mg/3 mL 2.5 mg inhalation Q4-6H PRN 07/04/20 06/29/24 History (0.083 %) solution for nebulization Shortness Of Breath budesonide-formoterol HFA 160 2 puff inhalation Q12H 07/10/20 06/29/24 History mcg-4.5 mcg/actuation aerosol inhaler (Symbicort) fluticasone propionate 50 1 spray intranasal BID 07/10/20 06/29/24 History mcg/actuation nasal spray,suspension amitriptyline 100 mg tablet 100 mg PO QHS 12/19/21 06/29/24 History atorvastatin 80 mg tablet (Lipitor) 80 mg PO DAILY 05/26/24 06/29/24 History furosemide 80 mg tablet 80 mg PO QAM 05/26/24 06/29/24 History lisinopril 30 mg tablet 30 mg PO DAILY 05/26/24 06/29/24 History omeprazole 40 mg capsule,delayed 40 mg PO BID 1 month #60 caps 05/26/24 06/29/24 Rx release sucralfate 1 gram tablet (Carafate) 1 g PO QID 1 month #120 tabs 05/26/24 06/29/24 Rx Allergies Allergy/AdvReac Type Severity Reaction Status Date / Time pneumococcal vaccine Allergy Difficulty Verified 06/29/24 09:50 Breathing Vital Signs Vital Signs - 24 hr 06/29/24 09:57 06/29/24 09:57 06/29/24 09:57 Temperature Pulse Rate 82 97 81 Respiratory Rate 18 20 Blood Pressure 149/62 H 149/62 H Pulse Oximetry 95 97 Oxygen Delivery Oxygen Flow Rate 06/29/24 10:24 06/29/24 10:31 06/29/24 10:40 Temperature Pulse Rate 82 79 73 Respiratory Rate 22 H 23 H 20 Blood Pressure 132/108 H Pulse Oximetry 99 Oxygen Delivery Oxygen Flow Rate 06/29/24 11:16 06/29/24 11:50 06/29/24 12:01 Temperature Pulse Rate 81 83 82 Respiratory Rate 23 H 19 19 Blood Pressure 123/53 L 108/40 L 114/50 L Pulse Oximetry 94 93 95 Oxygen Delivery Oxygen Flow Rate 06/29/24 12:46 06/29/24 14:00 06/29/24 14:13 Temperature 36.4 C Pulse Rate 78 73 78 Respiratory Rate 20 20 20 Blood Pressure 123/62 124/51 L Pulse Oximetry 96 98 96 Oxygen Delivery Room Air Oxygen Flow Rate 06/29/24 15:37 06/29/24 15:37 06/29/24 15:45 Temperature Pulse Rate 80 80 73 Respiratory Rate 20 20 20 Blood Pressure Pulse Oximetry 94 Oxygen Delivery Room Air Oxygen Flow Rate 06/29/24 16:00 06/29/24 19:32 06/29/24 19:54 Temperature 36.3 C L Pulse Rate 73 76 77 Respiratory Rate 18 20 Blood Pressure 123/54 L Pulse Oximetry 96 94 Oxygen Delivery Room Air Oxygen Flow Rate 06/29/24 19:54 06/29/24 20:00 06/29/24 20:00 Temperature Pulse Rate 77 74 Respiratory Rate 20 Blood Pressure Pulse Oximetry Oxygen Delivery Room Air Oxygen Flow Rate 06/29/24 20:15 06/29/24 20:15 06/30/24 00:00 Temperature Pulse Rate 74 74 84 Respiratory Rate 20 20 Blood Pressure Pulse Oximetry 94 Oxygen Delivery Nasal Cannula Oxygen Flow Rate 3 06/30/24 02:06 06/30/24 02:06 06/30/24 04:00 Temperature Pulse Rate 70 70 71 Respiratory Rate 16 16 Blood Pressure Pulse Oximetry 89 L Oxygen Delivery Room Air Oxygen Flow Rate 06/30/24 05:52 06/30/24 08:04 06/30/24 08:04 Temperature 36.3 C L Pulse Rate 75 81 Respiratory Rate 14 16 Blood Pressure 116/50 L Pulse Oximetry 93 96 Oxygen Delivery Room Air Oxygen Flow Rate 06/30/24 08:14 06/30/24 09:24 Temperature 36.6 C Pulse Rate 76 99 Respiratory Rate 16 16 Blood Pressure 118/55 L Pulse Oximetry 97 Oxygen Delivery Oxygen Flow Rate Exam Const: General: no acute distress HENMT: Mouth: Yes moist mucous membranes Eyes: General: appearance normal, both eyes and all related structures Sclera: sclerae normal Chest: Other: Reproducible chest wall tenderness Resp: Effort & Inspection: normal respiratory effort Cardio: Rate: regular rate Rhythm: regular rhythm Skin: General skin exam: normal color Neuro: Speech: normal speech Psych: Mental Status: mental status grossly normal Affect: normal affect Results Labs and Meds 06/30/24 05:04 06/30/24 05:04 Lab results: Cardiac Enzymes 06/29/24 06/29/24 06/29/24 Range/Units 09:52 14:18 17:55 AST 19 (14-36) U/L Troponin I < 0.012 < 0.012 < 0.012 (0.000-0.034) ng/mL Coagulation 06/29/24 Range/Units 09:52 PT 12.1 (11.1-14.7) Seconds APTT 24.9 (22.3-36.8) Seconds Lipids 06/30/24 Range/Units 05:04 Triglycerides 124 (<150) mg/dL Cholesterol 130 (0-200) mg/dL CBC 06/29/24 06/30/24 Range/Units 09:52 05:04 WBC 9.8 7.1 (4.5-10.0) K/mm3 RBC 4.08 L 3.65 L (4.2-5.4) M/mm3 Hgb 12.0 10.8 L (12.0-15.0) g/dL Hct 37.5 34.6 L (37.0-47.0) % Plt Count 220 195 (150-375) k/mm3 Lymph # (Auto) 2.17 2.05 (0.9-3.2) K/mm3 [place] # (Auto) 0.7 H 0.7 H (0.1-0.6) K/mm3 Eos # (Auto) 0.3 0.3 (0-0.3) K/mm3 Baso # (Auto) 0.1 0.1 (0.0-0.1) K/mm3 Comprehensive Metabolic Panel 06/29/24 06/30/24 Range/Units 09:52 05:04 Sodium 136 L 140 (137-145) mmol/L Potassium 3.8 4.8 (3.4-5.0) mmol/L Chloride 97 L 102 (98-107) mmol/L Carbon Dioxide 30 32 H (22-30) mmol/L BUN 30 H D 28 H (7-17) mg/dL Creatinine 0.98 0.84 (0.7-1.0) mg/dL Glucose 162 H 137 H (65-110) mg/dL Calcium 9.3 9.0 (8.4-10.2) mg/dL AST 19 (14-36) U/L ALT 17 (6-35) U/L Alkaline Phosphatase 126 (38-126) U/L Total Protein 7.0 (6.3-8.2) g/dL Albumin 4.2 (3.5-5.1) g/dL Intake and Output 06/29/24 06/30/24 06/30/24 23:59 07:59 15:59 Intake Total 480 300 Balance 480 300 Intake: Oral 480 300 Other: # Unmeasured Voids 1 1
--- NOTE | 2024-06-30 10:53 | P.PNIM_ITS ---
Progress Note: A&P Assessment and Plan (1) Facial droop: Code(s): R29.810 - Facial weakness Status: Acute (2) Acute CVA (cerebrovascular accident): Code(s): I63.9 - Cerebral infarction, unspecified Status: Acute (3) COPD (chronic obstructive pulmonary disease): Code(s): J44.9 - Chronic obstructive pulmonary disease, unspecified Status: Acute (4) Chest pain: Qualifiers: Chest pain type: unspecified Qualified Code(s): R07.9 - Chest pain, unspecified Code(s): R07.9 - Chest pain, unspecified Status: Acute Plan (1) Facial droop: Code(s): R29.810 - Facial weakness Status: Acute Assessment and Plan: New right facial droop discovered on 06/27. Last known well on 06/26 prior to going to bed. - admission for observation and telemetry - not candidate for thrombolytics due to time frame, not a candidate for thrombectomy as there was no large vessel occlusion on CTA as well as time frame - CXR: No acute cardiopulmonary disease - CTA: 1. 0% stenosis of the right and left carotid bulbs relative to normal distal artery lumen diameter (NASCET criteria). 2. Mild scattered white matter hypoattenuation consistent with chronic small vessel ischemic disease. No other acute intracranial process or abnormally enhancing brain lesions. 3. Normal variant cerebral arterial anatomy as detailed above with no hemodynamically significant stenosis, aneurysm or thrombosis. - neurology consulted, awaiting formal recs - brain MRI w/wo No acute infarct, intracranial hemorrhage, or mass lesion. - echo w/Bubble 1. Left ventricular chamber dimension is normal. 2. Left ventricular systolic function is normal, estimated at >70%. 3. There is mildly increased left ventricular wall thickness. 4. The left ventricular diastolic function is grade I diastolic dysfunction. 5. Right ventricular systolic function is normal. 6. Intact interatrial septum visualized by color flow and agitated saline imaging. Negative bubble study. 7. No significant valvular disease. - neuro checks Q4 - speech/swallow evaluation - PT/OT eval and treat - monitor daily labs, check lipid panel and A1C Continue Plavix 75 mg PO, ASA 81 mg - continue Atorvastatin 80 mg daily possible TIA Chest pain: Qualifiers: Chest pain type: unspecified Qualified Code(s): R07.9 - Chest pain, unspecified Code(s): R07.9 - Chest pain, unspecified Status: Acute Assessment and Plan: Intermittent left-sided chest pain with radiation into the left shoulder and left arm occurring at rest x1 month. Episodes last approximately 20 - 25 minutes and accompanied by diaphoresis. Reports history of CHF. Last echo on file in 2023 and showed a normal systolic and diastolic function. - EKG, initial: Sinus rhythm, low QRS voltage in precordial leads, baseline artifact, borderline EKG. - Troponin: < 0.012, 3 and 6 hour ordered - ASA 324 given, SL nitro PRN - cardiology consulted. Dr. Barrera recommends no additional cardiac testing needs to be done at this time. consider possible reproducible chest pain patient has no chest pain now HTN (hypertension): Qualifiers: Hypertension type: primary hypertension Qualified Code(s): I10 - Essential (primary) hypertension Code(s): I10 - Essential (primary) hypertension Status: Chronic Assessment and Plan: chronic, currently 123/53 - continue home medications: Lisinopril - monitor Subjective Date/time seen: 06/30/24 10:53 Interval history: I saw exam patient today. Patient denies facial droop, vision change, focal weakness, abnormal sensation focal weakness Exam Narrative: GENERAL: Pleasant, in no acute distress. Well-nourished. - EYES: EOMI. Anicteric. - HENT: Moist mucous membranes. - LUNGS: Clear to auscultation bilateral ly, no wheezing, rhonchi, or rales. - CARDIOVASCULAR: Regular rate and rhyth m. No murmur. No JVD. - ABDOMEN: Soft, non-tender and non-dist ended. No palpable masses. - EXTREMITIES: No edema. Peripheral puls es 2+. Non-tender. - NEUROLOGIC: No focal neurological defi cits. CN II-XII grossly intact. - PSYCHIATRIC: Awake, Alert and oriented x 3. Appropriate mood and affect. - SKIN: No rashes or lesions. Warm. - LYMPH: No cervical lymphadenopathy. Objective Data Vital Signs Vital Signs: Vital Signs - 24 hr 06/29/24 11:16 06/29/24 11:50 06/29/24 12:01 Temperature Pulse Rate 81 83 82 Respiratory Rate 23 H 19 19 Blood Pressure 123/53 L 108/40 L 114/50 L Pulse Oximetry 94 93 95 Oxygen Delivery Oxygen Flow Rate 06/29/24 12:46 06/29/24 14:00 06/29/24 14:13 Temperature 97.6 F Pulse Rate 78 73 78 Respiratory Rate 20 20 20 Blood Pressure 123/62 124/51 L Pulse Oximetry 96 98 96 Oxygen Delivery Room Air Oxygen Flow Rate 06/29/24 15:37 06/29/24 15:37 06/29/24 15:45 Temperature Pulse Rate 80 80 73 Respiratory Rate 20 20 20 Blood Pressure Pulse Oximetry 94 Oxygen Delivery Room Air Oxygen Flow Rate 06/29/24 16:00 06/29/24 19:32 06/29/24 19:54 Temperature 97.3 F L Pulse Rate 73 76 77 Respiratory Rate 18 20 Blood Pressure 123/54 L Pulse Oximetry 96 94 Oxygen Delivery Room Air Oxygen Flow Rate 06/29/24 19:54 06/29/24 20:00 06/29/24 20:00 Temperature Pulse Rate 77 74 Respiratory Rate 20 Blood Pressure Pulse Oximetry Oxygen Delivery Room Air Oxygen Flow Rate 06/29/24 20:15 06/29/24 20:15 06/30/24 00:00 Temperature Pulse Rate 74 74 84 Respiratory Rate 20 20 Blood Pressure Pulse Oximetry 94 Oxygen Delivery Nasal Cannula Oxygen Flow Rate 3 06/30/24 02:06 06/30/24 02:06 06/30/24 04:00 Temperature Pulse Rate 70 70 71 Respiratory Rate 16 16 Blood Pressure Pulse Oximetry 89 L Oxygen Delivery Room Air Oxygen Flow Rate 06/30/24 05:52 06/30/24 08:04 06/30/24 08:04 Temperature 97.3 F L Pulse Rate 75 81 Respiratory Rate 14 16 Blood Pressure 116/50 L Pulse Oximetry 93 96 Oxygen Delivery Room Air Oxygen Flow Rate 06/30/24 08:14 06/30/24 09:24 06/30/24 09:25 Temperature 97.8 F Pulse Rate 76 99 Respiratory Rate 16 16 Blood Pressure 118/55 L Pulse Oximetry 97 97 Oxygen Delivery Room Air Oxygen Flow Rate 06/30/24 09:25 Temperature Pulse Rate 80 Respiratory Rate Blood Pressure Pulse Oximetry Oxygen Delivery Oxygen Flow Rate Intake/Output Intake/Output: Intake & Output 06/27/24 06/28/24 06/29/24 06/30/24 23:59 23:59 23:59 23:59 Intake Total 480 540 Balance 480 540 Meds/Results Medications: Active Medications Generic Name Dose Route Start Last Admin Trade Name Freq PRN Reason Stop Dose Admin Acetaminophen 650 mg 06/29/24 19:55 06/29/24 20:46 Acetaminophen 325 Mg Tablet PO 650 mg Q6H PRN Administration Mild Pain (1-3) or Fever Albuterol 2.5 mg 06/29/24 14:00 06/30/24 08:02 Albuterol Sulfate Neb 2.5 Mg/3 Ml Inh INHALATION 2.5 mg Q6HRT JOCELYN Administration Amitriptyline HCl 100 mg 06/29/24 21:00 06/29/24 20:48 Amitriptyline Hcl 25 Mg Tablet PO 100 mg QHS JOCELYN Administration Aspirin 81 mg 06/30/24 08:00 06/30/24 09:26 Aspirin 81 Mg Chewable Tablet PO 81 mg DAILY@0800 JOCELYN Administration Atorvastatin Calcium 80 mg 06/29/24 21:00 06/29/24 20:50 Atorvastatin 40 Mg Tablet PO 80 mg QHS JOCELYN Administration Clopidogrel Bisulfate 75 mg 06/30/24 09:00 06/30/24 09:26 Clopidogrel Bisulfate 75 Mg Tablet PO 75 mg QAM JOCELYN Administration Fluticasone Propionate 1 spray 06/29/24 17:00 06/30/24 09:25 Fluticasone Propionate 0.05% Na Spr 16 Gm Btl (*Bkc) NASAL 1 spray BID JOCELYN Administration Furosemide 80 mg 06/30/24 09:00 06/30/24 09:26 Furosemide 80 Mg Tablet PO 80 mg QAM JOCELYN Administration Lisinopril 30 mg 06/30/24 09:00 06/30/24 09:26 Lisinopril 10 Mg Tablet PO 30 mg DAILY JOCELYN Administration Nitroglycerin 0.4 mg 06/29/24 13:25 Nitroglycerin Sl 0.4 Mg Tablet SUBLINGUAL Q5MIN PRN Chest Pain Pantoprazole Sodium 40 mg 06/29/24 17:00 06/30/24 09:26 Pantoprazole 40 Mg Tablet PO 40 mg BID JOCELYN Administration Fluticasone/Salmeterol 2 puff 06/29/24 20:00 06/30/24 08:02 Fluticasone/Salmeterol 115-21 Mcg Inhaler 1 Puff INHALATION 2 puff Q12HRT JOCELYN Administration Sucralfate 1 gm 06/29/24 16:30 06/30/24 06:02 Sucralfate 1 Gm Tablet PO 1 gm ACHS JOCELYN Administration Radiology Results: ITS Impressions Chest X-Ray 06/29/24 10:43 IMPRESSION: 1: NO ACUTE CARDIOPULMONARY DISEASE. Head/Neck CTA 06/29/24 11:45 IMPRESSION: 1. 0% stenosis of the right and left carotid bulbs relative to normal distal artery lumen diameter (NASCET criteria). 2. Mild scattered white matter hypoattenuation consistent with chronic small vessel ischemic disease. No other acute intracranial process or abnormally enhancing brain lesions. 3. Normal variant cerebral arterial anatomy as detailed above with no hemodynamically significant stenosis, aneurysm or thrombosis. Brain MRI 06/30/24 08:00 IMPRESSION: No acute infarct, intracranial hemorrhage, or mass lesion. Stable mild chronic microvascular ischemic changes. Labs Labs: Laboratory Results - last 24 hr 06/29/24 06/29/24 06/30/24 14:18 17:55 05:04 WBC 7.1 RBC 3.65 L Hgb 10.8 L Hct 34.6 L MCV 94.8 MCH 29.6 MCHC 31.2 L RDW 15.0 H Plt Count 195 MPV 10.2 Immature Gran % (Auto) 0.6 H Neut % (Auto) 55.3 Lymph % (Auto) 28.8 [place] % (Auto) 10.0 H Eos % (Auto) 4.3 Baso % (Auto) 1.0 Lymph # (Auto) 2.05 [place] # (Auto) 0.7 H Eos # (Auto) 0.3 Baso # (Auto) 0.1 Abs Immat Gran (auto) 0.04 H Absolute Neuts (auto) 4.0 Absolute Nucleated RBC 0.000 Nucleated RBC % 0.0 Sodium 140 Potassium 4.8 Chloride 102 Carbon Dioxide 32 H Anion Gap 6 BUN 28 H Creatinine 0.84 Estim Creat Clear Calc Not Reportable Estimated GFR > 60 Glucose 137 H Calcium 9.0 Troponin I < 0.012 < 0.012 Triglycerides 124 Cholesterol 130 LDL Cholesterol Direct 49 HDL Direct 52
--- NOTE | 2024-06-30 11:04 | P.DS_ITS ---
DS: Admitting Diagnosis Discharge Date 07/01/24 Admitting Diagnosis (1) Facial droop: Code(s): R29.810 - Facial weakness Status: Acute (2) Acute CVA (cerebrovascular accident): Code(s): I63.9 - Cerebral infarction, unspecified Status: Acute (3) COPD (chronic obstructive pulmonary disease): Code(s): J44.9 - Chronic obstructive pulmonary disease, unspecified Status: Acute (4) Chest pain: Qualifiers: Chest pain type: unspecified Qualified Code(s): R07.9 - Chest pain, unspecified Code(s): R07.9 - Chest pain, unspecified Status: Acute DS: Summary Hospital Course Hospital Course: Per H&P 59 y/o F with PMH of COPD, GERD, HTN, HLD, and asthma with right facial droop.The patient presents here from home for further evaluation of left-sided weakness and paresthesias and right-sided facial droop. She initially developed the left-sided paresthesias that effects her left face, left arm, and left leg and left sided chest pain approximately one month ago. No accompanying weakness on the left. Paresthesias are intermittent and have been increasing in duration. She reports the episodes would initially start as left sided chest pain she described as sharp with radiation into her left shoulder and arm that would then develop into paresthesias on the left. Episodes would occur at rest and would last 20-25 mins. No alleviating or aggravating factors. Chest pain was also accompanied by diaphoresis. No nausea, fatigue, or worsened shortness of breath. She then developed a right-sided facial droop on Friday, 06/27. It was first noted by her sister in the morning when she first saw her. Last known well on Friday evening before she went to bed, no exact time given. This is accompanied by new mild tingling now effecting her right side as well and blurred vision (bilateral, improves discomfort). No precipitating trauma or injury to her neck. Endorsing mild coughing, changes in swallowing. She denies dizziness, changes in balance, or focal weakness. She has no known history of CVA. Initial VS at presentation: 97.8? F, HR 85, R 18, 135/70, and 97% on RA. ED workup showed: No leukocytosis, no anemia, normal coags, creatinine 0.98 and GFR 58, initial troponin negative. CXR showed no acute cardiopulmonary disease. Head/neck CTA showed 0% stenosis of the right and left carotid bulbs, mild scattered white matter hypoattenuation, normal variant cerebral arterial anatomy as detailed in findings. EKG showed sinus rhythm, rate 83, low QRS voltage in precordial leads, baseline artifact. The following med issues have been addressed during hospitalization TIA New right facial droop discovered on 06/27. Last known well on 06/26 prior to going to bed. - admission for observation and telemetry - not candidate for thrombolytics due to time frame, not a candidate for thrombectomy as there was no large vessel occlusion on CTA as well as time frame - CXR: No acute cardiopulmonary disease - CTA: 1. 0% stenosis of the right and left carotid bulbs relative to normal distal artery lumen diameter (NASCET criteria). 2. Mild scattered white matter hypoattenuation consistent with chronic small vessel ischemic disease. No other acute intracranial process or abnormally enhancing brain lesions. 3. Normal variant cerebral arterial anatomy as detailed above with no hemodynamically significant stenosis, aneurysm or thrombosis. - neurology consulted, awaiting formal recs - brain MRI w/wo No acute infarct, intracranial hemorrhage, or mass lesion. - echo w/Bubble 1. Left ventricular chamber dimension is normal. 2. Left ventricular systolic function is normal, estimated at >70%. 3. There is mildly increased left ventricular wall thickness. 4. The left ventricular diastolic function is grade I diastolic dysfunction. 5. Right ventricular systolic function is normal. 6. Intact interatrial septum visualized by color flow and agitated saline imaging. Negative bubble study. 7. No significant valvular disease. - neuro checks Q4 - speech/swallow evaluation - PT/OT eval and treat - monitor daily labs, check lipid panel and A1C Continue Plavix 75 mg PO, ASA 81 mg - continue Atorvastatin 80 mg daily possible TIA Chest pain: Qualifiers: Chest pain type: unspecified Qualified Code(s): R07.9 - Chest pain, unspecified Code(s): R07.9 - Chest pain, unspecified Status: Acute Assessment and Plan: Intermittent left-sided chest pain with radiation into the left shoulder and left arm occurring at rest x1 month. Episodes last approximately 20 - 25 minutes and accompanied by diaphoresis. Reports history of CHF. Last echo on file in 2023 and showed a normal systolic and diastolic function. - EKG, initial: Sinus rhythm, low QRS voltage in precordial leads, baseline artifact, borderline EKG. - Troponin: < 0.012, 3 and 6 hour ordered - ASA 324 given, SL nitro PRN - cardiology consulted. Dr. Barrera recommends no additional cardiac testing needs to be done at this time. consider possible reproducible chest pain patient has no chest pain now HTN (hypertension): Qualifiers: Hypertension type: primary hypertension Qualified Code(s): I10 - Essential (primary) hypertension Code(s): I10 - Essential (primary) hypertension Status: Chronic Assessment and Plan: chronic, currently 123/53 - continue home medications: Lisinopril - monitor Neurologist has cleared patient to be discharged and scheduled EEG outpatient Before discharge, patient condition was stable Hospital course uneventful Time Spent with Patient Time attestation: Total time spent providing and/or coordinating discharge services: Exam Narrative: GENERAL: Pleasant, in no acute distress. Well-nourished. - EYES: EOMI. Anicteric. - HENT: Moist mucous membranes. - LUNGS: Clear to auscultation bilateral ly, no wheezing, rhonchi, or rales. - CARDIOVASCULAR: Regular rate and rhyth m. No murmur. No JVD. - ABDOMEN: Soft, non-tender and non-dist ended. No palpable masses. - EXTREMITIES: No edema. Peripheral puls es 2+. Non-tender. - NEUROLOGIC: No focal neurological defi cits. CN II-XII grossly intact. - PSYCHIATRIC: Awake, Alert and oriented x 3. Appropriate mood and affect. - SKIN: No rashes or lesions. Warm. - LYMPH: No cervical lymphadenopathy. DS: Data Data Completed and Pending Labs on day of discharge: Labs from last 24 hours 06/30/24 06/29/24 06/29/24 05:04 17:55 14:18 WBC 7.1 RBC 3.65 L Hgb 10.8 L Hct 34.6 L MCV 94.8 MCH 29.6 MCHC 31.2 L RDW 15.0 H Plt Count 195 MPV 10.2 Immature Gran % (Auto) 0.6 H Neut % (Auto) 55.3 Lymph % (Auto) 28.8 [place] % (Auto) 10.0 H Eos % (Auto) 4.3 Baso % (Auto) 1.0 Lymph # (Auto) 2.05 [place] # (Auto) 0.7 H Eos # (Auto) 0.3 Baso # (Auto) 0.1 Abs Immat Gran (auto) 0.04 H Absolute Neuts (auto) 4.0 Absolute Nucleated RBC 0.000 Nucleated RBC % 0.0 Sodium 140 Potassium 4.8 Chloride 102 Carbon Dioxide 32 H Anion Gap 6 BUN 28 H Creatinine 0.84 Estim Creat Clear Calc Not Reportable Estimated GFR > 60 Glucose 137 H Calcium 9.0 Troponin I < 0.012 < 0.012 Triglycerides 124 Cholesterol 130 LDL Cholesterol Direct 49 HDL Direct 52 Discharge Plan Discharge Attending physician on discharge: Hannah Kamara Consulting providers: Delia Barrera; Stephane Gaines Discharging Clinician: Hannah Kamara Anticipated Discharge Date/Time: 06/30/24 13:00 Patient Disposition: Home, Self-Care Activity: as tolerated Diet: as tolerated and heart healthy Patient Instructions: Antibiotic Form Patient Language: Occitan Stand Alone Forms: General Discharge Information Follow-up/Referrals: Stephane Gaines MD [Physician] - Lucho Sarkar MD [Physician] - ( patient needs to call neurologist for follow-up appointment. see neurologist at scheduled appointment) Carroll,JOHN Johnson [Primary Care Provider] - ( see primary care doctor in 1 week) Discharge Medications: New clopidogrel 75 mg Tablet 75 mg PO QAM Qty: 40 0RF aspirin [Children's Aspirin] 81 mg Tablet,Chewable 81 mg PO DAILY@0800 Qty: 60 0RF Continued fluticasone propionate 50 mcg/actuation spray,suspension 1 spray intranasal BID Rx Instructions: administer into each nostril budesonide-formoterol [Symbicort] 160-4.5 mcg/actuation HFA aerosol inhaler 2 puff inhalation Q12H amitriptyline 100 mg tablet 100 mg PO QHS albuterol sulfate 2.5 mg /3 mL (0.083 %) solution for nebulization 2.5 mg inhalation Q4-6H PRN (Reason: Shortness Of Breath) lisinopril 30 mg tablet 30 mg PO DAILY furosemide 80 mg tablet 80 mg PO QAM omeprazole 40 mg capsule,delayed release(DR/EC) 40 mg PO BID 30 Days Qty: 60 12RF sucralfate [Carafate] 1 gram tablet 1 g PO QID 30 Days Qty: 120 1RF atorvastatin [Lipitor] 80 mg tablet 80 mg PO DAILY Qty: 60 0RF Other Ambulatory Orders: EEG (Routine) Timeframe: 1 Week Location: Determined by Patient Ordered By: Stephane Gaines Date of admission: 06/30/24 10:14 Primary Care Provider: CarrollNettie Admitting Provider: Marlon Smith Attending physician on admission: Marlon Smtih Condition: Stable
--- NOTE | 2024-06-30 11:28 | PCSTNOTE ---
Please refer to the Bedside Swallow Evaluation in the EMR. Please note, silent aspiration cannot be ruled out at bedside.
--- NOTE | 2024-06-30 12:02 | P.CONNEU_ITS ---
Assessment and Plan Assessment and plan (1) TIA (transient ischemic attack): Code(s): G45.9 - Transient cerebral ischemic attack, unspecified Status: Acute Plan 1. Intermittent left upper extremity paresthesia raising the possibility of the TIA, brain MRI normal to go along with the diagnosis except with mild chronic microvascular ischemic changes. 2. Question about unable to communicate for couple of minutes at times raising the possibility of the partial seizures advised her to have an EEG done as an outpatient but in the meantime no anticonvulsant except the medication but have been started for the possibility of the TIA, her head and neck CTA was normal, and cardiology consultation had already been obtained which has documented normal echocardiogram, normal EKG, and negative troponins patient has been continuing aspirin statin Lasix and lisinopril all these findings were again discussed with the patient and her and sisters. At this stage she is ready to be discharged with instruction to have an EEG done as an outpatient which can be discussed with her family physicians once the results are available. Consult date: 06/30/24 HPI: Medina Cox is a 59 year old female Admitted to the hospital through the emergency room with the complaints of intermittent left upper extremity tingling and paresthesia going on for at least a month and subsequently having a right facial droop. Patient has been taking amitriptyline 100mg at night, atorvastatin 80mg daily, furosemide 80mg daily, and lisinopril 30mg daily, she has ongoing history of bronchial asthma, COPD, hypertension, and GERD, in addition to the history of cholecystectomy and hysterectomy and history of smoking cigarettes per day 20 with years smoked 40 and currently everyday smoker in addition to currently alcohol intake or 2 drinks per week. Initial exam in the emergency room documented right-sided facial droop with normal vital signs normal CBC normal BMP except the BUN of 30 and glucose of 162 initial chest x- ray was negative head and neck CTA revealed mild scattered white matter hypoattenuation consistent with chronic small vessel ischemic disease and a normal variant cerebral arterial anatomy with no significant stenosis or aneurysm ,admitted to the hospital for the possibility of the acute cerebrovascular accident , patient has been receiving amitriptyline 100mg at night, atorvastatin 80mg daily, lisinopril 30mg daily, omeprazole 40mg b.i.d., and prednisone 50mg daily, patient has also been seen by the platinum and 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 for the complaints of atypical chest pain with negative troponins, negative EKG ,normal echocardiogram and the recommendation to continue a statin aspirin Lasix and lisinopril, Review of Systems 2 Review of Systems: All systems reviewed & are unremarkable except as noted in HPI and below PMFSH Past Medical History Medical History Tobacco use Abdominal pain Asthma Blood in stool Hyperlipidemia Obese COPD (chronic obstructive pulmonary disease) HTN (hypertension) GERD (gastroesophageal reflux disease) Surgical History Surgical History History of cataract extraction History of cholecystectomy History of hysterectomy History of Family History Family History Mother Asthma Sibling Asthma Diabetes mellitus Heart disease Social History Social History Social History: Caffeine-daily Smoking packs per day: 1 Smoking cigarettes per day: 20.0 Years smoked: 40 Smoking pack-years: 40.00 Smoking status: Current every day smoker Alcohol intake: current Drinks per week: 2 Substance use: never Substance use type: does not use Do You Feel Safe in your Home?: Yes Lack of Transportation: No Lack of Food: Never True Current Housing: I Have Housing Concerned About Future Housing: No Difficulty Paying Gas/Electric Bills: No Difficulty Paying for Meds: No Currently Unemployed: No Education: High School Diploma/GED Difficulty w/ Childcare or Family Care: No Living arrangements: other Additional living arrangements comments: with sp Additional occupation/education comments: disabled Gender identity (if verbalized by the patient): Female Spiritual care concerns: No Meds Home Medications and Allergies Home Medications ?Medication ?Instructions ?Recorded ?Confirmed ?Type albuterol sulfate 2.5 mg/3 mL 2.5 mg inhalation Q4-6H PRN 07/04/20 06/29/24 History (0.083 %) solution for nebulization Shortness Of Breath budesonide-formoterol HFA 160 2 puff inhalation Q12H 07/10/20 06/29/24 History mcg-4.5 mcg/actuation aerosol inhaler (Symbicort) fluticasone propionate 50 1 spray intranasal BID 07/10/20 06/29/24 History mcg/actuation nasal spray,suspension amitriptyline 100 mg tablet 100 mg PO QHS 12/19/21 06/29/24 History furosemide 80 mg tablet 80 mg PO QAM 05/26/24 06/29/24 History lisinopril 30 mg tablet 30 mg PO DAILY 05/26/24 06/29/24 History omeprazole 40 mg capsule,delayed 40 mg PO BID 1 month #60 caps 05/26/24 06/29/24 Rx release sucralfate 1 gram tablet (Carafate) 1 g PO QID 1 month #120 tabs 05/26/24 06/29/24 Rx aspirin 81 mg chewable tablet 81 mg PO DAILY@0800 #60 tabs 06/30/24 Rx (Children's Aspirin) atorvastatin 80 mg tablet (Lipitor) 80 mg PO DAILY #60 tabs 06/30/24 06/29/24 Rx clopidogrel 75 mg tablet 75 mg PO QAM #40 tabs 06/30/24 Rx Allergies Allergy/AdvReac Type Severity Reaction Status Date / Time pneumococcal vaccine Allergy Difficulty Verified 06/29/24 09:50 Breathing Vital Signs Vital Signs - 24 hr 06/29/24 12:46 06/29/24 14:00 06/29/24 14:13 Temperature 36.4 C Pulse Rate 78 73 78 Respiratory Rate 20 20 20 Blood Pressure 123/62 124/51 L Pulse Oximetry 96 98 96 Oxygen Delivery Room Air Oxygen Flow Rate 06/29/24 15:37 06/29/24 15:37 06/29/24 15:45 Temperature Pulse Rate 80 80 73 Respiratory Rate 20 20 20 Blood Pressure Pulse Oximetry 94 Oxygen Delivery Room Air Oxygen Flow Rate 06/29/24 16:00 06/29/24 19:32 06/29/24 19:54 Temperature 36.3 C L Pulse Rate 73 76 77 Respiratory Rate 18 20 Blood Pressure 123/54 L Pulse Oximetry 96 94 Oxygen Delivery Room Air Oxygen Flow Rate 06/29/24 19:54 06/29/24 20:00 06/29/24 20:00 Temperature Pulse Rate 77 74 Respiratory Rate 20 Blood Pressure Pulse Oximetry Oxygen Delivery Room Air Oxygen Flow Rate 06/29/24 20:15 06/29/24 20:15 06/30/24 00:00 Temperature Pulse Rate 74 74 84 Respiratory Rate 20 20 Blood Pressure Pulse Oximetry 94 Oxygen Delivery Nasal Cannula Oxygen Flow Rate 3 06/30/24 02:06 06/30/24 02:06 06/30/24 04:00 Temperature Pulse Rate 70 70 71 Respiratory Rate 16 16 Blood Pressure Pulse Oximetry 89 L Oxygen Delivery Room Air Oxygen Flow Rate 06/30/24 05:52 06/30/24 08:04 06/30/24 08:04 Temperature 36.3 C L Pulse Rate 75 81 Respiratory Rate 14 16 Blood Pressure 116/50 L Pulse Oximetry 93 96 Oxygen Delivery Room Air Oxygen Flow Rate 06/30/24 08:14 06/30/24 09:24 06/30/24 09:25 Temperature 36.6 C Pulse Rate 76 99 Respiratory Rate 16 16 Blood Pressure 118/55 L Pulse Oximetry 97 97 Oxygen Delivery Room Air Oxygen Flow Rate 06/30/24 09:25 Temperature Pulse Rate 80 Respiratory Rate Blood Pressure Pulse Oximetry Oxygen Delivery Oxygen Flow Rate Exam 2 Narrative: Exam today revealed her to be awake alert cooperative in no obvious acute distress, head normocephalic with no cranial bruits, ear nose throat examination normal, neck supple with no cervical bruit no thyromegaly no lymphadenopathy, heart regular with no murmur, lungs clear to auscultation with no rhonchi or crepitations, abdomen is soft with no organomegaly, neurologically she is awake alert oriented x3, speech not dysphasic not dysarthric not dysphonic, pupils round regular reacting to light equally, feels the vision full in all 4 quadrants, extraocular movements are full with no nystagmus, facial sensation intact face symmetrical, tongue midline with no fasciculation motor examination revealed her to have no drift of 1 side or other side tone is normal reflexes symmetrical plantars are downgoing there is no evidence of gross cerebellar deficit Results Labs 06/30/24 05:04 06/30/24 05:04 Labs: Short CBC 06/30/24 Range/Units 05:04 WBC 7.1 (4.5-10.0) K/mm3 Hgb 10.8 L (12.0-15.0) g/dL Hct 34.6 L (37.0-47.0) % Plt Count 195 (150-375) k/mm3 BMP 06/30/24 05:04 Sodium 140 Potassium 4.8 Chloride 102 Carbon Dioxide 32 H BUN 28 H Creatinine 0.84 Glucose 137 H Calcium 9.0 Cardiac Enzymes 04/01/25 04/01/25 Range/Units 14:18 17:55 Troponin I < 0.012 < 0.012 (0.000-0.034) ng/mL
== END 2024-06-30 13:43 | disposition home or self-care (01) | DRG 69 ==
LOC: ANHED 09:42 → ANH2MED 13:35
PROVIDERS: Student in an Organized Health Care Education/Training Program; Admitting Provider Internal Medicine; Emergency Provider Emergency Medicine; PCP Nurse Practitioner; Visit Provider Hospitalist
DX: G45.9 Transient cerebral ischemic attack, unspecified (principal); I50.32 Chronic diastolic (congestive) heart failure; I11.0 Hypertensive heart disease with heart failure; I25.10 Atherosclerotic heart disease of native coronary artery without angina pectoris; J44.9 Chronic obstructive pulmonary disease, unspecified; E78.5 Hyperlipidemia, unspecified; K21.9 Gastro-esophageal reflux disease without esophagitis; R07.89 Other chest pain; F17.210 Nicotine dependence, cigarettes, uncomplicated
CPT/HCPCS: 36415; 70496; 70498; 70553; 71045; 80048; 80053; 80061; 82948; 84484; 85025; 85610; 85730; 92610; 93005; 94640; 96374; 96375; 99285; A9270; A9579; C8929; G0378; Q9957; Q9967

== ENCOUNTER 2024-07-09 10:04 | Outpatient (CLI) | payer MEDICARE, MEDICAID, SELFPAY ==
--- OUTSIDE RECORDS SUMMARY | 2024-07-09 10:41 | XMS_ITS | Encounter Summary ---
Author Organization [facility] Address [address] [place] [id number] Care Team Providers Care Lumber Tripper Name Role Phone Nettie Hodges NP Primary Care Provider [phone] Rosita Fuentes RN Unavailable [phone] Encounter Details Date Type Department Care Team ([facility] Contact Info) Description 06/21/2024 [place] Message Enc [facility] Family Medicine - [place] [address] [facility] [address] [place] [id number] Nettie Hodges NP [address] [place] [address] [phone] mammogram Social History Tobacco Use Types Packs/Day [...] Sex Assigned at Female 04/26/2024 7: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 Legal Sex Female 2:16 PM OIL WELL SERVICE OPERATOR HELPER Gender Identity Female 04/26/2024 9:06 AM OIL WELL SERVICE OPERATOR HELPER Sexual Orientation Straight 04/26/2024 1: 33 PM OIL WELL SERVICE OPERATOR HELPER 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[employer] Not on file Not on file Not on file documented as of this encounter Plan of Treatment Upcoming Encounters Date Type Department Care Team (Late st Contact Info) Description 08/12/2024 11:00 AM CDT Office Visit [facility] Multispecialty Care - [facility] [address] [facility], [address] [place] [phone] Gracy Blair APRN [address] [facility] [address] [place] [address] 09/16/2024 10:40 AM CDT Office Visit [facility] Orthopedic & Sports Medicine - [place] [address] [place] [address] Maurisio Jeong MD [address] [place] [address] 09/24/2024 10:00 AM CDT Office Visit [facility] [phone] Paula Sanchez MD [address] [facility] [address] [place] [address] 10/13/2024 1:40 PM CDT Office Visit [facility] Care - [facility] [address] [facility] [address], [address] [place] [phone] Shila Ruiz MD [address] [place] [address] 11/01/2024 1:20 PM CDT Office Visit [facility] Family Medicine - [address] [facility] [address] [place] [address] Nettie Hodges NP [address] [place] [address] documented as of this encounter Visit Diagnoses Not on filedocumented in this encounter Additional Health Concerns Infection Onset Date Last Indicated Resolved Time Respiratory Rule-Out 07/03/2024 07/03/2024 025 7:57 AM CDT documented as of this encounter Care Teams Lumber Tripper Relationship Specialty Start Date End Date Nettie Hodges NP [address] [place] [address] PCP - General NURSE PRACTITIONER 09/10/21 Rosita Fuentes, RN [address] [place] [address] Senior Interior Designer (Ambulatory) REGISTERED NURSE 07/05/2407/05/24 documented as of this encounter
--- OUTSIDE RECORDS SUMMARY | 2024-07-09 10:41 | XMS_ITS | Encounter Summary ---
Author Organization [facility] Address Formerly [facility], later [facility] [place] [address] Care Team Providers Care Machine Bunch Maker Name Role Phone Nettie Hogdes NP Primary Care Provider [phone] Rosita Fuentes RN Unavailable [phone] Encounter Details Date Type Department Care Team (Latest Contact Info) Description 07/01/2024 Scan HEALTH INFO SRVCS Scanned, Doc Med Group Social History Tobacco Use Types Packs/Day Years Used Date Smoking Tobacco: Every Day Cigarettes 0.3 41.1 Started: 06/04/1983; Last attempted to quit: 06/04/2023 Passive Smoke Exposure: Current Smokeless Tobacco: Never Alcohol Use Standard Drinks/Week Comments Yes 3.3 (1 standard drink = 0.6 oz p ure alcohol) rare beer [facility] Utilities Answer Date Recorded In the past 12 months has [facility] [employer], gas, oil, or water [employer] threatened to shut off services in your home? No 07/03/2024 Humiliation, Afraid, Rape, and Kick questionnair e Answer Date Recorded Within the last year, have y ou been afraid of your partner or ex-partner? No 07/03/2024 Within the last year, have y ou been humiliated or emotionally abused in other ways by your partner or ex-partner? No Within the last year, have y ou been kicked, hit, slapped, or otherwise physically hurt by your partner or ex-partner? No 07/03/2024 Within the last year, have y ou been raped or forced to have any kind of sexual activity by your partner or ex-partner? No 07/03/2024 Overall Financial Resource Strain (CARDIA) Answe r Date Recorded How hard is it for you to pa y for the very basics like food, housing, medical care, and heating? Not hard at all 07/03/2024 PHQ-2 Answer Date Recorded Patient Health Questionnaire-2 Score 0 06/01/2024 Hunger Vital Sign Answer Date Recorded Within the past 12 months, y ou worried that your food would run out before you got the money to buy more. Never true 07/04/19 25 Within the past 12 months, t he food you bought just didn't last and you didn't have money to get more. Never true 07/03/2024 PRAPARE - Transportation Answer Date Re corded In the past 12 months, has l ack of transportation kept you from medical appointments or from getting medications? No 07/2024 In the past 12 months, has l ack of transportation kept you from meetings, work, or from getting things needed for daily living? No 07/03/2024 Housing Stability Vital Sign Answer Davis e Recorded In the last 12 months, was t here a time when you were not able to pay the mortgage or rent on time? No 07/03/2024 In the past 12 months, how m any times have you moved where you were living? 0 07/03/2024 At any time in the past 12 m [facility], were you homeless or living in a fci (including now)? 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 No 07/03/2024 1:46 AM Lucita Arnold RN Active documented in this encounter Plan of Treatment Upcoming Encounters Date Type Department Care Team (Late st Contact Info) Description 08/12/2024 11:00 AM CDT [facility] [address] [facility], [address] [place] [phone] Gracy Blair APRN [address] [facility] [address] [place] [address] 09/16/2024 10:40 AM CDT Office Visit [facility] - [place] [address] [place] [address] Maurisio Jeong MD [address] [place] [address] 09/24/2024 10:00 AM CDT Office Visit [facility] [phone] Paula Sanchez MD [address] [facility] [address] [place] [address] 10/13/2024 1:40 PM CDT [facility] [address] [facility], [address] [place] [address] Shila Ruiz MD 3 [place] [address] 11/01/2024 1:20 PM CDT Office Visit [facility] Family Medicine - [place] [address] [facility] [address] [place] [address] Nettie Hodges NP [address] [place] [address] documented as of this encounter Visit Diagnoses Not on filedocumented in this encounter Additional Health Concerns Infection Onset Date Last Indicated Resolved Time Respiratory Rule-Out 07/03/2024 07/03/2024 025 7:57 AM CDT documented as of this encounter Care Teams Machine Bunch Maker Relationship Specialty Start Date End Date Nettie Hodges NP [address] [place] [address] PCP - General NURSE PRACTITIONER 09/10/21 Rosita Fuentes, RN [address] [place] [address] Director Of Creative Services (Ambulatory) REGISTERED NURSE 07/05/2407/05/24 documented as of this encounter
--- OUTSIDE RECORDS SUMMARY | 2024-07-09 10:41 | XMS_ITS | Encounter Summary ---
Author Organization [facility] Address [address] [place] [address] Care Team Providers Care Prosthetic Aide Name Role Phone Nettie Hodges NP Primary Care Provider [phone] Reason for Visit * Reason Comments TCM Patient presents for TCM, discharged [facility] 07/03/24, with COPD exacerbation/resp failure Encounter Details Date Type Department Care Team (Late st Contact Info) Description 07/08/2024 12:40 PM CDT Office Visit [facility] Family Medicine - [place] [address] [id number] Nettie Hodges NP [address] [address] TCM (Patient presents for TCM, discharged [facility] 07/03/24, with COPD exacerbation/resp failure) Social History Tobacco Use Types Packs/Day Years Used Date Smoking Tobacco: Every Day Cigarettes 0.3 61.2 Started: 06/04/1983; Last attempted to quit: 06/04/2023 Passive Smoke Exposure: Current Smokeless Tobacco: Never Tobacco Cessation:Ready to Q uit: No; Counseling Given: Yes Alcohol Use Standard Drinks/Week Comments Yes 3.3 (1 standard drink = 0.6 oz p ure alcohol) rare beer [facility] Utilities Answer Date Recorded In the past 12 months has [employer], gas, oil, or water [employer] threatened to shut off services in your [...] money to buy more. Never true 07/04/19 Within the past 12 months, t he [...] any time in the past 12 m [facility], were you homeless or living in a correction (including now)? 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 Not on file Not on file documented as of this encounter Last Filed Vital Signs Vital Sign Reading Time Taken Comments Blood Pressure 130/62 07/08/2024 12:41 PM CDT Pulse 88 07/08/2024 12:41 PM CDT Temperature 36.5 C (97.7 F) 07/08/2024 12:41 PM CDT Respiratory Rate 26 07/08/2024 12:41 PM CDT Oxygen Saturation 95% 07/08/2024 12:41 PM CDT Inhaled Oxygen Concentration - - Weight 95.7 kg (211 lb) 07/08/2024 12:41 PM CDT Height 149.9 cm (4' 11 ) 07/08/2024 12:41 PM CDT Body Mass Index 42.62 07/08/2024 12:41 PM CDT documented in this encounter Functional Status * Are you deaf or do you have serious difficulty hearing Answer Date of Assessment Author Status No 07/03/2024 1:46 AM YUNIORT Lucita Jin RN Active * Are you blind or do you have serious difficulty seeing, even when wearing glasses? Answer Date of Assessment Author Status No 07/03/2024 1:46 AM Lucita Arnold RN Active * Do you have serious difficulty walking or climbing stairs? Answer Date of Assessment Author Status No 07/03/2024 1:46 AM Lucita Arnold RN Active * Do you have difficulty dressing or bathing? Answer Date of Assessment Author Status No 07/03/2024 1:46 AM Lucita Arnold RN Active * Because of a physical, mental, or emotional condition, do you have difficulty doing errands alone such as visiting a doctor's office or shopping? Answer Date of Assessment Author Status No 07/03/2024 1:46 AM Lucita Arnold RN Active documented as of this encounter Mental Status * Because of a physical, mental, or emotional condition, do you have serious difficulty concentrating, remembering, or making decisions? Answer Entry Date Author Status No 07/03/2024 1:46 AM Lucita Arnold RN Active documented in this encounter Progress Notes * Nettie Hodges, EARL - 07/08/2024 12:40 PM CDT Chief Complaint Patient presents with TCM Patient presents for TCM, discharged [facility] 07/03/24, with COPD exacerbation/resp failure SUBJECTIVE: Medina Cox is seen for Transitional Care Management [id number] visit following discharge from [facility] on 06/29/24 for chest pain and stroke like symptoms. Was discharged the next day 06/30/24.Pt then went to [facility] on 07/02/24 for respiratory failure,hypoxia. Please see recent Rehabilitation Aide/Scheduler telephone encounter. Discharge date from [facility] was 07/03/24 The reason for hospitalization at [facility], left sided weakness, paresthesia, right facial droop, and chest pain . [facility] was for respiratory failure with hypoxia. Current status is as follows: stable. 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 She also reported intermittent left-sided chest pain that is left substernal and underneath her left breast. Pain was lasting for a few minutes. Not associated with any exertion. EKG in the hospital noted sinus rhythm without ischemic changes. Her troponins were negative. Her echo was stable. Patient follows with cardiology Dr. Sanchez with [facility]. Pt had a LHC in May, that showed mild 30%RCA disease. Pt has had similar complaints of this before as I recall pt brining this up to her neurologist and had been informed to seek ER care for evaluation. Patient was started from [facility] to resume her home medications and daily aspirin. Patient then [facility] to [facility] due to acute on chronic shortness of breath, chronic wheezing, very minimal stamina. She had been using her nebulizer a lot. Patient continues to smoke 1 pack/day which is down from 2 packs/day. In the hospital she was giving prednisone 40 mg for 4 days, azithromycin for 3 days patient was weaned down to room air but patient does use 3 L at night and as needed at home. Patient was discharged home on azithromycin and prednisone to complete course and resume her daily home inhalers. Other medical problems addressed this visit: Pt was started on Plavix at discharge from [facility]. No new meds started at discharge from [facility]. Pt supposedly has an EEG, echo, PFT ordered tomorrow at [facility] that I assume was set up after hospital dischrage. Patient's past medical history, medications, allergies, family history, and social history reviewedand updated in Epic chart as necessary. Patient Active Problem List Diagnosis Lumbar radiculopathy Sacroiliitis Burning sensation of throat Chronic obstructive pulmonary disease, unspecified COPD type ([facility]) Hypertension, unspecified type Gastroesophageal reflux disease, unspecified whether esophagitis present Cigarette nicotine dependence with other nicotine-induced disorder Obesity (BMI 30-39.9) Osteoporosis Fall, subsequent encounter Chronic bilateral back pain, unspecified back location Chronic pain of both knees Fall, initial encounter Gait disturbance Foraminal stenosis of lumbar region Abnormal MRI, lumbar spine Spondylolisthesis of lumbar region Chronic migraine without aura without status migrainosus, not intractable Tremor of both hands Acute pharyngitis Acute sinusitis Allergic rhinitis Asthma ([facility]) Eczema Hypoxia Sleep apnea Chest pain Chondromalacia of left patella Chondromalacia of right patella Chronic asthmatic bronchitis with acute exacerbation ([facility]) Chronic respiratory failure with hypoxia ([facility]/HCC) Chronic thoracic back pain Daytime hypersomnia Disorder of thyroid gland Herpes labialis Hyperlipidemia Insomnia Irritable bowel syndrome with constipation Low serum vitamin B12 Lower abdominal pain Migraine Neck pain Neck swelling Pain in face Osteoarthritis of ankle or foot Pain in both feet Pain in left foot Panlobular emphysema ([facility] HHS/HCC) Plantar fasciitis Epigastric pain Right upper quadrant pain Dyspnea on exertion Shortness of breath Shoulder pain Bronchitis Pleurisy Sialoadenitis Smoker Snoring Sensation of lump in throat Pain in throat Sore throat Swelling of mandible Tear of medial meniscus of knee Wheezing Upper respiratory infection Chronic obstructive pulmonary disease ([facility] HHS/HCC) Gastroesophageal reflux disease without esophagitis Primary hypertension Obesity Herniated lumbar intervertebral disc Hemorrhoids Fatigue Respiratory failure with hypoxia ([facility]) Medications reconciled from discharge. Current Outpatient Medications: albuterol (PROVENTIL) (2.5 MG/3ML) 0.083% nebulizer solution, USE 1 VIAL IN NEBULIZER EVERY 4 HOURSAS NEEDED FOR WHEEZING, Disp: 360 mL, Rfl: 0 albuterol sulfate HFA 108 (90 Base) MCG/ACT inhaler, INHALE 2 PUFFS BY MOUTH EVERY 6 HOURS NEEDED FOR WHEEZING, Disp: 18 g, Rfl: 11 amitriptyline (ELAVIL) 100 MG tablet, TAKE 1 TABLET BY MOUTH NEEDED AT BEDTIME, Disp: 90 tablet,Rfl: 3 aspirin EC (ECOTRIN) 81 MG tablet, Take 1 tablet (81 mg total) by mouth daily., Disp: , Rfl: atorvastatin (LIPITOR) 80 MG tablet, TAKE 1 TABLET BY MOUTH NIGHTLY AT BEDTIME, Disp: 90 tablet, Rfl: 1 Ulpegye-Mzdmzpqefek-Ggrungqoet (BREZTRI AEROSPHERE) 160-9-4.8 MCG/ACT Aerosol, Inhale 1 puff into the lungs 2 (two) times a day., Disp: 10.7 g, Rfl: 1 clopidogrel (PLAVIX) 75 MG tablet, Take 1 tablet (75 mg total) by mouth every morning., Disp: , Rfl: DUPIXENT 300 MG/2ML injection (PEN), Inject 2 mLs (300 mg total) into the skin. Every other Friday., Disp: , Rfl: famotidine (PEPCID) 40 MG tablet, Take 1 tablet (40 mg total) by mouth daily., Disp: , Rfl: fluticasone propionate 50 MCG/ACT nasal spray, 1 spray 2 (two) times daily., Disp: , Rfl: furosemide (LASIX) 80 MG tablet, Take 1 tablet (80 mg total) by mouth daily., Disp: , Rfl: lisinopril (PRINIVIL) 30 MG tablet, Take 1 tablet by mouth once daily, Disp: 90 tablet, Rfl: 1 omeprazole (PRILOSEC) 40 MG capsule, omeprazole 40 mg capsule,delayed release TAKE 1 CAPSULE BY MOUTH ONCE DAILY, Disp: , Rfl: OXYGEN, 3 L/min by Nasal route continuous. 3L at night, Disp: , Rfl: sucralfate (CARAFATE) 1 G tablet, Take 1 tablet (1 g total) by mouth 4 (four) times daily before meals and nightly., Disp: , Rfl: WALKER MISC, DME,, 1 Device by Does not apply route daily., Disp: 1 Device, Rfl: 0 Review of patient's allergies indicates: Allergen Reactions Prevnar [Pneumococcal 13-Bethanie Conj Vacc] Anaphylaxis Morphine Hives Past Surgical History: Procedure Laterality Date SECTION CHOLECYSTECTOMY EYE SURGERY HYSTERECTOMY REMOVE BENIGN THYROID LESION TUBAL LIGATION Review of Systems Constitutional: Negative for chills, diaphoresis, fever, malaise/fatigue and weight loss. HENT: Negative for congestion, ear discharge, ear pain, hearing loss, nosebleeds, sinus pain, sore throat and tinnitus. Eyes: Negative for blurred vision, double vision, photophobia, pain, discharge and redness. Respiratory: Negative for cough, hemoptysis, sputum production, shortness of breath, wheezing and stridor. Cardiovascular: Negative for chest pain, palpitations, orthopnea, claudication, leg swelling and PND. Gastrointestinal: Negative for abdominal pain, blood in stool, constipation, diarrhea, heartburn, melena, nausea and vomiting. Genitourinary: Negative for dysuria, flank pain, frequency, hematuria and urgency. Musculoskeletal: Negative for back pain, falls, joint pain, myalgias and neck pain. Skin: Negative for itching and rash. Neurological: Negative for dizziness, tingling, tremors, sensory change, speech change, focal weakness, seizures, loss of consciousness, weakness (generalized) and headaches. Right sided facial droop Endo/Heme/Allergies: Negative for environmental allergies and polydipsia. Does not bruise/bleed easily. Psychiatric/Behavioral: Negative for depression, hallucinations, memory loss, substance abuse and suicidal ideas. The patient is not nervous/anxious and does not have insomnia. OBJECTIVE: Filed Vitals: 07/08/24 1241 BP: 130/62 Pulse: 88 Resp: 26 Temp: 97.7 ??F (36.5 ??C) TempSrc: Core SpO2: 95% Weight: 95.7 kg (211 lb) Height: 1.499 m (4' 11 ) Physical Exam Constitutional: General: She is not in acute distress. Appearance: Normal appearance. She is not ill-appearing, toxic-appearing or diaphoretic. HENT: Nose: Nose normal. Mouth/Throat: Mouth: Mucous membranes are moist. Eyes: Extraocular Movements: Extraocular movements intact. Pupils: Pupils are equal, round, and reactive to light. Cardiovascular: Rate and Rhythm: Normal rate and regular rhythm. Pulses: Normal pulses. Pulmonary: Effort: Pulmonary effort is normal. Breath sounds: Normal breath sounds. Musculoskeletal: General: Normal range of motion. Cervical back: Normal range of motion. Right lower leg: No edema. Left lower leg: No edema. Skin: General: Skin is warm and dry. Findings: No rash. Neurological: General: No focal deficit present. Mental Status: She is alert and oriented to person, place, and time. Mental status is at baseline. GCS: GCS eye subscore is 4. GCS verbal subscore is 5. GCS motor subscore is 6. Cranial Nerves: Facial asymmetry (right facial droop) present. Motor: Motor function is intact. Coordination: Coordination is intact. Gait: Gait is intact. Comments: Equal strength and ham stringer but generally weak. Psychiatric: Mood and Affect: Mood normal. Behavior: Behavior normal. Thought Content: Thought content normal. Judgment: Judgment normal. ASSESSMENT & PLAN: Medina Cox is a 59-year-old female presents to discuss with following. Problem List Items Addressed This Visit Chronic obstructive pulmonary disease, unspecified COPD type ([facility]) - Primary Other Visit Diagnoses Hospital discharge follow-up TIA (transient ischemic attack) Relevant Medications clopidogrel (PLAVIX) 75 MG tablet PLAN: 1. Medications/DME - Continue current medications. Will notify pt's windows consultant of pt's hospital stays and that pt is currently on Plavix now. 2. Lab/Diagnostics - None.Will recheck mag level d/t being low and unsure if tx in the hospital or not. 3. Education - discussed signs/symptoms to seek ER care. Highly encourage smoking cessation. 4. Referrals - None needed. Pt to follow up with cardio, neurology, and pulmonology. I will notify pt's neurologist that she was recently admitted and that she has an EEG scheduled tomorrow at [facility]. Pt has an apt with pulmonology coming up. Pt has a PFT ordered tomorrow as well she tells me. 5. RTC - 3 month(s) or sooner if needed NETTIE HODGES NP [facility] Cosigned by Ev Aguilar MD at 07/08/2024 3:44 PM CDT documented in this encounter Plan of Treatment Upcoming Encounters Date Type Department Care Team (Late st Contact Info) Description 08/12/2024 11:00 AM CDT [facility] [address] [facility], [address] [place] [phone] Gracy Blair APRN [address] [facility] [address] [place] [address] 09/16/2024 10:40 AM CDT Office Visit [facility] Orthopedic & Sports Medicine - [place] [address] [place] [address] Maurisio Jeong MD [address] [place] [address] 09/24/2024 10:00 AM CDT Office Visit [facility] [address] Paula Sanchez MD [address] [facility] [address] [place] [address] 10/13/2024 1:40 PM CDT [facility] [address] [facility], [address] [place] [phone] Shila Ruiz MD [address] [place] [address] 11/01/2024 1:20 PM CDT Office Visit [facility] - [place] [address] [facility] [facility] [address] [place] [address] Nettie Hodges NP [address] [place] [address] Scheduled Orders Name Type Priority Associated Diagnoses Orde r Schedule MAGNESIUM Lab Routine Hypomagnesemia Expected: 07/08/2024, Expires: 07/08/2025 documented as of this encounter Visit Diagnoses Diagnosis Chronic obstructive pulmonary disease, unspecified COPD type ([facility])- Primary Hospital discharge follow-up Other follow-up examination TIA (transient ischemic attack) Unspecified transient cerebral ischemia Hypomagnesemia Disorders of magnesium metabolism documented in this encounter Care Teams Prosthetic Aide Relationship Specialty Start Date End Date Nettie Hodges NP [address] [place] [address] [place] [address] PCP - General NURSE PRACTITIONER 09/10/21 documented as of this encounter
--- OUTSIDE RECORDS SUMMARY | 2024-07-09 10:41 | XMS_ITS | Encounter Summary ---
Author Organization [facility] Address [address] [place] [address] Care Team Providers Care Shellacker Name Role Phone Nettie Hodges NP Primary Care Provider [phone] Encounter Details Date Type Department Care Team (Latest Contact Info) Description 07/08/2024 Travel Social History Tobacco Use Types Packs/Day Years Used Date Smoking Tobacco: Every Day Cigarettes 0.3 61.2 Started: 06/04/1983; Last attempted to quit: 06/04/2023 Passive Smoke Exposure: Current Smokeless Tobacco: Never Alcohol Use Standard Drinks/Week Comments Yes 3.3 (1 standard drink = 0.6 oz p ure alcohol) rare beer [facility] Utilities Answer Date Recorded In the past 12 months has [facility] [employer]now [employer]), gas, oil, or water [employer] threatened to shut off services in your [...] any time in the past 12 m [facility], were you homeless or living in a group home (including now)? 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 Answer Date of Assessment Author Status No 07/03/2024 1:46 AM Lucita Arnold RN Active * Do you have serious difficulty walking or climbing stairs? Answer Date of Assessment Author Status No 07/03/2024 1:46 AM YUNIORT Lucita Jin RN Active * Do you have difficulty dressing or bathing? Answer Date of Assessment Author Status No 07/03/2024 1:46 AM YUNIORT Lucita Jin RN Active * Because of a physical, mental, or emotional condition, do you have difficulty doing errands alone such as visiting a doctor's office or shopping? Answer Date of Assessment Author Status No 07/03/2024 1:46 AM YUNIORT Lucita Jin RN Active documented as of this encounter [...] Description 08/12/2024 11:00 AM CDT Office Visit [facility] Medical [facility] Multispecialty Care - [facility] [address] [facility], [address] [place] [address] Gracy Blair APRN [address] [facility] [address] [place] [address] 09/16/2024 10:40 AM CDT Office Visit [facility] Orthopedic & Sports Medicine - [place] [address] [place] [address] Maurisio Jeong MD [address] [place] [address] 09/24/2024 10:00 AM CDT Office Visit [facility] [phone] Paula Sanchez MD [address] [facility] [address] [place] [address] 10/13/2024 1:40 PM CDT Office Visit [facility] Multispecialty Care - [facility] [address] [facility], [address] [facility] [place] [address] Shila Ruiz MD 3 [place] [address] 11/01/2024 1:20 PM CDT Office Visit [facility] Family Medicine - [place] [address] [facility] [address] [place] [address] Nettie Hodges NP [address] [place] [address] documented as of this encounter Visit Diagnoses Not on filedocumented in this encounter Care Teams Shellacker Relationship Specialty Start Date End Date Nettie Hodges NP [address] [place] [address] PCP - General NURSE PRACTITIONER 09/10/21 documented as of this encounter
--- OUTSIDE RECORDS SUMMARY | 2024-07-09 10:42 | XMS_ITS | Encounter Summary ---
Author Organization [facility] Address [facility] [place] [address] Care Team Providers Care Healthcare Management Consultant Name Role Phone Nettie Hodges NP Primary Care Provider [phone] Rosita Fuentes RN Unavailable [phone] Reason for Visit * Reason Comments MRI (SCAN) Encounter Details Date Type Department Care Team (Latest Contact Info) Description 06/30/2024 Scan HEALTH INFO SRVCS Scanned, Doc Med Group MRI (SCAN) Social History Tobacco Use Types Packs/Day Years Used Date Smoking Tobacco: Every Day Cigarettes 0.3 41.1 Started: 06/04/1983; Last attempted to quit: 06/04/2023 Passive Smoke Exposure: Current Smokeless Tobacco: Never Alcohol Use Standard Drinks/Week Comments Yes 3.3 (1 standard drink = 0.6 oz p ure alcohol) rare beer [facility] Utilities Answer Date Recorded In the past 12 months has [facility] [employer], gas, oil, or water [employer] threatened to shut off services in your [...] any time in the past 12 [facility], were you homeless or living in a [facility] (including now)? 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 Not on file [...] Description 08/12/2024 11:00 AM CDT [facility] [address] [facility], [address] [place] [phone] Gracy Blair APRN [address] [facility] [address] [place] [address] 09/16/2024 10:40 AM CDT Office Visit [facility] - [place] [address] [place] [address] Maurisio Jeong MD [address] [place] [address] 09/24/2024 10:00 AM CDT Office Visit [facility] [address] Paula Sanchez MD [address] [facility] [address] [place] [address] 10/13/2024 1:40 PM CDT [facility] [address] [facility], [address] [place] [address] Shila Ruiz MD 3 [place] [address] 11/01/2024 1:20 PM CDT Office Visit [facility] - [address] [facility] [address] [place] [address] Nettie Hodges NP [address] [place] [address] documented as of this encounter Procedures Procedure Name Priority Date/Time Associated Diagnosis Comments MRI GENERIC 06/30/2024 documented in this encounter Results * MRI GENERIC (06/30/2024) Anatomical Region Laterality Modality Other 06/30/2024 us Doc Med Group Scanned SCANNING Final Resu lt documented in this encounter Visit Diagnoses Not on filedocumented in this encounter Additional Health Concerns Infection Onset Date Last Indicated Resolved Time Respiratory Rule-Out 07/03/2024 07/03/2024 025 7:57 AM CDT documented as of this encounter Care Teams Healthcare Management Consultant Relationship Specialty Start Date End Date Nettie Hodges NP [address] [place] [address] PCP - General NURSE PRACTITIONER 09/10/21 Rosita Fuentes, RN [address] [place] [address] Taping Machine Operator (Ambulatory) REGISTERED NURSE 07/05/2407/05/24 documented as of this encounter
--- OUTSIDE RECORDS SUMMARY | 2024-07-09 10:42 | XMS_ITS | Clinical Summary ---
Author Organization [facility] Care Team Providers Care Maintenance Coordinator Name Role Phone Nettie Hodges MD Primary Care Provider [phone] Allergies No known active allergies Medications lisinopriL [...] 06/01/2024 Assessment & Plan (06/01/2024 2:11 PM SMASHER): This is persistent and severe. She has [...] 03/03/2024 Assessment & Plan (06/01/2024 2:07 PM SMASHER): Continue supplemental oxygen with sleep at 4 liters She is aware of the risks of both hypoxia and hypercapnia Assessment & Plan (03/03/2024 9:05 PM SMASHER): Continue supplemental oxygen with sleep Increase to 4 liters. We have discussed the risks of hypoxia. Obstructive sleep apnea 03/03/2024 Assessment & Plan (03/03/2024 9:10 PM SMASHER): We have had an extensive conversation about [...] 06/18/2023 Assessment & Plan (06/01/2024 2:08 PM SMASHER): Continue famotidine and omeprazole daily A continue to believe that GERD is a direct contributing factor to her persistent wheezing Keep follow up appointments with GI, I recommend manometry/pH testing Assessment & Plan (03/03/2024 9:06 PM SMASHER): Continue famotidine and omeprazole daily Although her [...] 06/18/2023 Assessment & Plan (06/01/2024 2:09 PM SMASHER): This is chronic, persistent, and unrelieved by inhaled therapy and prednisone She is on maximum inhaled therapy I continue to recommend further GI workup Assessment & Plan (03/03/2024 9:09 PM SMASHER): This is chronic, persistent, and unrelieved by [...] 06/18/2023 Assessment & Plan (06/01/2024 2:08 PM SMASHER): - Smoking cessation counseling and techniques reviewed at length - Avoid triggers and use distraction techniques - She is aware of the [place] Tobacco Quit line: 3-188-YQKW-YES for free services - 5 minutes spent discussing cessation She is pre-contemplative, I have encouraged her to cut back and she is aware that her symptoms will likely continue to worsen as long as she is actively smoking Her annual lung cancer screening is due this month I have placed an order and she will schedule this at [facility] Assessment & Plan (03/03/2024 9:07 PM SMASHER): - Smoking cessation counseling and techniques reviewed at length - Avoid triggers and use distraction techniques - She is aware of the [place] Tobacco Quit line: 9-290-LSFJ-YES for free services - 5 minutes spent discussing cessation She is pre-contemplative, I have encouraged her to cut back Assessment & Plan (10/16/2023 11:08 PM CDT): - Smoking cessation counseling and techniques reviewed at length - Avoid triggers and use distraction techniques - She is aware of the [place] Tobacco Quit line: 8-447-PAZJ-YES for free services - 3 minutes spent discussing cessation Assessment & Plan (08/22/2023 1:40 PM CDT): - Smoking cessation counseling and techniques reviewed at length - Avoid triggers and use distraction techniques - Participate in support groups - Information given regarding [place] Tobacco Quit line: 4-288-IOYT-YES for free services 3 minutes spent discussing cessation Assessment & Plan (06/18/2023 3:43 PM CDT): - Smoking cessation counseling and techniques reviewed at length - Avoid triggers and use distraction techniques - Participate in support groups - Information given regarding [place] Tobacco Quit line: 5-132-AZHH-YES for free services 4 minutes spent discussing cessation COPD exacerbation 06/02/2023 Chronic obstructive pulmonary disease 11/28/2020 Assessment & Plan (06/01/2024 2:06 PM SMASHER): Continue Breztri 2 puffs twice daily with [...] rehab Assessment & Plan (03/03/2024 9:05 PM SMASHER): Continue Breztri 2 puffs twice daily. I [...] Encounters Date Type Department Care Team Description 07/06/2024 Orders Only [facility] Medical [facility] Cardiology [address] [place] [phone] Delia Barrera MD 06/23/2024 Telephone [facility] Pulmonary at [address] [place] [address] Sri Atkinson LPN 06/01/2024 9:30 AM SMASHER Office Visit [facility] Pulmonary at [address] [place] [address] Betsey Lyon, EARL Chronic respiratory failure with hypoxia, on home O2 therapy (HCC) (Primary Dx); Centrilobular emphysema (HCC); Gastroesophageal reflux disease, unspecified whether esophagitis present; Dyspnea on exertion; Wheezing; Nicotine dependence, cigarettes, uncomplicated 06/01/2024 Telephone [facility] Medical [facility] Pulmonary at [address] [place] [address] Erin Felder LPN Faxed orders [...] Date Smoking Tobacco: Every Day Cigarettes 0.5 48.3 Started: 1978 Passive Smoke Exposure: Current Tobacco [...] on file Legal Sex Female 12:55 AM SMASHER Gender Identity Not on file Sexual Orientation Not on file Obstetrics History Last Filed Vital Signs Vital Sign Reading Time Taken Comments Blood Pressure 118/62 06/01/2024 9:09 AM SMASHER Pulse 81 06/01/2024 9:09 AM SMASHER Temperature 36.3 C (97.3 F) 06/01/2024 9:09 AM SMASHER Respiratory Rate 18 06/01/2024 9:09 AM SMASHER Oxygen Saturation 94% 06/01/2024 9:09 AM SMASHER Inhaled Oxygen Concentration - - Weight 94 kg (207 lb 3.2 oz) 06/01/2024 9:09 AM SMASHER Height 152.4 cm (5') 06/01/2024 9:09 AM SMASHER Body Mass Index 40.47 06/01/2024 9:09 AM SMASHER Plan of Treatment Health Maintenance Due Date [...] Cancer Screening-Mammogram 04/19/2023 023, 04/19/2022 Covid-19 Vaccine (4 - 2023-2 5 season) 2023 03/15/2021, 07/21/2020, 06/30/2020 Influenza Vaccine Completed 12/31/2023, , 12/07/2021, Additional history exists Procedures Procedure Name Priority Date/Time Associated Diagnosis Comments CARDIOLOGY DOCUMENT SCAN Routine 06/30/2024 2:37 PM CDT from Last 3 Months Results * Cardiology Document Scan (06/30/2024 2:37 PM CDT) Anatomical Region Laterality Modality Other us Ripa Nima Barrera MD CV CARDIAC SERVICES PRO CEDURES Final Result from Last 3 Months Insurance FRANCISCO DOSHI [id number] MEDICARE [facility] Advance Directives For more information, please contact: [phone] * Full Code (Latest Code Status on File) Date Activated Date Inactivated Comments 06/02/2023 9:46 PM 06/04/2023 4:04 PM Healthcare Agents on File Name Relationship Healthcare Agent Ferdinandtn p Communication Tnony Cox Spouse Health Care Agent Belkys Guzmán Sister First Alternate Health Care Agent Care Teams Maintenance Coordinator Relationship Specialty Start Date End Date Nettie Hodges MD PCP - General Nurse Practitioner 02/25/23
--- OUTSIDE RECORDS SUMMARY | 2024-07-09 10:42 | XMS_ITS | CONTINUITY OF CARE DOCUMENT ---
Author Name fawn augustine Address Unknown Organization [facility] Address [address] [facility] [address] [place] [address] Phone [phone] Care Team Providers Care Fixture Repairer Fabricator Name Role Phone Steve Cordova MD Unavailable MANSI GAYTAN Unavailable MANSI GAYTAN Unavailable [phone] PROBLEMS Condition Status Date Provider Notes Family [...] In-person encounter Office Visit Steve Cordova MD [place] [facility] 2 - 2 In-person encounter Office Visit Steve Cordova MD [place] [facility] 2 - 3 In-person encounter Office Visit Steve Cordova MD [place] [facility] Family History of Hypertension:Family History of Hypertension:Cardiology examinationSevere COPDShortness of breathSLEEP APNEA 1 - 2 In-person encounter Office Visit Dion Adame MD [place] [facility] 3 - 3 In-person encounter Office Visit Dion Adame MD [place] [facility] AsthmaSevere COPDHyperlipidemiaHypertensionChest pain-type to be determined VITAL SIGNS Date Observation Value Provider Body Mass Index (Ratio) 32.81 kg/m2 Sammi Cordova MD Inhaled O2 2 L/min [facility] blood pressure, resting Yes [facility] blood pressure, cuff size regular [facility] blood pressure, diastolic 80 mm[Hg] [facility] blood pressure, systolic 140 mm[Hg] [facility] oxygen saturation, oximetry 96 % [facility] pulse rate 80 /min [facility] respiratory rate E&M 18 /min [facility] weight E&M 168 [lb_av] [facility] height E&M 60 [in_i] [facility] Body Mass Index (Ratio) 33.20 kg/m2 Sammi Cordova MD blood pressure, cuff size regular Ke rri Kendallambreen blood pressure, diastolic 80 mm[Hg] [facility] blood [facility], systolic 146 mm[Hg] Galileo Sheets oxygen saturation, oximetry 92 % Diana Sheets respiratory rate E&M 16 /min Diana guerra pulse rate 73 /min Diana soto weight E&M 170 [lb_av] Diana Martinez [facility] height E&M 60 [in_i] Diana Martinez [facility] blood pressure, resting Yes [place] Body Mass Index (Ratio) 32.61 kg/m2 [place] blood pressure, cuff size large Ke [facility] blood pressure, diastolic 96 mm[Hg] Contreras rri [facility] blood pressure, systolic 170 mm[Hg] Galileo [facility] oxygen saturation, oximetry 90 % Diana Sudeep respiratory rate E&M 18 /min Diana Mabry charlie pulse rate 78 /min Diana Martinez [facility] weight E&M 167 [lb_av] Diana Weavernicolás [facility] height E&M 60 [in_i] Daina Martinez [facility] Body Mass Index (Ratio) 32.22 kg/m2 Mahad [...] High 0 cholesterol, serum 196 mg/dL [employer] [id number] 0807/03/1 7 LDL cholesterol, serum 94 mg/dL Garry [...] Provider social history E&M Marital Statu s: Kalia odalis: 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 mo nish willis fromCOPAna María Cordova MD [id number],S,u nchanged, minimal epicardial disease, microvascualer or secondary [...] Follow up :Had sleep study via her manager underwriting. Steve Cordova MD Cardiology Follow up :Per [...]
--- OUTSIDE RECORDS SUMMARY | 2024-07-09 10:42 | XMS_ITS | Clinical Summary ---
Author Organization [facility] [employer] Address [address] [place] [address] Care Team Providers Care Chief Safety Officer Name Role Phone Fabian Elizabeth RFID DEVELOPER-UNIT CONTROL WORKER Primary Care Provider Source Comments [facility] [employer],non-owned Affiliates and Associated Physician Practices is amultiple site organization consisting of ambulatory clinics and hospital sitesin [place], [place], [place] and [place]. This disclosure is being madepursuant to the Care Everywhere program and may not contain all information available regarding this patient. Last updated 17.[employer] Allergies No known active allergies Medications * [...] CDT) BUN 9 7 - 26 mg/dL [facility] Creatinine 0.7 0.6 - 1.2 mg/dL [facility] Sodium 140 136 - 145 mmol/L [facility] Potassium 3.6 3.5 - 4.5 mmol/L [facility] Chloride 107 98 - 107 mmol/L [facility] CO2 28 22 - 29 mmol/L [facility] Glucose 85 70 - 115 mg/dL [facility] Calcium 8.3(L) 8.4 - 10.2 mg/dL [facility] Protein Total 4.8(L) 6.0 - 8.3 g/dL [facility] Albumin 2.7(L) 3.4 - 5.0 g/dL [facility] Bilirubin Total 0.3 0.2 - 1.2 mg/dL [facility] Alkaline Phosphatase 79 40 - 150 Units/L [facility] ALT 7 0 - 55 Units/L [facility] AST 12 5 - 34 Units/L [facility] Anion Gap 9 8 - 18 [facility] BUN/Creatinine Ratio 13 7 - 23 [facility] Osmolality Calculated 273 270 - 300 mOsm/kg [facility] Albumin/Globulin Ratio 1.3 1.1 - 2.3 [facility] eGFR >60 >60 mL/min/1.7 3 m2 [facility] Blood specimen (specimen) BLOOD SPECIMEN / Unknown 01/15/2014 5:30 AM CDT 01/15/2014 5:40 AM CDT aTmi Beard MD LAB - CHEMISTRY ESHA MILLAN [facility] [address] [phone] from Last 3 Months or Most Recently Relevant to Health Maintenance Care Teams Chief Safety Officer Relationship Specialty Start Date End Date Fabian Elizabeth, RFID DEVELOPER-UNIT CONTROL WORKER [address] [place] [address] PCP - General 08/18/20
--- OUTSIDE RECORDS SUMMARY | 2024-07-09 10:42 | XMS_ITS | Referral Summary ---
Author Organization [facility] Care Team Providers Care Drum Sander Setter Name Role Phone Nettie Hodges MD Primary Care Provider [phone] Encounters Date Type Department Care Team Description 07/06/2024 Orders Only [facility] Cardiology [address] [facility] [place] [address] Delia Barrera MD 06/23/2024 Telephone [facility] Pulmonary at [address] [place] [phone] Sri Atkinson LPN 06/01/2024 Telephone [facility] Pulmonary at [address] [place] [address] Erin Felder LPN Faxed orders to [facility] 06/01/2024 9:30 AM TUNNEL FORM PLACING SUPERVISOR Office Visit [facility] Pulmonary at [address] [place] [phone] Betsey Lyon NP Chronic respiratory failure with [...] sprays into each nostril daily 16 g 4 Active furosemide (LASIX) 40 mg tablet [...] skin every 14 (fourteen) days 4 mL 4 Active budesonide-glyc opyr-formoterol (Breztri Aerosphere) 160-9-4.8 mcg/actuation inhalerIndicati ons:Chronic bronchitis, unspecified chronic bronchitis type (HCC) INHALE 2 PUFFS BY MOUTH TWICE DAILY RINSE AND SPIT AFTER USE-USE WITH AEROCHAMBER 5 Active Active Problems Problem Noted Date Diagnosed Date Dyspnea on exertion 06/01/2024 Assessment & Plan (06/01/2024 2:11 PM TUNNEL FORM PLACING SUPERVISOR): This is persistent and severe. She [...] 03/03/2024 Assessment & Plan (06/01/2024 2:07 PM TUNNEL FORM PLACING SUPERVISOR): Continue supplemental oxygen with sleep at 4 liters She is aware of the risks of both hypoxia and hypercapnia Assessment & Plan (03/03/2024 9:05 PM TUNNEL FORM PLACING SUPERVISOR): Continue supplemental oxygen with sleep Increase to 4 liters. We have discussed the risks of hypoxia. Obstructive sleep apnea 03/03/2024 Assessment & Plan (03/03/2024 9:10 PM TUNNEL FORM PLACING SUPERVISOR): We have had an extensive conversation [...] 06/18/2023 Assessment & Plan (06/01/2024 2:08 PM TUNNEL FORM PLACING SUPERVISOR): Continue famotidine and omeprazole daily A continue to believe that GERD is a direct contributing factor to her persistent wheezing Keep follow up appointments with GI, I recommend manometry/pH testing Assessment & Plan (03/03/2024 9:06 PM TUNNEL FORM PLACING SUPERVISOR): Continue famotidine and omeprazole daily Although [...] 06/18/2023 Assessment & Plan (06/01/2024 2:09 PM TUNNEL FORM PLACING SUPERVISOR): This is chronic, persistent, and unrelieved by inhaled therapy and prednisone She is on maximum inhaled therapy I continue to recommend further GI workup Assessment & Plan (03/03/2024 9:09 PM TUNNEL FORM PLACING SUPERVISOR): This is chronic, persistent, and unrelieved [...] 06/18/2023 Assessment & Plan (06/01/2024 2:08 PM TUNNEL FORM PLACING SUPERVISOR): - Smoking cessation counseling and techniques reviewed at length - Avoid triggers and use distraction techniques - She is aware of the [place] Tobacco Quit line: 7-942-YKHH-YES for free services - 5 minutes spent discussing cessation She is pre-contemplative, I have encouraged her to cut back and she is aware that her symptoms will likely continue to worsen as long as she is actively smoking Her annual lung cancer screening is due this month I have placed an order and she will schedule this at [facility] Assessment & Plan (03/03/2024 9:07 PM TUNNEL FORM PLACING SUPERVISOR): - Smoking cessation counseling and techniques reviewed at length - Avoid triggers and use distraction techniques - She is aware of the [place] Tobacco Quit line: 9-248-RFUF-YES for free services - 5 minutes spent discussing cessation She is pre-contemplative, I have encouraged her to cut back Assessment & Plan (10/16/2023 11:08 PM CDT): - Smoking cessation counseling and techniques reviewed at length - Avoid triggers and use distraction techniques - She is aware of the [place] Tobacco Quit line: 7-087-JXAZ-YES for free services - 3 minutes spent discussing cessation Assessment & Plan (08/22/2023 1:40 PM CDT): - Smoking cessation counseling and techniques reviewed at length - Avoid triggers and use distraction techniques - Participate in support groups - Information given regarding [place] Tobacco Quit line: 7-297-RFQD-YES for free services 3 minutes spent discussing cessation Assessment & Plan (06/18/2023 3:43 PM CDT): - Smoking cessation counseling and techniques reviewed at length - Avoid triggers and use distraction techniques - Participate in support groups - Information given regarding [place] Tobacco Quit line: 8-201-XCZE-YES for free services 4 minutes spent discussing cessation COPD exacerbation 06/02/2023 Chronic obstructive pulmonary disease 11/28/2020 Assessment & Plan (06/01/2024 2:06 PM TUNNEL FORM PLACING SUPERVISOR): Continue Breztri 2 puffs twice daily [...] rehab Assessment & Plan (03/03/2024 9:05 PM TUNNEL FORM PLACING SUPERVISOR): Continue Breztri 2 puffs twice daily. [...] on file Legal Sex Female 12:55 AM TUNNEL FORM PLACING SUPERVISOR Gender Identity Not on file Sexual Orientation Not on file Last Filed Vital Signs Vital Sign Reading Time Taken Comments Blood Pressure 118/62 06/01/2024 9:09 AM TUNNEL FORM PLACING SUPERVISOR Pulse 81 06/01/2024 9:09 AM TUNNEL FORM PLACING SUPERVISOR Temperature 36.3 C (97.3 F) 06/01/2024 9:09 AM TUNNEL FORM PLACING SUPERVISOR Respiratory Rate 18 06/01/2024 9:09 AM TUNNEL FORM PLACING SUPERVISOR Oxygen Saturation 94% 06/01/2024 9:09 AM TUNNEL FORM PLACING SUPERVISOR Inhaled Oxygen Concentration - - Weight 94 kg (207 lb 3.2 oz) 06/01/2024 9:09 AM TUNNEL FORM PLACING SUPERVISOR Height 152.4 cm (5') 06/01/2024 9:09 AM TUNNEL FORM PLACING SUPERVISOR Body Mass Index 40.47 06/01/2024 9:09 AM TUNNEL FORM PLACING SUPERVISOR Plan of Treatment Not on file Procedures Procedure Name Priority Date/Time Associated Diagnosis Comments CARDIOLOGY DOCUMENT SCAN Routine 06/30/2024 2:37 PM CDT from Last 3 Months Results * Cardiology Document Scan (06/30/2024 2:37 PM CDT) Anatomical Region Laterality Modality Other us [facility] Nima Barrera MD CV CARDIAC SERVICES PRO CEDURES Final Result from Last 3 Months Insurance IDPA Advance Directives For more information, please contact: [phone] * Full Code (Latest Code Status on File) Date Activated Date Inactivated Comments 06/02/2023 9:46 PM 06/04/2023 4:04 PM Healthcare Agents on File Name Relationship Healthcare Agent Relationshi p Communication Tonny Cox Spouse Health Care Agent Belkys Guzmán Sister First Alternate Health Care Agent Care Teams Drum Sander Setter Relationship Specialty Start Date End Date Nettie Hodges MD PCP - General Nurse Practitioner 02/25/23
--- OUTSIDE RECORDS SUMMARY | 2024-07-09 10:42 | XMS_ITS | Encounter Summary ---
Author Organization [facility] Address Formerly [facility] [place] [address] Care Team Providers Care Piping Supervisor Name Role Phone Nettie Hodges NP Primary Care Provider [phone] Rosita Fuentes RN Unavailable [phone] Reason for Referral * Surgical (Routine) - Closed Specialty Diagnoses / Procedures Referred By Gerardo dowling Referred To Contact Procedures Case request operating room: INJECTION SI JOINT Naida Gaines MD [address] [facility] [address] [place] [address] Phone: tel: fax: Referral ID Status Reason Start Date Expiration Date Visits Re quested Visits Authorized [id number] Closed 11/26/2017 12/27/2018 1 1 Encounter Details Date Type Department Care Team (Late st Contact Info) Description 11/26/2017 Prep for Procedure [facility] [place], [place] [id number] Naida Gaines MD [address] [facility] [address] [place] [address] [id number] Social History Tobacco Use Types Packs/Day Years [...] Sex Assigned at Female 04/26/2024 7:07 AM SWITCHBOARD MANAGER Legal Sex Female 2:16 PM SWITCHBOARD MANAGER Gender Identity Female 04/26/2024 9:06 AM SWITCHBOARD MANAGER Sexual Orientation Straight 04/26/2024 1: 33 PM SWITCHBOARD MANAGER 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 Not on file Not on file documented as of this encounter Plan of Treatment Upcoming Encounters Date Type Department Care Team (Late st Contact Info) Description 08/12/2024 11:00 AM CDT [facility] [address], [address] [place] [address] Gracy Blair APRN [address] [facility] [address] [place] [address] 09/16/2024 10:40 AM CDT Office Visit [facility] Medicine - [place] [address] [place] [address] Maurisio Jeong MD [address] [place] [address] 09/24/2024 10:00 AM CDT Office Visit [facility] [phone] Paula Sanchez MD Three [facility] [address] [place] [address] 10/13/2024 1:40 PM CDT [facility] - [address], [address] [place] [address] Shila Ruiz MD [address] [place] [address] 11/01/2024 1:20 PM CDT Office Visit [facility] Family Medicine - [place] [address] [facility] [address] [place] [address] Nettie Hodges NP [address] [place] [address] documented as of this encounter Visit Diagnoses Not on filedocumented in this encounter Additional Health Concerns Infection Onset Date Last Indicated Resolved Time COVID-19 Rule Out 04/03/2022 04/03/2022 04/03/2022 11:18 AM SWITCHBOARD MANAGER Respiratory Rule-Out 07/03/2024 07/03/2024 025 7:57 AM CDT documented as of this encounter Care Teams Piping Supervisor Relationship Specialty Start Date End Date Nettie Hodges NP [address] [place] [address] PCP - General NURSE PRACTITIONER 09/10/21 Rosita Fuentes, RN [address] [place] [address] Senior Database Administrator (Ambulatory) REGISTERED NURSE 07/05/2407/05/24 documented as of this encounter
--- OUTSIDE RECORDS SUMMARY | 2024-07-09 10:42 | XMS_ITS | Encounter Summary ---
Author Organization [facility] Address [address] [place] [address] Care Team Providers Care Panel Fitter Name Role Phone Nettie Hodges NP Primary Care Provider [phone] Rosita Fuentes RN Unavailable [phone] Encounter Details Date Type Department Care Team (Late st Contact Info) Description 09/25/2022 Socializr Message Enc [facility] [address] [address] [employer], [facility] Provider Air Quality Message Social History Tobacco [...] Sex Assigned at Female 04/26/2024 7:07 AM AUTOMOBILE DAMAGE FIELD APPRAISER Legal Sex Female 2:16 PM AUTOMOBILE DAMAGE FIELD APPRAISER Gender Identity Female 04/26/2024 9:06 AM AUTOMOBILE DAMAGE FIELD APPRAISER Sexual Orientation Straight 04/26/2024 1: 33 PM AUTOMOBILE DAMAGE FIELD APPRAISER 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, [address] [place] [phone] Gracy Blair APRN [address] [facility] [address] [place] [address] 09/16/2024 10:40 AM CDT Office Visit [facility] Orthopedic & Sports Medicine - [place] [address] [place] [address] Maurisio Jeong MD [address] [place] [address] 09/24/2024 10:00 AM CDT Office Visit [facility]-[address] [phone] Paula Sanchez MD [address] [facility] [address] [place] [address] 10/13/2024 1:40 PM CDT [facility] [address] [facility], [address] [place] [phone] Shila Ruiz MD [address] [place] [address] 11/01/2024 1:20 PM CDT Office Visit [facility] Family Medicine - [address] [facility] [address] [place] [address] Nettie Hodges NP [address] [place] [address] documented as of this encounter Visit Diagnoses Not on filedocumented in this encounter Additional Health Concerns Infection Onset Date Last Indicated Resolved Time Respiratory Rule-Out 07/03/2024 07/03/2024 025 7:57 AM CDT documented as of this encounter Care Teams Panel Fitter Relationship Specialty Start Date End Date Nettie Hodges NP [address] [place] [address] PCP - General NURSE PRACTITIONER 09/10/21 Rosita Fuentes, RN [address] [place], [place] [address] Correctional Therapy Teacher (Ambulatory) REGISTERED NURSE 07/05/2407/05/24 documented as of this encounter
--- OUTSIDE RECORDS SUMMARY | 2024-07-09 10:42 | XMS_ITS | Data Portability ---
Author Organization [facility] Address [address] [place] [address] Assessment No assessment recorded. Plan of Treatment Reminders Order Date Submit Date Provider Last Modified By Organization Details Last Modified Time Details Appointments None recorded . Lab None recorded . Referral sleep medicine referral 2021 ANTHONY Boogie MD, [address] [place], [address], 16:10:[address] referral - Plantar fasciiti s . Please eval and treat . Thank you 2021 022 ATHENAFAX Not available 11:35:09 orthoped ic surgeon referral - bilatera l knee pain . PLease eval and treat . Thank you 2020 021 [facility], [address] [facility], [place], [address], 09:27:30 Procedures None recorded . Surgeries None recorded . Imaging MAMMO, screenin g, digital, bilatera l 2020 021 [facility] ([facility]), [address] [place], [address], 11:22:41 Medication Orders amitript yline 100 mg tablet 2021 [facility], [address] [facility], [place], [address], 15:32:32 albutero l sulfate HFA 90 mcg/actu ation aerosol inhaler 2021 [facility], [address] [place], [address], 2 15:32:41 predniso ne 20 mg tablet 2021 [facility], [address] [place] [address], [address], 2 15:32:43 Symbicor t 160 mcg-4.5 mcg/actu ation HFA aerosol inhaler 2021 [facility], [address] [place] [address], [address], 15:32:45 Pennsaid 20 mg/gram/ actuatio n (2 %) topical soln in metered- dose pump 2021 [place] [address] [facility], [address] [place] [address], [id number], 15:38:32 lisinopr il 20 mg-hydro chloroth iazide 12.5 mg tablet 2021 [facility], [address] [place] [address], [address], 15:36:22 omeprazo le 20 mg capsule, delayed release 2021 [facility], [address] [place] [address], [address], 2 15:30:50 benzonat ate 200 mg capsule 2021 [facility], [address] [place] [address], [address], 01/03/202 2 14:50:21 amoxicil manjinder 875 mg-potas sium clavulan ate 125 mg tablet 2021 [facility], [address] [place] [address], [address], 15:18:32 cycloben zaprine 10 mg tablet 2021 [facility], [address] [place] [address], [address], 14:50:17 predniso ne 20 mg tablet 2021 [facility], [address] [place] [address], [address], 14:50:20 cycloben zaprine 10 mg tablet 2020 [facility], [address] [place] [address], [address], 13:01:46 Symbicor t 160 mcg-4.5 mcg/actu ation HFA aerosol inhaler 2020 [facility], [address] [place] [address], [address], 13:00:13 loratadi ne 10 mg tablet 2020 [facility], [address] [place] [address], [address], 13:00:11 monteluk ast 10 mg tablet 2020 [facility], [address] [place] [address], [address], 13:00:41 ciproflo xacin 500 mg tablet 2020 021 adriel [facility], [address] [place], [address], 12:18:07 predniso ne 20 mg tablet 2020 021 ARNALDO [facility], [address] [place], [address], 12:43:40 Patient TargetsNo targets recorded. Patient Instructions Encounter Date Encounter Id Patient Instructions Last Modified By Organization Details Last Modified Time 07/03/2021 [id number] waalk-in here in 7 days for free Danuta [email or web address] Not available 07/05/2021 15:14:52 Reason for Referral Orthopedic Surgeon Referral for Pain in right knee bilateral knee pain . PLease eval and treat . 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 Please eval and treat . Thank you Referring Physician: [facility], Encounter Date: 07/03/2021 Sleep Medicine Referral for Sleep apnea Referring Physician: [facility], Encounter Date: 07/03/2021 Results Created Date Observation Date Name Description Value Unit Range Abnormal Flag Note LastModifiedBy Organization Detail LastModifiedTime 12/15/1912/14/2020 XR, chest No observ ation record ed. [email or web address] [facility] [address] [place], [address], 12/27/2020 15:10:40 01/31/20 21 12/14/2020 XR, chest No observ ation record ed. [facility] [address] [place], [address], 02/02/2021 10:56:17 01/31/20 21 01/30/2021 XR, chest , 2 view No observ ation record ed. [facility] [address] [place], [address], 02/02/2021 10:56:22 03/05/20 21 03/05/2021 MAMMO , scree leola, digit al, bilat eral No observ ation record ed. [facility] [address] [place], [address], 04/02/2021 16:58:25 03/13/20 21 03/13/2021 MRI, knee, w/o contr ast No observ ation record ed. [facility] [address] [place], [address], 05/11/2021 13:14:37 03/29/20 21 03/29/2021 nellie gonzalez ow study No observ ation record ed. [facility] [address] [place], [address], 05/11/2021 13:15:17 05/26/19 22 05/26/2021 XR, chest No observ ation record ed. [facility] [address] [place], [address], 06/27/2021 14:50:26 05/26/19 22 05/26/2021 CT, abdom en + pelvi s, w/ contr ast No observ ation record ed. [facility] [address] [place], [address], 06/27/2021 14:19:30 06/15/19 22 06/14/2021 LDCT, chest , for lung cance r von bhgaat No observ ation record ed. [facility] [address] [place], [address], 07/03/2021 10:27:14 06/29/19 22 06/28/2021 US, head + neck, soft tissu e No observ ation record ed. [email or web address] [facility] [address] [place], [address], 07/03/2021 09:23:13 06/29/19 22 06/28/2021 CT, maxil lofac ial, w/o contr ast No observ ation record ed. [email or web address] [facility] [address] [place], [address], 07/03/2021 10:23:31 Result Notes None recorded. Problems Name Problem SNOMED Code Status Onset Date Resolution Date Notes Provider Name and Address Organization Details Recorded Time Migraine 71358882 Active 2017 Not Available [facility] 2 15:38:22 Prolapsed lumbar interverte bral disc 260858853 Active 2017 Not Available [facility] 2 15:38:21 Neck pain 90846267 Active 2017 Not Available [facility] 2 15:38:22 Essential hypertensi on 06437725 Active Not Available [facility] 2 15:38:22 Insomnia 296148357 Active Not Available [facility] 2 15:38:22 Pleurisy 711408475 Active Not Available [facility] 2 15:38:21 Chronic obstructiv e pulmonary disease 85731506 Active see PFTs 2019 Not Available [facility] 2 15:38:22 Pain in right knee Active 2018 Not Available [facility] 2 15:38:21 Serum vitamin B12 below reference range 999662924 Active 2018 Not Available [facility] 2 15:38:22 Hyperlipid emia 07785202 Active 2018 Not Available [facility] 2 15:38:22 Acute sinusitis 70163522 Active 2018 Not Available [facility] 2 15:38:22 Herpes labialis 4086596 Active 2018 Not Available [facility] 2 15:38:22 Sleep apnea 26437786 Active 2018 Not Available [facility] 2 15:38:22 Aphthous ulcer of mouth 072712306 Active 2019 Not Available [facility] 2 15:38:21 Lower abdominal pain 28179680 Active 2019 Not Available [facility] 2 15:38:21 Acute pharyngiti s 024449762 Active 2019 Not Available [facility] 2 15:38:21 Allergic rhinitis 37415172 Active 2019 Not Available [facility] 2 15:38:22 Neck swelling 884224828 Active 2019 Not Available [facility] 2 15:38:22 Pain in left knee Active 2019 Not Available [facility] 2 15:38:22 Administra tion of influenza vaccine Active 2019 Not Available [facility] 2 15:38:22 Screening for malignant neoplasm of colon Active 2020 Not Available [facility] 2 15:38:22 Hemorrhoid s 18439094 Active 2020 Not Available [facility] 2 15:38:21 Pain in left foot 9411322578423 07 Active 2020 Not Available [facility] 2 15:38:22 Upper respirator y infection 04752692 Active 2020 Not Available [facility] 2 15:38:21 Chronic thoracic back pain 5366760332756 03 Active 2020 Not Available [facility] 2 15:38:22 Screening for malignant neoplasm of breast Active 2020 Not Available [facility] 2 15:38:22 Wheezing 58371776 Active 2021 Not Available [facility] 2 15:38:22 Plantar fasciitis 233707671 Active 2021 Not Available [facility] 2 15:38:22 Bronchitis 16628568 Active Not Available [facility] 2 15:38:21 Low back pain 726230952 Active Not Available [facility] 2 15:38:21 Eczema 71480846 Active Not Available [facility] 2 15:38:22 Acute urinary tract infection 019884837 Active Not Available [facility] 2 15:38:21 Right upper quadrant pain 588450174 Active Not Available [facility] 2 15:38:22 Snoring 09837268 Active Not Available [facility] 2 15:38:22 Gastroesop hageal reflux disease 602854970 Active Not Available [facility] 2 15:38:22 Shoulder pain 69675263 Active Not Available [facility] 2 15:38:22 Bacterial vaginosis 625215908 Active Not Available [facility] 2 15:38:22 Sexual desire disorder 96140519 Active Not Available [facility] 2 15:38:22 Sinusitis 87431314 Active Not Available [facility] 2 15:38:22 Sialoadeni tis 40320462 Active Not Available [facility] 2 15:38:21 Problem Notes None recorded. Procedures [...] 83 Caesarean Section completed Yecenia Deluca MA [facility] 03/13/2015 15:06:04 Imaging Results Imaging Date Name Status LastModified by Organiz ation Details LastModified Time 12/14/2020 XR, chest completed [email or web address] [facility] [address] [place], [address], 12/27/2020 15:10:40 12/14/2020 XR, chest completed [facility] [address] [place], [address], 02/02/2021 10:56:17 01/30/2021 XR, chest, 2 view completed [facility] [address] [place], [address], 02/02/2021 10:56:22 03/05/2021 MAMMO, screening, digital, bilateral completed [facility] [address] [place], [address], 04/02/2021 16:58:25 03/13/2021 MRI, knee, w/o contrast completed [facility] [address] [place], [address], 05/11/2021 13:14:37 03/29/2021 barium swallow study completed [facility] [address] [place], [address], 05/11/2021 13:15:17 05/26/2021 XR, chest completed [facility] [address] [place], [address], 06/27/2021 14:50:26 05/26/2021 CT, abdomen + pelvis, w/ contrast completed [facility] [address] [place], [address], 06/27/2021 14:19:30 06/14/2021 LDCT, chest, for lung cancer screening completed [facility] [address] [place], [address], 07/03/2021 10:27:14 06/28/2021 US, head + neck, soft tissue completed [email or web address] [facility] [address] [place], [address], 07/03/2021 09:23:13 06/28/2021 CT, maxillofacial, w/o contrast completed [facility] [address] [place], [address], 07/03/2021 10:23:31 Procedure Notes None recorded. Medical Equipment None Reported. Allergies Allergen ID Allergen Name Allergen Category Reaction Reaction Severity Criticality Documentation Date Start Date Code Code System Note Provider Name and Address Organization Details Recorded Time 816590 Pneumococ gregorio vaccine Not available Not available Not available Not available 06/30/2018 76034 7 RxNorm Not Available Not Available Not [...] Updated DateTime 1 151.13 cm 32.8 kg/m2 49716.7 4 g 97 % 97 % 84 [...] Updated DateTime 2 151.13 cm 34.4 kg/m2 92017.9 2 g 98 % 98 % 87 [...] Updated DateTime 2 151.13 cm 35.3 kg/m2 25617.7 2 g 95 % 95 % 80 /min 98.4 [degF] 140 mm[Hg] 72 mm[Hg] Jessica Tipton [place] [facility] 2 15:23:29 Date Recorded Body height Body mass index (BMI) Body weight Oxygen saturation Oxygen saturation in Arterial blood by Pulse oximetry Heart rate Systolic blood pressure Diastolic blood pressure Provider Name and Address Organization Details Last Updated DateTime 2 151.13 cm 36.4 kg/m2 95889.8 3 g 96 % 96 % 85 /min 148 mm[Hg] 96 mm[Hg] Jessica Tipton [place] [facility] 2 14:47:59 Social History Question Answer Notes LastModified by Organizat ion Details LastModified Time Tobacco Smoking Status Former Smoker 07/01/19 19 quit 01/2018 Jessica Tipton MA null, [place] [facility] 06/30/2018 16:56:48 Do You Have [...] 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 [id number] Information not available 08/07/2020 Do You Use [...] History Condition Response Coronary Artery Disease N Blood Diseases N Kidney Cyst N Hyperthyroidism N Blood Transfusion N MRSA N Blood disorders N Emphysema N COPD Y Blood Clots N Depression N Pneumonia N Peripheral Arterial Disease N Premature N Edema N TIA N Headaches/Migraines N [...] Hospitalizations N Brain Tumors N Acne N Eating Disorder N Skin Problems N Constipation N Meningitis N Tuberculosis N Cerebral Palsy N Myocardial Infarction N Asthma Y Substance Abuse N Peripheral Vascular Disease N Vertigo N Sleep Disorder N Cirrhosis N Pulmonary Embolism N Chicken Pox N Fl[place]ax Use Past or Present N Hematologic Disease N Anxiety/Depression N Thyroid Disease N Colon Cancer N Glaucoma N Lung Disease N Developmental or Behavioral Disorders N Bipolar N Pacemaker N Diverticulitis/Diverticulosis N Anesthesia Complications N Orthopedic Problems N Orthotics N Head Injury/Concussion N Congenital Anomalies N Larry Bite N Chronic Kidney Disease N Endometriosis N Liver Disease N Dialysis N Schizophrenia N Speech Delay N Chronic Obstructive Pulmonary Disease Y Parkinson's Disease N Thyroid Problems N GI Problems N Developmental Delay N Anemia N Immune System Disorder N Multiple Sclerosis N Colon Polyps N Heart Attack ([place]) N Diabetes N Cardiomyopathy N Blood Transfusions N Heart Problems/Murmur N Eye Trauma N Congestive Heart Failure (CHF) N Valvular Heart Disease N Hyperlipidemia N Double Vision N Abuse/Domestic Violence N Hepatitis B N Lupus N Epilepsy/Seizures N Reflux/GERD N Aneurysm N Bronchitis Y Heart Disease N Hypertension Y Pre-Eclampsia N Heart Failure N Other N Gout N [...] N Kidney Failure N Ocular trauma N Dementia N Diverticulitis N Sleep Apnea N Mental Problems N [...] mcg/0.3 mL dose 1 completed Not Available [facility] 10/28/2021 15:38:23 COVID-19, mRNA, LNP-S, PF, 30 mcg/0.3 mL dose 1 completed Not Available [facility] 10/28/2021 15:38:23 Influenza, split virus, quadrivalent, preservative [...] Diagnosis Note [id number] TRANG French (Adult Med) [address] [place] [id number] 0 02/21/2014 16:30:28 02/21/2014 17:33:23 Essential hypertension 47137250 Insomnia 539073318 Pleurisy 700892746 Chronic ob structive pulmonary disease 61408928 [id number] Kiara (Adult Med) [address] [place] [id number] 0 11/11/2014 15:34:06 11/11/2014 16:40:02 Bronchitis 06928467 Pleurisy 548077322 Low back pain 780991948 Insomnia 890349212 Adult heal th examination 777085824 Eczema 15802389 [id number] OLINDA Hernandez (Adult Med) [address] [place] [address] [id number] 0 01/13/2015 10:49:59 01/16/2015 16:37:15 Right upper quadrant pain 558340775 R10.11 Snoring 82062662 R06.83 Active or passive immunization 844354843 Z23 Chronic ob structive pulmonary disease 09826279 J44.9 Gastroesop hageal reflux disease 966711671 K21.9 Shoulder pain 98641449 M 25.512 Bacterial vaginosis 4197 09470 N76.0 Insomnia 410338153 G47.0 0 [id number] 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 Jung (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 FINISHER) [address] [place] [id number] 0 03/13/2015 14:31:21 03/13/2015 16:50:00 Screening mammography 25907754 Z12.31 Sexual chalino alex disorder 53249089 F52.9 Screening for malignant neoplasm of colon 727564619 Z12.11 [id number] TRANG French (Adult Med) [address] [place] [id number] 0 03/16/2015 11:43:53 03/16/2015 18:02:43 Chronic obstructive pulmonary disease 81076123 J44.9 Essential hypertension 10970233 I10 Sinusitis 55984150 J32.9 Bronchitis 09233125 J40 Insomnia 826995463 G47.0 0 Low back pain 575684857 M54.5 [id number] TRANG French (Adult Med) [address] [place] [address] [id number] 0 05/18/2015 11:24:28 05/18/2015 12:19:47 Sinusitis 26678870 J32.9 Chronic ob structive pulmonary disease 58725039 J44.9 Essential hypertension 50359817 I10 Gastroesop hageal reflux disease 550405170 K21.9 Insomnia 916931432 G47.0 0 Low back pain 194652664 M54.5 [id number] TRANG French (Adult Med) [address] [place] [address] 0 07/19/2015 09:16:01 07/19/2015 10:44:11 Sialoadenitis 68231594 K11.20 Essential hypertension 24538577 I10 Gastroesop hageal reflux disease 221798215 K21.9 Insomnia 426991588 G47.0 0 Low back pain 607767470 M54.5 [id number] TRANG French (Adult Med) [address] [place] [address] 0 06/24/2016 16:56:15 06/24/2016 17:55:32 Sinusitis 79834070 J32.9 Sialoadenitis 04720653 K 11.20 Insomnia 610510433 G47.0 0 Gastroesop hageal reflux disease 632292324 K21.9 [id number] TRANG French (Adult Med) [address] [place] [address] [id number] 0 04/07/2017 15:17:44 04/07/2017 16:14:42 Migraine 46205305 G43.909 Low back pain 499899448 M54.5 Sinusitis 39207786 J32.9 Bronchitis 98382115 J40 Insomnia 315904414 G47.0 0 [id number] TRANG French (Adult Med) [address] [place] [address] [id number] 0 05/06/2017 11:30:43 05/06/2017 13:19:07 Sinusitis 00187936 J32.9 Prolapsed lumbar intervertebral disc 779686677 M51.26 Gastroesop hageal reflux disease 999978680 K21.9 Low back pain 966395692 M54.5 Neck pain 89418657 M54.2 [id number] TRANG French (Adult Med) [address] [place] [address] [id number] 0 06/03/2017 11:55:46 06/03/2017 14:18:13 Sinusitis 98719984 J32.9 Low back pain 897299048 M54.5 [id number] TRANG French (Adult Med) [address] [place] [address] [id number] 0 06/30/2018 16:26:54 07/01/2018 10:46:31 Chronic obstructive pulmonary disease 87510595 J44.9 Gastroesop hageal reflux disease 013508850 K21.9 Pain in right knee 71803 31523 22911 M25.561 Low back pain 063840429 M54.5 Essential hypertension 20190299 I10 Serum last min B12 below reference range 964315322 R79.89 Acute urin zarina tract infection 197528169 N39.0 Hyperlipidemia 37939262 E78.5 Insomnia 586343494 G47.0 0 [id number] TRANG French (Adult Med) [address] [place] [address] 52[address]-933 0 07/23/2018 16:00:21 07/23/2018 17:22:16 Acute sinusitis 31250246 J01.90 Chronic ob structive pulmonary disease 59500229 J44.9 Herpes labialis 2823239 B00.1 Essential hypertension 26478550 I10 Gastroesop hageal reflux disease 711916761 K21.9 Low back pain 162166048 M54.5 Insomnia 079429530 G47.0 0 Hyperlipidemia 75522398 E78.5 Prolapsed lumbar intervertebral disc 548586673 M51.26 [id number] TRANG French (Adult Med) [address] [place] [address] [id number] 0 07/19/2019 11:55:49 07/22/2019 13:23:34 Bronchitis 17791329 J40 Neck pain 67322951 M54.2 Herpes labialis 6880517 B00.1 Essential hypertension 78445395 I10 Aphthous u lcer of mouth 220879785 K12.0 Hyperlipidemia 15306014 E78.5 Insomnia 612580922 G47.0 0 Sleep apnea 96802168 G47 .30 [id number] TRANG French (Adult Med) [address] [place] [address] 408[address]-343 0 08/17/2019 08:16:51 08/17/2019 12:20:00 Bronchitis 64713464 J40 Sinusitis 30973179 J32.9 Lower abdominal pain 545 39414 R10.30 Hyperlipidemia 68494524 E78.5 Gastroesop hageal reflux disease 278688079 K21.9 Essential hypertension 17638964 I10 Chronic ob structive pulmonary disease 05552625 J44.9 Insomnia 253863654 G47.0 0 Sleep apnea 39639758 G47 .30 Prolapsed lumbar intervertebral disc 611276940 M51.26 Serum last min B12 below reference range 854270935 R79.89 [id number] Kiara (Adult Med) [address] [place] [address] 764[address]-024 0 09/17/2019 10:14:10 09/17/2019 12:14:43 Pain in right knee 1069226058 60286 M25.561 Low back pain 205534199 M54.5 Chronic ob structive pulmonary disease 78004660 J44.9 Essential hypertension 97536954 I10 Gastroesop hageal reflux disease 768655180 K21.9 Hyperlipidemia 06232893 E78.5 Insomnia 418087479 G47.0 0 Prolapsed lumbar intervertebral disc 874258891 M51.26 Sleep apnea 30582486 G47 .30 Pain in right foot 65613 29640 82496 M79.738 [id number] TRANG French (Adult Med) [address] [place] [address] [id number] 0 11/09/2019 08:13:23 11/09/2019 11:31:15 Bronchitis 03734097 J40 Chronic ob structive pulmonary disease 50614791 J44.9 Essential hypertension 88493426 I10 Gastroesop hageal reflux disease 265949905 K21.9 Hyperlipidemia 09201020 E78.5 Insomnia 046600262 G47.0 0 Low back pain 799691110 M54.5 Serum last min B12 below reference range 136383536 R79.89 Sleep apnea 61914345 G47 .30 Acute pharyngitis 658152 003 J02.9 [id number] RTANG French (Adult Med) [address] [place] [address] [id number] 0 12/07/2019 07:56:08 12/07/2019 14:14:13 Chronic obstructive pulmonary disease 37563008 J44.9 Essential hypertension 93994010 I10 Gastroesop hageal reflux disease 468727095 K21.9 Hyperlipidemia 14865251 E78.5 Insomnia 102335758 G47.0 0 Allergic rhinitis 374088 04 J30.9 Neck swelling 563360439 R22.1 Prolapsed lumbar intervertebral disc 214523077 M51.26 Serum last min B12 below reference range 063991808 R79.89 Sleep apnea 57257708 G47 .30 [id number] TRANG French (Adult Med) [address] [place] [address] 50671-760 0 01/04/2020 08:21:59 01/05/2020 10:09:34 Chronic obstructive pulmonary disease 91737497 J44.9 Bronchitis 42333473 J40 Serum last min B12 below reference range 220432360 R79.89 Hyperlipidemia 18755007 E78.5 Gastroesop hageal reflux disease 860007524 K21.9 Pain in right knee 97281 18172 09451 M25.462 [id number] TRANG French (Adult Med) [address] [place] [address] 91942-505 0 02/01/2020 11:43:03 02/01/2020 12:43:23 Pain in right knee 5869200320 66377 M25.561 Pain in left knee 456674 4823 59802 M25.562 Bronchitis 33006346 J40 Administra tion of influenza vaccine 54684033 Z23 Neck swelling 232134359 R22.1 Allergic rhinitis 720688 04 J30.9 Chronic ob structive pulmonary disease 08707957 J44.9 Essential hypertension 71370103 I10 Gastroesop hageal reflux disease 705740651 K21.9 Hyperlipidemia 05808327 E78.5 Insomnia 009336873 G47.0 0 Low back pain 310788459 M54.5 Sleep apnea 68369264 G47 .30 [id number] TRANG French (Adult Med) [address] [place] [address] 33763-539 0 03/07/2020 08:23:05 03/07/2020 12:33:26 Allergic rhinitis 24820457 J30.9 Chronic ob structive pulmonary disease 66769460 J44.9 Essential hypertension 68313956 I10 Gastroesop hageal reflux disease 929893756 K21.9 Hyperlipidemia 15057870 E78.5 Insomnia 255901788 G47.0 0 Low back pain 015259030 M54.5 Neck pain 53312987 M54.2 Serum last min B12 below reference range 796425235 R79.89 Sleep apnea 83027120 G47 .30 [id number] TRANG French (Adult Med) [address] [place] [address] 93365-163 0 04/10/2020 08:13:06 04/10/2020 11:48:02 Essential hypertension 40255594 I10 Gastroesop hageal reflux disease 149612734 K21.9 Chronic ob structive pulmonary disease 97011160 J44.9 Hyperlipidemia 93156644 E78.5 Low back pain 566045951 M54.5 Pain in left knee 028544 9893 82389 M25.562 Pain in right knee 55236 22125 82656 M25.561 Prolapsed lumbar intervertebral disc 051633138 M51.26 Sleep apnea 17446430 G47 .30 Serum last min B12 below reference range 849539973 R79.89 Insomnia 427387839 G47.0 0 Migraine 59943391 G43.90 9 Neck pain 30892388 M54.2 Neck swelling 857996042 R22.1 Allergic rhinitis 301947 04 J30.9 [id number] TRANG French (Adult Med) [address] [place] [address] 27105-805 0 05/15/2020 08:02:51 05/16/2020 09:50:48 Allergic rhinitis 10922357 J30.9 Chronic ob structive pulmonary disease 95068273 J44.9 Gastroesop hageal reflux disease 061480722 K21.9 Hyperlipidemia 99638329 E78.5 Insomnia 545867078 G47.0 0 Low back pain 271950755 M54.5 Serum last min B12 below reference range 332065021 R79.89 Sleep apnea 38030857 G47 .30 Prolapsed lumbar intervertebral disc 650967288 M51.26 Pain in left knee 298744 0734 12599 M25.562 Pain in right knee 76083 51171 90915 M25.747 [id number] TRANG French (Adult Med) [address] [place] [address] [id number] 0 07/06/2020 08:35:56 07/06/2020 15:49:22 Acute pharyngitis 311025671 J02.9 Acute sinusitis 17937367 J01.90 Bronchitis 41650443 J40 Allergic rhinitis 886616 04 J30.9 Chronic ob structive pulmonary disease 68213294 J44.9 Essential hypertension 51674912 I10 Gastroesop hageal reflux disease 646840037 K21.9 Hyperlipidemia 43301789 E78.5 Insomnia 411592396 G47.0 0 Low back pain 256134404 M54.5 Neck pain 09400679 M54.2 Pain in left knee 894013 9537 49568 M25.562 Pain in right knee 42334 88128 78686 M25.561 Prolapsed lumbar intervertebral disc 277902974 M51.26 Serum last min B12 below reference range 345064441 R79.89 Sleep apnea 51165259 G47 .30 [id number] TRANG French (Adult Med) [address] [place] [address] 11155-243 0 08/07/2020 09:02:22 08/07/2020 15:35:55 Bronchitis 95594057 J40 Herpes labialis 1917366 B00.1 Essential hypertension 76453026 I10 Allergic rhinitis 171528 04 J30.9 Hyperlipidemia 50915888 E78.5 Insomnia 799905183 G47.0 0 Low back pain 291705747 M54.5 Neck pain 43147391 M54.2 Serum last min B12 below reference range 259978186 R79.89 Sleep apnea 75661331 G47 .30 [id number] TRANG French (Adult Med) [address] [place] [address] [id number] 0 09/04/2020 09:00:12 09/04/2020 15:24:38 Allergic rhinitis 52330013 J30.9 Chronic ob structive pulmonary disease 90390340 J44.9 Essential hypertension 12727585 I10 Gastroesop hageal reflux disease 566586627 K21.9 Hyperlipidemia 67160387 E78.5 Insomnia 814062775 G47.0 0 Low back pain 288420282 M54.5 Migraine 55476987 G43.90 9 Prolapsed lumbar intervertebral disc 675318193 M51.26 Serum last min B12 below reference range 297189414 R79.89 Sleep apnea 39406425 G47 .30 Screening for malignant neoplasm of colon 898595037 Z12.11 Herpes labialis 9828218 B00.1 Hemorrhoids 67693548 K64 .9 [id number] TRANG French (Adult Med) [address] [place] [address] 08182-311 0 10/17/2020 16:13:30 10/20/2020 19:41:55 Allergic rhinitis 68539900 J30.9 Chronic ob structive pulmonary disease 04742340 J44.9 Essential hypertension 25947484 I10 Gastroesop hageal reflux disease 122501922 K21.9 Hyperlipidemia 23188157 E78.5 Insomnia 215508236 G47.0 0 Low back pain 844722582 M54.5 Neck pain 61692990 M54.2 Sleep apnea 42550886 G47 .30 Serum last min B12 below reference range 933085453 R79.89 Prolapsed lumbar intervertebral disc 699920008 M51.26 Pain in left knee 896942 6390 51721 M25.562 Pain in right knee 53978 13804 38653 M25.153 [id number] TRANG French (Adult Med) [address] [place] [address] 39007-926 0 11/14/2020 07:47:46 11/14/2020 17:14:25 Pain in left foot 9048841714 34011 M79.672 Chronic ob structive pulmonary disease 31948470 J44.9 Bronchitis 74767576 J40 Allergic rhinitis 009845 04 J30.9 Essential hypertension 33412979 I10 Gastroesop hageal reflux disease 294674081 K21.9 Hyperlipidemia 72532515 E78.5 Insomnia 115775006 G47.0 0 Low back pain 412441350 M54.5 Migraine 33581551 G43.90 9 Neck pain 97363687 M54.2 Prolapsed lumbar intervertebral disc 583393546 M51.26 Serum last min B12 below reference range 052026136 R79.89 Sleep apnea 14120885 G47 .30 [id number] TRANG French (Adult Med) [address] [place] [address] 57170-759 0 12/18/2020 08:45:06 12/18/2020 15:49:56 Allergic rhinitis 62479267 J30.9 Chronic ob structive pulmonary disease 84223612 J44.9 Essential hypertension 95601921 I10 Gastroesop hageal reflux disease 010740106 K21.9 Hyperlipidemia 01484276 E78.5 Insomnia 654910421 G47.0 0 Low back pain 578356676 M54.5 Prolapsed lumbar intervertebral disc 316686918 M51.26 Sleep apnea 58810325 G47 .30 Sinusitis 96297391 J32.9 Pain in left knee 825631 0220 67862 M25.562 Pain in right knee 04050 41612 12355 M25.561 Bronchitis 33537767 J40 Serum last min B12 below reference range 976542342 R79.89 [id number] TRANG French (Adult Med) [address] [place] [address] 97470-161 0 02/19/2021 12:03:34 02/19/2021 13:05:34 Administration of influenza vaccine 44115436 Z23 Allergic rhinitis 656321 04 J30.9 Chronic ob structive pulmonary disease 82442956 J44.9 Chronic th oracic back pain 1216955165 41255 M54.6 Screening for malignant neoplasm of breast 714383944 Z12.39 Screening mammography 24 999264 Z12.31 [id number] TRANG French (Adult Med) [address] [place] [address] [id number] 0 04/02/2021 14:30:30 04/02/2021 15:47:41 Acute sinusitis 47394511 J01.90 Chronic th oracic back pain 7892343992 55478 M54.6 Allergic rhinitis 998339 04 J30.9 Chronic ob structive pulmonary disease 79823422 J44.9 Essential hypertension 06855976 I10 Gastroesop hageal reflux disease 919281411 K21.9 Hyperlipidemia 70876835 E78.5 Insomnia 217016888 G47.0 0 Low back pain 962135130 M54.50 Prolapsed lumbar intervertebral disc 352251405 M51.26 Serum last min B12 below reference range 626794580 R79.89 Sleep apnea 36194377 G47 .30 Neck pain 06255288 M54.2 [id number] TRANG French (Adult Med) [address] [place] [address] 84084-053 0 05/28/2021 14:30:15 05/28/2021 15:41:21 Gastroesophageal reflux disease 855451607 K21.9 Low back pain 646473909 M54.50 Wheezing 47529269 R06.2 Essential hypertension 18515612 I10 Allergic rhinitis 194742 04 J30.9 Chronic ob structive pulmonary disease 93869362 J44.9 Hyperlipidemia 30171980 E78.5 Insomnia 199003113 G47.0 0 Serum last min B12 below reference range 001997591 R79.89 Sleep apnea 27989873 G47 .30 [id number] TRANG French (Adult Med) [address] [place] [address] 88629-254 0 07/03/2021 14:28:15 07/04/2021 11:12:13 Insomnia 324741724 G47.00 Allergic rhinitis 952969 04 J30.9 Chronic ob structive pulmonary disease 80074981 J44.9 Essential hypertension 79848088 I10 Gastroesop hageal reflux disease 973813599 K21.9 Hyperlipidemia 84886844 E78.5 Low back pain 979993330 M54.50 Serum last min B12 below reference range 146366984 R79.89 Sleep apnea 39529592 G47 .30 Plantar fasciitis 541758 003 M72.2 Prolapsed lumbar intervertebral disc 147576866 M51.26 Health Concerns Section Related Observation LastModified by Organization Detai ls LastModified Time None Recorded Concern Status LastModified by Organization Details LastModified Time None Recorded Advance Directives Directive N: Payers Encounter Date Sequence Insurance Name Policy Number Policy Webster Covered Member ID Webster Member ID Guarantor Name 12/18/2020 1 [place] [facility] (MEDICAID REPLACEMENT - HMO) [id number] Medina Kenny [id number] Medina Cox 02/19/2021 1 [place] [facility] (MEDICAID REPLACEMENT - [place]MO) [id number] Medina Cox [id number] Medina Cox 04/02/2021 1 [place] [facility] (MEDICAID REPLACEMENT - [place]MO) [id number] Medinanicolás Cox [id number] Medina Cox 05/28/2021 1 [place] [facility] (MEDICAID REPLACEMENT - [place]MO) [id number] Medinanicolás Cox [id number] Medina Cox 07/03/2021 1 [place] [facility] (MEDICAID REPLACEMENT - [place]MO) [id number] Medina Kenny [id number] Medina Cox Notes Date Note Type Note Provider Name and Address Organization Details Recorded Time 12/18/2020 text/html pain in back of lungs hurting , went to ED , 2 breathing treatments , asthma flared . COPD bad according to ER doc , steroids Rik Elizabeth PA-C Attn: Accounting,[address] [facility], [place], [address], [place] [facility] 12/18/2020 16:17:19 02/19/2021 text/html some wheezing , no fever , gets this way when exposed to dust . Rik Elizabeth PA-C Attn: Accounting,[address] [facility], [place], [address], [place] 02/19/2021 22:09:52 04/02/2021 text/html tightness right shoulder into back of neck worse than left Rik Elizabeth PA-C Attn: Accounting,[address] [facility], [place], [address], [facility] 04/02/2021 17:12:45 05/28/2021 text/html gets sob easily Rik Elizabeth PA-C Attn: Accounting,[address] [facility], [place], [address], [facility] 05/28/2021 17:18:44 07/03/2021 text/html not breathing well at night ..... Rik Elizabeth PA-C Attn: Accounting,[address] [facility], [place], [address], [facility] 07/05/2021 15:15:00 OBGyn Episode No OBEpisode recorded.
--- OUTSIDE RECORDS SUMMARY | 2024-07-09 10:43 | XMS_ITS | Encounter Summary ---
Author Organization [facility] Address [address] [place] [address] Care Team Providers Care Spring Coiler Name Role Phone Nettie Hodges NP Primary Care Provider [phone] Rosita Fuentes RN Unavailable [phone] Encounter Details Date Type Department Care Team (Late Contact Info) Description 12/17/2022 LK FREEMANt Message Enc 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 [address] [place] [address] 09/16/2024 10:40 AM CDT Office Visit [facility] - [place] [address] [place] [address] Maurisio Jeong MD [address] [place] [address] 09/24/2024 10:00 AM CDT Office Visit [facility] [phone] Paula Sanchez MD [address] [facility] [address] [place] [address] 10/13/2024 1:40 PM CDT [facility] [address] [facility], [address] [place] [phone] Shila Ruiz MD [address] [place] [address] 11/01/2024 1:20 PM CDT Office Visit [facility] Family Medicine - [place] [address] [facility] [address] [place] [address] Nettie Hodges NP [address] [place] [address] documented as of this encounter Visit Diagnoses Not on filedocumented in this encounter Additional Health Concerns Infection Onset Date Last Indicated Resolved Time Respiratory Rule-Out 07/03/2024 07/03/2024 025 7:57 AM CDT documented as of this encounter Care Teams Spring Coiler Relationship Specialty Start Date End Date Nettie Hodges NP [address] [place] [address] PCP - General NURSE PRACTITIONER 09/10/21 Rosita Fuentes, RN [address] [place] [address] Maintenance Manager (Ambulatory) REGISTERED NURSE 07/05/2407/05/24 documented as of this encounter
--- OUTSIDE RECORDS SUMMARY | 2024-07-09 10:43 | XMS_ITS | Clinical Summary ---
Author Organization [facility] Address Formerly [facility] [place] [address] Care Team Providers Care Bed Teacher Name Role Phone Nettie Hodges NP Primary Care Provider [phone] Allergies Active Allergy Reactions Criticality Noted Date Comments Morphine Hives Medium 12/30/2013 Pneumococcal 13-Bethanie Conj Vacc Anaphylaxis High 05/26 Medications fluticasone propionate 50 MCG/ACT nasal spray 1 spray 2 (two) times daily. Active OXYGEN 3 L/min by Nasal route continuous. 3L at night Active WALKER MISC, DME,Indications:F requent falls,Lumbar radiculopathy 1 Device by Does not apply route daily. 1 Device 022 Active omeprazole (PRILOSEC) 40 MG capsule omeprazole 40 mg capsule,delay ed release TAKE 1 CAPSULE BY MOUTH ONCE DAILY Active albuterol sulfate HFA 108 (90 Base) MCG/ACT inhalerIndication s:Chronic obstructive pulmonary disease, unspecified COPD type ([facility] HHS/[facility]) INHALE 2 PUFFS BY MOUTH EVERY 6 HOURS NEEDED FOR WHEEZING 18 g 11 023 Active Budeson-Glycopyrr ol-Formoterol (BREZTRI AEROSPHERE) 160-9-4.8 MCG/ACT AerosolIndication s:Chronic obstructive pulmonary disease, unspecified COPD type ([facility] HHS/HCC) Inhale 1 puff into the lungs 2 (two) times a day. 10.7 g 1 024 Active famotidine (PEPCID) 40 MG tablet Take 1 tablet (40 mg total) by mouth daily. 04/16/2 024 Active furosemide (LASIX) 80 MG tablet Take 1 tablet (80 mg total) by mouth daily. Active DUPIXENT 300 MG/2ML injection (PEN) Inject 2 mLs (300 mg total) into the skin. Every other Friday. Active atorvastatin (LIPITOR) 80 MG tabletIndications :Mixed hyperlipidemia TAKE 1 TABLET BY MOUTH NIGHTLY AT BEDTIME 90 tablet 1 025 Active amitriptyline (ELAVIL) 100 MG tabletIndications :Insomnia, unspecified type TAKE 1 TABLET BY MOUTH NEEDED AT BEDTIME 90 tablet 3 025 Active sucralfate (CARAFATE) 1 G tablet Take 1 tablet (1 g total) by mouth 4 (four) times daily before meals and nightly. Active lisinopril (PRINIVIL) 30 MG tabletIndications :Uncontrolled hypertension Take 1 tablet by mouth once daily 90 tablet 1 Active albuterol (PROVENTIL) (2.5 MG/3ML) 0.083% nebulizer solutionIndicatio ns:Chronic obstructive pulmonary disease, unspecified COPD type ([facility]/HCC [facility]) USE 1 VIAL IN NEBULIZER EVERY 4 HOURS NEEDED FOR WHEEZING 360 mL Active aspirin EC (ECOTRIN) 81 MG tablet Take 1 tablet (81 mg total) by mouth daily. Active clopidogrel (PLAVIX) 75 MG tablet Take 1 tablet (75 mg total) by mouth every morning. Active BIPAP MACHINE 2024 Discontinued(E rror) metoclopramide (REGLAN) 5 MG tablet Take 1 tablet (5 mg total) by mouth 2 (two) times daily. 2024 Discontinued(E rror) HYDROcodone-aceta minophen (NORCO) 5-325 MG tablet Take 1 tablet by mouth every 12 (twelve) hours as needed. FOR PAIN 024 2024 Discontinued(E rror) lisinopril (PRINIVIL) 30 MG tabletIndications :Uncontrolled hypertension Take 1 tablet by mouth once daily 90 tablet 2024 Discontinued albuterol (PROVENTIL) (2.5 MG/3ML) 0.083% nebulizer solutionIndicatio ns:Chronic obstructive pulmonary disease, unspecified COPD type ([facility]) USE 1 VIAL IN NEBULIZER EVERY 4 HOURS NEEDED FOR WHEEZING 360 mL 025 2024 Discontinued fluconazole (DIFLUCAN) 150 MG tabletIndications :Vaginal itching Take one tablet by mouth, May repeat in 72 hours if needed. 2 tablet 025 2024 Discontinued(E rror) cephALEXin (KEFLEX) 500 MG capsuleIndication s:Acute cystitis without hematuria Take 1 capsule (500 mg total) by mouth 2 (two) times daily for 7 days. 14 capsule 025 2024 ondansetron (ZOFRAN-ODT) 4 MG disintegrating tablet Take 1 tablet (4 mg total) by mouth. 025 2024 Discontinued(E rror) azithromycin (ZITHROMAX) 500 mg tablet Take 1 tablet (500 mg total) by mouth daily for 2 days. 2 tablet 025 2024 predniSONE (DELTASONE) 20 MG tablet Take 2 tablets (40 mg total) by mouth daily for 4 days. 8 tablet 025 2024 Discontinued(T herapy completed) Hospital, Clinic, or Other Facility Administered Medication [...] Active Problems Problem Noted Date Diagnosed Date Respiratory failure with hypoxia ([facility]/ C) 07/03/2024 Eczema 11/08/2022 Insomnia 11/08/2022 Right upper quadrant pain 11/08/2022 Shoulder pain 11/08/2022 Bronchitis 11/08/2022 Pleurisy 11/08/2022 Sialoadenitis 11/08/2022 Snoring 11/08/2022 Chronic migraine without aur a without status migrainosus, not intractable 08/29/2022 Tremor of both hands 08/29/2022 Chronic asthmatic bronchitis with acute exacerbation ([facility]) 07/16/2022 Spondylolisthesis of lumbar region 06/27/2022 Fall, initial encounter 05/01/2022 Gait disturbance 05/01/2022 Foraminal stenosis of lumbar region 05/01/2022 Abnormal MRI, lumbar spine 05/01/2022 Osteoporosis 03/08/2022 Overview (03/08/2022): L1-L4 and osteopenia and left femoral neck Fall, subsequent encounter 03/08/2022 Chronic bilateral back pain, unspecified back lo cation 03/08/2022 Chronic pain of both knees 03/08/2022 Panlobular emphysema ([facility]) Burning sensation of throat 10/04/2021 Chronic obstructive pulmonar y disease, unspecified COPD type ([facility]) 10/04/2021 Hypertension, unspecified type 10/04/2021 [...] Chronic respiratory failure with hypoxia (CMS/HC C [facility]) 07/31/2018 Acute sinusitis 07/23/2018 Herpes labialis 07/23/2018 Low serum vitamin B12 06/30/2018 Asthma ([facility]) 06/29/2018 Overview (11/08/2022): (History of) Hypoxia 06/29/2018 Chest pain 06/29/2018 Daytime hypersomnia 06/29/2018 Dyspnea on exertion 06/29/2018 Hyperlipidemia 11/17/2017 Disorder of thyroid gland 11/04/2017 Smoker 11/04/2017 Chronic obstructive pulmonary disease ([facility] H /[facility]) 11/04/2017 Overview (11/08/2022): see PFTs 02/15/2020 Primary hypertension 11/04/2017 Obesity 11/04/2017 Sacroiliitis 07/03/2017 Lumbar radiculopathy 05/26/2017 Neck pain 05/05/2017 Herniated lumbar intervertebral disc 05/05/2017 Migraine 04/06/2017 Resolved Problems Problem Noted Date Diagnosed Date Resolved Date Myelopathy ([facility]) 05/01/2022 06/27/2022 Pars defect with spondylolisthesis 05/01/2022 06/27/2022 Encounters Date Type Department Care Team Description 07/08/2024 12:40 PM CDT Office Visit [address] [place] [address] Nettie Hodges NP TCM (Patient presents for TCM, discharged [facility] 07/03/24, with COPD exacerbation/resp failure) 07/08/2024 Travel 07/05/2024 Telephone [place] [phone] [facility] [address] [place] [address] Nettie Hodges NP TCM 07/05/2024 Patient Outreach [address] [place] [address] Rosita Fuentes, RN TCM (TCM [facility] 07/02-07/03/24 Respiratory failure with hypoxia. ) 07/02/2024 6:55 PM CDT - 07/03/2024 2:30 PM CDT Hospital Encounter [facility] Med/Surg [address] [place] [address] Bailey Draper, EARL Sandoval, Veronica Marie, Jayda Guzman, Pari Rosales MD Shortness Of Breath Discharge Disposition: Home or Self Care (Routine Discharge) 07/02/2024 Travel 07/01/2024 Scan [facility] Scanned, [facility] 06/30/2024 Scan [facility] Scanned, [facility] MRI (SCAN) 06/29/2024 Scan [facility] Scanned, [facility] Image (SCAN); CT (SCAN) 06/28/[address] [place] [phone] Nettie Hodges NP Problem (Left arm numbness and tingling) 06/21/2024 MyChart Message Enc [address] [place] [address] Nettie Hodges NP mammogram 06/16/2024 9:40 AM CDT Office Visit [facility] [address] [place] [address] Maurisio Jeong MD Follow Up (Bilateral knee oa ) 06/16/2024 Travel 06/11/[address] [place] [address] Nettie Hodges NP Follow Up Call 06/09/2024 Orders Only [address] [place] [address] Nettie Hodges NP 06/01/2024 1:20 PM GAS BRAZER Office Visit [place] [address] [place] [address] Nettie Hodges NP Vaginal Problem (Patient present with c/o vaginal irritation on the inside with a lot of vaginal itching.) 06/01/2024 - 06/01/2024 11:59 PM GAS BRAZER Hospital Encounter [facility] [address] [place] [address] Nettie Hodges NP Discharge Disposition: Home or Self Care (Routine Discharge) 06/01/2024 Travel 06/01/[address] [place] [address] Nettie Hodges NP Information 05/26/2024 Scan [facility] INFO SRVCS Scanned, [facility] 05/06/[address] [place] [address] Nettie Hodges NP Record Request 05/03/[address] [place] [address] Nettie Hodges NP COVID-19 04/26/2024 1:20 PM GAS BRAZER Office Visit [address] [place] [address] Nettie Hodges NP Hypertension (Patient presents for 3 month follow up HTN) 04/26/2024 9:00 AM GAS BRAZER Office Visit [facility] - [place] [address] [facility] [place] [address] Maurisio Jeong MD Knee Pain (Bilateral knee pain Rt > Lt had cortisone 03/2022 states once lido wore off did not help at all ) 04/26/2024 - 04/26/2024 11:59 PM GAS BRAZER Hospital Encounter [facility] [address] [place] [address] Maurisio Jeong MD Discharge Disposition: Home or [...] Seizures Brother 1 Heart Disease Brother 2 NE Brother 2 Heart Disease Brother 3 stint [...] 0.6 oz p ure alcohol) rare beer [employer] Answer Date Recorded In the past 12 months has th e [employer], gas, oil, or water [employer]ed[employer] threatened to shut off services in your [...] any time in the past 12 m [facility], were you homeless or living in a fdc (including now)? 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 Not on file Not [...] Mass Index 42.62 07/08/2024 12:41 PM CDT Plan of Treatment Upcoming Encounters Date Type Department Care Team (Late st Contact Info) Description 08/12/2024 11:00 AM CDT [facility] [address] [facility], [address] [place] [address] Gracy Blair APRN [address] [facility] [address] [place] [address] 09/16/2024 10:40 AM CDT Office Visit [facility] - [place] [address] [place] [address] Maurisio Jeong MD [address] [place] [address] 09/24/2024 10:00 AM CDT Office Visit [facility] [phone] Paula Sanchez MD [address] [facility] [address] [place] [address] 10/13/2024 1:40 PM CDT [facility] [address] [facility], [address] [place] [phone] Shila Ruiz MD [address] [place] [address] 11/01/2024 1:20 PM CDT Office Visit [facility] - [place] [address] [facility] [address] [place] [address] Nettie Hodges, MOBILE BATTERY TECHNICIAN [address] [place] [address] Health Maintenance Due Date Last Done Comments Annual Physical 10/04/2022 10/04/2021 Lung Cancer Screening 12/27/2022 12/27/2021 RSV Immunization or 60+ Years (1 - [...] Zoster Vaccines Completed 01/13/2024, 10/03/2023 PHQ-2 (Physician [place]) Completed 06/01/2024 Meningococcal B Vaccine Aged Out No l onger eligible based on patient's age to complete this topic Meningococcal Vaccine Aged Out No corey bruce eligible based on patient's age to complete this topic RSV Immunizations Under 20 Months Aged Out No longer eligible b ased on patient's age to complete this topic Procedures Procedure Name Priority Date/Time Associated Diagnosis Comments RESPIRATORY PCR PANEL 2 STAT 07/03/2024 1:36 AM CDT ECG 12-LEAD STAT 07/02/2024 9:17 PM CDT TROPONIN, QUANT STAT 07/02/2024 9:10 PM CDT PRO-BRAIN NATRIURETIC PEPTIDE STAT 07/02/2024 7:10 PM CDT MAGNESIUM STAT 07/02/2024 7:10 PM CDT TSH W/REFLEX STAT 07/02/2024 7:10 PM CDT TROPONIN, QUANT STAT 07/02/2024 7:10 PM CDT COMPREHENSIVE METABOLIC PANEL STAT 07/02/2024 7:10 PM CDT CBC W/DIFF AUTOMATED STAT 07/02/2024 7:10 PM CDT XR CHEST PORTABLE STAT 07/02/2024 6:4 7 PM CDT ECG 12-LEAD STAT 07/02/2024 6:15 PM CDT MRI GENERIC 06/30/2024 CT GENERIC 06/29/2024 IMAGE GENERIC 06/29/2024 ARTHROCENTESIS MAJOR JOINT W/ ULTRASOUND GUIDANCE Routine 06/16/2024 9:40 AM CDT Bilateral primary osteoarthritis of knee OUS GUIDE NEEDLE PLCMT ORTHO Routine 06/16/2024 9:32 AM CDT Bilateral primary osteoarthritis of knee URINE BACTERIA CULTURE Routine 1:54 PM GAS BRAZER Symptoms involving urinary system URINALYSIS AUTO DIP Routine 06/01/2024 Symptoms involving urinary system CELL COUNT W/ DIFF BODY FLUID Routine 04/26/2024 7:22 PM GAS BRAZER Knee effusion, right CRYSTALS, BODY FLUID Routine 04/26/2024 7:22 PM GAS BRAZER Knee effusion, right OXR LT KNEE 3V Routine 04/26/2024 9:36 AM GAS BRAZER Bilateral primary osteoarthritis of knee OXR RT KNEE 3V Routine 04/26/2024 9:36 AM GAS BRAZER Bilateral primary osteoarthritis of knee OUS GUIDE NEEDLE PLCMT ORTHO Routine 04/26/2024 9:26 AM GAS BRAZER Bilateral primary osteoarthritis of knee ARTHROCENTESIS MAJOR JOINT W/ ULTRASOUND GUIDANCE Routine 04/26/2024 9:00 AM GAS BRAZER Bilateral primary osteoarthritis of knee Knee effusion, right MG SCREENING W TAYA IOANA DIGI Routine 04/19/2022 12:00 AM GAS BRAZER Screening mammogram for breast cancer HEPATITIS C ANTIBODY Routine 02/27/2022 12:19 PM GAS BRAZER Need for hepatitis C screening test COLONOSCOPY GENERIC (SCAN ORDER) 10/31/2020 from Last 3 Months or Most Recently Relevant to Health Maintenance Results * RESPIRATORY PCR PANEL 2 (07/03/2024 1:36 AM CDT) ADENOVIRUS PCR (RESP) NOT DETECTED NOT DETECTED 07/03/2024 7:57 AM CDT [facility] CORONAVIRUS 229E PCR (RESP) NOT DETECTED NOT DETECTED 07/03/2024 7:57 AM CDT [facility] CORONAVIRUS HKU1 PCR (RESP) NOT DETECTED NOT DETECTED 07/03/2024 7:57 AM CDT [facility] CORONAVIRUS NL63 PCR (RESP) NOT DETECTED NOT DETECTED 07/03/2024 7:57 AM CDT [facility] CORONAVIRUS OC43 PCR (RESP) NOT DETECTED NOT DETECTED 07/03/2024 7:57 AM CDT [facility] METAPNEUMOVIRUS PCR (RESP) NOT DETECTED NOT DETECTED 07/03/2024 7:57 AM CDT [facility] RHINOVIRUS/ENTEROV IRUS PCR (RESP) NOT DETECTED NOT DETECTED 07/03/2024 7:57 AM CDT [facility] INFLUENZA A PCR (RESP) NOT DETECTED NOT DETECTED 07/03/2024 7:57 AM CDT [facility] INFLUENZA B PCR (RESP) NOT DETECTED NOT DETECTED 07/03/2024 7:57 AM CDT [facility] PARAINFLUENZA 1 PCR (RESP) NOT DETECTED NOT DETECTED 07/03/2024 7:57 AM CDT [facility] PARAINFLUENZA 2 PCR (RESP) NOT DETECTED NOT DETECTED 07/03/2024 7:57 AM CDT [facility] PARAINFLUENZA 3 PCR (RESP) NOT DETECTED NOT DETECTED 07/03/2024 7:57 AM CDT [facility] PARAINFLUENZA 4 PCR (RESP) NOT DETECTED NOT DETECTED 07/03/2024 7:57 AM CDT [facility] RSV PCR (RESP) NOT DETECTED NOT DETECTED 07/03/2024 7:57 AM CDT [facility] B PARAPERTUSIS PCR (RESP) NOT DETECTED NOT DETECTED 07/03/2024 7:57 AM CDT [facility] BORDETELLA PERTUSSIS PCR (RESP) NOT DETECTED NOT DETECTED 07/03/2024 7:57 AM CDT [facility] CHLAMYDOPHILA PNEUMONIAE PCR (RESP) NOT DETECTED NOT DETECTED 07/03/2024 7:57 AM CDT [facility] MYCOPLASMA PNEUMONIAE PCR (RESP) NOT DETECTED NOT DETECTED 07/03/2024 7:57 AM CDT [facility] CORONAVIRUS SARS COV 2 PCR (RESP) NOT DETECTED NOT DETECTED 07/03/2024 7:57 AM CDT [facility] NASOPHARYNGEAL SWAB / Unknown 07/03/2024 1:36 AM CDT us Jayda Castañeda DO MICROBIOLOGY - GENERAL ORDER [place] Final Result [facility] [address] [place] [address], [place] [phone] * ECG 12 lead (07/02/2024 9:17 PM CDT) Only the most recent of2 resultswithin the time period is included. 07/02/2024 9:17 PM CDT Narrative [facility] ([facility]) RAD - 07/02/2024 10:43 PM CDT [address] Test Date: 2024-07-02 Pat Name: MEDINASol COX Department: 41 Room: EXAM23 Gender: Female Purse Maker: [facility] : 1965 Requested By: BAILEY DRAPER Order Number: [id number] Reading MD: Lawanda Baker Measurements Intervals [place] Rate: 79 P: 49 SC: 194 QRS: 58 QRSD: 93 T: 73 QT: 362 QTc: 416 Interpretive Statements SINUS RHYTHM LOW QRS VOLTAGE IN PRECORDIAL LEADS [QRS DEFLECTION < 1.0 mV IN CHEST LEADS] Compared to ECG 07/02/2024 18:15:33 No significant changes Procedure Note Lawanda Baker MD - 07/02/[address] Test Date: 2024-07-02 Pat Name: MEDINA EUGENIO Department: 41 Room: EXAM23 Gender: Female Purse Maker: [facility] : 1965 Requested By: BAILEY DRAPER Order Number: [id number] Reading : Lawanda Baker Measurements Intervals [place] Rate: 79 P: 49 SC: 194 QRS: 58 QRSD: 93 T: 73 QT: 362 QTc: 416 Interpretive Statements SINUS RHYTHM LOW QRS VOLTAGE IN PRECORDIAL LEADS [QRS DEFLECTION < 1.0 mV IN CHESTLEADS] Compared to ECG 07/02/2024 18:15:33 No significant changes Bailey Draper MOBILE BATTERY TECHNICIAN ECG ORDERABLES Final Result Performing Organization Address City/[facility] Co de Phone Number [facility] ([facility] RAD * TROPONIN, QUANT (07/02/2024 9:10 PM CDT) Only the most recent of2 resultswithin the time period is included. Pathologist [facility] TROPONIN I HIGH SENSITIVITY 5 <54 ng/L 07/02/2024 9:39 PM CDT [facility] Comment: HIGH DOSES OF BIOTIN, TROPONIN-SPECIFIC AUTOANTIBODIES, AND ANTIBODY THERAPY CONTAINING HAMA MAY INTERFERE WITH THIS TEST RESULT. CORRELATION TO CLINICAL HISTORY AND PRESENTATION RECOMMENDED. 07/02/2024 9:10 PM CDT Bailey Draper MOBILE BATTERY TECHNICIAN LABORATORY Final Result Performing Organization Address [facility] de Phone Number [facility] [address] [place] [id number], [place] [phone] * TSH W/REFLEX (07/02/2024 7:10 PM CDT) Pathologist [facility] TSH 3.270 0.358 - 3.74 uIU/ML 07/02/2024 7:53 PM CDT [facility] Comment: HIGH DOSES OF BIOTIN MAY INTERFERE WITH THIS TEST RESULT. CORRELATION TO CLINICAL HISTORY AND PRESENTATION RECOMMENDED. FREE T4 NOT INDICATED 07/02/2024 7:10 PM CDT Bailey Draper NP LABORATORY Final Result Performing Organization Address City/[facility]/ZIP Co de Phone Number [facility] [address] [place] [address], [place] [phone] * (ABNORMAL) PRO-BRAIN NATRIURETIC PEPTIDE (07/02/2024 7:10 PM CDT) PRO-B TYPE NATRIURETIC PEPTIDE 344(H) <125 PG/ML 07/02/2024 7:53 PM CDT [facility] Comment: CUT POINTS ESTABLISHED BY [employer] ON NT PROBNP (ICON) STUDY (2006). AGE INDEPENDENT: <300 PG/ML HAS A 99% NEGATIVE PREDICTIVE VALUE FOR EXCLUDING ACUTE CHF <50 YEARS: >450 PG/ML IS CONSISTENT WITH ACUTE CHF 50-75 YEARS: >900 PG/ML IS CONSISTENT WITH ACUTE CHF >75 YEARS: >1800 PG/ML IS CONSISTENT WITH ACUTE CHF IN PATIENTS WITH RENAL INSUFFICIENCY (GFR <60), >1200 PG/ML YIELDS A DIAGNOSTIC SENSITIVITY AND SPECIFICITY OF 89% AND 72% FOR ACUTE CHF. 07/02/2024 7:10 PM CDT Bailey Draper NP LABORATORY Final Result [facility] [address] [place] [address], [place] [phone] * (ABNORMAL) COMPREHENSIVE METABOLIC PANEL (07/02/2024 7:10 PM CDT) GLUCOSE 135(H) 70 - 99 MG/DL 07/02/2024 7:53 PM CDT [facility] BUN 19(H) 7 - 18 MG/DL 07/02/2024 7:53 PM CDT [facility] CREATININE S/P/B 1.06(H) 0.55 - 1.02 MG/DL 07/02/2024 7:53 PM CDT [facility] SODIUM S/P/B 137 136 - 145 MMOL/L 07/02/2024 7:53 PM CDT [facility] POTASSIUM S/P/B 3.7 3.5 - 5.1 MMOL/L 07/02/2024 7:53 PM CDT [facility] CHLORIDE S/P/B 99 97 - 115 MMOL/L 07/02/2024 7:53 PM CDT [facility] CO2 33.9(H) 21 - 32 MMOL/L 07/02/2024 7:53 PM CDT [facility] CALCIUM S/P/B 8.8 8.5 - 10.1 MG/DL 07/02/2024 7:53 PM CDT [facility] BILIRUBIN TOTAL S/P/B 0.4 0.2 - 1.2 MG/DL 07/02/2024 7:53 PM CDT [facility] Comment: THIS ASSAY IS NOT RECOMMENDED FOR PATIENTS UNDERGOING TREATMENT WITH ELTROMBOPAG DUE TO THE POTENTIAL FOR FALSELY ELEVATED RESULTS. TOTAL PROTEIN S/P/B 7.1 6.4 - 8.2 G/DL 07/02/2024 7:53 PM CDT [facility] ALBUMIN S/P/B 3.6 3.4 - 5.0 G/DL 07/02/2024 7:53 PM CDT [facility] AST 14(L) 15 - 37 U/L 07/02/2024 7:53 PM CDT [facility] ALT 17 14 - 55 U/L 07/02/2024 7:53 PM CDT [facility] ALKALINE PHOSPHATASE S/P/B 145(H) 50 - 136 U/L 07/02/2024 7:53 PM CDT [facility] ANION GAP 4.1 2 - 10 MMOL/L 07/02/2024 7:53 PM CDT [facility] BUN CREATININE RATIO 17.9 6 - 26 07/02/2024 7:53 PM CDT [facility] A/G RATIO 1.0 1.0 - 2.0 RATIO 07/02/2024 7:53 PM CDT [facility] GFR ESTIMATE 60(L) >90 ML/MIN/1.7 3 M2 07/02/2024 7:53 PM CDT [facility] Comment: NOTE: eGFR is not calculated for patients <18 years of age or gender unknown. This is an estimated GFR calculation using the new CKD EPI creatinine equation without race and so does not require a correction factor for race. This estimated GFR should not be used for calculating drug doses. 07/02/2024 7:10 PM CDT us Bailey Draper NP LABORATORY Final Result [facility] [address] [place] [address], * (ABNORMAL) CBC W/DIFF AUTOMATED (07/02/2024 7:10 PM CDT) WBC 9.83 4.5 - 11.0 x10'3/uL 07/02/2024 7:29 PM CDT [facility] RBC 4.25 4.20 - 5.40 x10'6/uL 07/02/2024 7:29 PM CDT [facility] HGB 12.5 12.0 - 16.0 G/DL 07/02/2024 7:29 PM CDT [facility] HCT 39.0 38.0 - 48.0 % 07/02/2024 7:29 PM CDT [facility] MCV 91.8 81.0 - 99.0 FL 07/02/2024 7:29 PM CDT [facility] MCH 29.4 27.0 - 31.0 PG 07/02/2024 7:29 PM CDT [facility] MCHC 32.1 32.0 - 36.0 G/DL 07/02/2024 7:29 PM CDT [facility] RDW 14.7(H) 11.5 - 14.5 % 07/02/2024 7:29 PM CDT [facility] PLT 251 130 - 400 x10'3/uL 07/02/2024 7:29 PM CDT [facility] MPV 10.1 9.3 - 12.2 FL 07/02/2024 7:29 PM CDT [facility] DIFFERENTIAL TYPE AUTOMATED DIFFERENTIAL 07/02/2024 7:29 PM CDT [facility] NEUTROPHILS % 65.3 % 07/02/2024 7:29 PM CDT [facility] LYMPHOCYTES % 20.4 % 07/02/2024 7:29 PM CDT [facility] MONOCYTES % 8.7 % 07/02/2024 7:29 PM CDT [facility] EOSINOPHILS 4.1 % 07/02/2024 7:29 PM CDT [facility] BASOPHILS 0.9 % 07/02/2024 7:29 PM CDT [facility] IMMATURE GRANS % 0.6 % 07/03/19 7:29 PM CDT [facility] ABS. NEUTROPHILS 6.41 1.80 - 7.70 x10'3/uL 07/02/2024 7:29 PM CDT [facility] ABS. LYMPHOCYTES 2.01 1.00 - 4.80 x10'3/uL 07/02/2024 7:29 PM CDT [facility] ABS. MONOCYTES 0.86 0.24 - 0.86 x10'3/uL 07/02/2024 7:29 PM CDT [facility] ABS. EOSINOPHILS 0.40(H) 0.04 - 0.36 x10'3/uL 07/02/2024 7:29 PM CDT [facility] ABS. BASOPHILS 0.09(H) 0.01 - 0.08 x10'3/uL 07/02/2024 7:29 PM CDT [facility] ABS. IMMATURE GRANULOCYTES 0.06 0.00 - 0.49 x10'3/uL 07/02/2024 7:29 PM CDT [facility] 07/02/2024 7:10 PM CDT Bailey Draper MOBILE BATTERY TECHNICIAN LABORATORY Final Result Performing Organization Address City/[facility]/ZIP Co de Phone Number [address] [address], [place] [phone] * (ABNORMAL) MAGNESIUM (07/02/2024 7:10 PM CDT) MAGNESIUM 1.4(L) 1.8 - 2.4 MG/DL 07/02/2024 7:53 PM CDT [facility] 07/02/2024 7:10 PM CDT Bailey Draper MOBILE BATTERY TECHNICIAN LABORATORY Final Result Performing Organization Address City/[facility]/ZIP Co de Phone Number [facility] [address] [place] [address], [place] [phone] * XR CHEST PORTABLE (07/02/2024 6:47 PM CDT) Anatomical Region Laterality Modality Chest Radiographic La ging 07/02/2024 6:47 PM CDT Impressions 07/02/2024 6:52 PM CDT Impression: No acute findings. Referred By: Interpreted By: Papa Vásquez MD, 07/02/2024 6:47 PM Narrative 07/02/2024 6:52 PM CDT [place] [id number] Examination: Chest 1 view portable History: Chest pain DATE/TIME: 07/02/2024 6:34 PM Comparison: None Technique: AP upright portable view of the chest was obtained. Findings: Heart size, mediastinal contours and pulmonary vasculature are within normal limits. No pulmonary consolidation, pleural effusion or pneumothorax. No acute osseous abnormality. Procedure Note Papa Vásquez MD - 07/02/2024 [place] [id number] Examination: Chest 1 view portable History: Chest pain DATE/TIME: 07/02/2024 6:34 PM Comparison: None Technique: AP upright portable view of the chest was obtained. Findings: Heart size, mediastinal contours and pulmonary vasculature arewithin normal limits. No pulmonary consolidation, pleural effusion orpneumothorax. No acute osseous abnormality. Impression: No acute findings. Referred By: Interpreted By: Papa Vásquez MD, 07/02/2024 6:47 PM Bailey Draper MOBILE BATTERY TECHNICIAN GENERAL IMAGING Final Result * MRI GENERIC (06/30/2024) Anatomical Region Laterality Modality Other 06/30/2024 [facility] Scanned SCANNING Final Resu lt * CT GENERIC (06/29/2024) Anatomical Region Laterality Modality Other 06/29/2024 [facility] Scanned SCANNING Final Resu lt * IMAGE GENERIC (06/29/2024) Anatomical Region Laterality Modality Other 06/29/[address] [facility] Scanned SCANNING Final Resu lt * ARTHROCENTESIS MAJOR JOINT W/ ULTRASOUND GUIDANCE (06/16/2024 9:40 AM CDT) Narrative Maurisio Jeong MD - 06/16/2024 9:40 AM CDT Maurisio [...] * URINE BACTERIA CULTURE (06/01/2024 1:54 PM [facility]) SPEC DESCRIPTION URINE CLEAN CATCH 06/01/2024 1:54 PM [facility] SPECIAL REQUESTS NO SPECIAL REQUEST 06/01/2024 1:54 PM [facility] CULTURE RESULT >25,000 TO 50,000 CFU/mL ESCHERICHIA COLI 06/04/2024 10:35 AM [facility] URINE SPECIMEN OBTAINED BY CLEAN CATCH PROCEDURE / Unknown 06/01/2024 1:54 PM [facility] 06/01/2024 8:53 PM [facility] Narrative Organism Antibiotic Method Susceptibility Escherichia coli [...] Sensitive Escherichia coli TETRACYCLINE RONNIE (VITEK) Sensitive us Nettie Hodges NP MICROBIOLOGY - GENERAL OR DERABLES Final Result [facility] [address] [place] [address], [id number] * (ABNORMAL) URINALYSIS AUTO DIP (06/01/2024) COLOR [...] CATCH PROCEDURE / Unknown 06/01/2024 Nettie Hodges NP URINE ORDERABLES Final Re sult [address], [place] [address] [place] [address], [place] [phone] * CRYSTALS, BODY FLUID (04/26/2024 7:22 PM [facility]) COMMENT PRELIMINARY REPORT: 04/26/2024 9:09 PM [facility] Comment: NO CRYSTALS TO BE REVIEWED BY PATHOLOGIST CRYSTAL SOURCE KNEE,RIGHT 04/26/2024 7:22 PM [facility] INTERPRETATION THIS CRYSTAL REPORT WAS INTERPRETED BY 04/27/2024 2:23 PM [facility] Comment: DR DWAYNE BRANNON THE FLUID IS EXAMINED MICROSCOPICALLY WITH AND WITHOUT POLARIZED LIGHT AND WITH AND WITHOUT FIRST ORDER RED MELT HOUSE SUPERVISOR UNDER 10X AND 40X MAGNIFICATIONS. THE FLUID CONTAINS FEW WHITE BLOOD CELLS AND FEW RED BLOOD CELLS. THERE ARE NO MONOSODIUM URATE (MSU OR GOUT) OR CALCIUM PYROPHOSPHATE DIHYDRATE (CPPD OR PSEUDOGOUT) CRYSTALS IDENTIFIED. STRUCTURE OF RIGHT KNEE REGION / Unknown 04/26/2024 7:22 PM [facility] Maurisio Jeong MD BODY FLUIDS AND STOOLS ORDERABL ES Final Result Performing Organization Address City/[facility]/ZIP Co de Phone Number [facility] [address] [place] [address], [place] [phone] * CELL COUNT W/ DIFF BODY FLUID (04/26/2024 7:22 PM [facility]) SOURCE (FLUID) KNEE,RIGHT 04/26/2024 7:22 PM [facility] TOTAL NUCLEATED CELL (BODY FLUID) 0.405 x10'3/uL 04/26/2024 8:57 PM [facility] Comment:REFERENCE RANGE NOT ESTABLISHED RBC (FLUID) 0.002 x10'6/uL 04/26/2024 8:57 PM [facility] Comment:REFERENCE RANGE NOT ESTABLISHED DIFFERENTIAL MANUAL DIFFERENTIAL PERFORMED ON CONCENTRATED CYTOSPIN 04/26/2024 7:22 PM [facility] CELLS COUNTED 100 No COUNTED 04/26/2024 10:27 PM [facility] SEGS (FLUID) 1 % 04/26/2024 10:25 PM [facility] LYMPHS (FLUID) 61 % 04/26/2024 10:25 PM [facility] OTHER MONONUCLEAR CELLS (FLD) 38 % 04/26/2024 10:25 PM [facility] STRUCTURE OF RIGHT KNEE REGION / Unknown 04/26/2024 7:22 PM [facility] Maurisio Jeong MD BODY FLUIDS AND STOOLS ORDERABL ES Final Result [facility] [address] [place] [address], [id number] * OXR LT KNEE 3V (04/26/2024 9:36 AM [facility]) Anatomical Region Laterality Modality Radiographic La ging Narrative 04/26/2024 9:54 AM [facility] Left knee Findings: No acute osseous abnormality, fracture, dislocation. Minimal degenerative changes medial compartment patellofemoral compartment manifest with mild joint space narrowing only. Significant change from previous x-ray 2 years ago Maurisio Jeong MD GENERAL IMAGING Final Result * OXR RT KNEE 3V (04/26/2024 9:36 AM [facility]) Anatomical Region Laterality Modality Radiographic La ging Narrative 04/26/2024 9:53 AM [facility] Right knee Findings: No acute osseous abnormality, fracture, dislocation. Mild effusion noted. Minimal degenerative changes noted medial compartment patellofemoral compartment with mild joint space narrowing mild subchondral cyst formation. No significant change from previous x-ray 2 years ago. Maurisio Jeong MD GENERAL IMAGING Final Result * ARTHROCENTESIS MAJOR JOINT W/ ULTRASOUND GUIDANCE (04/26/2024 9:00 AM [facility]) Narrative Maurisio Jeong MD - 04/26/2024 9:00 AM [facility] Maurisio Jeong MD 04/26/2024 9:58 AM *Lg [...] W TAYA IOANA DIGI (04/19/2022 12:00 AM [facility]) Anatomical Region Laterality Modality Breast Bilateral Mammography 04/19/2022 Nettie Hodges MOBILE BATTERY TECHNICIAN MAMMO Final Res ult * HEPATITIS C ANTIBODY (02/27/2022 12:19 PM [facility]) HEPATITIS C AB 0.2 0.0 - 0.9 [...] support the diagnosis of acute HCV infection. [facility] Hepatitis C Virus (HCV) RNA, Diagnosis, ALAN (816019) and Hepatitis C Virus (HCV) Antibody with reflex to Quantitative Real-time PCR ([id number]). 02/27/2022 12:1 9 PM [facility] 02/27/2022 Narrative [facility] - 02/28/2022 7:07 AM [facility] Performed at: - [address] [id number] Supervisor Tower: Jace Simons PhD, Phone: [phone] us Nettie Hodgse MOBILE BATTERY TECHNICIAN LABORATORY Final Res ult [facility] [address] [place] [id number] [facility] * COLONOSCOPY GENERIC (SCAN ORDER) (10/31/2020) 10/31/2020 [facility] Scanned SCANNING Final Resu lt from Last 3 Months or Most Recently Relevant to Health Maintenance Insurance MEDICAID MEDICARE Advance Directives * Full Code (Latest Code Status on File) Date Activated Date Inactivated Comments 07/03/2024 12:37 AM 07/03/2024 4:36 PM Care Teams Bed Teacher Relationship Specialty Start Date End Date Nettie Hodges NP [address] [place] [address] PCP - General NURSE PRACTITIONER 09/10/21
--- OUTSIDE RECORDS SUMMARY | 2024-07-09 10:43 | XMS_ITS | Data Portability ---
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 Plan of Treatment Reminders Order Date Submit Date Provider Last Modified By Organization Details Last Modified Time Details Appointments None recorded. Lab hepatic function panel, serum 2022 023 ARNALDO [facility], [address] Mig[address], [address], [place], [address], 3 08:37:35 igg subclasses + total, serum 2022 023 [email or web address] [facility], 2022 Migdalia Kellogg, [address], [place], [address], 3 10:19:48 Referral None recorded. Procedures None recorded. Surgeries None recorded. Imaging None recorded. Medication Orders Symbicort 160 mcg-4.5 mcg/actuati on HFA aerosol inhaler 2022 023 [facility], [address] [place], [address], 3 14:50:22 Spiriva with HandiHaler 18 mcg and inhalation capsules 2022 023 [facility], [address] [place], [address], 3 14:50:26 prednisone 20 mg tablet 2022 023 [facility], [address] [place] [address], [address], 3 14:45:23 ciprofloxac in 750 mg tablet 2022 023 [facility], [address] [place] [address], [address], 3 14:45:25 Daliresp 500 mcg tablet 2022 023 [facility], [address] [place] [address], [address], 14:45:27 Daliresp 250 mcg tablet 2022 023 [facility], [address] [place] [address], [address], 3 14:45:25 budesonide 0.5 mg/2 mL suspension for nebulizatio n 2022 023 [facility], [address] [place] [address], [address], 14:47:45 Brovana 15 mcg/2 mL solution for nebulizatio n [address] [facility], [address] [place] [address], [address], 18:00:40 Yupelri 175 mcg/3 mL solution for nebulizatio n [address] [facility], [address] [place] [address], [address], 3 15:58:42 azithromyci n 500 mg tablet 2022 [address] [place] [address] Pharmacy [address], [address] [place] [address], [address], 3 19:50:51 prednisone 10 mg tablet 2022 023 [facility]LD[facility], [address] [facility], [place], [address], 16:07:22 Patient TargetsNo targets recorded. Patient InstructionsNo instructions recorded. Reason for Referral None Reported. Results Created Date Observation Date Name Description Value Unit Range Abnormal Flag Note LastModifiedBy Organization Detail LastModifiedTime 01/11/2001/11/2023 HEPAT IC FUNCT ION PANEL (7) protein, total 6.3 g/dL 6.0-8. 5 Not Available [facility] ([facility]) [address] [place], [address], 01/11/2023 08:37:34 01/11/2001/11/2023 HEPAT IC FUNCT ION PANEL (7) albumin 4.3 g/dL 3.8-4. 9 Not Available [facility] ([facility]) [address] [place], [address], 01/11/2023 08:37:34 01/11/2001/11/2023 HEPAT IC FUNCT ION PANEL (7) bilirubin, total 0.2 mg/dL 0.0-1. 2 Not Available [facility] ([facility]) [address] [place], [address], 01/11/2023 08:37:34 01/11/2001/11/2023 HEPAT IC FUNCT ION PANEL (7) bilirubin, direct 0.13 mg/dL 0.00-0 .40 Not Available [facility] ([facility]) [address] [place], [address], 01/11/2023 08:37:34 01/11/2001/11/2023 HEPAT IC FUNCT ION PANEL (7) alkaline phosphatase 146 IU/L 44-121 above high normal Not Available [facility] ([facility]) [address] [place], [address], 01/11/2023 08:37:34 01/11/20 23 01/11/2023 HEPAT IC FUNCT ION PANEL (7) AST (SGOT) 26 IU/L 0-40 Not Available [facility] ([facility]) [address] [facility], [place], [address], 01/11/2023 08:37:34 01/11/20 23 01/11/2023 HEPAT IC FUNCT ION PANEL (7) ALT (SGPT) 24 IU/L 0-32 Not Available [facility] ([facility]) [address] [facility], [place], [address], 01/11/2023 08:37:34 05/27/19 23 05/27/2022 six minut e walk test* No observ ation record ed. [id number] [place] [address] (Cardiology & Emg) [address] [place] [address] [facility], [place], [address], 05/29/2022 13:58:16 05/27/19 23 05/27/2022 CT, chest , w/o contr ast No observ ation record ed. [id number] [facility], [place], [address], 05/29/2022 13:58:16 06/13/19 23 05/27/2022 six minut e walk test* No observ ation record ed. BARCODE Not Available 2022 13:57:22 07/23/19 23 05/27/2022 compl ete PFT w/ post [facility] hodil ator dorene metry * No observ ation record ed. BARCODE Not Available 2022 17:09:53 Result Notes None recorded. Problems Name Problem SNOMED Code Status Onset Date Resolution Date Notes Provider Name and Address Organization Details Recorded Time Chronic back pain 726535622 Active 2017 Not Available [facility] 3 13:56:49 Chronic obstructiv e pulmonary disease 69081882 Active 2017 Not Available [facility] 3 13:56:49 Disorder of thyroid gland 35175634 Active 2017 Not Available [facility] 3 13:56:49 Pain in both feet 1136476001183 9102 Active 2021 Not Available [facility] 3 13:56:49 Chondromal acia of right patella 0878544230739 9108 Active 2020 Not Available [facility] 3 13:56:49 Pain in throat 267516682 Active 2021 Not Available [facility] 3 13:56:49 Insomnia 631652140 Active Not Available [facility] 3 13:56:49 Asthma 768840195 Active 2018 Not Available [facility] 3 13:56:49 Gastroesop hageal reflux disease 600002794 Active Not Available [facility] 3 13:56:49 Gastroesop hageal reflux disease without esophagiti s 420280818 Active 2021 Not Available [facility] 3 13:56:49 Sore throat 729991979 Active 2021 Not Available [facility] 3 13:56:49 Feeling of lump in throat 719956927 Active 2020 Not Available [facility] 3 13:56:49 Chest pain 55069878 Active 2018 Not Available [facility] 3 13:56:49 Tear of medial meniscus of knee 334605977 Active 2020 Not Available [facility] 3 13:56:50 Chondromal acia of left patella 4425257848485 06 Active 2020 Not [facility] 3 13:56:50 Current tear of lateral cartilage AND/OR meniscus of knee Active Not Available [facility] 3 13:56:50 Severe chronic obstructiv e pulmonary disease 276332138 Active 2018 Not Available [facility] 3 13:56:50 Daytime hypersomni a 5793570318598 2 Active 2018 Not Available [facility] 3 13:56:50 Hypoxia 088171526 Active 2018 Not Available [facility] 3 13:56:50 Chronic respirator y failure 53356004 Active 2018 Not Available [facility] 3 13:56:50 Obesity 011227906 Active 2017 Not Available [facility] 3 13:56:50 Irritable bowel syndrome characteri zed by constipati on 207519338 Active 2021 Not Available [facility] 3 13:56:50 Swelling of lower jaw region 401250037 Active 2021 Not Available [facility] 3 13:56:50 Foot pain 95050646 Active Not Available [facility] 3 13:56:50 Hyperlipid emia 35046508 Active 2017 Not Available [facility] 3 13:56:51 Wheezing 47441388 Active 2020 Not Available [facility] 3 13:56:51 Essential hypertensi on 70948636 Active 2017 Not Available [facility] 3 13:56:51 Dyspnea on exertion 56417858 Active 2018 Not Available [facility] 3 13:56:51 Smoker 75783948 Active 2017 Not Available [facility] 3 13:56:51 Epigastric pain 65842248 Active 2021 Not Available [facility] 3 13:56:51 Degenerati ve joint disease of ankle AND/OR foot 28792167 Active 2020 Not Available [facility] 3 13:56:51 Fatigue 69858750 Active 2020 Not Available [facility] 3 13:56:51 Pain in face 06758274 Active 2021 Not Available [facility] 3 13:56:51 Acute exacerbati on of chronic asthmatic bronchitis 080722262 Active 2022 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 [address] [facility], [address], [place], [address] , [employer] 3 20:05:02 Acute exacerbati on of chronic obstructiv e pulmonary disease 561631791 Active 2022 Betsey Lyon [facility] [address] [facility], [address], [place], [address] , [employer] 3 14:41:15 Edema of lower extremity 289184336 Active 2022 Betsey Lyon [facility] [address] [facility], [facility] [address], [place], [address] , [employer] 3 16:40:34 Problem Notes None recorded. Procedures Surgical History Date Name Laterality Status Provider Name and Address Organization Details Recorded Time Knee Surgery completed Not Available [facility] 05/29/2022 13:56:14 completed Not Available [facility] 0 05/29/2022 13:56:14 Imaging Results Imaging Date Name Status LastModified by Organization Details LastModified Time 05/27/2022 six minute walk test* completed [id number] [facility] (Cardiology & Emg) [address] [place] [address], [address], 05/29/2022 13:58:16 05/27/2022 CT, chest, w/o contrast completed [id number] [address], [address], 05/29/2022 13:58:16 05/27/2022 six minute walk test* completed [facility] Information not available 06/12/2022 13:57:22 05/27/2022 complete PFT w/ post bronchodilator spirometry* completed [facility] Information not available 07/22/2022 17:09:53 Procedure Notes None recorded. Medical Equipment None Reported. Allergies Allergen ID Allergen Name Allergen Category Reaction Reaction Severity Criticality Documentation Date Start Date Code Code System Note Provider Name and Address Organization Details Recorded Time 15923 Pneumococ gregorio vaccine Not available Not available Not available Not available 05/29/2022 83913 7 RxNorm Not Available [facility] 3 13:58:14 Medications Name Sig Start Date [...] administ ered by the provider 05/23 completed [facility]: 0003-049 4-20 Not Available Not Available Not [...] Available Not Available No t Available azithromy conenr 500 mg tablet TAKE 1 TABLET BY [...] administ ered by the provider 05/23 completed [facility]: 0409-427 09-14 Not Available Not Available Not [...] % 95 % 80 /min 96.7 [degF] 41148.8 4 g 124 mm[Hg] 70 mm[Hg] Not Available [facility] 3 13:56:31 Date Recorded Body weight Body temperature Heart rate Oxygen saturation Oxygen saturation in Arterial blood by Pulse oximetry Inhaled oxygen flow rate Systolic blood pressure Diastolic blood pressure Provider Name and Address Organization Details Last Updated DateTime 3 38798.0 3 g 97.2 [degF] 84 /min 96 % 96 % 2 L/min 138 mm[Hg] 84 mm[Hg] Eugenia Thompson [place] [employer] 3 15:00:25 Date Recorded Body height Body mass index (BMI) Body weight Body temperature Heart rate Oxygen saturation Oxygen saturation in Arterial blood by Pulse oximetry Systolic blood pressure Diastolic blood pressure Provider Name and Address Organization Details Last Updated DateTime 3 149.86 cm 41.8 kg/m2 60456.6 2 g 97.3 [degF] 82 /min 94 % 94 % 138 mm[Hg] 68 mm[Hg] Juana Jacques [employer] 3 14:37:29 Date Recorded Body height Body mass index (BMI) Body weight Body temperature Heart rate Oxygen saturation Oxygen saturation in Arterial blood by Pulse oximetry Systolic blood pressure Diastolic blood pressure Provider Name and Address Organization Details Last Updated DateTime 3 149.86 cm 40.8 kg/m2 79424.6 6 g 97.2 [degF] 98 /min 99 % 99 % 132 mm[Hg] 64 mm[Hg] Juana Jacques [employer] 3 14:21:12 Date Recorded Body height Body temperature Provider N rebecca and Address Organization Details Last Updated DateTime 02/24/2023 149.86 cm 97.2 [degF] Simran Ortega MA [employer] 02/24/2023 14:05:44 Social History Question Answer Notes LastModified by Organizat ion Details LastModified Time Tobacco Smoking Status Former Smoker quit 2016 Simran Ortega MA null, [employer] 09/18/2022 14:12:11 Do You Have An Advance Directive? No [id number] Information not available 05/29/2022 What Is Your Level Of Alcohol Consumption? Moderate One Beer Every Now And Then [id number] Information not available 05/29/2022 What Is Your Level Of Caffeine Consumption? Moderate [id number] Information not available 05/29/2022 How Much Tobacco Do You Chew? None [id number] Information not available 05/29/2022 In The 14 [...] Type Of Diet Are You Following? 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 No Information not available 09/18/2022 What Was The Date Of Your Most Recent Tobacco Screening? 01/30/2021 Information not available 09/18/2022 How Many Children Do You Have? 2 Information not available 09/18/2022 Do You Have Any Pets? Yes Information not available 09/18/2022 What Is Your Relationship Status? [id number] Information not available 05/29/2022 Do You Have [...] Used Smokeless Tobacco? Never Used Smokeless Tobacco [id number] Information not available 05/29/2022 How Much Tobacco Do You Smoke? 2 PPD 2 1/2 MIGRATION.[id number] 03577 Information not available 05/29/2022 Do You Feel Stressed (tense, Restless, Nervous, Or Anxious, Or Unable To Sleep At Night)? [id number] Information not available 09/18/2022 Do You Use [...] exercise level? Moderate Pulmonary Rehab 3x weekly [id number] Information not available 05/29/2022 Mental Status None recorded. Family History Relationship Description Onset Age of this Age Resolved Age Notes LastModified by Organization Details LastModified Time Unspecified Relation Hypertensive disorder [id number] Not available 05/29/2022 13:56:14 Father Diabetes mellitus [id number] Not available 05/29/2022 13:56:14 Father Asthma [id number] Not available 05/29/2022 13:56:14 Medical History Condition Response SLEEP APNEA N MRSA N ALLERGIES/HAYFEVER N LUNG DISEASE/DISORDER N INSOMNIA N RADIATION / CHEMOTHERAPY N COPD Y HIGH CHOLESTEROL / HYPERLIPIDEMIA N HYPERTHYROIDISM N BLOOD DISEASES N EAR OR HEARING PROBLEMS N HYPOTHYROIDISM N DEPRESSION (INCLUDING POST ) N HAVE YOU BEEN HOSPITALIZED OR SEEN IN [facility] ER IN THE PAST YEAR ? N STROKE/TIA N ULCERS N OBESITY N HISTORY WITH COMPLICATIONS WITH ANESTHES IA ? N ANEURYSM N NO SIGNIFICANT PAST MEDICAL HISTORY N USE OF BLOOD THINNERS N DIABETES, TYPE N PARATHYROID DISEASE N ENT N SEASONAL ALLERGIES N HEARTBURN / REFLUX N HEPATITIS / LIVER DISEASE N SLEEP DISORDER N HEADACHES/MIGRAINES N SEIZURES/EPILEPSY N CHF N PACEMAKER N DIZZINESS N HEART DISEASE/HEART PROBLEMS N AIDS/HIV N FRACTURES N HYPERTENSION N CANCER: SPECIFY N TOURETTE'S N BLOOD TRANSFUSION N ANESTHESIA COMPLICATIONS N ANEMIA/BLOOD DISORDER Y CHRONIC EAR INFECTIONS N TUBERCULOSIS N Gynecological HistoryNo gynecological history recorded. Obstetrics History GPAL:G 0 P 0 0 0 0 Immunizations Vaccine Type Date Status Note Provider Nam e and Address Organization Details Recorded Time COVID-19, mRNA, LNP-S, PF, 30 mcg/0.3 mL dose 1 completed Not Available [facility] 05/29/2022 13:58:13 COVID-19, mRNA, LNP-S, PF, 30 mcg/0.3 mL dose 1 completed Not Available [facility] 05/29/2022 13:58:13 Influenza, split virus, quadrivalent, preservative 0 completed Not Available [facility] 05/29/2022 13:58:13 Past Encounters Encounter ID Performer Location Encounter Start Date Encounter Closed Date Diagnosis/Indication Diagnosis SNOMED-CT Code Diagnosis ICD10 Code Diagnosis Note [id number] [facility] [place] [address] [place] [address] 06/12/2020 00:00:00 06/12/2020 14:28:35 [id number] [facility] [place] [address] [place] [address] 06/27/2020 00:00:00 06/27/2020 10:34:36 [id number] [facility] [place] [address] [place] [address] 07/25/2020 00:00:00 07/25/2020 13:47:03 [id number] [facility] [place] [address] [place] [address] 09/22/2020 00:00:00 09/24/2020 16:47:01 [id number] [facility] [place] [address] [place] [address] 10/11/2020 00:00:00 10/11/2020 11:48:51 [id number] [facility] [place] [address] [place] [address] 10/17/2020 00:00:00 10/17/2020 23:43:14 [id number] [facility] [place] [address] [place] [address] 10/26/2020 00:00:00 10/26/2020 11:08:56 [id number] [facility] [place] [address] [place] [address] 11/24/2020 00:00:00 11/24/2020 15:58:50 [id number] _ATHENA_M IGRATION_ DEFAULT_1 _1 , 12/15/2020 00:00:00 12/17/2020 20:35:32 [id number] [facility] Ortho [address] [place] [address] 01/02/2021 00:00:00 01/02/2021 09:24:03 [id number] [facility] [place] [address] [place] [address] 01/30/2021 00:00:00 01/30/2021 16:39:13 [id number] _ATHENA_M IGRATION_ DEFAULT_1 _1 , 02/20/2021 00:00:00 02/20/2021 17:00:17 [id number] [facility] [address] [place] [address] 02/20/2021 00:00:00 02/20/2021 09:27:56 [id number] [facility] [place] [address] [facility], [address] [place] [address], [place] [address] 03/12/2021 00:00:00 03/12/2021 15:46:54 [id number] [facility] [address] [place] [address] 03/20/2021 00:00:00 03/20/2021 10:27:26 [id number] [facility] [place] [address], [address] [place] [address], [place] [address] 04/04/2021 00:00:00 04/04/2021 15:34:22 [id number] _ATHENA_M IGRATION_ DEFAULT_1 _1 , 05/23/2021 00:00:00 05/23/2021 12:00:04 [id number] _ATHENA_M IGRATION_ DEFAULT_1 _1 , 06/06/2021 00:00:00 06/06/2021 12:16:25 [id number] [facility] [place] [address] [place] [address] 06/21/2021 00:00:00 06/21/2021 21:00:22 [id number] _ATHENA_M IGRATION_ DEFAULT_1 _1 , 06/27/2021 00:00:00 06/27/2021 11:34:57 [id number] [facility] [place] [address] [place] [address] 07/19/2021 00:00:00 07/19/2021 12:24:12 [id number] _ATHKAMI_M IGRATION_ DEFAULT_1 _1 , 08/01/2021 00:00:00 08/01/2021 15:13:36 [id number] _ATHENA_M IGRATION_ DEFAULT_1 _1 , 08/03/2021 00:00:00 08/05/2021 21:02:16 [id number] [facility] [place] [address] [place] [address] 09/14/2021 00:00:00 09/14/2021 15:52:38 [id number] [facility] [place] [address] [place] [address] 10/05/2021 00:00:00 10/05/2021 16:48:56 [id number] [facility] [place] [address] [place] [address] 12/07/2021 00:00:00 12/07/2021 16:02:35 [id number] [facility] [place] [address] [place] [address] 01/01/2022 00:00:00 01/01/2022 23:10:10 [id number] [facility] [place] [address] [place] [address] 02/12/2022 00:00:00 02/12/2022 16:43:42 [id number] [facility] [place] [address] [place] [address] 03/13/2022 00:00:00 03/13/2022 19:17:45 [id number] [facility] [place] [address] [place] [address] 04/15/2022 00:00:00 04/15/2022 16:40:53 [id number] [employer] [employer] [facility] [place] [address] [place] [address] 05/14/2022 00:00:00 05/14/2022 15:32:14 [id number] Betsey Sonali [facility] [place] [address] [place] [address] 07/16/2022 14:50:26 07/16/2022 16:29:48 Acute exacerbation of chronic asthmatic bronchitis 271209128 J44.1 Prednisone today Severe chr onic obstructive pulmonary disease 819752404 J44.9 Severe obstructio n.PFT 11/24/20 with FEV1 23%RV 258, TLC 137, FRC 231.DLCO 69Repeat [facility] K[facility]apolisti nue ICS/LABA/L AMA medication , nebulizerC ontinue NIVBudeson rain, Brovana, YupelriAlb uterol PRN - discussed indication s for useMucomys t BIDShe is aware of reportable signs and symptoms Chronic re spiratory failure 68685667 J96.10 Reports no benefit from NIV Dyspnea on exertion 6084 5006 R06.09 Multifacto ralOxygen as directedIn haled therapy as aboveweigh t lossIncrea se activitySh e must quit smoking Fatigue 05938032 R53.83 Multifacto ralFollow with PCM for labs Nicotine dependence 5629 4008 Z87.891 Smoking cessation counseling and techniques reviewed at length. Literature reviewed.A void triggers, support groups.Dis traction techniques Greater than 3 but less than 10 minutes spent discussing cessation. Declines NRT.Discus sed Rx options if needed in the future. [id number] Betsey Lyon [facility] [place] [address] [place] [address] 09/18/2022 14:11:44 09/18/2022 17:54:57 Severe chronic obstructive pulmonary disease 948918646 J44.9 Severe obstructio n.PFT 11/24/20 with FEV1 23%RV 258, TLC 137, FRC 231.DLCO 69Repeat testing in chartConti nue ICS/LABA/L AMA medication per nebulizerB udesonideClifaIsela has tried and failed NIVAlbuter ol PRN - discussed indication s for useMucomys t BIDStart Azithromyc in three times per week, consider DalirespSh e declines PRShe is aware of reportable signs and symptoms Chronic re spiratory failure 22860634 J96.10 Reports no benefit from NIV - she has returned this Dyspnea on exertion 6084 5006 R06.09 Multifacto ralOxygen as directedIn haled therapy as aboveweigh t lossIncrea se activitySh e must quit smokingRAS T, QUantifero n GOLD, IGE, Alpha1, BNP, eosinophil s, HP panel all normal Fatigue 91475041 R53.83 Multifacto ralFollow with PCM for labs Nicotine dependence 5629 4008 Z87.891 Smoking cessation counseling and techniques reviewed at length. Literature reviewed.A void triggers, support groups.Dis traction techniques Greater than 3 but less than 10 minutes spent discussing cessation. Declines NRT.Discus sed Rx options if needed in the future. Wheezing 81112265 R06.2 Persistent and chronic.No t resolved with triple inhaled therapy plus albuterol. No improvemen t with steroids.C T chest with no evidence of nodule, mass, adenopathy , bronchiect asis, or other lesion.His tory of polyps on vocal cords Immunoglob ulins outside reference range 212883815 R89.4 IGG total level lowRepeat [id number] Betsey Lyon, [facility] [place] [address] [place] [address] 01/10/2023 14:00:56 01/10/2023 15:03:08 Long-term drug therapy 165702196 Z79.899 [facility] Severe chr onic obstructive pulmonary disease 310132377 J44.9 Severe obstructio n.PFT 11/24/20 with FEV1 23%RV 258, TLC 137, FRC 231.DLCO 69Repeat testing in chartConti nue ICS/LABA/L AMA medication per nebulizerB udesonide, Brovana, ChuyitapedorothyiOrd erechiquis todayShe has tried and failed NIV due to intoleranc eAlbuterol PRN - discussed indication s for useMucomys t BIDContinu e Azithromyc in three times per week, consider Daliresp as aboveShe declines MN, has completed this previously and reports no clinical benefitShe is aware of reportable signs and symptomsAd vised vaccines this fall Chronic re spiratory failure 17935813 J96.10 Reports no benefit from NIV - she has returned this Dyspnea on exertion 6084 5006 R06.09 Multifacto ralOxygen as directedIn haled therapy as aboveWeigh t lossIncrea se activitySh e must quit smokingRAS T, QUantifero n GOLD, IGE, Alpha1, BNP, eosinophil s, HP panel all normal Fatigue 75099934 R53.83 Multifacto ralFollow with PCM for labsAHI per in lab sleep study 2019 was 2.7, negative Wheezing [id number] R06.2 Persistent and chronic.No t resolved with triple inhaled therapy plus albuterol. No improvemen t with steroids.C T chest with no evidence of nodule, mass, adenopathy , bronchiect asis, or other lesion.His tory of polyps on vocal cords, follow ENTSmoking cessation Immunoglob ulins outside reference range 760806893 R89.4 IGG total level low (497)Previ ous order for immunology Nicotine dependence 5629 4008 Z87.891 Smoking cessation counseling and techniques reviewed at length. Literature reviewed.A void triggers, support groups.Dis traction techniques Greater than 3 but less than 10 minutes spent discussing cessation. Declines NRT.Discus sed Rx options if needed in the future. Acute exac erbation of chronic obstructive pulmonary disease 646337331 J44.1 Discussed emergently reportable S/S Dependence on supplemental oxygen 0206320182 07 Z99.81 2 liters at night and 2 liters with activity.6 MWT 05/2022We have discussed the risks of hypoxia, including .She has good use and clinical benefit [id number] Betsey Lyon, [facility] Pulmonolo gy Tila Acevedo [address] [place] [address] 02/24/2023 14:02:05 02/24/2023 15:20:11 Severe chronic obstructive pulmonary disease 104422608 J44.9 Severe obstructio n.PFT 11/24/20 with FEV1 [...] compliance with maintenanc e medication sShe declines MN, has completed this previously and reports no clinical benefitShe is aware of reportable signs and symptomsAd vised vaccines this fall Long-term drug therapy 149742752 Z79.899 May initiate DalirespLF T 12/2022 with very mildly elevated alk phos Chronic re spiratory failure 17166947 J96.10 Reports no benefit from NIV - she has returned this Dyspnea on exertion 6084 5006 R06.09 Multifacto ralOxygen as directedIn haled therapy as aboveWeigh t lossIncrea se activitySh e must quit smokingRAS T, QUantifero n GOLD, IGE, Alpha1, BNP, eosinophil s, HP panel all normal Dependence on supplemental oxygen 3648635165 07 Z99.81 2 liters at night and 2 liters with activity.6 MWT 05/2022We have discussed the risks of hypoxia, including .She has good use and clinical benefit Fatigue 35972739 R53.83 Multifacto ralFollow with PCM for labsAHI per in lab sleep study 2019 was 2.7, negativeSh e declines re-study Wheezing 86628118 R06.2 Persistent and chronic.No improvemen t with steroids.C T chest 05/2022 with no evidence of nodule, mass, adenopathy , bronchiect asis, or other lesion.His tory of polyps on vocal cords, follow ENTSmoking cessation Immunoglob ulins outside reference range 807232596 R89.4 IGG total level low (497)Previ ous order for immunology , she has not followed through with this Nicotine dependence 5629 4008 Z87.891 Smoking cessation counseling and techniques reviewed at length. Literature reviewed.A void triggers, support groups.Dis traction techniques Greater than 3 but less than 10 minutes spent discussing cessation. Declines NRT.Discus sed Rx options if needed in the future.CT as detailed above Edema of mónica shahid extremity 420105554 R60.0 BLE 2-3+ pittingShe refuses ERCalled PCM, set up appointmen t for first available Health Concerns Section Related Observation LastModified by Organization Detai ls LastModified Time None Recorded Concern Status LastModified by Organization Details LastModified Time None Recorded Advance Directives Directive N: Payers Encounter Date Sequence Insurance Name Policy Number Policy Webster Covered Member ID Webster Member ID Guarantor Name 07/16/2022 1 [facility] (MEDICAID HMO) [id number] Medina Cox [id number] Medina Cox 09/18/2022 1 [facility] (MEDICAID HMO) [id number] Medina Cox [id number] Medina Cox 01/10/2023 1 [facility] (MEDICAID HMO) [id number] Medina Cox [id number] Medina Cox 02/24/2023 1 [facility] (MEDICAID HMO) [id number] Medina Cox [id number] Medina Cox Notes Date Note Type Note [...] cold for the last week Betsey Lyon, CREATIVE SERVICES PRODUCER-BC [address] [facility], [facility] [address], [place], [address], [facility] [email or web address] 07/16/2022 20:24:17 3 text/html Medina presents to [...] directed, she has good use and benefit Betsey Lyon, [facility] [address], [facility] [address], [place], [address], [employer] 09/18/2022 20:06:02 3 text/html Medina presents to [...] ago. also felt ill at that time. Betsey Lyon, [facility] [address], [facility] [address], [place], [address], [employer] 01/12/2023 16:08:49 3 text/html Medina presents to [...] liters with activity and sleep. Betsey Lyon, [facility] [address] [facility], [facility] [address], [place], [address], [facility] 02/24/2023 16:41:43 OBGyn Episode No OBEpisode recorded.
--- OUTSIDE RECORDS SUMMARY | 2024-07-09 10:43 | XMS_ITS | Encounter Summary ---
Author Organization [facility] Healthcare Address [address] [place] [address] Care Team Providers Care Rice Milling Supervisor Name Role Phone Nettie Hodges MD Primary Care Provider [phone] Encounter Details Date Type Department Care Team (Late st Contact Info) Description 07/06/2024 Orders Only [facility] Medical Group Cardiology [address] [place] [address] Delia Barrera MD [address] [place] [address] Social History Tobacco Use Types Packs/Day Years Used Date Smoking Tobacco: Every Day Cigarettes 0.5 48.3 Started: 1978 Passive Smoke Exposure: Current AUDIT-C Answer Date Recorded Q1: How often [...] on file Legal Sex Female 12:55 AM SUBWAY GUARD Gender Identity Not on file Sexual Orientation Not on file documented as of this encounter Plan of Treatment Not on file documented as of this encounter Procedures Procedure Name Priority Date/Time Associated Diagnosis Comments CARDIOLOGY DOCUMENT SCAN Routine 06/30/2024 2:37 PM CDT documented in this encounter Results * Cardiology Document Scan (06/30/2024 2:37 PM CDT) Anatomical Region Laterality Modality Other [facility] Nima Barrera MD CV CARDIAC SERVICES PRO CEDURES Final Result documented in this encounter Visit Diagnoses Not on filedocumented in this encounter Care Teams Rice Milling Supervisor Relationship Specialty Start Date End Date Nettie Hodges MD PCP - General Nurse Practitioner 02/25/23 documented as of this encounter
--- OUTSIDE RECORDS SUMMARY | 2024-07-09 10:43 | XMS_ITS | Encounter Summary ---
Author Organization [facility] Address [address] [place] [address] Care Team Providers Care Repairer Kiln Car Name Role Phone Nettie Hodges NP Primary Care Provider [phone] Rosita Fuentes RN Unavailable [phone] Encounter Details Date Type Department Care Team (Late st Contact Info) Description 07/28/2023 Abstract [facility] [address] Cristy Lucas MA Social History Tobacco Use [...] Sex Assigned at Female 04/26/2024 7:07 AM EXHAUST EQUIPMENT OPERATOR Legal Sex Female 2:16 PM EXHAUST EQUIPMENT OPERATOR Gender Identity Female 04/26/2024 9:06 AM EXHAUST EQUIPMENT OPERATOR Sexual Orientation Straight 04/26/2024 1: 33 PM EXHAUST EQUIPMENT OPERATOR 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 Not on file Not on file documented as of this encounter Plan of Treatment Upcoming Encounters Date Type Department Care Team (Late st Contact Info) Description 08/12/2024 11:00 AM CDT Office Visit [facility] Multispecialty Care - [facility] [address] [facility], [address] [place] [address] Gracy lBair APRN [address] [facility] [address] [place] [address] 09/16/2024 10:40 AM CDT Office Visit [facility] [place] [address] [place] [address] Maurisio Jeong MD [address] [place] [address] 09/24/2024 10:00 AM CDT Office Visit [facility] [phone] Paula Sanchez MD [address] [facility] [address] [place] [address] 10/13/2024 1:40 PM CDT Office Visit [facility] Medical [facility] Multispecialty Care - [facility] [address] [facility], [address] [place] [address] Shila Ruiz MD [address] [place] [address] 11/01/2024 1:20 PM CDT Office Visit [facility] Family Medicine - [place] [address] [facility] [address] [place], [place] [address] Nettie Hodges NP [address] [place] [address] documented as of this encounter Procedures Procedure [...] documented as of this encounter Care Teams Repairer Kiln Car Relationship Specialty Start Date End Date Nettie Hodges NP [address] [place] [address] PCP - General NURSE PRACTITIONER 09/10/21 Rosita Fuentes, RN [address] [place], [place] [address] Parquetry Floor Layer (Ambulatory) REGISTERED NURSE 07/05/2407/05/24 documented as of this encounter
--- NOTE | 2024-07-15 11:47 | P.NEURO_ITS ---
Neurology EEG Report General Information Date of Study: 07/09/24 TEST Electroencephalogram DIAGNOSIS facial weakness CONDITION OF RECORDING neurodiagnostic lab EEG NUMBER [id number] CLINICAL HISTORY 2 weeks ago the patient came to the hospital with left-sided weakness and chest pain EEG DESCRIPTION During wakefulness the background activity consists of posterior dominant alpha rhythm at 10 hertz with amplitude of the 20-40 microvolts which appears well- formed and reactive to eye opening. Anteriorly low amplitude mixed frequency activity was seen. Photic stimulation was performed during which no significant abnormal background changes were seen. Focal sharp activity was noted over left temporal area on several occasions. Stage I and 2 sleep were recorded during which vertex waves sleep spindles and K complexes are seen. Hyperventilation not performed. IMPRESSION This is an abnormal EEG obtained during awake and sleep states due to presence of focal sharp activity noted over the left temporal area on several occasions. This is considered nonspecific focal into ictal abnormality. Clinical correlation is recommended.
== END 2024-07-09 10:05 | disposition home or self-care (01) ==
LOC: ANHNEURO 10:08
PROVIDERS: PCP Nurse Practitioner; Visit Provider Psychiatry & Neurology Neurology
DX: R29.810 Facial weakness (principal); R51.9 Headache, unspecified
CPT/HCPCS: 95816

== ENCOUNTER 2024-07-09 10:11 | Outpatient (CLI) | payer MEDICARE, MEDICAID, SELFPAY ==
--- OUTSIDE RECORDS SUMMARY | 2024-07-09 10:44 | XMS_ITS | CONTINUITY OF CARE DOCUMENT ---
Author Name fawn augustine Address Unknown Organization [facility] Address [address] [facility] [address] [place] [address] Phone [phone] Care Team Providers Care High Density Press Operator Name Role Phone Steve Cordova MD Unavailable MANSI GAYTAN Unavailable [phone] MANSI GAYTAN Unavailable [phone] PROBLEMS Condition Status Date Provider Notes Family [...] In-person encounter Office Visit Steve Cordova MD [facility] 2 - 2 In-person encounter Office Visit Steve Cordova MD [facility] 2 - 3 In-person encounter Office Visit Steve Cordova MD [facility] Family History of Hypertension:Family History of Hypertension:Cardiology examinationSevere COPDShortness of breathSLEEP APNEA 1 - 2 In-person encounter Office Visit Dion Adame MD [facility] 3 - 3 In-person encounter Office Visit Dion Adame MD [facility] AsthmaSevere COPDHyperlipidemiaHypertensionChest pain-type to be determined VITAL SIGNS Date Observation Value Provider Body Mass Index (Ratio) 32.81 kg/m2 Sammi Cordova MD Inhaled O2 2 L/min [facility] blood pressure, resting Yes [facility] blood pressure, cuff size regular [facility] blood pressure, diastolic 80 mm[Hg] [facility] blood pressure, systolic 140 mm[Hg] [facility] oxygen saturation, oximetry 96 % [facility] pulse rate 80 /min [facility] respiratory rate E&M 18 /min [facility] weight E&M 168 [lb_av] [facility] height E&M 60 [in_i] [facility] Body Mass Index (Ratio) 33.20 kg/m2 Sammi Cordova MD blood pressure, cuff size regular Ke rri Kendallambreen blood pressure, diastolic 80 mm[Hg] [facility] blood [facility], systolic 146 mm[Hg] Galileo Sheets oxygen saturation, oximetry 92 % Diana Sheets respiratory rate E&M 16 /min Diana guerra pulse rate 73 /min Diana soto weight E&M 170 [lb_av] Diana Martinez [facility] height E&M 60 [in_i] Diana Martinez [facility] blood pressure, resting Yes [place] Body Mass Index (Ratio) 32.61 kg/m2 [facility] blood pressure, cuff size large Ke hudson [facility] blood pressure, diastolic 96 mm[Hg] Contreras rri [facility] blood pressure, systolic 170 mm[Hg] Galileo Tollivervaleriacon[facility]orth [facility] oxygen saturation, oximetry 90 % Diana Sudeep respiratory rate E&M 18 /min Diana Mabry charlie pulse rate 78 /min Diana Martinez [facility] weight E&M 167 [lb_av] Diana Weavernicolás [facility] height E&M 60 [in_i] Diana Martinez [facility] Body Mass Index (Ratio) 32.22 kg/m2 Mahad [...] High 0 cholesterol, serum 196 mg/dL [employer] [id number] 9107/03/1 7 LDL cholesterol, serum 94 mg/dL Garry [...] Statu s: Kaila odalis: 2 O ccupation: Neighborhood Aide Smoking History: P atjuanita is a former [...] Statu s: Kaila correarocky: 2 O ccupation: Neighborhood Aide Smoking History: P atjuanita is a former smoker. Steve Cordova MD social history reviewed E&M revi ewed - no changes required Steve Cordova MD smoking, year quit 2017 Diana tejada smoking history, tot al pack/day 2 Diana Hodgeer cigarette use yes Diana Weaver elder smoking status Former smoker Diana Valentine nfelder social history E&M Marital Statu s: Kaila jacobo: 2 O ccupation: Neighborhood Aide Smoking History: P atient is a former smoker. Garry Lea social history reviewed E&M revi ewed - no changes required Setve Cordova MD smoking, year quit 2017 Diana aguilarmunir smoking history, tot al pack/day 2 Steve Cordova MD cigarette use yes Diana scott smoking status Former smoker Diana Valentine [facility] social history E&M Marital Statu s: Kaila jacobo: 2 O ccupation: Neighborhood Aide Smoking History: P atient is a former smoker. Dion Adame MD social history reviewed E&M revi ewed - no changes required Dion Adame MD alcohol use, average drinks per day 2 /d Jaz Jacques alcohol use yes Jaz sales smoking, year quit 2018 Jaz neilsen smoking history, tot al pack/day 2 PPD Jaz Jacques cigarette use yes Jaz fleming smoking status Former smoker Jaz muniz alcohol use, average drinks per day 2 /d Dion Adame MD alcohol use yes Dion Gotti social history E&M Marital Statu s: Kaila jacobo: 2 O ccupation: Neighborhood Aide Smoking History: P atient is a former [...] Coverage type Digna red constitution party ID [facility] [id number] ADVANCE DIRECTIVES Name Date DISCUSSED - NO DECISION MADE TREATMENT PLAN Date Name Performer [id number],S,unchanged. mo nish willis fromCOPAna María Cordova MD [id number],S,u nchanged, minimal epicardial disease, microvascualer or secondary [...] Follow up :Had sleep study via her fiber optic technician. Steve Cordova MD Cardiology Follow up :Per [...] Adame MD Cardiology hospital follow up Ra saemer Adame MD Cardiology hospital follow up Ra [...]
--- NOTE | 2024-07-09 14:53 | P.PCNPFT_ITS ---
PFT Procedure Performed PFT Procedure Performed Plethysmography (Lung Vol) Diffusing Cap (DLCO) Flow Vol Loop Spirometry w/o Bronchodil PFT Interpretation This is a pulmonary function test with spirometry, plethysmography and diffusing capacity. The test was performed and results interpreted in accordance with the 2019 and 2005 ATS/ERS Task Force guidelines respectively using the Global Lung Function Initiative-2012 reference equations. Patient demonstrated good effort and cooperation. Reproducibility criteria were met. The quality of the spirometry maneuver was Grade B. Of note, patient struggles with effort requirement of the testing but had good effort. Findings: Spirometry: There is decreased maximal expiratory airflow at all lung volumes with concave expiratory flow tracing. The contour the inspiratory flow tracing is normal. The FVC is 0.93 L, 36% predicted. The FEV1 is 0.63 L, 30% predicted. The FEV1: FVC ratio is 68%. Plethysmography: The total lung capacity is 7.22 L, 168% predicted. The functional residual capacity is 6.41, 266% predicted. The residual volume is 3 .06 L, 174% predicted. The Residual volume:Total lung capacity ratio is 42%. Diffusing capacity: The diffusing capacity unadjusted for hemoglobin and carboxyhemoglobin is 10.2, 52% predicted. The diffusing capacity adjusted for alveolar volume is 2.50, 54% predicted. Impression: There is a very severe obstructive abnormality. The increased total lung capacity with a normal Residual volume:Total lung capacity ratio is consistent with large lungs. The diffusing capacity unadjusted for hemoglobin and carboxyhemoglobin is moderately decreased and remains moderately decreased when adjusted for alveolar volume. There are no prior studies for comparison
== END 2024-07-09 10:12 | disposition home or self-care (01) ==
PROVIDERS: PCP Nurse Practitioner; Visit Provider Nurse Practitioner
DX: J43.2 Centrilobular emphysema (principal); R94.2 Abnormal results of pulmonary function studies
CPT/HCPCS: 36415; 83735; 94375; 94726; 94729; 95816

== ENCOUNTER 2024-07-09 11:55 | Outpatient (CLI) | payer MEDICARE, MEDICAID, SELFPAY ==
--- OUTSIDE RECORDS SUMMARY | 2024-07-09 12:03 | XMS_ITS | Encounter Summary ---
Author Organization [facility] Address [facility] [place] [address] Care Team Providers Care Automobile Damage Field Appraiser Name Role Phone Nettie Hodges NP Primary Care Provider [phone] Rosita Fuentes RN Unavailable [phone] Reason for Referral * Surgical (Routine) - Closed Specialty Diagnoses / Procedures Referred By Gerardo dowling Referred To Contact Procedures Case request operating room: INJECTION SI JOINT Naida Gaines MD Three [facility] [address] [place] [address] Phone: tel: fax: Referral ID Status Reason Start Date Expiration Date Visits Re quested Visits Authorized [id number] Closed 11/26/2017 12/27/2018 1 1 Encounter Details Date Type Department Care Team (Late st Contact Info) Description 11/26/2017 Prep for Procedure [facility] [place], [place] [id number] Naida Gaines MD Three [facility] [address] [place] [id number] Social History Tobacco Use Types Packs/Day Years [...] Sex Assigned at Female 04/26/2024 7:07 AM HEALTH UNIT SUPERVISOR Legal Sex Female 2:16 PM HEALTH UNIT SUPERVISOR Gender Identity Female 04/26/2024 9:06 AM HEALTH UNIT SUPERVISOR Sexual Orientation Straight 04/26/2024 1: 33 PM HEALTH UNIT SUPERVISOR 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 Not on file documented as of this encounter Plan of Treatment Upcoming Encounters Date Type Department Care Team (Late st Contact Info) Description 08/12/2024 11:00 AM CDT [facility] [address], [address] [place] [address] Gracy Blair APRN [address] [facility] [address] [place] [address] 09/16/2024 10:40 AM CDT Office Visit [facility] [place] [address] [place] [address] Maurisio Jeong MD [address] [place] [address] 09/24/2024 10:00 AM CDT Office Visit [facility] [address] Paula Sanchez MD [address] [facility] [address] [place] [address] 10/13/2024 1:40 PM CDT [facility] [address], [address] [place] [address] Shila Ruiz MD [address] [place] [address] 11/01/2024 1:20 PM CDT Office Visit [facility] Medical Group Family Medicine - [place] [address] [facility] [address] [place] [address] Nettie Hodges NP [address] [place] [address] documented as of this encounter Visit Diagnoses Not on filedocumented in this encounter Additional Health Concerns Infection Onset Date Last Indicated Resolved Time COVID-19 Rule Out 04/03/2022 04/03/2022 04/03/2022 11:18 AM HEALTH UNIT SUPERVISOR Respiratory Rule-Out 07/03/2024 07/03/2024 025 7:57 AM CDT documented as of this encounter Care Teams Automobile Damage Field Appraiser Relationship Specialty Start Date End Date Nettie Hodges NP [address] [place] [address] PCP - General NURSE PRACTITIONER 09/10/21 Rosita Fuentes, RN [address] [place] [address] Documentation Coordinator (Ambulatory) REGISTERED NURSE 07/05/2407/05/24 documented as of this encounter
--- OUTSIDE RECORDS SUMMARY | 2024-07-09 12:03 | XMS_ITS | Encounter Summary ---
Author Organization [facility] Healthcare Address [address] [place] [address] Care Team Providers Care Scale Expert Name Role Phone Nettie Hodges MD Primary Care Provider [phone] Encounter Details Date Type Department Care Team (Late st Contact Info) Description 07/09/2024 Telephone [facility] Pulmonary at [address] [place] [address] Erin Felder LPN Social History Tobacco Use Types Packs/Day Years [...] on file Legal Sex Female 12:55 AM SPUDDER Gender Identity Not on file Sexual Orientation Not on file documented as of this encounter Miscellaneous Notes * Telephone Encounter - Erin Felder LPN - 07/09/2024 10:59 AM CDT Karen lauren [facility] called and pt had Echo on 06/29, they will send us the ECHO documented in this encounter Plan of Treatment Not on file documented as of this encounter Visit Diagnoses Not on filedocumented in this encounter Care Teams Scale Expert Relationship Specialty Start Date End Date Nettie Hogdes MD PCP - General Nurse Practitioner 02/25/23 documented as of this encounter
--- OUTSIDE RECORDS SUMMARY | 2024-07-09 12:03 | XMS_ITS | Referral Summary ---
Author Organization [facility] Care Team Providers Care Trimmer Sawyer Name Role Phone Nettie Hodges MD Primary Care Provider [phone] Encounters Date Type Department Care Team Description 07/09/2024 Telephone [facility] Pulmonary at [address] [place] [address] Erin Felder LPN 07/06/2024 Orders Only [facility] Cardiology [address] [place] [address] Delia Barrera MD 06/23/2024 Telephone [facility] Pulmonary at [address] [place] [address] Sri Atkinson LPN 06/01/2024 Telephone [facility] Pulmonary at [address] [place] [address] Erin Felder LPN Faxed orders to [facility] 06/01/2024 9:30 AM BALL POINT SPLITTER Office Visit [facility] Pulmonary at [address] [place] [address] Betsey Lyon NP Chronic respiratory failure with [...] 06/01/2024 Assessment & Plan (06/01/2024 2:11 PM BALL POINT SPLITTER): This is persistent and severe. She has [...] 03/03/2024 Assessment & Plan (06/01/2024 2:07 PM BALL POINT SPLITTER): Continue supplemental oxygen with sleep at 4 liters She is aware of the risks of both hypoxia and hypercapnia Assessment & Plan (03/03/2024 9:05 PM BALL POINT SPLITTER): Continue supplemental oxygen with sleep Increase to 4 liters. We have discussed the risks of hypoxia. Obstructive sleep apnea 03/03/2024 Assessment & Plan (03/03/2024 9:10 PM BALL POINT SPLITTER): We have had an extensive conversation about [...] 06/18/2023 Assessment & Plan (06/01/2024 2:08 PM BALL POINT SPLITTER): Continue famotidine and omeprazole daily A continue to believe that GERD is a direct contributing factor to her persistent wheezing Keep follow up appointments with GI, I recommend manometry/pH testing Assessment & Plan (03/03/2024 9:06 PM BALL POINT SPLITTER): Continue famotidine and omeprazole daily Although her [...] 06/18/2023 Assessment & Plan (06/01/2024 2:09 PM BALL POINT SPLITTER): This is chronic, persistent, and unrelieved by inhaled therapy and prednisone She is on maximum inhaled therapy I continue to recommend further GI workup Assessment & Plan (03/03/2024 9:09 PM BALL POINT SPLITTER): This is chronic, persistent, and unrelieved by [...] 06/18/2023 Assessment & Plan (06/01/2024 2:08 PM BALL POINT SPLITTER): - Smoking cessation counseling and techniques reviewed at length - Avoid triggers and use distraction techniques - She is aware of the [place] Tobacco Quit line: 0-866-XGWW-YES for free services - 5 minutes spent discussing cessation She is pre-contemplative, I have encouraged her to cut back and she is aware that her symptoms will likely continue to worsen as long as she is actively smoking Her annual lung cancer screening is due this month I have placed an order and she will schedule this at [facility] Assessment & Plan (03/03/2024 9:07 PM BALL POINT SPLITTER): - Smoking cessation counseling and techniques reviewed at length - Avoid triggers and use distraction techniques - She is aware of the [place] Tobacco Quit line: 5-626-VPJZ-YES for free services - 5 minutes spent discussing cessation She is pre-contemplative, I have encouraged her to cut back Assessment & Plan (10/16/2023 11:08 PM CDT): - Smoking cessation counseling and techniques reviewed at length - Avoid triggers and use distraction techniques - She is aware of the [place] Tobacco Quit line: 5-946-UZIG-YES for free services - 3 minutes spent discussing cessation Assessment & Plan (08/22/2023 1:40 PM CDT): - Smoking cessation counseling and techniques reviewed at length - Avoid triggers and use distraction techniques - Participate in support groups - Information given regarding [place] Tobacco Quit line: 4-347-LXCV-YES for free services 3 minutes spent discussing cessation Assessment & Plan (06/18/2023 3:43 PM CDT): - Smoking cessation counseling and techniques reviewed at length - Avoid triggers and use distraction techniques - Participate in support groups - Information given regarding [place] Tobacco Quit line: 8-342-PFPE-YES for free services 4 minutes spent discussing cessation COPD exacerbation 06/02/2023 Chronic obstructive pulmonary disease 11/28/2020 Assessment & Plan (06/01/2024 2:06 PM BALL POINT SPLITTER): Continue Breztri 2 puffs twice daily with [...] rehab Assessment & Plan (03/03/2024 9:05 PM BALL POINT SPLITTER): Continue Breztri 2 puffs twice daily. I [...] on file Legal Sex Female 12:55 AM BALL POINT SPLITTER Gender Identity Not on file Sexual Orientation Not on file Last Filed Vital Signs Vital Sign Reading Time Taken Comments Blood Pressure 118/62 06/01/2024 9:09 AM BALL POINT SPLITTER Pulse 81 06/01/2024 9:09 AM BALL POINT SPLITTER Temperature 36.3 C (97.3 F) 06/01/2024 9:09 AM BALL POINT SPLITTER Respiratory Rate 18 06/01/2024 9:09 AM BALL POINT SPLITTER Oxygen Saturation 94% 06/01/2024 9:09 AM BALL POINT SPLITTER Inhaled Oxygen Concentration - - Weight 94 kg (207 lb 3.2 oz) 06/01/2024 9:09 AM BALL POINT SPLITTER Height 152.4 cm (5') 06/01/2024 9:09 AM BALL POINT SPLITTER Body Mass Index 40.47 06/01/2024 9:09 AM BALL POINT SPLITTER Plan of Treatment Not on file Procedures Procedure Name Priority Date/Time Associated Diagnosis Comments CARDIOLOGY DOCUMENT SCAN Routine 06/30/2024 2:37 PM CDT from Last 3 Months Results * Cardiology Document Scan (06/30/2024 2:37 PM CDT) Anatomical Region Laterality Modality Other [facility] Nima Barrera MD CV CARDIAC SERVICES PRO CEDURES Final Result from Last 3 Months Insurance MEDICARE [facility] Address: [address] [address] [place] [address] [employer] Advance Directives For more information, please contact: [phone] * Full Code (Latest Code Status on File) Date Activated Date Inactivated Comments 06/02/2023 9:46 PM 06/04/2023 4:04 PM Healthcare Agents on File Name Relationship Healthcare Agent [facility] Communication Tonny Cox Spouse Health Care Agent Belkys Arielle Sister First Alternate Health Care Agent Care Teams Trimmer Sawyer Relationship Specialty Start Date End Date Nettie Hodges MD PCP - General Nurse Practitioner 02/25/23
--- OUTSIDE RECORDS SUMMARY | 2024-07-09 12:03 | XMS_ITS | Encounter Summary ---
Author Organization [facility] Address [facility] [place] [address] Care Team Providers Care Repairer And Checker Name Role Phone Nettie Hodges NP Primary Care Provider [phone] Rosita Fuentes RN Unavailable [phone] Reason for Visit * Reason Comments [...] 0.6 oz p ure alcohol) rare beer [facility] Utilities Answer Date Recorded In the past 12 months has [facility] [employer], gas, oil, or water [employer] threatened to shut off services in your [...] any time in the past 12 m [facility], were you homeless or living in a senior living (including now)? 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 [...] Description 08/12/2024 11:00 AM CDT [facility] [address] [facility], [address] [place] [phone] Gracy Blair APRN 3 [facility] [address] [place] [address] 09/16/2024 10:40 AM CDT Office Visit [facility] Orthopedic & Sports Medicine - [place] [address] [place] [address] Maurisio Jeong MD [address] [place] [address] 09/24/2024 10:00 AM CDT Office Visit [facility] [address] Paula Sanchez MD [address] [facility] [address] [place] [address] 10/13/2024 1:40 PM CDT [facility] [address] [facility], [address] [place] [address] Shila Ruiz MD 3 [place] [address] 11/01/2024 1:20 PM CDT Office Visit [facility] Family Medicine - [address] [facility] [address] [place] [address] Nettie Hodges NP [address] [place] [address] documented as of this encounter Procedures Procedure [...] as of this encounter Care Teams Repairer And Checker Relationship Specialty Start Date End Date Nettie Hodges NP [address] [place] [address] PCP - General NURSE PRACTITIONER 09/10/21 Rosita Fuentes, RN [address] [place] [address] Case Management Specialist (Ambulatory) REGISTERED NURSE 07/05/2407/05/24 documented as of this encounter
--- OUTSIDE RECORDS SUMMARY | 2024-07-09 12:03 | XMS_ITS | Clinical Summary ---
Author Organization [facility] Care Team Providers Care It Programmer Name Role Phone Nettie Hodges MD Primary Care Provider [phone] Allergies No known active allergies Medications lisinopriL [...] 06/01/2024 Assessment & Plan (06/01/2024 2:11 PM CONVENTIONS RESERVATIONIST): This is persistent and severe. She has [...] 03/03/2024 Assessment & Plan (06/01/2024 2:07 PM CONVENTIONS RESERVATIONIST): Continue supplemental oxygen with sleep at 4 liters She is aware of the risks of both hypoxia and hypercapnia Assessment & Plan (03/03/2024 9:05 PM CONVENTIONS RESERVATIONIST): Continue supplemental oxygen with sleep Increase to 4 liters. We have discussed the risks of hypoxia. Obstructive sleep apnea 03/03/2024 Assessment & Plan (03/03/2024 9:10 PM CONVENTIONS RESERVATIONIST): We have had an extensive conversation about [...] 06/18/2023 Assessment & Plan (06/01/2024 2:08 PM CONVENTIONS RESERVATIONIST): Continue famotidine and omeprazole daily A continue to believe that GERD is a direct contributing factor to her persistent wheezing Keep follow up appointments with GI, I recommend manometry/pH testing Assessment & Plan (03/03/2024 9:06 PM CONVENTIONS RESERVATIONIST): Continue famotidine and omeprazole daily Although her [...] 06/18/2023 Assessment & Plan (06/01/2024 2:09 PM CONVENTIONS RESERVATIONIST): This is chronic, persistent, and unrelieved by inhaled therapy and prednisone She is on maximum inhaled therapy I continue to recommend further GI workup Assessment & Plan (03/03/2024 9:09 PM CONVENTIONS RESERVATIONIST): This is chronic, persistent, and unrelieved by [...] 06/18/2023 Assessment & Plan (06/01/2024 2:08 PM CONVENTIONS RESERVATIONIST): - Smoking cessation counseling and techniques reviewed at length - Avoid triggers and use distraction techniques - She is aware of the [place] Tobacco Quit line: 2-035-KCUM-YES for free services - 5 minutes spent [...] Baptist Assessment & Plan (03/03/2024 9:07 PM CONVENTIONS RESERVATIONIST): - Smoking cessation counseling and techniques reviewed at length - Avoid triggers and use distraction techniques - She is aware of the [place] Tobacco Quit line: 8-563-RWWU-YES for free services - 5 minutes spent discussing cessation She is pre-contemplative, I have encouraged her to cut back Assessment & Plan (10/16/2023 11:08 PM CDT): - Smoking cessation counseling and techniques reviewed at length - Avoid triggers and use distraction techniques - She is aware of the [place] Tobacco Quit line: 0-150-TSOR-YES for free services - 3 minutes spent discussing cessation Assessment & Plan (08/22/2023 1:40 PM CDT): - Smoking cessation counseling and techniques reviewed at length - Avoid triggers and use distraction techniques - Participate in support groups - Information given regarding [place] Tobacco Quit line: 7-752-CRAC-YES for free services 3 minutes spent discussing cessation Assessment & Plan (06/18/2023 3:43 PM CDT): - Smoking cessation counseling and techniques reviewed at length - Avoid triggers and use distraction techniques - Participate in support groups - Information given regarding [place] Tobacco Quit line: 2-342-HINV-YES for free services 4 minutes spent discussing cessation COPD exacerbation 06/02/2023 Chronic obstructive pulmonary disease 11/28/2020 Assessment & Plan (06/01/2024 2:06 PM CONVENTIONS RESERVATIONIST): Continue Breztri 2 puffs twice daily with [...] rehab Assessment & Plan (03/03/2024 9:05 PM CONVENTIONS RESERVATIONIST): Continue Breztri 2 puffs twice daily. I [...] Type Department Care Team Description 07/09/2024 Telephone [facility] Pulmonary at [address] [place] [address] Erin Felder LPN 07/06/2024 Orders Only [facility] Cardiology [address] [facility] [address] [place] [address] Delia Barrera MD 06/23/2024 Telephone [facility] Pulmonary at [address] [place] [address] Sri Atkinson LPN 06/01/2024 9:30 AM CONVENTIONS RESERVATIONIST Office Visit [facility] Pulmonary at [address] [place] [address] Betsey Lyon NP Chronic respiratory failure with hypoxia, on home O2 therapy (HCC) (Primary Dx); Centrilobular emphysema (HCC); Gastroesophageal reflux disease, unspecified whether esophagitis present; Dyspnea on exertion; Wheezing; Nicotine dependence, cigarettes, uncomplicated 06/01/2024 Telephone [facility] Pulmonary at [address] [place] [address] Erin Felder LPN Faxed orders [...] on file Legal Sex Female 12:55 AM CONVENTIONS RESERVATIONIST Gender Identity Not on file Sexual Orientation Not on file Obstetrics History Last Filed Vital Signs Vital Sign Reading Time Taken Comments Blood Pressure 118/62 06/01/2024 9:09 AM CONVENTIONS RESERVATIONIST Pulse 81 06/01/2024 9:09 AM CONVENTIONS RESERVATIONIST Temperature 36.3 C (97.3 F) 06/01/2024 9:09 AM CONVENTIONS RESERVATIONIST Respiratory Rate 18 06/01/2024 9:09 AM CONVENTIONS RESERVATIONIST Oxygen Saturation 94% 06/01/2024 9:09 AM CONVENTIONS RESERVATIONIST Inhaled Oxygen Concentration - - Weight 94 kg (207 lb 3.2 oz) 06/01/2024 9:09 AM CONVENTIONS RESERVATIONIST Height 152.4 cm (5') 06/01/2024 9:09 AM CONVENTIONS RESERVATIONIST Body Mass Index 40.47 06/01/2024 9:09 AM CONVENTIONS RESERVATIONIST Plan of Treatment Health Maintenance Due Date [...] PM CDT) Anatomical Region Laterality Modality Other [facility] Nima Barrera MD CV CARDIAC SERVICES PRO CEDURES Final Result from Last 3 Months Insurance [facility] PLAN FRANCISCO DOSHI [id number] [facility] PLAN MEDICARE [facility] Address: [address] [address] [place] [address] [employer] Advance Directives For more information, please contact: [phone] * Full Code (Latest Code Status on File) Date Activated Date Inactivated Comments 06/02/2023 9:46 PM 06/04/2023 4:04 PM Healthcare Agents on File Name Relationship Healthcare Agent [facility] Communication Tonny Cox Spouse Health Care Agent Belkys Guzmán Sister [facility] Care Agent Care Teams It Programmer Relationship Specialty Start Date End Date Nettie Hodges MD PCP - General Nurse Practitioner 02/25/23
--- OUTSIDE RECORDS SUMMARY | 2024-07-09 12:03 | XMS_ITS | Encounter Summary ---
Author Organization [facility] Address [facility] [place] [address] Care Team Providers Care Dairy Products Maker Name Role Phone Nettie Hodges NP Primary Care Provider [phone] Rosita Fuentes RN Unavailable [phone] Encounter Details Date Type Department Care [...] p ure alcohol) rare beer [facility] Utilities Answer Date Recorded In the past 12 months has [facility] [employer], gas, oil, or water [employer] threatened to shut off services in your [...] were you homeless or living in a assisted (including now)? 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 on file [...] Description 08/12/2024 11:00 AM CDT [facility] [address] [facility], [address] [place] [phone] Gracy Blair APRN 3 [facility] [address] [place] [address] 09/16/2024 10:40 AM CDT Office Visit [facility] Orthopedic & Sports Medicine - [place] [address] [place] [address] Maurisio Jeong MD [address] [place] [address] 09/24/2024 10:00 AM CDT Office Visit [facility] [address] Paula Sanchez MD [address] [facility] [address] [place] [address] 10/13/2024 1:40 PM CDT [facility] [address] [facility], [address] [place] [address] Shila Ruiz MD [address] [place] [address] 11/01/2024 1:20 PM CDT Office Visit [facility] Family Medicine - [place] [address] [facility] [address] [place] [address] Nettie Hodges NP [address] [place] [address] [place] [address] documented as of this encounter Visit Diagnoses Not on filedocumented in this encounter Additional Health Concerns Infection Onset Date Last Indicated Resolved Time Respiratory Rule-Out 07/03/2024 07/03/2024 025 7:57 AM CDT documented as of this encounter Care Teams Dairy Products Maker Relationship Specialty Start Date End Date Nettie Hodges NP [address] [place] [address] PCP - General NURSE PRACTITIONER 09/10/21 Rosita Fuentes, RN [address] [place] [address] Cadastral Surveyor (Ambulatory) REGISTERED NURSE 07/05/2407/05/24 documented as of this encounter
--- OUTSIDE RECORDS SUMMARY | 2024-07-09 12:03 | XMS_ITS | Encounter Summary ---
Author Organization [facility] Address [address] [place] [address] Care Team Providers Care Recreation Manager Name Role Phone Nettie Hodges NP Primary Care Provider [phone] Rosita Fuentes RN Unavailable Encounter Details Date Type Department Care Team (Late st Contact Info) Description 09/25/2022 [employer] Message Enc [facility] Medical [facility] [address] [address] [employer], [facility] Provider Air Quality [...] Sex Assigned at Female 04/26/2024 7:07 AM CRAYON GRADER Legal Sex Female 2:16 PM CRAYON GRADER Gender Identity Female 04/26/2024 9:06 AM CRAYON GRADER Sexual Orientation Straight 04/26/2024 1: 33 PM CRAYON GRADER 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 [address] [facility], [address] [place] [address] Gracy Blair APRN [address] [facility] [address] [place] [address] 09/16/2024 10:40 AM CDT Office Visit [facility] Orthopedic & Sports Medicine - [place] [address] [place] [address] Maurisio Jeong MD [address] [place] [address] 09/24/2024 10:00 AM CDT Office Visit [facility] [address] Paula Sanchez MD [address] [facility] [address] [place] [address] 10/13/2024 1:40 PM CDT [facility] [address] [facility], [address] [place] [address] Shila Ruiz MD [address] [place] [address] 11/01/2024 1:20 PM CDT Office Visit [facility] Family Medicine - [address] [facility] [address] [place] [address] Nettie Hodges NP [address] [place] [address] [place] [address] documented as of this encounter Visit Diagnoses Not on filedocumented in this encounter Additional Health Concerns Infection Onset Date Last Indicated Resolved Time Respiratory Rule-Out 07/03/2024 07/03/2024 025 7:57 AM CDT documented as of this encounter Care Teams Recreation Manager Relationship Specialty Start Date End Date Nettie Hodges NP [address] [place] [address] PCP - General NURSE PRACTITIONER 09/10/21 Rosita Fuentes, RN [address] [place], [place] [address] Hat Marker (Ambulatory) REGISTERED NURSE 07/05/2407/05/24 documented as of this encounter
--- OUTSIDE RECORDS SUMMARY | 2024-07-09 12:03 | XMS_ITS | Encounter Summary ---
Author Organization [facility] Address [address] [place] [address] Care Team Providers Care Oral Therapist Name Role Phone Nettie Hodges NP Primary Care Provider [phone] Reason for Visit * Reason Comments TCM Patient presents for TCM, discharged [facility] 07/03/24, with COPD exacerbation/resp failure Encounter Details Date Type Department Care Team (Late st Contact Info) Description 07/08/2024 12:40 PM CDT Office Visit [facility] Family Medicine [place] [address] [id number] Nettie Hodges NP [address] [address] TCM (Patient presents for TCM, discharged JUSTINO [...] 0.6 oz p ure alcohol) rare beer [facility] Utilities Answer Date Recorded In the past 12 months has e [employer], gas, oil, or water [employer] threatened to shut off services in your [...] Sex Assigned at Female 04/26/2024 7:07 AM DIE SINKER APPRENTICE Legal Sex Female 2:16 PM DIE SINKER APPRENTICE Gender Identity Female 04/26/2024 9:06 AM DIE SINKER APPRENTICE Sexual Orientation Straight 04/26/2024 1: 33 PM DIE SINKER APPRENTICE 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 Was discharged the next day 06/30/24.Pt then went to [facility] on 07/02/24 for respiratory failure,hypoxia. Please see recent [employer] Teacher telephone encounter. Discharge date from [facility] was 07/03/24 The reason for hospitalization at [facility], left sided weakness, paresthesia, right facial droop, and chest pain . [facility] was for respiratory failure with hypoxia. Current status is as follows: stable. Medina is a 59-year-old female with significant hx of COPD, HFpEF, hypertension, FALLON, prop setter tobacco use,s obesity, among other chronic conditions who presented to [facility] ER on 06/29/24 withcomplaints of left-sided weakness, [...] Patient follows with cardiology Dr. Sanchez with [facility]. Pt had a LHC in May, that showed mild 30%RCA disease. Pt has had similar complaints of this before as I recall pt brining this up to her neurologist and had been informed to seek ER care for evaluation. Patient was started from [facility] to resume her home medications and daily aspirin. Patient then presented to [facility] on 07/23 due to acute on chronic [...] was started on Plavix at discharge from [facility]. No new meds started at discharge from [facility]. Pt supposedly has an EEG, echo, PFT ordered tomorrow at [facility] that I assume was set up after hospital dischrage. Patient's past medical history, medications, allergies, family history, and social history reviewedand updated in Epic chart as necessary. Patient Active Problem List Diagnosis Lumbar radiculopathy Sacroiliitis Burning sensation of throat Chronic obstructive pulmonary disease, unspecified COPD type ([facility]) Hypertension, unspecified type Gastroesophageal reflux disease, [...] Acute pharyngitis Acute sinusitis Allergic rhinitis Asthma ([facility]) Eczema Hypoxia Sleep apnea Chest pain Chondromalacia of left patella Chondromalacia of right patella Chronic asthmatic bronchitis with acute exacerbation ([facility]) Chronic respiratory failure with hypoxia ([facility]/HCC) Chronic thoracic back pain Daytime hypersomnia Disorder of thyroid gland Herpes labialis Hyperlipidemia Insomnia Irritable bowel syndrome with constipation Low serum vitamin B12 Lower abdominal pain Migraine Neck pain Neck swelling Pain in face Osteoarthritis of ankle or foot Pain in both feet Pain in left foot Panlobular emphysema ([facility] HHS/HCC) Plantar fasciitis Epigastric pain Right upper quadrant pain Dyspnea on exertion Shortness of breath Shoulder pain Bronchitis Pleurisy Sialoadenitis Smoker Snoring Sensation of lump in throat Pain in throat Sore throat Swelling of mandible Tear of medial meniscus of knee Wheezing Upper respiratory infection Chronic obstructive pulmonary disease ([facility] HHS/HCC) Gastroesophageal reflux disease without esophagitis Primary hypertension Obesity Herniated lumbar intervertebral disc Hemorrhoids Fatigue Respiratory failure with hypoxia ([facility]) Medications reconciled from discharge. Current Outpatient [...] AT BEDTIME, Disp: 90 tablet, Rfl: 1 Lfgahbg-Orjyowmcezj-Elghjemnpr (BREZTRI AEROSPHERE) 160-9-4.8 MCG/ACT Aerosol, Inhale 1 [...] Gait is intact. Comments: Equal strength and harness builder but generally weak. Psychiatric: Mood and Affect: Mood normal. Behavior: Behavior normal. Thought Content: Thought content normal. Judgment: Judgment normal. ASSESSMENT & PLAN: Medina Cox is a 59-year-old female presents to discuss with following. Problem List Items Addressed This Visit Chronic obstructive pulmonary disease, unspecified COPD type ([facility]) - Primary Other Visit Diagnoses Hospital discharge follow-up TIA (transient ischemic attack) Relevant Medications clopidogrel (PLAVIX) 75 MG tablet PLAN: 1. Medications/DME - Continue current medications. Will notify pt's network security officer of pt's hospital stays and that pt [...] she has an EEG scheduled tomorrow at [facility]. Pt has an apt with pulmonology coming up. Pt has a PFT ordered tomorrow as well she tells me. 5. RTC - 3 month(s) or sooner if needed NETTIE HODGES NP [facility] Cosigned by Ev Aguilar MD at 07/08/2024 3:44 PM CDT documented in this encounter Plan of Treatment Upcoming Encounters Date Type Department Care Team (Late st Contact Info) Description 08/12/2024 11:00 AM CDT [facility] [address] [facility], [address] [place] [address] Gracy Blair APRN 3 [facility] [address] [place] [address] 09/16/2024 10:40 AM CDT Office Visit [facility]opedic [facility] Medicine - [place] [address] [place] [address] Maurisio Jeong MD [address] [place] [address] 09/24/2024 10:00 AM CDT Office Visit [facility] [address] Paula Sanchez MD [address] [facility] [address] [place] [address] 10/13/2024 1:40 PM CDT [facility] [address] [facility], [address] [place] [phone] Shila Ruiz MD 3 [place] [address] 11/01/2024 1:20 PM CDT Office Visit [facility] [place] [address] [facility] [address] [place] [address] Nettie Hodges NP [address] [place] [address] [place] [address] Scheduled Orders Name Type Priority Associated Diagnoses Orde r Schedule MAGNESIUM Lab Routine Hypomagnesemia Expected: 07/08/2024, Expires: 07/08/2025 documented as of this encounter Visit Diagnoses Diagnosis Chronic obstructive pulmonary disease, unspecified COPD type ([facility])- Primary Hospital discharge follow-up Other follow-up examination TIA (transient ischemic attack) Unspecified transient cerebral ischemia Hypomagnesemia Disorders of magnesium metabolism documented in this encounter Care Teams Oral Therapist Relationship Specialty Start Date End Date Nettie Hodges NP [address] [place] [address] [place] [address] PCP - General NURSE PRACTITIONER 09/10/21 documented as of this encounter
--- OUTSIDE RECORDS SUMMARY | 2024-07-09 12:03 | XMS_ITS | Encounter Summary ---
Author Organization [facility] Address [address] [place] [address] Care Team Providers Care Hot Tar Roofer Helper Name Role Phone Nettei Hodges NP Primary Care Provider [phone] Encounter Details Date Type Department Care Team (Latest Contact Info) Description 07/08/2024 Travel Social History Tobacco Use Types Packs/Day Years Used Date Smoking Tobacco: Every Day Cigarettes 0.3 61.2 Started: 06/04/1983; Last attempted to quit: 06/04/2023 Passive Smoke Exposure: Current Smokeless Tobacco: Never Alcohol Use Standard Drinks/Week Comments Yes 3.3 (1 standard drink = 0.6 oz p ure alcohol) rare beer [facility] Utilities Answer Date Recorded In the past [address] [facility] [employer], gas, oil, or water [employer] threatened to shut off services in your [...] any time in the past 12 m [facility], were you homeless or living in a assisted (including now)? 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 [address] [facility], [address] [place] [address] Gracy Blair APRN 3 [facility] [address] [place] [address] 09/16/2024 10:40 AM CDT Office Visit [facility] Orthopedic & Sports Medicine - [place] [address] [place] [address] Maurisio Jeong MD [address] [place] [address] 09/24/2024 10:00 AM CDT Office Visit [facility] [phone] Paula Sanchez MD Three [facility] [address] [place] [address] 10/13/2024 1:40 PM CDT Office Visit [facility] Multispecialty Care - [facility] [address] [facility], [address] [facility] [place] [address] Shila Ruiz MD 3 [place] [address] 11/01/2024 1:20 PM CDT Office Visit [facility] Family Medicine - [place] [address] [facility] [address] [place] [address] Nettie Hodges NP [address] [place] [address] [place] [address] documented as of this encounter Visit Diagnoses Not on filedocumented in this encounter Care Teams Hot Tar Roofer Helper Relationship Specialty Start Date End Date Nettie Hodges NP [address] [place] [address] [place] [address] PCP - General NURSE PRACTITIONER 09/10/21 documented as of this encounter
--- OUTSIDE RECORDS SUMMARY | 2024-07-09 12:03 | XMS_ITS | Encounter Summary ---
Author Organization [facility] Address [address] [place] [address] Care Team Providers Care Mill Operator Head Name Role Phone Nettie Hodges NP Primary Care Provider [phone] Rosita Fuentes RN Unavailable [phone] Encounter Details Date Type Department Care Team ([facility] Contact Info) Description 06/21/2024 [employer] Oy Message Enc [facility] Family Medicine - [place] [address] [facility] [address] [place] [address] Nettie Hodges NP [address] [place] [address] [place] [phone] mammogram Social History Tobacco Use Types Packs/Day [...] Sex Assigned at Female 04/26/2024 7:07 AM IN FLIGHT TECHNICIAN Legal Sex Female 2:16 PM IN FLIGHT TECHNICIAN Gender Identity Female 04/26/2024 9:06 AM IN FLIGHT TECHNICIAN Sexual Orientation Straight 04/26/2024 1: 33 PM IN FLIGHT TECHNICIAN 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 Not on file documented as of this encounter Plan of Treatment Upcoming Encounters Date Type Department Care Team (Late st Contact Info) Description 08/12/2024 11:00 AM CDT Office Visit [facility] Multispecialty Care - [facility] 3 [facility], [address] [place] [phone] Gracy Blair APRN 3 [facility] [address] [place] [address] 09/16/2024 10:40 AM CDT Office Visit [facility] Orthopedic & Sports Medicine - [place] [address] [place] [address] Maurisio Jeong MD [address] [place] [address] 09/24/2024 10:00 AM CDT Office Visit [facility] [phone] Paula Sanchez MD Three [facility] [address] [place] [address] 10/13/2024 1:40 PM CDT Office Visit [facility] Multispecialty Care - [facility] 3 [facility], [address] [place] [phone] Shila Ruiz MD 3 [place] [address] 11/01/2024 1:20 PM CDT Office Visit [facility] Family Medicine - [place] [address] [facility] [address] [place] [address] Nettie Hodges NP [address] [place] [address] documented as of this encounter Visit Diagnoses Not on filedocumented in this encounter Additional Health Concerns Infection Onset Date Last Indicated Resolved Time Respiratory Rule-Out 07/03/2024 07/03/2024 025 7:57 AM CDT documented as of this encounter Care Teams Mill Operator Head Relationship Specialty Start Date End Date Nettie Hodges NP [address] [place] [address] [place] [address] PCP - General NURSE PRACTITIONER 09/10/21 Rosita Fuentes, RN [address] [place] [address] Wind Energy Engineer (Ambulatory) REGISTERED NURSE 07/05/2407/05/24 documented as of this encounter
--- OUTSIDE RECORDS SUMMARY | 2024-07-09 12:03 | XMS_ITS | CONTINUITY OF CARE DOCUMENT ---
Author Name fawn augustine Address Unknown Organization [facility] Address [address] [facility] [address] [place] [address] Phone [phone] Care Team Providers Care Clam Shucking Machine Tender Name Role Phone Steve Cordova MD Unavailable MANSI GAYTAN Unavailable MANSI GAYTAN Unavailable [phone] PROBLEMS Condition Status Date Provider Notes Family [...] In-person encounter Office Visit Steve Cordova MD [facility] 2 - 2 In-person encounter Office Visit Steve Cordova MD [facility] 2 - 3 In-person encounter Office Visit Steve Cordova MD [facility] Family History of Hypertension:Family History of Hypertension:Cardiology examinationSevere COPDShortness of breathSLEEP APNEA 1 - 2 In-person encounter Office Visit Dion Adame MD [facility] 3 - 3 In-person encounter Office Visit Dion Adame MD [facility] AsthmaSevere COPDHyperlipidemiaHypertensionChest pain-type to be determined VITAL SIGNS Date Observation Value Provider Body Mass Index (Ratio) 32.81 kg/m2 Sammi Cordova MD Inhaled O2 2 L/min [facility] blood pressure, resting Yes [facility] blood pressure, cuff size regular [facility] blood pressure, diastolic 80 mm[Hg] [facility] blood pressure, systolic 140 mm[Hg] [facility] oxygen saturation, oximetry 96 % [facility] pulse rate 80 /min [facility] respiratory rate E&M 18 /min [facility] weight E&M 168 [lb_av] [facility] height E&M 60 [in_i] [facility] Body Mass Index (Ratio) 33.20 kg/m2 Sammi Cordova MD blood pressure, cuff size regular Ke rri Kendallambreen blood pressure, diastolic 80 mm[Hg] Ke [facility]ri [facility] blood pressure, systolic 146 mm[Hg] Galileo Sheets oxygen saturation, oximetry 92 % Diana Sheets respiratory rate E&M 16 /min Diana guerra pulse rate 73 /min Diana soto weight E&M 170 [lb_av] Diana Martinez [facility] height E&M 60 [in_i] Diana Martinez [facility] blood pressure, resting Yes [place] Body Mass Index (Ratio) 32.61 kg/m2 [place] blood pressure, cuff size large Ke hudson [facility] blood pressure, diastolic 96 mm[Hg] Contreras rri [facility] blood pressure, systolic 170 mm[Hg] Galileo [facility] oxygen saturation, oximetry 90 % Diana Sudeep respiratory rate E&M 18 /min Diana Mabry charlie pulse rate 78 /min Diana Martinez [facility] weight E&M 167 [lb_av] Diana Weavernicolás [facility] height E&M 60 [in_i] Diana Martinez [facility] Body Mass Index (Ratio) 32.22 kg/m2 Mahad [...] High 0 cholesterol, serum 196 mg/dL [employer] [id number] 1886/03/1 7 LDL cholesterol, serum 94 mg/dL Garry [...] Statu s: Kaila odalis: 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 mo nish willis fromCOPAna María Cordova MD [id number],S,u nchanged, minimal epicardial disease, microvascualer or secondary [...] Follow up :Had sleep study via her plumbing service technician. Steve Cordova MD Cardiology Follow up [...] MD Cardiology hospital follow up Ra sameer Aadme MD Date Name Complete Echo LIPID PANEL [...]
--- OUTSIDE RECORDS SUMMARY | 2024-07-09 12:03 | XMS_ITS | Clinical Summary ---
Author Organization [id number] Address [address] [place] [address] Care Team Providers Care Furniture Cleaner Name Role Phone Fabian Elizabeth EQUIPMENT SERVICES ASSOCIATE-FASHION PHOTOGRAPHER Primary Care Provider Source Comments [id number],non-owned Affiliates and Associated Physician Practices is amultiple site organization consisting of ambulatory clinics and hospital sitesin [place], [place], [place] and [place]. This disclosure is being madepursuant to the Care Everywhere program and may not contain all information available regarding this patient. Last updated 17.[id number] Allergies No known active allergies Medications * [...] CDT) BUN 9 7 - 26 mg/dL [facility] Creatinine 0.7 0.6 - 1.2 mg/dL [facility] Sodium 140 136 - 145 mmol/L [facility] Potassium 3.6 3.5 - 4.5 mmol/L [facility] Chloride 107 98 - 107 mmol/L [facility] CO2 28 22 - 29 mmol/L [facility] Glucose 85 70 - 115 mg/dL [facility] Calcium 8.3(L) 8.4 - 10.2 mg/dL [facility] Protein Total 4.8(L) 6.0 - 8.3 g/dL [facility] Albumin 2.7(L) 3.4 - 5.0 g/dL [facility] Bilirubin Total 0.3 0.2 - 1.2 mg/dL [facility] Alkaline Phosphatase 79 40 - 150 Units/L [facility] ALT 7 0 - 55 Units/L [facility] AST 12 5 - 34 Units/L [facility] Anion Gap 9 8 - 18 [facility] BUN/Creatinine Ratio 13 7 - 23 [facility] Osmolality Calculated 273 270 - 300 mOsm/kg [facility] Albumin/Globulin Ratio 1.3 1.1 - 2.3 [facility] eGFR >60 >60 mL/min/1.7 3 m2 [facility] Blood specimen (specimen) BLOOD SPECIMEN / Unknown 01/15/2014 5:30 AM CDT 01/15/2014 5:40 AM CDT Tami Beard MD LAB - CHEMISTRY ESHA MILLAN [facility] [address] [phone] from Last 3 Months or Most Recently Relevant to Health Maintenance Care Teams Furniture Cleaner Relationship Specialty Start Date End Date Fabian Elizabeth, EQUIPMENT SERVICES ASSOCIATE-FASHION PHOTOGRAPHER [address] [place] [address] PCP - General 08/18/20
--- OUTSIDE RECORDS SUMMARY | 2024-07-09 12:04 | XMS_ITS | Encounter Summary ---
Author Organization [facility] Address [address] [place] [address] Care Team Providers Care Business Strategy Manager Name Role Phone Nettie Hodges MD Primary Care Provider [phone] Encounter Details Date Type Department Care Team (Late st Contact Info) Description 07/06/2024 Orders Only [facility] Medical Group Cardiology [address] [place] [address] Delia Barrera MD [address] [place] [address] Social History Tobacco Use Types Packs/Day [...] on file Legal Sex Female 12:55 AM BEEF SPLITTER Gender Identity Not on file Sexual Orientation Not on file documented as of this encounter Plan of Treatment Not on file documented as of this encounter Procedures Procedure Name Priority Date/Time Associated Diagnosis Comments CARDIOLOGY DOCUMENT SCAN Routine 06/30/2024 2:37 PM CDT documented in this encounter Results * Cardiology Document Scan (06/30/2024 2:37 PM CDT) Anatomical Region Laterality Modality Other [facility] Nima Barrera MD CV CARDIAC SERVICES PRO CEDURES Final Result documented in this encounter Visit Diagnoses Not on filedocumented in this encounter Care Teams Business Strategy Manager Relationship Specialty Start Date End Date Nettie Hodges MD PCP - General Nurse Practitioner 02/25/23 documented as of this encounter
--- OUTSIDE RECORDS SUMMARY | 2024-07-09 12:04 | XMS_ITS | Encounter Summary ---
Author Organization [facility] Address [address] [place] [address] Care Team Providers Care Hydraulic And Plumbing Installer Name Role Phone Nettie Hodges NP Primary Care Provider [phone] Rosita Fuentes RN Unavailable [phone] Encounter Details Date Type Department Care Team (Late st Contact Info) Description 07/28/2023 Abstract [facility] [address] Cristy Lucas MA Social History Tobacco Use [...] Sex Assigned at Female 04/26/2024 7:07 AM RETAIL MANAGER IN TRAINING Legal Sex Female 2:16 PM RETAIL MANAGER IN TRAINING Gender Identity Female 04/26/2024 9:06 AM RETAIL MANAGER IN TRAINING Sexual Orientation Straight 04/26/2024 1: 33 PM RETAIL MANAGER IN TRAINING 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 Not on file Not on file documented as of this encounter Plan of Treatment Upcoming Encounters Date Type Department Care Team (Late st Contact Info) Description 08/12/2024 11:00 AM CDT Office Visit [facility] Multispecialty Care - [facility] [address] [facility], [address] [place] [phone] Gracy Blair APRN [address] [facility] [address] [place] [address] 09/16/2024 10:40 AM CDT Office Visit [facility] - [place] [address] [place] [address] Maurisio Jeong MD [address] [place] [address] 09/24/2024 10:00 AM CDT Office Visit [facility] [phone] Paula Sanchez MD [address] [facility] [address] [place] [address] 10/13/2024 1:40 PM CDT Office Visit [facility] Medical [facility] Multispecialty Care - [facility] [address] [facility], [address] [place] [phone] Shila Ruiz MD [address] [place] [address] 11/01/2024 1:20 PM CDT Office Visit [facility] Medical Group Family Medicine - [place] [address] [facility] [address] [place], [place] [phone] Nettie Hodges NP [address] [place] [address] [place] [address] documented as of this encounter Procedures Procedure [...] documented as of this encounter Care Teams Hydraulic And Plumbing Installer Relationship Specialty Start Date End Date Nettie Hodges NP [address] [place] [address] [place] [address] PCP - General NURSE PRACTITIONER 09/10/21 Rosita Fuentes, RN [address] [place], [place] [id number] Manager Inspection (Ambulatory) REGISTERED NURSE 07/05/2407/05/24 documented as of this encounter
--- OUTSIDE RECORDS SUMMARY | 2024-07-09 12:04 | XMS_ITS | Encounter Summary ---
Author Organization [facility] Address [address] [place] [address] Care Team Providers Care Paint Department Supervisor Name Role Phone Nettie Hodges NP Primary Care Provider [phone] Rosita Fuentes RN Unavailable [phone] Encounter Details Date Type Department Care Team (Late Contact Info) Description 12/17/2022 [employer]sus Solutionst Message Enc 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 Not on file Not on file documented as of this encounter Plan of Treatment Upcoming Encounters Date Type Department Care Team (Late st Contact Info) Description 08/12/2024 11:00 AM CDT [facility] [address] [facility], [address] [place] [phone] rGacy Blair APRN [address] [facility] [address] [place] [address] 09/16/2024 10:40 AM CDT Office Visit [facility] Orthopedic & [facility] Medicine - [place] [address] [place] [address] Maurisio Jeong MD [address] [place] [address] 09/24/2024 10:00 AM CDT Office Visit [facility] [phone] Paula Sanchez MD [address] [facility] [address] [place] [address] 10/13/2024 1:40 PM CDT [facility] [address] [facility], [address] [place] [phone] Shila Ruiz MD [address] [place] [address] 11/01/2024 1:20 PM CDT Office Visit [facility] Family Medicine - [place] [address] [facility] [address] [place] [address] Nettie Hodges NP [address] [place] [address] [place] [address] documented as of this encounter Visit Diagnoses Not on filedocumented in this encounter Additional Health Concerns Infection Onset Date Last Indicated Resolved Time Respiratory Rule-Out 07/03/2024 07/03/2024 025 7:57 AM CDT documented as of this encounter Care Teams Paint Department Supervisor Relationship Specialty Start Date End Date Nettie Hodges NP [address] [place] [address] PCP - General NURSE PRACTITIONER 09/10/21 Rosita Fuentes, RN [address] [place] [address] Tree Feller (Ambulatory) REGISTERED NURSE 07/05/2407/05/24 documented as of this encounter
--- OUTSIDE RECORDS SUMMARY | 2024-07-09 12:04 | XMS_ITS | Clinical Summary ---
Author Organization [facility] Address Formerly [facility], 1928[address] [place] [address] Care Team Providers Care Servicer Travel Trailers Name Role Phone Nettie Hodges NP Primary Care Provider [phone] Allergies Active Allergy Reactions Criticality Noted Date [...] s:Chronic obstructive pulmonary disease, unspecified COPD type ([facility] HHS/[facility]) INHALE 2 PUFFS BY MOUTH EVERY 6 HOURS NEEDED FOR WHEEZING 18 g 11 023 Active Budeson-Glycopyrr ol-Formoterol (BREZTRI AEROSPHERE) 160-9-4.8 MCG/ACT AerosolIndication s:Chronic obstructive pulmonary disease, unspecified COPD type ([facility] HHS/HCC) Inhale 1 puff into the [...] ns:Chronic obstructive pulmonary disease, unspecified COPD type ([facility]/HCC [facility]) USE 1 VIAL IN NEBULIZER EVERY [...] ns:Chronic obstructive pulmonary disease, unspecified COPD type ([facility]) USE 1 VIAL IN NEBULIZER EVERY [...] Date Diagnosed Date Respiratory failure with hypoxia ([facility]/ C) 07/03/2024 Eczema 11/08/2022 Insomnia 11/08/2022 Right upper quadrant pain 11/08/2022 Shoulder pain 11/08/2022 Bronchitis 11/08/2022 Pleurisy 11/08/2022 Sialoadenitis 11/08/2022 Snoring 11/08/2022 Chronic migraine without aur a without status migrainosus, not intractable 08/29/2022 Tremor of both hands 08/29/2022 Chronic asthmatic bronchitis with acute exacerbation ([facility]) 07/16/2022 Spondylolisthesis of lumbar region 06/27/2022 Fall, initial encounter 05/01/2022 Gait disturbance 05/01/2022 Foraminal stenosis of lumbar region 05/01/2022 Abnormal MRI, lumbar spine 05/01/2022 Osteoporosis 03/08/2022 Overview (03/08/2022): L1-L4 and osteopenia and left femoral neck Fall, subsequent encounter 03/08/2022 Chronic bilateral back pain, unspecified back lo cation 03/08/2022 Chronic pain of both knees 03/08/2022 Panlobular emphysema ([facility]) Burning sensation of throat 10/04/2021 Chronic obstructive pulmonar y disease, unspecified COPD type ([facility]) 10/04/2021 Hypertension, unspecified type 10/04/2021 Gastroesophageal [...] Chronic respiratory failure with hypoxia (CMS/HC C [facility]) 07/31/2018 Acute sinusitis 07/23/2018 Herpes labialis 07/23/2018 Low serum vitamin B12 06/30/2018 Asthma ([facility]) 06/29/2018 Overview (11/08/2022): (History of) Hypoxia 06/29/2018 Chest pain 06/29/2018 Daytime hypersomnia 06/29/2018 Dyspnea on exertion 06/29/2018 Hyperlipidemia 11/17/2017 Disorder of thyroid gland 11/04/2017 Smoker 11/04/2017 Chronic obstructive pulmonary disease ([facility] H /[facility]) 11/04/2017 Overview (11/08/2022): see PFTs 02/15/2020 Primary hypertension 11/04/2017 Obesity 11/04/2017 Sacroiliitis 07/03/2017 Lumbar radiculopathy 05/26/2017 Neck pain 05/05/2017 Herniated lumbar intervertebral disc 05/05/2017 Migraine 04/06/2017 Resolved Problems Problem Noted Date Diagnosed Date Resolved Date Myelopathy ([facility]) 05/01/2022 06/27/2022 Pars defect with spondylolisthesis 05/01/2022 06/27/2022 Encounters Date Type Department Care Team Description 07/08/2024 12:40 PM CDT Office Visit [address] [place] [address] Nettie Hodges NP TCM (Patient presents for TCM, discharged [facility] 07/03/24, with COPD exacerbation/resp failure) 07/08/2024 Travel 07/05/2024 Telephone [place] [id number] [facility] [address] [place] [address] Nettie Hodges NP TCM 07/05/2024 Patient Outreach [address] [place] [address] Rosita Fuentes, RN TCM (TCM [facility] 07/02-07/03/24 Respiratory failure with hypoxia. ) 07/02/2024 6:55 PM CDT - 07/03/2024 2:30 PM CDT Hospital Encounter [facility] Med/Surg 5th [place] [address] Bailey Draper, EARL Sandoval, Veronica Marie, Jayda Guzman, Pari Rosales MD Shortness Of Breath Discharge Disposition: Home or Self Care (Routine Discharge) 07/02/2024 Travel 07/01/2024 Scan [facility] Scanned, [facility] 06/30/2024 [facility] Scanned, [facility] MRI (SCAN) 06/29/2024 [facility] Scanned, [facility] Image (SCAN); CT (SCAN) 06/28/[address] [place] [phone] Nettie Hodges NP Problem (Left arm numbness and tingling) 06/21/2024 MyChart Message Enc [address] [place] [address] Nettie Hodges NP mammogram 06/16/2024 9:40 AM CDT Office Visit [facility] [address] [place] [address] Maurisio Jeong MD Follow Up (Bilateral knee oa ) 06/16/2024 Travel 06/11/[address] [place] [address] Nettie Hodges NP Follow Up Call 06/09/2024 Orders Only [address] [place] [address] Nettie Hodges NP 06/01/2024 1:20 PM [employer]ER Office Visit [place] [address] [place] [address] Nettie Hodges NP Vaginal Problem (Patient present with c/o vaginal irritation on the inside with a lot of vaginal itching.) 06/01/2024 - 06/01/2024 11:59 PM COMMER[employer]TURE ASSEMBLER Hospital Encounter [facility] [address] [place] [address] Nettie Hodges NP Discharge Disposition: Home or Self Care (Routine Discharge) 06/01/2024 Travel 06/01/[address] [place] [address] Nettie Hodges NP Information 05/26/2024 Scan [employer] INFO SRVCS Scanned, [facility] 05/06/[address] [place] [address] Nettie Hodges NP Record Request 05/03/[address] [place] [address] Nettie Hodges NP COVID-19 04/26/2024 1:20 PM [employer] AS[employer]BLER Office Visit [address] [place] [address] Nettie Hodges NP Hypertension (Patient presents for 3 month follow up HTN) 04/26/2024 9:00 AM COMM[employer] ASSEMBLER Office Visit [facility] [place] [address] [facility] [place] [address] Maurisio Jeong MD Knee Pain (Bilateral knee pain Rt > Lt had cortisone 03/2022 states once lido wore off did not help at all ) 04/26/2024 - 04/26/2024 11:59 PM COMMER[employer] FIXTURE ASSEMBLER Hospital Encounter [facility] [address] [place] [address] Maurisio Jeong MD Discharge Disposition: Home or [...] Seizures Brother 1 Heart Disease Brother 2 GA Brother 2 Heart Disease Brother 3 stint [...] 0.6 oz p ure alcohol) rare beer [employer] Utilities Answer Date Recorded In the past 12 months has th e [employer], gas, oil, or water [employer] threatened to shut off services in your [...] any time in the past 12 m [facility], were you homeless or living in a jail (including now)? 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 Not on file [...] Description 08/12/2024 11:00 AM CDT [facility] [address] [facility], [address] [place] [address] Gracy Blair APRN [address] [facility] [address] [place] [address] 09/16/2024 10:40 AM CDT Office Visit [facility] [place] [address] [place] [address] Maurisio Jeong MD [address] [place] [address] 09/24/2024 10:00 AM CDT Office Visit [facility] [address] Paula Sanchez MD [address] [facility] [address] [place] [address] 10/13/2024 1:40 PM CDT [facility] [address] [facility] [facility] [address], [address] [place] [phone] Shila Ruiz MD [address] [place] [address] 11/01/2024 1:20 PM CDT Office Visit [facility] - [place] [address] [facility] [address] [place] [address] Nettie Hodges, STAVE BLOCK ROLLER [address] [place] [address] Health Maintenance Due Date Last Done Comments [...] Zoster Vaccines Completed 01/13/2024, 10/03/2023 PHQ-2 (Physician [place]) Completed 06/01/2024 Meningococcal B Vaccine Aged Out [...] knee URINE BACTERIA CULTURE Routine 1:54 PM [employer] ASSEMBLER Symptoms involving urinary system URINALYSIS AUTO DIP Routine 06/01/2024 Symptoms involving urinary system CELL COUNT W/ DIFF BODY FLUID Routine 04/26/2024 7:22 PM [employer] ASSEMBLER Knee effusion, right CRYSTALS, BODY FLUID Routine 04/26/2024 7:22 PM COMMER[employer] ASSEMBLER Knee effusion, right OXR LT KNEE 3V Routine 04/26/2024 9:36 AM COMMER[employer] ASSEMBLER Bilateral primary osteoarthritis of knee OXR RT KNEE 3V Routine 04/26/2024 9:36 AM COMMER[employer] ASSEMBLER Bilateral primary osteoarthritis of knee OUS GUIDE NEEDLE PLCMT ORTHO Routine 04/26/2024 9:26 AM COMMER[employer] ASSEMBLER Bilateral primary osteoarthritis of knee ARTHROCENTESIS MAJOR JOINT W/ ULTRASOUND GUIDANCE Routine 04/26/2024 9:00 AM COMM[employer] ASSEMBLER Bilateral primary osteoarthritis of knee Knee effusion, right MG SCREENING W TAYA IOANA DIGI Routine 04/19/2022 12:00 AM COMMER[employer] ASSEMBLER Screening mammogram for breast cancer HEPATITIS C ANTIBODY Routine 02/27/2022 12:19 PM COMMER[employer] ASSEMBLER Need for hepatitis C screening test COLONOSCOPY GENERIC (SCAN ORDER) 10/31/2020 from Last 3 Months or Most Recently Relevant to Health Maintenance Results * RESPIRATORY PCR PANEL 2 (07/03/2024 1:36 AM CDT) ADENOVIRUS PCR (RESP) NOT DETECTED NOT DETECTED 07/03/2024 7:57 AM CDT [facility] CORONAVIRUS 229E PCR (RESP) NOT DETECTED NOT DETECTED 07/03/2024 7:57 AM CDT [facility] CORONAVIRUS HKU1 PCR (RESP) NOT DETECTED NOT DETECTED 07/03/2024 7:57 AM CDT [facility] CORONAVIRUS NL63 PCR (RESP) NOT DETECTED NOT DETECTED 07/03/2024 7:57 AM CDT [facility] CORONAVIRUS OC43 PCR (RESP) NOT DETECTED NOT DETECTED 07/03/2024 7:57 AM CDT [facility] METAPNEUMOVIRUS PCR (RESP) NOT DETECTED NOT DETECTED 07/03/2024 7:57 AM CDT [facility] RHINOVIRUS/ENTEROV IRUS PCR (RESP) NOT DETECTED NOT DETECTED 07/03/2024 7:57 AM CDT [facility] INFLUENZA A PCR (RESP) NOT DETECTED NOT DETECTED 07/03/2024 7:57 AM CDT [facility] INFLUENZA B PCR (RESP) NOT DETECTED NOT DETECTED 07/03/2024 7:57 AM CDT [facility] PARAINFLUENZA 1 PCR (RESP) NOT DETECTED NOT DETECTED 07/03/2024 7:57 AM CDT [facility] PARAINFLUENZA 2 PCR (RESP) NOT DETECTED NOT DETECTED 07/03/2024 7:57 AM CDT [facility] PARAINFLUENZA 3 PCR (RESP) NOT DETECTED NOT DETECTED 07/03/2024 7:57 AM CDT [facility] PARAINFLUENZA 4 PCR (RESP) NOT DETECTED NOT DETECTED 07/03/2024 7:57 AM CDT [facility] RSV PCR (RESP) NOT DETECTED NOT DETECTED 07/03/2024 7:57 AM CDT [facility] B PARAPERTUSIS PCR (RESP) NOT DETECTED NOT DETECTED 07/03/2024 7:57 AM CDT [facility] BORDETELLA PERTUSSIS PCR (RESP) NOT DETECTED NOT DETECTED 07/03/2024 7:57 AM CDT [facility] CHLAMYDOPHILA PNEUMONIAE PCR (RESP) NOT DETECTED NOT DETECTED 07/03/2024 7:57 AM CDT [facility] MYCOPLASMA PNEUMONIAE PCR (RESP) NOT DETECTED NOT DETECTED 07/03/2024 7:57 AM CDT [facility] CORONAVIRUS SARS COV 2 PCR (RESP) NOT DETECTED NOT DETECTED 07/03/2024 7:57 AM CDT [facility] NASOPHARYNGEAL SWAB / Unknown 07/03/2024 1:36 AM CDT us Jayda Castañeda DO MICROBIOLOGY - GENERAL ORDER DUKE Final Result [facility] [address] [place] [address], [place] [phone] * ECG 12 lead (07/02/2024 9:17 PM CDT) Only the most recent of2 resultswithin the time period is included. 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1965 Requested By: BAILEY DRAPER Order Number: [id number] Reading MD: Lawanda Baker Measurements Intervals [place] Rate: 79 P: 49 WV: 194 QRS: 58 QRSD: 93 T: 73 QT: 362 QTc: 416 Interpretive Statements SINUS RHYTHM LOW QRS VOLTAGE IN PRECORDIAL LEADS [QRS DEFLECTION < 1.0 mV IN CHEST LEADS] Compared to ECG 07/02/2024 18:15:33 No significant changes Procedure Note Lawanda Baker MD - 07/02/[address] Test Date: 2024-07-02 Pat Name: MEDINA EUGENIO Department: 41 Room: EXAM23 Gender: Female 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1965 Requested By: BAILEY DRAPER Order Number: [id number] Reading : Lawanda Baker Measurements Intervals [place] Rate: 79 P: 49 WV: 194 QRS: 58 QRSD: 93 T: 73 QT: 362 QTc: 416 Interpretive Statements SINUS RHYTHM LOW QRS VOLTAGE IN PRECORDIAL LEADS [QRS DEFLECTION < 1.0 mV IN CHESTLEADS] Compared to ECG 07/02/2024 18:15:33 No significant changes Bailey Draper STAVE BLOCK ROLLER ECG ORDERABLES Final Result Performing Organization Address City/[facility] Co de Phone Number [facility] * TROPONIN, QUANT (07/02/2024 9:10 PM CDT) Only the most recent of2 resultswithin the time period is included. Pathologist [facility] TROPONIN I HIGH SENSITIVITY 5 <54 ng/L 07/02/2024 9:39 PM CDT [facility] Comment: HIGH DOSES OF BIOTIN, TROPONIN-SPECIFIC AUTOANTIBODIES, AND ANTIBODY THERAPY CONTAINING HAMA MAY INTERFERE WITH THIS TEST RESULT. CORRELATION TO CLINICAL HISTORY AND PRESENTATION RECOMMENDED. 07/02/2024 9:10 PM CDT Bailey Draper STAVE BLOCK ROLLER LABORATORY Final Result Performing Organization Address [facility] de Phone Number [facility] [address] [place] [id number], [place] [phone] * TSH W/REFLEX (07/02/2024 7:10 PM CDT) Pathologist [facility] TSH 3.270 0.358 - 3.74 uIU/ML 07/02/2024 7:53 PM CDT [facility] Comment: HIGH DOSES OF BIOTIN MAY INTERFERE WITH THIS TEST RESULT. CORRELATION TO CLINICAL HISTORY AND PRESENTATION RECOMMENDED. FREE T4 NOT INDICATED 07/02/2024 7:10 PM CDT Bailey Draper NP LABORATORY Final Result Performing Organization Address City/[facility]/ZIP Co de Phone Number [facility] [address] [place] [address], [place] [phone] * (ABNORMAL) PRO-BRAIN NATRIURETIC PEPTIDE (07/02/2024 7:10 PM CDT) PRO-B TYPE NATRIURETIC PEPTIDE 344(H) <125 PG/ML 07/02/2024 7:53 PM CDT [facility] Comment: CUT POINTS ESTABLISHED BY [...] CDT Bailey Draper NP LABORATORY Final Result [facility] [address] [place] [address], [place] [phone] * (ABNORMAL) COMPREHENSIVE METABOLIC PANEL (07/02/2024 7:10 PM CDT) GLUCOSE 135(H) 70 - 99 MG/DL 07/02/2024 7:53 PM CDT [facility] BUN 19(H) 7 - 18 MG/DL 07/02/2024 7:53 PM CDT [facility] CREATININE S/P/B 1.06(H) 0.55 - 1.02 MG/DL 07/02/2024 7:53 PM CDT [facility] SODIUM S/P/B 137 136 - 145 MMOL/L 07/02/2024 7:53 PM CDT [facility] POTASSIUM S/P/B 3.7 3.5 - 5.1 MMOL/L 07/02/2024 7:53 PM CDT [facility] CHLORIDE S/P/B 99 97 - 115 MMOL/L 07/02/2024 7:53 PM CDT [facility] CO2 33.9(H) 21 - 32 MMOL/L 07/02/2024 7:53 PM CDT [facility] CALCIUM S/P/B 8.8 8.5 - 10.1 MG/DL 07/02/2024 7:53 PM CDT [facility] BILIRUBIN TOTAL S/P/B 0.4 0.2 - 1.2 MG/DL 07/02/2024 7:53 PM CDT [facility] Comment: THIS ASSAY IS NOT RECOMMENDED FOR PATIENTS UNDERGOING TREATMENT WITH ELTROMBOPAG DUE TO THE POTENTIAL FOR FALSELY ELEVATED RESULTS. TOTAL PROTEIN S/P/B 7.1 6.4 - 8.2 G/DL 07/02/2024 7:53 PM CDT [facility] ALBUMIN S/P/B 3.6 3.4 - 5.0 G/DL 07/02/2024 7:53 PM CDT [facility] AST 14(L) 15 - 37 U/L 07/02/2024 7:53 PM CDT [facility] ALT 17 14 - 55 U/L 07/02/2024 7:53 PM CDT [facility] ALKALINE PHOSPHATASE S/P/B 145(H) 50 - 136 U/L 07/02/2024 7:53 PM CDT [facility] ANION GAP 4.1 2 - 10 MMOL/L 07/02/2024 7:53 PM CDT [facility] BUN CREATININE RATIO 17.9 6 - 26 07/02/2024 7:53 PM CDT [facility] A/G RATIO 1.0 1.0 - 2.0 RATIO 07/02/2024 7:53 PM CDT [facility] GFR ESTIMATE 60(L) >90 ML/MIN/1.7 3 M2 07/02/2024 7:53 PM CDT [facility] Comment: NOTE: eGFR is not [...] us Bailey Draper NP LABORATORY Final Result [facility] [address] [place] [address], * (ABNORMAL) CBC W/DIFF AUTOMATED (07/02/2024 7:10 PM CDT) WBC 9.83 4.5 - 11.0 x10'3/uL 07/02/2024 7:29 PM CDT [facility] RBC 4.25 4.20 - 5.40 x10'6/uL 07/02/2024 7:29 PM CDT [facility] HGB 12.5 12.0 - 16.0 G/DL 07/02/2024 7:29 PM CDT [facility] HCT 39.0 38.0 - 48.0 % 07/02/2024 7:29 PM CDT [facility] MCV 91.8 81.0 - 99.0 FL 07/02/2024 7:29 PM CDT [facility] MCH 29.4 27.0 - 31.0 PG 07/02/2024 7:29 PM CDT [facility] MCHC 32.1 32.0 - 36.0 G/DL 07/02/2024 7:29 PM CDT [facility] RDW 14.7(H) 11.5 - 14.5 % 07/02/2024 7:29 PM CDT [facility] PLT 251 130 - 400 x10'3/uL 07/02/2024 7:29 PM CDT [facility] MPV 10.1 9.3 - 12.2 FL 07/02/2024 7:29 PM CDT [facility] DIFFERENTIAL TYPE AUTOMATED DIFFERENTIAL 07/02/2024 7:29 PM CDT [facility] NEUTROPHILS % 65.3 % 07/02/2024 7:29 PM CDT [facility] LYMPHOCYTES % 20.4 % 07/02/2024 7:29 PM CDT [facility] MONOCYTES % 8.7 % 07/02/2024 7:29 PM CDT [facility] EOSINOPHILS 4.1 % 07/02/2024 7:29 PM CDT [facility] BASOPHILS 0.9 % 07/02/2024 7:29 PM CDT [facility] IMMATURE GRANS % 0.6 % 07/03/19 7:29 PM CDT [facility] ABS. NEUTROPHILS 6.41 1.80 - 7.70 x10'3/uL 07/02/2024 7:29 PM CDT [facility] ABS. LYMPHOCYTES 2.01 1.00 - 4.80 x10'3/uL 07/02/2024 7:29 PM CDT [facility] ABS. MONOCYTES 0.86 0.24 - 0.86 x10'3/uL 07/02/2024 7:29 PM CDT [facility] ABS. EOSINOPHILS 0.40(H) 0.04 - 0.36 x10'3/uL 07/02/2024 7:29 PM CDT [facility] ABS. BASOPHILS 0.09(H) 0.01 - 0.08 x10'3/uL 07/02/2024 7:29 PM CDT [facility] ABS. IMMATURE GRANULOCYTES 0.06 0.00 - 0.49 x10'3/uL 07/02/2024 7:29 PM CDT [facility] 07/02/2024 7:10 PM CDT Bailey Draper STAVE BLOCK ROLLER LABORATORY Final Result Performing Organization Address City/[facility]/ZIP Co de Phone Number [address] [address], [place] [phone] * (ABNORMAL) MAGNESIUM (07/02/2024 7:10 PM CDT) MAGNESIUM 1.4(L) 1.8 - 2.4 MG/DL 07/02/2024 7:53 PM CDT [facility] 07/02/2024 7:10 PM CDT Bailey Draper STAVE BLOCK ROLLER LABORATORY Final Result Performing Organization Address City/[facility]/ZIP Co de Phone Number [facility] [address] [place] [address], [place] [phone] * XR CHEST PORTABLE (07/02/2024 6:47 PM CDT) Anatomical Region Laterality Modality Chest Radiographic La ging 07/02/2024 6:47 PM CDT Impressions 07/02/2024 6:52 PM CDT Impression: No acute findings. Referred By: Interpreted By: Papa Vásquez MD, 07/02/2024 6:47 PM Narrative 07/02/2024 6:52 PM CDT [place] [address] Examination: Chest 1 view portable History: Chest pain DATE/TIME: 07/02/2024 6:34 PM Comparison: None Technique: AP upright portable view of the chest was obtained. Findings: Heart size, mediastinal contours and pulmonary vasculature are within normal limits. No pulmonary consolidation, pleural effusion or pneumothorax. No acute osseous abnormality. Procedure Note Papa Vásquez MD - 07/02/2024 [place] [address] Examination: Chest 1 view portable History: Chest pain DATE/TIME: 07/02/2024 6:34 PM Comparison: None Technique: AP upright portable view of the chest was obtained. Findings: Heart size, mediastinal contours and pulmonary vasculature arewithin normal limits. No pulmonary consolidation, pleural effusion orpneumothorax. No acute osseous abnormality. Impression: No acute findings. Referred By: Interpreted By: Papa Vásquez MD, 07/02/2024 6:47 PM Bailey Draper STAVE BLOCK ROLLER GENERAL IMAGING Final Result * MRI GENERIC (06/30/2024) Anatomical Region Laterality Modality Other 06/30/2024 us [facility] Scanned SCANNING Final Resu lt * CT GENERIC (06/29/2024) Anatomical Region Laterality Modality Other 06/29/2024 us [facility] Scanned SCANNING Final Resu lt * IMAGE GENERIC (06/29/2024) Anatomical Region Laterality Modality Other 06/29/2024 [facility] Scanned SCANNING Final Resu lt * [...] * URINE BACTERIA CULTURE (06/01/2024 1:54 PM COMMERCIAL L[employer] FIXTURE ASSEMBLER) SPEC DESCRIPTION URINE CLEAN CATCH 06/01/2024 1:54 PM COMMERCIAL LIGHT FIXTURE ASSEMBLER [facility] SPECIAL REQUESTS NO SPECIAL REQUEST 06/01/2024 1:54 PM [facility] CULTURE RESULT >25,000 TO 50,000 CFU/mL ESCHERICHIA COLI 06/04/2024 10:35 AM [facility] URINE SPECIMEN OBTAINED BY CLEAN CATCH PROCEDURE / Unknown 06/01/2024 1:54 PM COMMERCIAL L[employer]TURE ASSEMBLER 06/01/2024 8:53 PM COMMER[employer] L[employer] FIXTURE ASSEMBLER Narrative Organism Antibiotic Method Susceptibility Escherichia coli [...] MICROBIOLOGY - GENERAL OR DERABLES Final Result [facility] [address] [place] [address], [id number] * (ABNORMAL) URINALYSIS AUTO DIP (06/01/2024) COLOR [...] [address], [place] [address] [place] [address], [place] [phone] * CRYSTALS, BODY FLUID (04/26/2024 7:22 PM [employer]) COMMENT PRELIMINARY REPORT: 04/26/2024 9:09 PM [employer] [facility] Comment: NO CRYSTALS TO BE REVIEWED BY PATHOLOGIST CRYSTAL SOURCE KNEE,RIGHT 04/26/2024 7:22 PM [employer] [facility] INTERPRETATION THIS CRYSTAL REPORT WAS INTERPRETED BY 04/27/2024 2:23 PM [employer] [facility] Comment: DR DWAYNE BRANNON THE FLUID IS EXAMINED MICROSCOPICALLY WITH AND WITHOUT POLARIZED LIGHT AND WITH AND WITHOUT FIRST ORDER RED CASINO FLOOR WALKER UNDER 10X AND 40X MAGNIFICATIONS. THE FLUID CONTAINS FEW WHITE BLOOD CELLS AND FEW RED BLOOD CELLS. THERE ARE NO MONOSODIUM URATE (MSU OR GOUT) OR CALCIUM PYROPHOSPHATE DIHYDRATE (CPPD OR PSEUDOGOUT) CRYSTALS IDENTIFIED. STRUCTURE OF RIGHT KNEE REGION / Unknown 04/26/2024 7:22 PM [employer] Maurisio Jeong MD BODY FLUIDS AND STOOLS ORDERABL ES Final Result Performing Organization Address City/[facility]/ZIP Co de Phone Number [facility] [address] [place] [address], [place] [phone] * CELL COUNT W/ DIFF BODY FLUID (04/26/2024 7:22 PM COMMERCIAL LIGHT FIXTURE ASSEMBLER) SOURCE (FLUID) KNEE,RIGHT 04/26/2024 7:22 PM COMMERCIAL LIGHT FIXTURE ASSEMBLER [facility] TOTAL NUCLEATED CELL (BODY FLUID) 0.405 x10'3/uL 04/26/2024 8:57 PM COMMERCIAL LIGHT FIXTURE ASSEMBLER [facility] Comment:REFERENCE RANGE NOT ESTABLISHED RBC (FLUID) 0.002 x10'6/uL 04/26/2024 8:57 PM COMMERCIAL LIGHT FIXTURE ASSEMBLER [facility] Comment:REFERENCE RANGE NOT ESTABLISHED DIFFERENTIAL MANUAL DIFFERENTIAL PERFORMED ON CONCENTRATED CYTOSPIN 04/26/2024 7:22 PM [facility] CELLS COUNTED 100 No COUNTED 04/26/2024 10:27 PM [facility] SEGS (FLUID) 1 % 04/26/2024 10:25 PM [facility] LYMPHS (FLUID) 61 % 04/26/2024 10:25 PM [facility] OTHER MONONUCLEAR CELLS (FLD) 38 % 04/26/2024 10:25 PM [facility] STRUCTURE OF RIGHT KNEE REGION / Unknown 04/26/2024 7:22 PM COMMERCIAL LIGHT FIXTURE ASSEMBLER Maurisio Jeong MD BODY FLUIDS AND STOOLS ORDERABL ES Final Result [facility] [address] [place] [address], [id number] * OXR LT KNEE 3V (04/26/2024 9:36 AM COMMERCIAL LIGHT FIXTURE ASSEMBLER) Anatomical Region Laterality Modality Radiographic La ging Narrative 04/26/2024 9:54 AM COMMERCIAL LIGHT FIXTURE ASSEMBLER Left knee Findings: No acute osseous abnormality, fracture, dislocation. Minimal degenerative changes medial compartment patellofemoral compartment manifest with mild joint space narrowing only. Significant change from previous x-ray 2 years ago Maurisio Jeong MD GENERAL IMAGING Final Result * OXR RT KNEE 3V (04/26/2024 9:36 AM COMMERCIAL LIGHT FIXTURE ASSEMBLER) Anatomical Region Laterality Modality Radiographic La ging Narrative 04/26/2024 9:53 AM COMMERCIAL LIGHT FIXTURE ASSEMBLER Right knee Findings: No acute osseous abnormality, fracture, dislocation. Mild effusion noted. Minimal degenerative changes noted medial compartment patellofemoral compartment with mild joint space narrowing mild subchondral cyst formation. No significant change from previous x-ray 2 years ago. Maurisio Jeong MD GENERAL IMAGING Final Result * ARTHROCENTESIS MAJOR JOINT W/ ULTRASOUND GUIDANCE (04/26/2024 9:00 AM COMMERCIAL LIGHT FIXTURE ASSEMBLER) Narrative Maurisio Jeong MD - 04/26/2024 9:00 AM COMMERCIAL LIGHT FIXTURE ASSEMBLER Maurisio Jeong MD 04/26/2024 9:58 AM *Lg [...] W TAYA IOANA DIGI (04/19/2022 12:00 AM COMMERCIAL LIGHT FIXTURE ASSEMBLER) Anatomical Region Laterality Modality Breast Bilateral Mammography 04/19/2022 Nettie Hodges STAVE BLOCK ROLLER MAMMO Final Res ult * HEPATITIS C ANTIBODY (02/27/2022 12:19 PM COMMERCIAL LIGHT FIXTURE ASSEMBLER) HEPATITIS C AB 0.2 0.0 - 0.9 [...] support the diagnosis of acute HCV infection. [facility] Hepatitis C Virus (HCV) RNA, Diagnosis, ALAN (210687) and Hepatitis C Virus (HCV) Antibody with reflex to Quantitative Real-time PCR ([id number]). 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 02/27/2022 Narrative [facility] - 02/28/2022 7:07 AM COMMERCIAL LIGHT FIXTURE ASSEMBLER Performed at: - [address] [id number] Flow Worker: Jace Simons PhD, Phone: [phone] us Nettie Hodges [facility] LABORATORY Final Res ult [facility] [address] [id number] [facility] * COLONOSCOPY GENERIC (SCAN ORDER) (10/31/2020) 10/31/2020 us [facility] Scanned SCANNING Final Resu lt from Last 3 Months or Most Recently Relevant to Health Maintenance Insurance MEDICAID MEDICARE Advance Directives * Full Code (Latest Code Status on File) Date Activated Date Inactivated Comments 07/03/2024 12:37 AM 07/03/2024 4:36 PM Care Teams Servicer Travel Trailers Relationship Specialty Start Date End Date Nettie Hodges NP [address] [place] [address] PCP - General NURSE PRACTITIONER 09/10/21
[2024-07-09 12:32] LABS: Magnesium 1.8 mg/dL (1.6-2.3)
== END 2024-07-09 11:56 | disposition home or self-care (01) ==
PROVIDERS: PCP Nurse Practitioner; Visit Provider Nurse Practitioner
DX: E83.42 Hypomagnesemia (principal)
CPT/HCPCS: 36415; 83735

== ENCOUNTER 2024-10-22 09:30 | Outpatient (CLI) | payer MEDICARE, MEDICAID, SELFPAY ==
--- OUTSIDE RECORDS SUMMARY | 2024-10-22 09:45 | XMS_ITS | Clinical Summary ---
Author Organization [facility] HealthCare Care Team Providers Care Crop Setting Out Machine Operator Name Role Phone Nettie Hodges MD Primary Care Provider [phone] Allergies No known active allergies Medications lisinopriL (PRINIVIL,ZESTR [place]) 30 mg tablet Take 1 tablet (30 mg total) by mouth daily 3 Active albuterol HFA (PROVENTIL HFA,VENTOLIN HFA,PROAIR HFA) [...] times a day 60 tablet 4 Active formoterol (PERFOROMIST) 20 mcg/2 mL [...] WITH AEROCHAMBER 11 g 11 5 Active famotidine (PEPCID) 40 mg tabletIndicatio ns:Gastroesopha geal reflux disease, unspecified whether esophagitis present Take 1 tablet by mouth once daily 30 tablet 11 5 Active aspirin 81 mg enteric coated tablet Take 1 tablet (81 mg total) by mouth daily Active nicotine (NICODERM CQ) [address] 1 patch on the skin daily for 24 hours 30 patch 1 5 Active Active Problems Problem Noted Date Diagnosed Date Dyspnea on exertion 06/01/2024 Assessment & Plan (08/05/2024 12:34 PM CDT): This is persistent and severe. While she has severe COPD, she is optimally medicated. Her echocardiogram demonstrates no evidence of pulmonary hypertension. Her CT chest did reveal some TIB opacities, consistent with inflammation or infection. I continue to feel strongly that her uncorrected GERD and regurgitation are significant contributing factors to her wheezing and dyspnea Assessment & Plan (06/01/2024 2:11 PM WATER TENDER): This is persistent and severe. She has [...] home O2 therapy 03/03/2024 Assessment & Plan (08/05/2024 12:32 PM CDT): Continue supplemental oxygen with sleep at 4 liters She is aware of the risks of both hypoxia and hypercapnia I have asked her to monitor her saturations at home and bring her pulse oximeter to her next office visit. Assessment & Plan (06/01/2024 2:07 PM WATER TENDER): Continue supplemental oxygen with sleep at 4 liters She is aware of the risks of both hypoxia and hypercapnia Assessment & Plan (03/03/2024 9:05 PM WATER TENDER): Continue supplemental oxygen with sleep Increase to 4 liters. We have discussed the risks of hypoxia. Obstructive sleep apnea 03/03/2024 Assessment & Plan (03/03/2024 9:10 PM WATER TENDER): We have had an extensive conversation about [...] Gastroesophageal reflux disease 06/18/2023 Assessment & Plan (08/05/2024 12:36 PM CDT): Continue famotidine daily PPI RX per GI I Continue to believe that GERD is a direct contributing factor to her persistent wheezing She is aware of the risks of uncorrected GERD. Keep follow up appointments with GI, I recommend manometry/pH testing and this has been discussed with her as a potential follow up test. Assessment & Plan (06/01/2024 2:08 PM WATER TENDER): Continue famotidine and omeprazole daily A continue to believe that GERD is a direct contributing factor to her persistent wheezing Keep follow up appointments with GI, I recommend manometry/pH testing Assessment & Plan (03/03/2024 9:06 PM WATER TENDER): Continue famotidine and omeprazole daily Although her [...] with GI Wheezing 06/18/2023 Assessment & Plan (08/05/2024 12:38 PM CDT): This is chronic, persistent, and unrelieved by both inhaled therapy and prednisone She is on maximum inhaled therapy plus biologic therapy every two weeks. Continue to follow with GI for further workup Assessment & Plan (06/01/2024 2:09 PM WATER TENDER): This is chronic, persistent, and unrelieved by inhaled therapy and prednisone She is on maximum inhaled therapy I continue to recommend further GI workup Assessment & Plan (03/03/2024 9:09 PM WATER TENDER): This is chronic, persistent, and unrelieved by [...] cigarettes, uncomplicated 0 06/18/2023 Assessment & Plan (08/05/2024 12:39 PM CDT): - Smoking cessation counseling and techniques reviewed at length - Avoid triggers and use distraction techniques - She is aware of the [place] Tobacco Quit line: 6-141-WFVC-YES for free services - 5 minutes spent discussing cessation She is pre-contemplative, I have encouraged her to cut back and she is aware that her symptoms will likely continue to worsen as long as she is actively smoking She has challenges since her and caregiver both smoke in the house. Her annual lung cancer screening was due last month Assessment & Plan (06/01/2024 2:08 PM WATER TENDER): - Smoking cessation counseling and techniques reviewed at length - Avoid triggers and use distraction techniques - She is aware of the [place] Tobacco Quit line: 3-411-HDBC-YES for free services - 5 minutes spent discussing cessation She is pre-contemplative, I have encouraged her to cut back and she is aware that her symptoms will likely continue to worsen as long as she is actively smoking Her annual lung cancer screening is due this month I have placed an order and she will schedule this at [facility] Assessment & Plan (03/03/2024 9:07 PM WATER TENDER): - Smoking cessation counseling and techniques reviewed at length - Avoid triggers and use distraction techniques - She is aware of the [place] Tobacco Quit line: 5-144-KYGN-YES for free services - 5 minutes spent discussing cessation She is pre-contemplative, I have encouraged her to cut back Assessment & Plan (10/16/2023 11:08 PM CDT): - Smoking cessation counseling and techniques reviewed at length - Avoid triggers and use distraction techniques - She is aware of the [place] Tobacco Quit line: 6-109-IHEP-YES for free services - 3 minutes spent discussing cessation Assessment & Plan (08/22/2023 1:40 PM CDT): - Smoking cessation counseling and techniques reviewed at length - Avoid triggers and use distraction techniques - Participate in support groups - Information given regarding [place] Tobacco Quit line: 5-756-AUKR-YES for free services 3 minutes spent discussing cessation Assessment & Plan (06/18/2023 3:43 PM CDT): - Smoking cessation counseling and techniques reviewed at length - Avoid triggers and use distraction techniques - Participate in support groups - Information given regarding [place] Tobacco Quit line: 4-127-PSEA-YES for free services 4 minutes spent discussing cessation COPD exacerbation 06/02/2023 Chronic obstructive pulmonary disease 11/28/2020 Assessment & Plan (08/05/2024 12:32 PM CDT): Continue Breztri 2 puffs twice daily with aerochamber Albuterol 2 puffs every 4-6 hours as needed ONLY, We have re-discussed indications for use and I have counseled her on overuse. This has not been particularly effective for symptoms relief in the past Peripheral eosinophilia , last count 400. Continue Dupixent for COPD every 2 weeks. She has tried and failed countless inhaled therapies over the years and she is optimally medicated for her COPD She must quit smoking I recommend pulmonary rehab and weight loss We have discussed potential endobronchial valves or LVR surgery but with her current weight and smoking status she would not be a candidate. Assessment & Plan (06/01/2024 2:06 PM WATER TENDER): Continue Breztri 2 puffs twice daily with [...] rehab Assessment & Plan (03/03/2024 9:05 PM WATER TENDER): Continue Breztri 2 puffs twice daily. I [...] Encounters Date Type Department Care Team Description 08/10/2024 Telephone [facility] Medical Group Pulmonary at [address] [place] [address] Sri Atkinson LPN Med Management 08/05/2024 9:30 AM CDT Office Visit [facility] Pulmonary at [address] [place] [address] Betsey Lyon NP Centrilobular emphysema (HCC) (Primary Dx); Chronic respiratory failure with hypoxia, on home O2 therapy (HCC); Dyspnea on exertion; Gastroesophageal reflux disease, unspecified whether esophagitis present; Nicotine dependence, cigarettes, uncomplicated; Wheezing from Last 3 Months Medical History Medical History Date Comments COPD (chronic obstructive pulmonary disease) (HC C) Asthma Wheezing 06/18/2023 Nicotine dependence, cigarettes, uncomplicated 0 06/18/2023 Pulmonary nodule 08/22/2023 Family History Medical History Relation Name Comments Hypertension Father Hypertension Mother Relation Name Status Comments Father Mother Social History Tobacco Use Types Packs/Day Years Used Date Smoking Tobacco: Every Day Cigarettes 0.5 48.6 Started: 1976 Passive Smoke Exposure: Current Tobacco [...] on file Legal Sex Female 12:55 AM WATER TENDER Gender Identity Not on file Sexual Orientation Not on file Obstetrics History Last Filed Vital Signs Vital Sign Reading Time Taken Comments Blood Pressure 142/78 08/05/2024 9:30 AM CDT Pulse 77 08/05/2024 9:30 AM CDT Temperature 36.5 C (97.7 F) 08/05/2024 9:30 AM CDT Respiratory Rate 18 06/01/2024 9:09 AM WATER TENDER Oxygen Saturation 96% 08/05/2024 9:30 AM CDT Inhaled Oxygen Concentration - - Weight 95.9 kg (211 lb 8 oz) 08/05/2024 9:30 AM CDT Height 152.4 cm (5') 08/05/2024 9:30 AM CDT Body Mass Index 41.31 08/05/2024 9:30 AM CDT Plan of Treatment Health Maintenance Due Date Last Done Comments Cervical Cancer Screening 1963 Colon Cancer Screening-Colonoscopy 1963 Depression Screening 1963 Hepatitis C Screening 1963 Hepatitis B Screening 1981 Regular Well Visit/Exam 18-64 1981 Pneumococcal vaccine <65 (1 of 2 - PCV) 1982 Lung Cancer Screening 2013 Breast Cancer Screening-Mammogram 04/19/2023 023, 04/19/2022 Covid-19 Vaccine ( - 2023-2 5 season) 2023 03/15/2021, 07/21/2020, 06/30/2020 Influenza Vaccine (#1) 2024 , 01/10/2023, 12/07/2021, Additional history exists DTaP/Tdap/Td Vaccine (2 - Td or Tdap) 10/02/2033 10/03/2023 Zoster Vaccine Completed 01/13/2024, 10/03/2023 Insurance [facility] [employer] MEDICARE [facility] Advance Directives For more information, please contact: [phone] * Full Code (Latest Code Status on File) Date Activated Date Inactivated Comments 06/02/2023 9:46 PM 06/04/2023 4:04 PM Healthcare Agents on File Name Relationship Healthcare Agent [facility] Communication Tonny Cox Spouse Health Care Agent Belkys Guzmán Sister First Alternate Health Care Agent Care Teams Crop Setting Out Machine Operator Relationship Specialty Start Date End Date Nettie Hodges MD PCP - General Nurse Practitioner 02/25/23
--- OUTSIDE RECORDS SUMMARY | 2024-10-22 09:45 | XMS_ITS | Referral Summary ---
Author Organization [facility] HealthCare Care Team Providers Care Cardiac Care Unit Nurse Name Role Phone Nettie Hodges MD Primary Care Provider [phone]- [phone] Encounters Date Type Department Care Team Description 08/10/2024 Telephone [facility] Medical Group Pulmonary at [address] [place] [phone] Sri Atkinson LPN Med Management 08/05/2024 9:30 AM CDT Office Visit [facility] Medical [facility] Pulmonary at [address] [place] [phone] Betsey Lyon NP Centrilobular emphysema (HCC) (Primary Dx); Chronic respiratory failure with hypoxia, on home O2 therapy (HCC); Dyspnea on exertion; Gastroesophageal reflux disease, unspecified whether esophagitis present; Nicotine dependence, cigarettes, uncomplicated; Wheezing from Last 3 Months Allergies No known [...] USE-USE WITH AEROCHAMBER 11 g 5 Active famotidine (PEPCID) 40 mg tabletIndicatio [...] dyspnea Assessment & Plan (06/01/2024 2:11 PM GERIATRIC NURSING ASSISTANT): This is persistent and severe. She has [...] visit. Assessment & Plan (06/01/2024 2:07 PM GERIATRIC NURSING ASSISTANT): Continue supplemental oxygen with sleep at 4 liters She is aware of the risks of both hypoxia and hypercapnia Assessment & Plan (03/03/2024 9:05 PM GERIATRIC NURSING ASSISTANT): Continue supplemental oxygen with sleep Increase to 4 liters. We have discussed the risks of hypoxia. Obstructive sleep apnea 03/03/2024 Assessment & Plan (03/03/2024 9:10 PM GERIATRIC NURSING ASSISTANT): We have had an extensive conversation about [...] test. Assessment & Plan (06/01/2024 2:08 PM GERIATRIC NURSING ASSISTANT): Continue famotidine and omeprazole daily A continue to believe that GERD is a direct contributing factor to her persistent wheezing Keep follow up appointments with GI, I recommend manometry/pH testing Assessment & Plan (03/03/2024 9:06 PM GERIATRIC NURSING ASSISTANT): Continue famotidine and omeprazole daily Although her [...] workup Assessment & Plan (06/01/2024 2:09 PM GERIATRIC NURSING ASSISTANT): This is chronic, persistent, and unrelieved by inhaled therapy and prednisone She is on maximum inhaled therapy I continue to recommend further GI workup Assessment & Plan (03/03/2024 9:09 PM GERIATRIC NURSING ASSISTANT): This is chronic, persistent, and unrelieved by [...] techniques - She is aware of the [place] Tobacco Quit line: 5-553-SWTO-YES for free services - 5 minutes spent [...] month Assessment & Plan (06/01/2024 2:08 PM GERIATRIC NURSING ASSISTANT): - Smoking cessation counseling and techniques reviewed at length - Avoid triggers and use distraction techniques - She is aware of the [place] Tobacco Quit line: 4-396-NKWW-YES for free services - 5 minutes spent [...] Center Assessment & Plan (03/03/2024 9:07 PM GERIATRIC NURSING ASSISTANT): - Smoking cessation counseling and techniques reviewed at length - Avoid triggers and use distraction techniques - She is aware of the [place] Tobacco Quit line: 8-318-BLBB-YES for free services - 5 minutes spent discussing cessation She is pre-contemplative, I have encouraged her to cut back Assessment & Plan (10/16/2023 11:08 PM CDT): - Smoking cessation counseling and techniques reviewed at length - Avoid triggers and use distraction techniques - She is aware of the [place] Tobacco Quit line: 6-573-WSBM-YES for free services - 3 minutes spent discussing cessation Assessment & Plan (08/22/2023 1:40 PM CDT): - Smoking cessation counseling and techniques reviewed at length - Avoid triggers and use distraction techniques - Participate in support groups - Information given regarding [place] Tobacco Quit line: 9-442-GKTS-YES for free services 3 minutes spent discussing cessation Assessment & Plan (06/18/2023 3:43 PM CDT): - Smoking cessation counseling and techniques reviewed at length - Avoid triggers and use distraction techniques - Participate in support groups - Information given regarding [place] Tobacco Quit line: 3-609-OQQO-YES for free services 4 minutes spent discussing [...] candidate. Assessment & Plan (06/01/2024 2:06 PM GERIATRIC NURSING ASSISTANT): Continue Breztri 2 puffs twice daily with [...] rehab Assessment & Plan (03/03/2024 9:05 PM GERIATRIC NURSING ASSISTANT): Continue Breztri 2 puffs twice daily. I [...] on file Legal Sex Female 12:55 AM GERIATRIC NURSING ASSISTANT Gender Identity Not on file Sexual Orientation Not on file Last Filed Vital Signs Vital Sign Reading Time Taken Comments Blood Pressure 142/78 08/05/2024 9:30 AM CDT Pulse 77 08/05/2024 9:30 AM CDT Temperature 36.5 C (97.7 F) 08/05/2024 9:30 AM CDT Respiratory Rate 18 06/01/2024 9:09 AM GERIATRIC NURSING ASSISTANT Oxygen Saturation 96% 08/05/2024 9:30 AM CDT Inhaled Oxygen Concentration - - Weight 95.9 kg (211 lb 8 oz) 08/05/2024 9:30 AM CDT Height 152.4 cm (5') 08/05/2024 9:30 AM CDT Body Mass Index 41.31 08/05/2024 9:30 AM CDT Plan of Treatment Not on file Insurance [facility] PLAN [facility] PLAN MEDICARE [facility] [place] [address] Advance Directives For more information, please contact: [phone] * Full Code (Latest Code Status on File) Date Activated Date Inactivated Comments 06/02/2023 9:46 PM 06/04/2023 4:04 PM Healthcare Agents on File Name Relationship Healthcare Agent [facility] Communication Tonny Cox Spouse Health Care Agent Belkys Guzmán Sister First Alternate Health Care Agent Care Teams Cardiac Care Unit Nurse Relationship Specialty Start Date End Date Nettie Hodges MD PCP - General Nurse Practitioner 02/25/23
--- OUTSIDE RECORDS SUMMARY | 2024-10-22 09:45 | XMS_ITS | Data Portability ---
Author Organization [facility] Address [address] [place] [address] Assessment No assessment recorded. Plan of Treatment Reminders Order Date Submit Date Provider Last Modified By Organization Details Last Modified Time Details Appointments None recorded . Lab None recorded . Referral sleep medicine referral 2021 ANTHONY Boogie MD, [address] [place], [address], 16:10:[address] referral - Plantar fasciiti s . Please eval and treat . Thank you 2021 022 ATHENAFAX Not available 11:35:09 orthoped ic surgeon referral - bilatera l knee pain . PLease eval and treat . Thank you 2020 [facility], [address] [facility], [place], [address], 09:27:30 Procedures None recorded . Surgeries None recorded . Imaging MAMMO, screenin g, digital, bilatera l 2020 021 [facility] ([facility]), [address] [place], [address], 11:22:41 Medication Orders amitript yline 100 mg tablet 2021 [facility], [address] [facility], [place], [address], 04/05/202 2 15:32:32 albutero l sulfate HFA 90 mcg/actu ation aerosol inhaler 2021 [facility], [address] [place], [address], 2 15:32:41 predniso ne 20 mg tablet 2021 [facility], [address] [place] [address], [address], 2 15:32:43 Symbicor t 160 mcg-4.5 mcg/actu ation HFA aerosol inhaler 2021 [facility], [address] [place] [address], [address], 15:32:45 Pennsaid 20 mg/gram/ actuatio n (2 %) topical soln in metered- dose pump 2021 [place] [address] [facility], [address] [place] [address], [phone], 2 15:38:32 lisinopr il 20 mg-hydro chloroth iazide 12.5 mg tablet 2021 [facility], [address] [place] [address], [address], 2 15:36:22 omeprazo le 20 mg capsule, delayed release 2021 [facility], [address] [place] [address], [address], 2 15:30:50 benzonat ate 200 mg capsule 2021 [facility], [address] [place] [address], [address], 14:50:21 amoxicil manjinder 875 mg-potas sium clavulan ate 125 mg tablet 2021 [facility], [address] [place] [address], [address], 2 15:18:32 cycloben zaprine 10 mg tablet 2021 [facility], [address] [place] [address], [address], 14:50:17 predniso ne 20 mg tablet 2021 [facility], [address] [place] [address], [address], 14:50:20 cycloben zaprine 10 mg tablet 2020 [facility], [address] [place] [address], [address], 13:01:46 Symbicor t 160 mcg-4.5 mcg/actu ation HFA aerosol inhaler 2020 [facility], [address] [place] [address], [address], 13:00:13 loratadi ne 10 mg tablet 2020 [facility], [address] [place] [address], [address], 13:00:11 monteluk ast 10 mg tablet 2020 [facility], [address] [place] [address], [address], 13:00:41 ciproflo xacin 500 mg tablet 2020 021 adriel [facility], [address] [place], [address], 12:18:07 predniso ne 20 mg tablet 2020 021 ARNALDO [facility], [address] [place], [address], 12:43:40 Patient TargetsNo targets recorded. Patient Instructions Encounter Date Encounter Id Patient Instructions Last Modified By Organization Details Last Modified Time 07/03/2021 [id number] waalk-in here in 7 days for free BPchek [email or web address] Not available 07/05/2021 15:14:52 Reason for Referral Orthopedic Surgeon Referral for Pain in right knee bilateral knee pain . PLease eval and treat . 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 Please eval and treat . Thank you Referring Physician: [facility], Encounter Date: 07/03/2021 Sleep Medicine Referral for Sleep apnea Referring Physician: Rik [facility], Encounter Date: 07/03/2021 Results Created Date Observation Date Name Description Value Unit Range Abnormal Flag Note LastModifiedBy Organization Detail LastModifiedTime 12/15/19 21 12/14/2020 XR, chest No observ ation record ed. [email or web address] [facility] [address] [place], [address], 12/27/2020 15:10:40 01/31/20 21 12/14/2020 XR, chest No observ ation record ed. [facility] [address] [place], [address], 02/02/2021 10:56:17 01/31/20 21 01/30/2021 XR, chest , 2 view No observ ation record ed. [facility] [address] [place], [address], 02/02/2021 10:56:22 03/05/20 21 03/05/2021 MAMMO , rasahade leola, digit al, bilat eral No observ ation record ed. [facility] [address] [place], [address], 04/02/2021 16:58:25 03/13/20 21 03/13/2021 MRI, knee, w/o contr ast No observ ation record ed. [facility] [address] [place], [address], 05/11/2021 13:14:37 03/29/20 21 03/29/2021 nellie gonzalez ow study No observ ation record ed. [facility] [address] [place], [address], 05/11/2021 13:15:17 05/26/19 22 05/26/2021 XR, chest No observ ation record ed. [facility] [address] [place], [address], 06/27/2021 14:50:26 05/26/19 22 05/26/2021 CT, abdom en + pelvi s, w/ contr ast No observ ation record ed. [facility] [address] [place], [address], 06/27/2021 14:19:30 06/15/19 22 06/14/2021 LDCT, chest , for lung cance r rashaade leola No observ ation record ed. [facility] [address] [place], [address], 07/03/2021 10:27:14 06/29/19 22 06/28/2021 US, head + neck, soft tissu e No observ ation record ed. [email or web address] [facility] [address] [place], [address], 07/03/2021 09:23:13 06/29/19 22 06/28/2021 CT, maxil lofac ial, w/o contr ast No observ ation record ed. [email or web address] [facility] [address] [place], [address], 07/03/2021 10:23:31 Result Notes None recorded. Problems Name Problem SNOMED Code Status Onset Date Resolution Date Notes Provider Name and Address Organization Details Recorded Time Essential hypertensi on 55957562 Active Not Available [facility] 15:38:22 Insomnia 411132130 Active Not Available [facility] 2 15:38:22 Pleurisy 021338952 Active Not Available [facility] 2 15:38:21 Chronic obstructiv e pulmonary disease 55632922 Active see PFTs 2019 Not Available [facility] 2 15:38:22 Bronchitis 08255294 Active Not Available [facility] 2 15:38:21 Low back pain 116982211 Active Not Available [facility] 2 15:38:21 Eczema 11003328 Active Not Available [facility] 2 15:38:22 Acute urinary tract infection 506442653 Active Not Available [facility] 2 15:38:21 Right upper quadrant pain 207714760 Active Not Available [facility] 2 15:38:22 Snoring 03765552 Active Not Available [facility] 2 15:38:22 Gastroesop hageal reflux disease 003173828 Active Not Available [facility] 2 15:38:22 Pain of shoulder region 24562297 Active Not Available [facility] 2 15:38:22 Bacterial vaginosis 616384939 Active Not Available [facility] 2 15:38:22 Sexual desire disorder 69432621 Active Not Available [facility] 2 15:38:22 Sinusitis 56782632 Active Not Available [facility] 2 15:38:22 Sialoadeni tis 42432710 Active Not Available [facility] 2 15:38:21 Migraine 15094813 Active 2017 Not Available [facility] 2 15:38:22 Prolapsed lumbar interverte bral disc 257383634 Active 2017 Not Available [facility] 2 15:38:21 Neck pain 25884075 Active 2017 Not Available [facility] 2 15:38:22 Pain in right knee Active 2018 Not Available [facility] 2 15:38:21 Serum vitamin B12 below reference range 270228620 Active 2018 Not Available [facility] 2 15:38:22 Hyperlipid emia 94740046 Active 2018 Not Available [facility] 2 15:38:22 Acute sinusitis 82779979 Active 2018 Not Available [facility] 2 15:38:22 Herpes labialis 3719132 Active 2018 Not Available [facility] 2 15:38:22 Sleep apnea 13787199 Active 2018 Not Available [facility] 2 15:38:22 Aphthous ulcer of mouth 775929039 Active 2019 Not Available [facility] 2 15:38:21 Lower abdominal pain 73778379 Active 2019 Not Available [facility] 2 15:38:21 Acute pharyngiti s 491233593 Active 2019 Not Available [facility] 2 15:38:21 Allergic rhinitis 94452959 Active 2019 Not Available [facility] 15:38:22 Neck swelling 800006047 Active 2019 Not Available [facility] 2 15:38:22 Pain in left knee Active 2019 Not Available [facility] 2 15:38:22 Administra tion of influenza vaccine Active 2019 Not Available [facility] 2 15:38:22 Screening for malignant neoplasm of colon Active 2020 Not Available [facility] 2 15:38:22 Hemorrhoid s 54879591 Active 2020 Not Available [facility] 2 15:38:21 Pain in left foot 9765650862578 07 Active 2020 Not Available [facility] 2 15:38:22 Upper respirator y infection 72116545 Active 2020 Not Available [facility] 2 15:38:21 Chronic thoracic back pain 0691253671844 03 Active 2020 Not Available [facility] 2 15:38:22 Screening for malignant neoplasm of breast Active 2020 Not Available [facility] 2 15:38:22 Wheezing 21243381 Active 2021 Not Available [facility] 2 15:38:22 Plantar fasciitis 250615584 Active 2021 Not Available [facility] 2 15:38:22 Problem Notes None recorded. Procedures Surgical History Date Name Laterality Status Provider Name and Address Organization Details Recorded Time 08/01/19 21 endoscopy completed SUSAN Rodriguez 08/07/2020 14:29:38 12/30/19 18 Xcapsl ctrc rmvl cplx wo ecp completed SUSNA Rodriguez 06/30/2018 16:57:41 02/28/20 11 Most Recent Mammogram completed SUSAN Galeana 03/13/2015 15:05:19 01/01/20 11 Hysterectomy completed SUSAN Galeana 03/13/2015 15:07:24 04/25/19 11 Endometrial Biopsy completed SUSAN Galeana 03/13/2015 15:06:32 01/31/20 10 Date of Last Pap Smear completed SUSAN Galeana 03/13/2015 15:05:19 03/31/19 08 Cholecystectomy completed SUSAN Galeana 03/13/2015 15:08:13 04/06/18 85 Caesarean Section completed Yecenia Deluca [facility] 03/13/2015 15:05:54 05/23/18 83 Caesarean Section completed Yecenia Deluca [facility] 03/13/2015 15:06:04 Imaging Results None recorded. Procedure Notes None recorded. Medical Equipment None Reported. Allergies Allergen ID Allergen Name Allergen Category Reaction Reaction Severity Criticality Documentation Date Start Date Code Code System Note Provider Name and Address Organization Details Recorded Time 490055 Pneumococ gregorio vaccine Not available Not available Not available Not available 06/30/2018 32853 7 RxNorm SUSAN Rodriguez, [facility] 9 16:46:01 Medications Name Sig Start Date Stop Date [...] Not Available Not Available Not Avai lable OraMagicR x mouthwash TAKE 5 ML BY [...] blood by Pulse oximetry Heart rate Systolic And Diastolic Provider Name and Address Organization Details Last Updated DateTime 2 151.13 cm 34.4 kg/m2 41443.9 2 g 98 % 98 % 87 /min 140/82 mm[Hg] Ernestine Kee [facility] 2 14:41:03 Date Recorded Body height Body mass index (BMI) Body weight Oxygen saturation Oxygen saturation in Arterial blood by Pulse oximetry Heart rate Body temperature Systolic And Diastolic Provider Name and Address Organization Details Last Updated DateTime 2 151.13 cm 35.3 kg/m2 36501.7 2 g 95 % 95 % 80 /min 98.4 [degF] 140/72 mm[Hg] Jessica Tipton MA [facility] 2 15:23:29 Date Recorded Body height Body mass index (BMI) Body weight Oxygen saturation Oxygen saturation in Arterial blood by Pulse oximetry Heart rate Systolic And Diastolic Provider Name and Address Organization Details Last Updated DateTime 2 151.13 cm 36.4 kg/m2 36644.8 3 g 96 % 96 % 85 /min 148/96 mm[Hg] Jessica Tipton MA [facility] 2 14:47:59 Date Recorded Body height Body mass index (BMI) Body weight Oxygen saturation Oxygen saturation in Arterial blood by Pulse oximetry Heart rate Body temperature Systolic And Diastolic Provider Name and Address Organization Details Last Updated DateTime 1 151.13 cm 32.8 kg/m2 79324.7 4 g 97 % 97 % 84 /min 98.1 [degF] 132/82 mm[Hg] Jessica Tipton MA [facility] 12:20:59 Social History Question Answer Notes LastModified by Organizat ion Details LastModified Time Tobacco Smoking Status Former Smoker 9 quit 01/2018 SUSAN Rodriguez, [place] [facility] 06/30/2018 16:56:48 Do You Have An Advance Directive? No Information not available 03/13/2015 Are You Blind Or Do You Have Difficulty Seeing? No Information not available 08/07/2020 Is Blood Transfusion Acceptable In An Emergency? Yes Information not available 03/13/2015 What Is Your Level Of Caffeine Consumption? Moderate Information not available 02/21/2014 How Much Tobacco Do You Chew? None Information not available 02/21/2014 Are You Deaf Or Do You Have Serious Difficulty Hearing? No Information not available 08/07/2020 What Type Of Diet Are You Following? REGULAR Information not available 02/21/2014 Education 9 Information no t available 03/13/2015 Live Alone Or With Others? [...] Medium Information not available 03/13/2015 Do You Use Sunscreen Routinely? No Information not available 03/13/2015 Has Tobacco Cessation Counseling Been Provided? Yes Information not available 12/18/2020 On What Date Was Tobacco Cessation Counseling Provided? 07/03/2021 Information not available 07/03/2021 How Many Years Have You Smoked Tobacco? 38 Information not available 03/13/2015 Sex: Female Functional Status Question Answer Note LastModified by Organizat ion Details LastModified Time Do you use any illicit or recreational drugs? No Information not available 08/07/2020 What is your level of alcohol consumption? None Information not available 02/21/2014 Are you currently employed? Yes Information not available 03/13/2015 Are you able to care for yourself? 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 Moderate Information not available 02/21/2014 Mental Status Question Answer Note LastModified by Organization D etails LastModified Time Do you feel stressed (tense, restless, nervous, or anxious, or unable to sleep at night)? [id number] Information not available 08/07/2020 Family History Relationship Description Onset Age of [...] Disorder N Colon Polyps N Heart Attack ([place]) N Diabetes N Cardiomyopathy N Blood Transfusions [...] mcg/0.3 mL dose 1 completed Not Available [facility] 10/28/2021 15:38:23 COVID-19, mRNA, LNP-S, PF, 30 mcg/0.3 mL dose 1 completed Not Available [facility] 10/28/2021 15:38:23 Influenza, split virus, quadrivalent, preservative 0 completed Jessica Tipton MA [facility], [facility] 02/01/2020 12:57:24 Influenza, split virus, quadrivalent, preservative 1 completed Jessica Tipton MA [facility], [facility] 02/19/2021 13:30:47 Influenza, split virus, quadrivalent, preservative 5 completed Not Available [facility] 04/17/2019 02:32:10 Past Encounters Encounter ID Performer Location Encounter Start Date Encounter Closed Date Diagnosis/Indication Diagnosis SNOMED-CT Code Diagnosis ICD10 Code Diagnosis Note [id number] TRANG French (Adult Med) [address] [place] [address] [id number] 02/21/2014 16:30:28 02/21/2014 17:33:23 Essential hypertension 96597273 Insomnia 337879518 Pleurisy 532920411 Chronic ob structive pulmonary disease 79101841 [id number] TRANG French (Adult Med) [address] [place] [address] [id number] 11/11/2014 15:34:06 11/11/2014 16:40:02 Bronchitis 67879432 Pleurisy 673134699 Low back pain 058586936 Insomnia 596851047 Adult heal th examination 758149230 Eczema 99081497 [id number] TRANG French (Adult Med) [address] [place] [address] [id number] 01/13/2015 10:49:59 01/16/2015 16:37:15 Right upper quadrant pain 754167430 R10.11 Snoring 76853803 R06.83 Active or passive immunization 377735382 Z23 Chronic ob structive pulmonary disease 91840063 J44.9 Gastroesop hageal reflux disease 089356885 K21.9 Pain of sh oulder region 73400969 M25.512 Bacterial vaginosis 4197 98842 N76.0 Insomnia 478315890 G47.0 0 [id number] MD Kiara Fischer ([facility]) [address] [place] [address] [id number] 03/13/2015 14:31:21 03/13/2015 16:50:00 Screening mammography 64851321 Z12.31 Sexual chalino alex disorder 29583621 F52.9 Screening for malignant neoplasm of colon 275912410 Z12.11 [id number] TRANG French (Adult Med) [address] [place] [address] [id number] 03/16/2015 11:43:53 03/16/2015 18:02:43 Chronic obstructive pulmonary disease 79352230 J44.9 Essential hypertension 55830601 I10 Sinusitis 25250356 J32.9 Bronchitis 55161276 J40 Insomnia 696922086 G47.0 0 Low back pain 390203002 M54.5 [id number] TRANG French (Adult Med) [address] [place] [address] [id number] 05/18/2015 11:24:28 05/18/2015 12:19:47 Sinusitis 66891506 J32.9 Chronic ob structive pulmonary disease 27415668 J44.9 Essential hypertension 97755273 I10 Gastroesop hageal reflux disease 261217989 K21.9 Insomnia 113278584 G47.0 0 Low back pain 569697257 M54.5 [id number] TRANG French (Adult Med) [address] [place] [address] [id number] 07/19/2015 09:16:01 07/19/2015 10:44:11 Sialoadenitis 45871463 K11.20 Essential hypertension 96527831 I10 Gastroesop hageal reflux disease 957015539 K21.9 Insomnia 660540098 G47.0 0 Low back pain 703383693 M54.5 [id number] MD [facility]ara [facility] (Adult Med) [address] [place] [address] [id number] 06/24/2016 16:56:15 06/24/2016 17:55:32 Sinusitis 81540672 J32.9 Sialoadenitis 85926635 K 11.20 Insomnia 114913961 G47.0 0 Gastroesop hageal reflux disease 971515757 K21.9 [id number] MD [facility]ara [facility] (Adult Med) [address] [place] [address] [id number] 04/07/2017 15:17:44 04/07/2017 16:14:42 Migraine 85588560 G43.909 Low back pain 950962514 M54.5 Sinusitis 22130127 J32.9 Bronchitis 31745926 J40 Insomnia 957994870 G47.0 0 [id number] MD Kiara Bright (Adult Med) [address] [place] [address] [id number] 0 05/06/2017 11:30:43 05/06/2017 13:19:07 Sinusitis 29109556 J32.9 Prolapsed lumbar intervertebral disc 437394898 M51.26 Gastroesop hageal reflux disease 265881766 K21.9 Low back pain 073087818 M54.5 Neck pain 50146761 M54.2 [id number] MD [facility]ara [facility] (Adult Med) [address] [place] [address] [id number] 06/03/2017 11:55:46 06/03/2017 14:18:13 Sinusitis 13673830 J32.9 Low back pain 926041853 M54.5 [id number] MD Kiara [facility] (Adult Med) [address] [place] [address] [id number] 0 06/30/2018 16:26:54 07/01/2018 10:46:31 Chronic obstructive pulmonary disease 87038359 J44.9 Gastroesop hageal reflux disease 407605144 K21.9 Pain in right knee 78411 40009 06486 M25.561 Low back pain 132084777 M54.5 Essential hypertension 76436165 I10 Serum last min B12 below reference range 207358253 R79.89 Acute urin zarina tract infection 323075331 N39.0 Hyperlipidemia 01432151 E78.5 Insomnia 195590401 G47.0 0 [id number] MD Kiara Bright (Adult Med) [address] [place] [address] [id number] 07/23/2018 16:00:21 07/23/2018 17:22:16 Acute sinusitis 30497549 J01.90 Chronic ob structive pulmonary disease 20435615 J44.9 Herpes labialis 0511413 B00.1 Essential hypertension 21918459 I10 Gastroesop hageal reflux disease 927058119 K21.9 Low back pain 387628218 M54.5 Insomnia 700596445 G47.0 0 Hyperlipidemia 91565912 E78.5 Prolapsed lumbar intervertebral disc 256408076 M51.26 [id number] TRANG French (Adult Med) [address] [place] [address] [id number] 0 07/19/2019 11:55:49 07/22/2019 13:23:34 Bronchitis 86702031 J40 Neck pain 99414409 M54.2 Herpes labialis 0158108 B00.1 Essential hypertension 10130718 I10 Aphthous u lcer of mouth 959498994 K12.0 Hyperlipidemia 40402748 E78.5 Insomnia 810700493 G47.0 0 Sleep apnea 70874883 G47 .30 [id number] [facility] [address] [place] [address] [id number] 08/17/2019 08:16:51 08/17/2019 12:20:00 Bronchitis 23656624 J40 Sinusitis 72503641 J32.9 Lower abdominal pain 545 18442 R10.30 Hyperlipidemia 64843179 E78.5 Gastroesop hageal reflux disease 396164879 K21.9 Essential hypertension 64328464 I10 Chronic ob structive pulmonary disease 91592785 J44.9 Insomnia 976423801 G47.0 0 Sleep apnea 45832133 G47 .30 Prolapsed lumbar intervertebral disc 258061066 M51.26 Serum last min B12 below reference range 251467063 R79.89 [id number] Madeleine Dover MD [facility] (Adult Med) [address] [place] [address] [id number] 0 09/17/2019 10:14:10 09/17/2019 12:14:43 Pain in right knee 1629519656 12096 M25.561 Low back pain 352908036 M54.5 Chronic ob structive pulmonary disease 38206203 J44.9 Essential hypertension 04982688 I10 Gastroesop hageal reflux disease 705427581 K21.9 Hyperlipidemia 03332607 E78.5 Insomnia 134619167 G47.0 0 Prolapsed lumbar intervertebral disc 658851790 M51.26 Sleep apnea 27145936 G47 .30 Pain in right foot 37576 16393 33809 M79.720 [id number] Madeleine Dover MD [facility] (Adult Med) [address] [place] [address] [id number] 11/09/2019 08:13:23 11/09/2019 11:31:15 Bronchitis 77075119 J40 Chronic ob structive pulmonary disease 16944714 J44.9 Essential hypertension 48731007 I10 Gastroesop hageal reflux disease 329264632 K21.9 Hyperlipidemia 65403165 E78.5 Insomnia 793545091 G47.0 0 Low back pain 371491305 M54.5 Serum last min B12 below reference range 732223139 R79.89 Sleep apnea 58951082 G47 .30 Acute pharyngitis 868638 003 J02.9 [id number] Madeleine Dover MD [facility] (Adult Med) [address] [place] [address] [id number] 12/07/2019 07:56:08 12/07/2019 14:14:13 Chronic obstructive pulmonary disease 81226533 J44.9 Essential hypertension 37364170 I10 Gastroesop hageal reflux disease 206810255 K21.9 Hyperlipidemia 27506108 E78.5 Insomnia 972122552 G47.0 0 Allergic rhinitis 840167 04 J30.9 Neck swelling 016575299 R22.1 Prolapsed lumbar intervertebral disc 119272170 M51.26 Serum last min B12 below reference range 319002425 R79.89 Sleep apnea 76562402 G47 .30 [id number] Madeleine Dover MD [facility] (Adult Med) [address] [place] [address] [id number] 0 01/04/2020 08:21:59 01/05/2020 10:09:34 Chronic obstructive pulmonary disease 55314377 J44.9 Bronchitis 58084389 J40 Serum last min B12 below reference range 983613903 R79.89 Hyperlipidemia 65576514 E78.5 Gastroesop hageal reflux disease 325061654 K21.9 Pain in right knee 76977 20508 37625 M25.177 [id number] Madeleine Dover MD [facility] (Adult Med) [address] [place] [address] [id number] 0 02/01/2020 11:43:03 02/01/2020 12:43:23 Pain in right knee 8932879163 69065 M25.561 Pain in left knee 070101 9093 91618 M25.562 Bronchitis 64344866 J40 Administra tion of influenza vaccine 79302756 Z23 Neck swelling 887629386 R22.1 Allergic rhinitis 403105 04 J30.9 Chronic ob structive pulmonary disease 08229957 J44.9 Essential hypertension 04412465 I10 Gastroesop hageal reflux disease 979340270 K21.9 Hyperlipidemia 48730235 E78.5 Insomnia 343204169 G47.0 0 Low back pain 691362503 M54.5 Sleep apnea 25818731 G47 .30 [id number] MD [facility]ara [facility] (Adult Med) [address] [place] [address] [id number] 0 03/07/2020 08:23:05 03/07/2020 12:33:26 Allergic rhinitis 50288772 J30.9 Chronic ob structive pulmonary disease 27247742 J44.9 Essential hypertension 88193089 I10 Gastroesop hageal reflux disease 192065178 K21.9 Hyperlipidemia 47622245 E78.5 Insomnia 946708155 G47.0 0 Low back pain 436437166 M54.5 Neck pain 19458100 M54.2 Serum last min B12 below reference range 917483627 R79.89 Sleep apnea 86844287 G47 .30 [id number] MD Kiara Bright (Adult Med) [address] [place] [address] [id number] 04/10/2020 08:13:06 04/10/2020 11:48:02 Essential hypertension 81537256 I10 Gastroesop hageal reflux disease 060938168 K21.9 Chronic ob structive pulmonary disease 36747349 J44.9 Hyperlipidemia 69253655 E78.5 Low back pain 194642685 M54.5 Pain in left knee 833603 7529 61173 M25.562 Pain in right knee 96199 79107 52571 M25.561 Prolapsed lumbar intervertebral disc 453608335 M51.26 Sleep apnea 60601521 G47 .30 Serum last min B12 below reference range 272626230 R79.89 Insomnia 505712522 G47.0 0 Migraine 82098535 G43.90 9 Neck pain 33830195 M54.2 Neck swelling 501580282 R22.1 Allergic rhinitis 124753 04 J30.9 [id number] Madeleine Dover MD [facility] (Adult Med) [address] [place] [address] [phone] 0 05/15/2020 08:02:51 05/16/2020 09:50:48 Allergic rhinitis 14314083 J30.9 Chronic ob structive pulmonary disease 59872330 J44.9 Gastroesop hageal reflux disease 045275110 K21.9 Hyperlipidemia 76695695 E78.5 Insomnia 114565345 G47.0 0 Low back pain 587614316 M54.5 Serum last min B12 below reference range 632543781 R79.89 Sleep apnea 67776988 G47 .30 Prolapsed lumbar intervertebral disc 918045527 M51.26 Pain in left knee 820206 5575 48667 M25.562 Pain in right knee 86169 68471 25773 M25.354 [id number] [facility] [address] [place] [address] [phone] 0 07/06/2020 08:35:56 07/06/2020 15:49:22 Acute pharyngitis 461087502 J02.9 Acute sinusitis 56398538 J01.90 Bronchitis 55205456 J40 Allergic rhinitis 948898 04 J30.9 Chronic ob structive pulmonary disease 50156534 J44.9 Essential hypertension 43373099 I10 Gastroesop hageal reflux disease 426925098 K21.9 Hyperlipidemia 04549730 E78.5 Insomnia 337069893 G47.0 0 Low back pain 805218787 M54.5 Neck pain 62619483 M54.2 Pain in left knee 322951 3766 12718 M25.562 Pain in right knee 65658 54096 74999 M25.561 Prolapsed lumbar intervertebral disc 101070179 M51.26 Serum last min B12 below reference range 767245995 R79.89 Sleep apnea 54586096 G47 .30 [id number] MD [facility] ([facility]ult [facility]) [address] [place] [address] [phone] 0 08/07/2020 09:02:22 08/07/2020 15:35:55 Bronchitis 76394061 J40 Herpes labialis 5762131 B00.1 Essential hypertension 17304824 I10 Allergic rhinitis 440208 04 J30.9 Hyperlipidemia 41561363 E78.5 Insomnia 461439798 G47.0 0 Low back pain 693154417 M54.5 Neck pain 00470915 M54.2 Serum last min B12 below reference range 165135484 R79.89 Sleep apnea 66606967 G47 .30 [id number] [facility] [address] [place] [address] [phone] 0 09/04/2020 09:00:12 09/04/2020 15:24:38 Allergic rhinitis 65704626 J30.9 Chronic ob structive pulmonary disease 16209777 J44.9 Essential hypertension 21904814 I10 Gastroesop hageal reflux disease 678225249 K21.9 Hyperlipidemia 77847788 E78.5 Insomnia 012851889 G47.0 0 Low back pain 461424518 M54.5 Migraine 20446385 G43.90 9 Prolapsed lumbar intervertebral disc 380064719 M51.26 Serum last min B12 below reference range 284514422 R79.89 Sleep apnea 57267897 G47 .30 Screening for malignant neoplasm of colon 122117547 Z12.11 Herpes labialis 1182258 B00.1 Hemorrhoids 92731796 K64 .9 [id number] Madeleine Dover MD [facility] (Adult Med) [address] [place] [address] 16431-653 0 10/17/2020 16:13:30 10/20/2020 19:41:55 Allergic rhinitis 08286748 J30.9 Chronic ob structive pulmonary disease 03185471 J44.9 Essential hypertension 27061777 I10 Gastroesop hageal reflux disease 217646001 K21.9 Hyperlipidemia 38410200 E78.5 Insomnia 748622182 G47.0 0 Low back pain 514556860 M54.5 Neck pain 08810881 M54.2 Sleep apnea 47730835 G47 .30 Serum last min B12 below reference range 183069443 R79.89 Prolapsed lumbar intervertebral disc 715543791 M51.26 Pain in left knee 186825 7987 32834 M25.562 Pain in right knee 56268 76675 89284 M25.270 [id number] Madeleine Dover MD [facility] (Adult Med) [address] [place] [address] 54242-554 0 11/14/2020 07:47:46 11/14/2020 17:14:25 Pain in left foot 4783237800 51579 M79.672 Chronic ob structive pulmonary disease 08489751 J44.9 Bronchitis 79483042 J40 Allergic rhinitis 266967 04 J30.9 Essential hypertension 09031289 I10 Gastroesop hageal reflux disease 755599017 K21.9 Hyperlipidemia 26740914 E78.5 Insomnia 632221397 G47.0 0 Low back pain 942373014 M54.5 Migraine 49347911 G43.90 9 Neck pain 65672944 M54.2 Prolapsed lumbar intervertebral disc 389149563 M51.26 Serum last min B12 below reference range 117900975 R79.89 Sleep apnea 33461690 G47 .30 [id number] [facility] (Adult Med) [address] [place] [address] [phone] 0 12/18/2020 08:45:06 12/18/2020 15:49:56 Allergic rhinitis 96953015 J30.9 Chronic ob structive pulmonary disease 57474715 J44.9 Essential hypertension 70489117 I10 Gastroesop hageal reflux disease 402146491 K21.9 Hyperlipidemia 43700629 E78.5 Insomnia 379876089 G47.0 0 Low back pain 186039133 M54.5 Prolapsed lumbar intervertebral disc 671001239 M51.26 Sleep apnea 01015552 G47 .30 Sinusitis 36094301 J32.9 Pain in left knee 164204 3748 24423 M25.562 Pain in right knee 07516 45367 15204 M25.561 Bronchitis 22185142 J40 Serum last min B12 below reference range 638782117 R79.89 [id number] MD [facility] ([facility]ult [facility]) [address] [place] [address] [phone] 0 02/19/2021 12:03:34 02/19/2021 13:05:34 Administration of influenza vaccine 49653401 Z23 Allergic rhinitis 479456 04 J30.9 Chronic ob structive pulmonary disease 47385811 J44.9 Chronic th oracic back pain 0368239687 62739 M54.6 Screening for malignant neoplasm of breast 904309503 Z12.39 Screening mammography 24 241393 Z12.31 [id number] MD [facility] ([facility]ult [facility]) [address] [place] [address] [phone] 0 04/02/2021 14:30:30 04/02/2021 15:47:41 Acute sinusitis 32274548 J01.90 Chronic th oracic back pain 4495371788 37335 M54.6 Allergic rhinitis 970325 04 J30.9 Chronic ob structive pulmonary disease 33411769 J44.9 Essential hypertension 59826937 I10 Gastroesop hageal reflux disease 827925468 K21.9 Hyperlipidemia 82167355 E78.5 Insomnia 337082589 G47.0 0 Low back pain 347073302 M54.50 Prolapsed lumbar intervertebral disc 279906827 M51.26 Serum last min B12 below reference range 914354995 R79.89 Sleep apnea 28452217 G47 .30 Neck pain 35872192 M54.2 [id number] Madeleine Dover MD [facility] (Adult Med) [address] [place] [address] [phone] 0 05/28/2021 14:30:15 05/28/2021 15:41:21 Gastroesophageal reflux disease 418806913 K21.9 Low back pain 832089757 M54.50 Wheezing 53737984 R06.2 Essential hypertension 65082997 I10 Allergic rhinitis 130009 04 J30.9 Chronic ob structive pulmonary disease 79066251 J44.9 Hyperlipidemia 31170881 E78.5 Insomnia 173141165 G47.0 0 Serum last min B12 below reference range 049490947 R79.89 Sleep apnea 62646861 G47 .30 [id number] Madeleine Dover MD [facility] (Adult Med) [address] [place] [address] 48100-914 0 07/03/2021 14:28:15 07/04/2021 11:12:13 Insomnia 893277912 G47.00 Allergic rhinitis 408331 04 J30.9 Chronic ob structive pulmonary disease 70323617 J44.9 Essential hypertension 12741572 I10 Gastroesop hageal reflux disease 861176200 K21.9 Hyperlipidemia 71225452 E78.5 Low back pain 141344916 M54.50 Serum last min B12 below reference range 367036464 R79.89 Sleep apnea 16739269 G47 .30 Plantar fasciitis 872566 003 M72.2 Prolapsed lumbar intervertebral disc 956540179 M51.26 Health Concerns Section Related Observation LastModified by Organization Detai ls LastModified Time None Recorded Concern Status LastModified by Organization Details LastModified Time None Recorded Advance Directives Directive N: Payers Insurance Date Sequence Insurance Name Policy Number Policy Webster Covered Member ID Webster Member ID Guarantor Name 07/30/2021 1 [place] [facility] (MEDICAID REPLACEMENT - HMO) [id number] Medina Cox [id number] Medina Cox 09/14/2019 1 [place] Medina Cox [id number] Medina Cox 07/16/2019 1 [facility] - DOS PRIOR TO 2020 (MEDICAID REPLACEMENT - HMO) Medina Cox [id number] Medina Cox 11/11/2014 1 [facility] - [employer] S[employer]ATURE [employer]AT[employer] (PPO) Medina Cox [id number] Medina Cox 06/24/2016 1 [facility] (MEDICAID HMO) Medina Cox [id number] Medina Cox 04/07/2017 1 [facility] [id number] Medina Cox [id number] Medina Cox 06/30/2018 1 [place] [facility] [place] [facility] Medina Cox [id number] Medina Cox Notes Date Note Type Note Provider Name and Address Organization Details Recorded Time 12/18/2020 text/html ROS as noted in the HPI pain in back of lungs hurting , went to ED , 2 breathing treatments , asthma flared . COPD bad according to ER doc , steroids Rik Elizabeth PA-C Attn: [address] [place], [address], [facility] 12/18/2020 16:17:19 02/19/2021 text/html ROS as noted in the HPI some wheezing , no fever , gets this way when exposed to dust . Rik Elizabeth PA-C Attn: [address] [place], [address], [facility] 02/19/2021 22:09:52 04/02/2021 text/html ROS as noted in the HPI tightness right shoulder into back of neck worse than left Rik Elizabeth PA-C Attn: [address] [place], [address], [facility] 04/02/2021 17:12:45 05/28/2021 text/html ROS as noted in the HPI gets sob easily Rik Elizabeth PA-C Attn: [address]ing[address] [facility], [place], [address], [facility] 05/28/2021 17:18:44 07/03/2021 text/html ROS as noted in the HPI not breathing well at night ..... Rik Elizabeth PA-C Attn: [address]ing[address] [facility], [place], [address], [facility] 07/05/2021 15:15:00 OBGyn Episode No OBEpisode recorded.
--- OUTSIDE RECORDS SUMMARY | 2024-10-22 09:45 | XMS_ITS | Clinical Summary ---
Author Organization [facility] Address [address] [place] [address] Care Team Providers Care Revenue Cycle Analyst Name Role Phone Fabian Elizabeth SAMPLE SHOE INSPECTOR AND REWORKER-DEVELOPMENT DIRECTOR Primary Care Provider Source Comments [facility],non-owned Affiliates and Associated Physician Practices is amultiple site organization consisting of ambulatory clinics and hospital sitesin [place], [place], [place] and [place]. This disclosure is being madepursuant to the Care Everywhere program and may not contain all information available regarding this patient. Last updated [email or web address] Allergies No known active allergies Medications * Be aware that medications may not be up to date on this document. Alwaysverify current medications with the patient. acetylcysteine 600 MG capsuleIndicati ons:Panlobular emphysema (HCC) Take 1 (one) capsule by mouth 2 times daily 60 capsule 5 11/16/2021 Active azithromycin (Zithromax) 250 MG tablet Take 2 tabs today, then 1 tab daily for next 4 days 6 tablet 12/27/2021 Active formoterol (Perforomist) 20 MCG/2ML nebulizer solution Inhale 20 mcg by mouth 2 times daily Active albuterol (Proventil;Vent [place]) (2.5 MG/3ML) 0.083% nebulizer solution Inhale by [...] Date Recorded PHQ2 TOTAL SCORE 0 11/16/2021 Comments Unknown Sex and Gender Information Value Date Recorded Sex Assigned at Not on file Legal Sex Female 5:37 AM CLINICAL SCIENCE LIAISON Gender Identity Not on file Sexual Orientation [...] 1:34 PM CDT Height 149.9 cm (4' 11) 12/27/2021 1:34 PM CDT Body Mass Index [...] TESTING 1963 MEDICARE AWV 12 MONTHS 1963 HIV SCREENING 1978 DTAP/TDAP/TD VACCINES (1 - Tdap) 1982 PNEUMOCOCCAL VACCINE 50+ (1 of 2 - PCV) 1982 PAP SMEAR 02/11/1984 ZOSTER VACCINE (1 of 2) 2013 Respiratory Syncytial Virus (RSV) Vaccine Pt: or over 60 yrs (1 - Risk 60-74 years 1-dose series) 2023 COVID-19 VACCINE (4 - 2023- season) 2023 03/15/2021, 07/21/2020, 06/30/2020 DEPRESSION SCREENING 03/31/2024 11/16/2021 MAMMOGRAM 04/19/2024 04/19/2022, 04/19/2022 INFLUENZA VACCINE (#1) 2024 4, 01/10/2023, 12/07/2021, Additional history exists SCREENING FOR DIABETES 11/24/2026 4, 01/15/2014, 01/14/2014, Additional history exists HEPATITIS C SCREENING Completed 02/27/2022 HEPATITIS B VACCINE Aged Out No longe [...] CDT) BUN 9 7 - 26 mg/dL [facility] Creatinine 0.7 0.6 - 1.2 mg/dL [facility] Sodium 140 136 - 145 mmol/L [facility] Potassium 3.6 3.5 - 4.5 mmol/L [facility] Chloride 107 98 - 107 mmol/L [facility] CO2 28 22 - 29 mmol/L [facility] Glucose 85 70 - 115 mg/dL [facility] Calcium 8.3(L) 8.4 - 10.2 mg/dL [facility] Protein Total 4.8(L) 6.0 - 8.3 g/dL [facility] Albumin 2.7(L) 3.4 - 5.0 g/dL [facility] Bilirubin Total 0.3 0.2 - 1.2 mg/dL [facility] Alkaline Phosphatase 79 40 - 150 Units/L [facility] ALT 7 0 - 55 Units/L [facility] AST 12 5 - 34 Units/L [facility] Anion Gap 9 8 - 18 [facility] BUN/Creatinine Ratio 13 7 - 23 [facility] Osmolality Calculated 273 270 - 300 mOsm/kg [facility] Albumin/Globulin Ratio 1.3 1.1 - 2.3 [facility] eGFR >60 >60 mL/min/1.7 3 m2 [facility] Blood specimen (specimen) BLOOD SPECIMEN / Unknown 01/15/2014 5:30 AM CDT 01/15/2014 5:40 AM CDT Tami Beard MD LAB - CHEMISTRY ORDERABLES [employer] [employer] Result [address] [phone] from Last 3 Months or Most Recently Relevant to Health Maintenance Insurance MEDICARE * Guarantor: MEDINA COX Account Type Relation to Patient Date of Phone Billing Address Personal/Family [address] [address] MEDICARE [place] * Guarantor: MEDINA COX Account Type Relation to Patient Date of Phone Billing Address Personal/Family [address] [address] MEDICARE [place] * Guarantor: MEDINA COX Account Type Relation to Patient Date of Phone Billing Address Personal/Family [address] [place] [address] MEDICARE [place]ID [place] Care Teams Revenue Cycle Analyst Relationship Specialty Start Date End Date Fabian Elizabeth, SAMPLE SHOE INSPECTOR AND REWORKER-DEVELOPMENT DIRECTOR [address] [place] [address] PCP - General 08/18/20
--- OUTSIDE RECORDS SUMMARY | 2024-10-22 09:45 | XMS_ITS | Data Portability ---
Author Organization [place] - [facility] [employer], Main Office Address [address] [place] [address] Care Team Providers Care Leaf Binner Name Role Phone LUZ ARAIZA Primary Care Provider [phone] Assessment No assessment recorded. Plan of Treatment Reminders Order Date Submit Date Provider Last Modified By Organization Details Last Modified Time Details Appointments None recorded. Lab hepatic function panel, serum 2022 023 ARNALDO [facility], [address] Migdalia [address], [address], [place], [address], 3 08:37:35 igg subclasses + total, serum 2022 023 [email or web address] [facility], 2022 Migdalia Kellogg, [address], [place], [address], 3 10:19:48 Referral None recorded. Procedures None recorded. Surgeries None recorded. Imaging None recorded. Medication Orders Symbicort 160 mcg-4.5 mcg/actuati on HFA aerosol inhaler 2022 023 [facility], [address] [place], [address], 3 14:50:22 Spiriva with HandiHaler 18 mcg and inhalation capsules 2022 023 [facility], [address] [place], [address], 3 14:50:26 prednisone 20 mg tablet 2022 023 [facility], [address] [place] [address], [address], 14:45:23 ciprofloxac in 750 mg tablet 2022 023 [facility], [address] [place], [address], 3 14:45:25 Daliresp 500 mcg tablet 2022 023 [facility], [address] [place] [address], [address], 3 14:45:27 Daliresp 250 mcg tablet 2022 023 [facility], [address] [place] [address], [address], 14:45:25 budesonide 0.5 mg/2 mL suspension for nebulizatio n 2022 023 [facility], [address] [place] [address], [address], 3 14:47:45 Brovana 15 mcg/2 mL solution for nebulizatio n [address] [facility], [address] [place] [address], [address], 18:00:40 Yupelri 175 mcg/3 mL solution for nebulizatio n [address] [facility], [address] [place] [address], [address], 3 15:58:42 azithromyci n 500 mg tablet [address] [facility], [address] [place] [address], [address], 3 19:50:51 prednisone 10 mg tablet 2022 023 [facility], [address] [facility], [place], [address], 3 16:07:22 Patient TargetsNo targets recorded. Patient InstructionsNo instructions recorded. Reason for Referral None Reported. Results Created Date Observation Date Name Description Value Unit Range Abnormal Flag Note LastModifiedBy Organization Detail LastModifiedTime 01/11/2001/11/2023 HEPAT IC FUNCT ION PANEL (7) protein, total 6.3 g/dL 6.0-8. 5 Not Available [facility] ([facility]) [address] [place], [address], 01/11/2023 08:37:34 01/11/2001/11/2023 HEPAT IC FUNCT ION PANEL (7) albumin 4.3 g/dL 3.8-4. 9 Not Available [facility] ([facility]) [address] [place], [address], 01/11/2023 08:37:34 01/11/2001/11/2023 HEPAT IC FUNCT ION PANEL (7) bilirubin, total 0.2 mg/dL 0.0-1. 2 Not Available [facility] ([facility]) [address] [place], [address], 01/11/2023 08:37:34 01/11/2001/11/2023 HEPAT IC FUNCT ION PANEL (7) bilirubin, direct 0.13 mg/dL 0.00-0 .40 Not Available [facility] ([facility]) [address] [place], [address], 01/11/2023 08:37:34 01/11/2001/11/2023 HEPAT IC FUNCT ION PANEL (7) alkaline phosphatase 146 IU/L 44-121 above high normal Not Available [facility] ([facility]) [address] [place], [address], 01/11/2023 08:37:34 01/11/20 23 01/11/2023 HEPAT IC FUNCT ION PANEL (7) AST (SGOT) 26 IU/L 0-40 Not Available [facility] ([facility]) [address] [facility], [place], [address], 01/11/2023 08:37:34 01/11/20 23 01/11/2023 HEPAT IC FUNCT ION PANEL (7) ALT (SGPT) 24 IU/L 0-32 Not Available [facility] ([facility]) [address] [facility], [place], [address], 01/11/2023 08:37:34 05/27/19 23 05/27/2022 six minut e walk test* No observ ation record ed. [id number] [place] [address] (Cardiology & Emg) [address] [place] [address] [facility], [place], [address], 05/29/2022 13:58:16 05/27/1905/27/2022 CT, chest , w/o contr ast No observ ation record ed. [id number] [place] [address] [facility] [facility], [place], [address], 05/29/2022 13:58:16 06/13/19 23 05/27/2022 six minut e walk test* No observ ation record ed. BARCODE Not Available 2022 13:57:22 07/23/1905/27/2022 [facility] * No observ ation record ed. BARCODE Not Available 2022 17:09:53 Result Notes None recorded. Problems Name Problem SNOMED Code Status Onset Date Resolution Date Notes Provider Name and Address Organization Details Recorded Time Insomnia 369090572 Active Not Available [facility] 3 13:56:49 Gastroesop hageal reflux disease 870371877 Active Not Available [facility] 13:56:49 Current tear of lateral cartilage AND/OR meniscus of knee Active Not Available [facility] 3 13:56:50 Foot pain 79129047 Active Not Available [facility] 3 13:56:50 Chronic back pain 601780329 Active 2017 Not Available [facility] 3 13:56:49 Chronic obstructiv e pulmonary disease 61052610 Active 2017 Not Available [facility] 3 13:56:49 Disorder of thyroid gland 97549380 Active 2017 Not Available [facility] 3 13:56:49 Obesity 456469436 Active 2017 Not Available [facility] 3 13:56:50 Essential hypertensi on 35403300 Active 2017 Not Available [facility] 3 13:56:51 Smoker 69596139 Active 2017 Not Available [facility] 3 13:56:51 Hyperlipid emia 84311876 Active 2017 Not Available [facility] 3 13:56:51 Asthma 199973055 Active 2018 Not Available [facility] 3 13:56:49 Chest pain 33508209 Active 2018 Not Available [facility] 3 13:56:49 Daytime hypersomni a 0166096644612 2 Active 2018 Not Available [facility] 3 13:56:50 Hypoxia 028707999 Active 2018 Not Available [facility] 3 13:56:50 Dyspnea on exertion 49505763 Active 2018 Not Available [facility] 3 13:56:51 Severe chronic obstructiv e pulmonary disease 661026470 Active 2018 Not Available [facility] 3 13:56:50 Chronic respirator y failure 15254746 Active 2018 Not Available [facility] 3 13:56:50 Feeling of lump in throat 216251563 Active 2020 Not Available [facility] 3 13:56:49 Wheezing 45492465 Active 2020 Not Available [facility] 3 13:56:51 Fatigue 96787038 Active 2020 Not Available [facility] 3 13:56:51 Osteoarthr itis of ankle and/or foot 69846772 Active 2020 Not Available [facility] 3 13:56:51 Chondromal acia of right patella 4164151057516 9108 Active 2020 Not Available [facility] 3 13:56:49 Tear of medial meniscus of knee 725133794 Active 2020 Not Available [facility] 3 13:56:50 Chondromal acia of left patella 5264035478698 06 Active 2020 Not Available [facility] 3 13:56:50 Sore throat 011569667 Active 2021 Not Available [facility] 3 13:56:49 Gastroesop hageal reflux disease without esophagiti s 122604290 Active 2021 Not Available [facility] 3 13:56:49 Irritable bowel syndrome characteri zed by constipati on 343122471 Active 2021 Not Available [facility] 3 13:56:50 Pain in throat 945361018 Active 2021 Not Available [facility] 3 13:56:49 Swelling of lower jaw region 562622828 Active 2021 Not Available [facility] 3 13:56:50 Pain in face 57149412 Active 2021 Not Available [facility] 3 13:56:51 Epigastric pain 88107942 Active 2021 Not Available [facility] 3 13:56:51 Pain in both feet 5642609081739 9102 Active 2021 Not Available [facility] 3 13:56:49 Acute exacerbati on of chronic asthmatic bronchitis 532466552 Active 2022 Betsey Lyon, GERIATRIC NURSE ASSISTANT-BC [address] [facility], [facility] [address], [place], [address] , [place] [facility] 3 16:06:00 Immunoglob ulins outside reference range 798905810 Active 2022 Betsey Sonali [facility] [address] [facility], [place] [address], [place], [address] , [employer] [facility] 3 20:05:02 Acute exacerbati on of chronic obstructiv e pulmonary disease 376271980 Active 2022 Betsey Sonali [facility] [address] [facility], [place] [address], [place], [address] , [facility] [employer] [facility] 3 14:41:15 Edema of lower extremity 030890243 Active 2022 Betsey Sonali [facility] [address] [facility], [place] [address], [place], [address] , [employer] [facility] 3 16:40:34 Problem Notes None recorded. Procedures Surgical History Date Name Laterality Status Provider Name and Address Organization Details Recorded Time Knee Surgery completed Not Available formerly [facility] h 05/29/2022 13:56:14 completed Not Available [facility] 0 05/29/2022 13:56:14 Imaging Results None recorded. Procedure Notes None recorded. Medical Equipment None Reported. Allergies Allergen ID Allergen Name Allergen Category Reaction Reaction Severity Criticality Documentation Date Start Date Code Code System Note Provider Name and Address Organization Details Recorded Time 91451 Pneumococ gregorio vaccine Not available Not available Not available Not available 05/29/2022 10544 7 RxNorm Not Available [facility] 13:58:14 Medications Name Sig Start Date Stop [...] administ ered by the provider 05/23 completed [place]: [id number] Not Available Not Available Not [...] BY MOUTH THREE TIMES A WEEK (FRIDAY, Y AND FRIDAY) FOR 28 DAYS active Not [...] administ ered by the provider 05/23 completed [facility]: [id number] 09-14 Not Available Not Available Not [...] Heart rate Body temperature Body weight Systolic And Diastolic Provider Name and Address Organization Details Last Updated DateTime 3 41.2 kg/m2 149.86 cm 95 % 95 % 80 /min 96.7 [degF] 08574.8 4 g 124/70 mm[Hg] Not Available [facility] 3 13:56:31 Date Recorded Body weight Body temperature Heart rate Oxygen saturation Oxygen saturation in Arterial blood by Pulse oximetry Inhaled oxygen flow rate Systolic And Diastolic Provider Name and Address Organization Details Last Updated DateTime 3 46575.0 3 g 97.2 [degF] 84 /min 96 % 96 % 2 L/min 138/84 mm[Hg] Eugenia Thompson MA DC [employer] [facility] 3 15:00:25 Date Recorded Body height Body mass index (BMI) Body weight Body temperature Heart rate Oxygen saturation Oxygen saturation in Arterial blood by Pulse oximetry Systolic And Diastolic Provider Name and Address Organization Details Last Updated DateTime 3 149.86 cm 41.8 kg/m2 72162.6 2 g 97.3 [degF] 82 /min 94 % 94 % 138/68 mm[Hg] Juana Jacques [facility] 3 14:37:29 Date Recorded Body height Body mass index (BMI) Body weight Body temperature Heart rate Oxygen saturation Oxygen saturation in Arterial blood by Pulse oximetry Systolic And Diastolic Provider Name and Address Organization Details Last Updated DateTime 3 149.86 cm 40.8 kg/m2 96979.6 6 g 97.2 [degF] 98 /min 99 % 99 % 132/64 mm[Hg] Juana Jacques [facility] 3 14:21:12 Date Recorded Body height Body temperature Provider N rebecca and Address Organization Details Last Updated DateTime 02/24/2023 149.86 cm 97.2 [degF] Simran Ortega MA [employer] [facility] 02/24/2023 14:05:44 Social History Question Answer Notes LastModified by Organizat ion Details LastModified Time Tobacco Smoking Status Former Smoker quit 2017 SUSAN [place], [facility] 09/18/2022 14:12:11 Do You Have An Advance Directive? No [id number] Information not available 05/29/2022 What Is Your Level Of Caffeine Consumption? Moderate [id number] Information not available 05/29/2022 How Much Tobacco Do You Chew? None [id number] Information not available 05/29/2022 In The 14 Days Before Symptom Onset, Have You Had Close Contact With A Laboratory-confir med COVID-19 While That Case Was Ill? No Information not available 09/18/2022 In The 14 Days Before Symptom Onset, Have You Had Close Contact With A Person Who Is Under Investigation For COVID-19 While That Person Was Ill? No Information not available 09/18/2022 What Type Of Diet Are You Following? REGULAR [id number] Information not available 05/29/2022 Which Illicit Or Recreational Drugs Have You Used? None Information not available 09/18/2022 Do You Have An Electrostatic Air Filter? No Information not available 09/18/2022 Do You Have A Humidifier? No Information not available 09/18/2022 Do You Have A Medical Power Of Family And Divorce Legal Assistant? No Information not available 09/18/2022 Do You Have Moisture Problems In Your Home? No Information not available 09/18/2022 What Was The Date Of Your Most Recent Tobacco Screening? 01/30/2021 Information not available 09/18/2022 How Many Children Do You Have? 2 Information not available 09/18/2022 Do You Have Any Pets? Yes Information not available 09/18/2022 What Is Your Relationship Status? [id number] Information not available 05/29/2022 Do You Have Smoke And Carbon Monoxide Detectors In Your Home? Yes Information not available 09/18/2022 At What Age Did You Start Smoking Tobacco? 11 Information not available 09/18/2022 Are You Passively Exposed To Smoke? Yes Multiple People In Family Smoke Around Patient Information not available 09/18/2022 How Much Tobacco Do You Smoke? 2 PPD 2 1/2 [id number] Information not available 05/29/2022 How Many Years Have You Smoked Tobacco? 41 Information not available 09/18/2022 Have You Recently Traveled Abroad? No Information not available 09/18/2022 Do You Have Any Dietary Restrictions? No Information not available 09/18/2022 Sex: Female Functional Status Question Answer Note LastModified by Organizat ion Details LastModified Time Do you use any illicit or recreational drugs? No Information not available 09/18/2022 What is your level of alcohol consumption? Moderate one beer every now and then [id number] Information not available 05/29/2022 Do you or have you ever used smokeless tobacco? 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 Never used electronic cigarettes Information not available 09/18/2022 What is your exercise level? Moderate Pulmonary Rehab 3x weekly [id number] Information not available 05/29/2022 Mental Status Question Answer Note LastModified by Organization D etails LastModified Time Do you feel stressed (tense, restless, nervous, or anxious, or unable to sleep at night)? [id number] Information not available 09/18/2022 Family History Relationship Description Onset Age of this Age Resolved Age Notes LastModified by Organization Details LastModified Time Unspecified Relation Hypertensive disorder [id number] Not available 05/29/2022 13:56:14 Father Diabetes mellitus [id number] Not available 05/29/2022 13:56:14 Father Asthma [id number] Not available 05/29/2022 13:56:14 Medical History Condition [...] HAVE YOU BEEN HOSPITALIZED OR SEEN IN [facility] ER IN THE PAST YEAR ? [...] mcg/0.3 mL dose 1 completed Not Available [facility] 05/29/2022 13:58:13 COVID-19, mRNA, LNP-S, PF, 30 mcg/0.3 mL dose 1 completed Not Available [facility] 05/29/2022 13:58:13 Influenza, split virus, quadrivalent, preservative 0 completed Not Available [facility] 05/29/2022 13:58:13 Past Encounters Encounter ID Performer Location Encounter Start Date Encounter Closed Date Diagnosis/Indication Diagnosis SNOMED-CT Code Diagnosis ICD10 Code Diagnosis Note [id number] OLE Sam [facility] [place] [address] [place] [address] 06/12/2020 00:00:00 06/12/2020 14:28:35 [id number] [facility] [place] [address] [place] [address] 06/27/2020 00:00:00 06/27/2020 10:34:36 [id number] [facility] [place] [address] [address] 07/25/2020 00:00:00 07/25/2020 13:47:03 [id number] [facility] [place] [address] [place] [address] 09/22/2020 00:00:00 09/24/2020 16:47:01 [id number] [facility] [place] [address] [place] [address] 10/11/2020 00:00:00 10/11/2020 11:48:51 [id number] [facility] [place] [address] [place] [address] 10/17/2020 00:00:00 10/17/2020 23:43:14 [id number] Tremayne Brewer MD [facility] [place] [address] [place] [address] 10/26/2020 00:00:00 10/26/2020 11:08:56 [id number] [facility] [facility] [place] [address] [place] [address] 11/24/2020 00:00:00 11/24/2020 15:58:50 [id number] [facility] _MARGARET IGRATION_ DEFAULT_1 _1 , 12/15/2020 00:00:00 12/17/2020 20:35:32 [id number] Chris Elizabeth MD S_GMClotilde [address] [address] 01/02/2021 00:00:00 01/02/2021 09:24:03 [id number] [facility] [facility] [place] [address] [place] [address] 01/30/2021 00:00:00 01/30/2021 16:39:13 [id number] MD J LUIS Wolfe IGRATION_ DEFAULT_1 _1 , 02/20/2021 00:00:00 02/20/2021 17:00:17 [id number] Chris Elizabeth MD S_GMG [address] [address] 02/20/2021 00:00:00 02/20/2021 09:27:56 [id number] S_[facility] [place] [address] [place] [address] 03/12/2021 00:00:00 03/12/2021 15:46:54 [id number] Chris Elizabeth MD [facility]_[address] [address] 03/20/2021 00:00:00 03/20/2021 10:27:26 [id number] [facility] [place] [address] [place] [address] 04/04/2021 00:00:00 04/04/2021 15:34:22 [id number] Tremayne Brewer MD _ATHENA_M IGRATION_ DEFAULT_1 _1 , 05/23/2021 00:00:00 05/23/2021 12:00:04 [id number] _ATHN_MIGR ATION_1 _ATHENA_M IGRATION_ DEFAULT_1 _1 , 06/06/2021 00:00:00 06/06/2021 12:16:25 [id number] S[facility] [place] [address] [place] [address] 06/21/2021 00:00:00 06/21/2021 21:00:22 [id number] _ATHN_MIGR ATION_1 _ATHENA_M IGRATION_ DEFAULT_1 _1 , 06/27/2021 00:00:00 06/27/2021 11:34:57 [id number] Stone Domínguez MD S_[address] [place] [address] 07/19/2021 00:00:00 07/19/2021 12:24:12 [id number] _ATHN_MIGR ATION_1 _ATHENA_M IGRATION_ DEFAULT_1 _1 , 08/01/2021 00:00:00 08/01/2021 15:13:36 [id number] S_[facility] ic_Gateway _ATHENA_M IGRATION_ DEFAULT_1 _1 , 08/03/2021 00:00:00 08/05/2021 21:02:16 [id number] PANKAJ Sam S_GMG [place] [facility] [place] [address] [place] [address] 09/14/2021 00:00:00 09/14/2021 15:52:38 [id number] PANKAJ Sam S_[facility]G [place] [facility] [place] [address] [place] [address] 10/05/2021 00:00:00 10/05/2021 16:48:56 [id number] PANKAJ Sam S_[facility]G [place] [facility] [place] [address] [place] [address] 12/07/2021 00:00:00 12/07/2021 16:02:35 [id number] PANKAJ Sam S_[facility]G [place] [facility] [place] [address] [place] [address] 01/01/2022 00:00:00 01/01/2022 23:10:10 [id number] PANKAJ Sam S_[facility]G [place] [facility] [place] [address] [place] [address] 02/12/2022 00:00:00 02/12/2022 16:43:42 [id number] PANKAJ Sam S_[facility] [place] [facility] [place] [address] [place] [address] 03/13/2022 00:00:00 03/13/2022 19:17:45 [id number] PANKAJ aSm S_[facility]G [place] [facility] [place] [address] [place], [place] [address] 04/15/2022 00:00:00 04/15/2022 16:40:53 [id number] Betsey Lyon [facility] [place] [address] [place] [address] 05/14/2022 00:00:00 05/14/2022 15:32:14 [id number] Betsey Sonali [facility] [place] [place] [address] [place] [address] 07/16/2022 14:50:26 07/16/2022 16:29:48 Acute exacerbation of chronic asthmatic bronchitis 876382462 J44.1 Prednisone today Severe chr onic obstructive pulmonary disease 175644437 J44.9 Severe obstructio n.PFT 11/24/20 with FEV1 23%RV 258, TLC 137, FRC 231.DLCO 69Repeat testing in chartConti nue ICS/LABA/L AMA medication , nebulizerC ontinue NIVBudeson rain, Brovana, YupelriAlb uterol PRN - discussed indication s for useMucomys t BIDShe is aware of reportable signs and symptoms Chronic re spiratory failure 17357186 J96.10 Reports no benefit from NIV Dyspnea on exertion 6084 5006 R06.09 Multifacto ralOxygen as directedIn haled therapy as aboveweigh t lossIncrea se activitySh e must quit smoking Fatigue 78888634 R53.83 Multifacto ralFollow with PCM for labs Nicotine dependence 5629 4008 Z87.891 Smoking cessation counseling and techniques reviewed at length. Literature reviewed.A void triggers, support groups.Dis traction techniques Greater than 3 but less than 10 minutes spent discussing cessation. Declines NRT.Discus sed Rx options if needed in the future. [id number] Betsey Sonali [facility] [place] [address] [place] [address] 09/18/2022 14:11:44 09/18/2022 17:54:57 Severe chronic obstructive pulmonary disease 396786836 J44.9 Severe obstructio n.PFT 11/24/20 with FEV1 23%RV 258, TLC 137, FRC 231.DLCO 69Repeat testing in chartConti nue ICS/LABA/L AMA medication per nebulizerB udesonide, Brovana, YupelriShe has tried and failed NIVAlbuter ol PRN - discussed indication s for useMucomys t BIDStart Azithromyc in three times per week, consider DalirespSh e declines PRShe is aware of reportable signs and symptoms Chronic re spiratory failure 63917794 J96.10 Reports no benefit from NIV - she has returned this Dyspnea on exertion 6084 5006 R06.09 Multifacto ralOxygen as directedIn haled therapy as aboveweigh t lossIncrea se activitySh e must quit smokingRAS T, QUantifero n GOLD, IGE, Alpha1, BNP, eosinophil s, HP panel all normal Fatigue 64195624 R53.83 Multifacto ralFollow with PCM for labs Nicotine dependence 5629 4008 Z87.891 Smoking cessation counseling and techniques reviewed at length. Literature reviewed.A void triggers, support groups.Dis traction techniques Greater than 3 but less than 10 minutes spent discussing cessation. Declines NRT.Discus sed Rx options if needed in the future. Wheezing 45617820 R06.2 Persistent and chronic.No t resolved with triple inhaled therapy plus albuterol. No improvemen t with steroids.C T chest with no evidence of nodule, mass, adenopathy , bronchiect asis, or other lesion.His tory of polyps on vocal cords Immunoglob ulins outside reference range 401728185 R89.4 IGG total level lowRepeat [id number] Betsey Lyon, [facility] [place] [address] [place] [address] 01/10/2023 14:00:56 01/10/2023 15:03:08 Long-term drug therapy 219502727 Z79.899 [facility] Severe chr onic obstructive pulmonary disease 083848777 J44.9 Severe obstructio n.PFT 11/24/20 with FEV1 23%RV 258, TLC 137, FRC 231.DLCO 69Repeat testing in chartConti nue ICS/LABA/L AMA medication per nebulizerB udesonide, Brovana, YupelriOrd ered todayShe has tried and failed NIV due to intoleranc eAlbuterol PRN - discussed indication s for useMucomys t BIDContinu e Azithromyc in three times per week, consider Daliresp as aboveShe declines [place], has completed this previously and reports no clinical benefitShe is aware of reportable signs and symptomsAd vised vaccines this fall Chronic re spiratory failure [id number] J96.10 Reports no benefit from NIV - she has returned this Dyspnea on exertion 6084 5006 R06.09 Multifacto ralOxygen as directedIn haled therapy as aboveWeigh t lossIncrea se activitySh e must quit smokingRAS T, QUantifero n GOLD, IGE, Alpha1, BNP, eosinophil s, HP panel all normal Fatigue [id number] R53.83 Multifacto ralFollow with PCM for labsAHI per in lab sleep study 2019 was 2.7, negative Wheezing [id number] R06.2 Persistent and chronic.No t resolved with triple inhaled therapy plus albuterol. No improvemen t with steroids.C T chest with no evidence of nodule, mass, adenopathy , bronchiect asis, or other lesion.His tory of polyps on vocal cords, follow ENTSmoking cessation Immunoglob ulins outside reference range 651374806 R89.4 IGG total level low (497)Previ ous order for immunology Nicotine dependence 5629 4008 Z87.891 Smoking cessation counseling and techniques reviewed at length. Literature reviewed.A void triggers, support groups.Dis traction techniques Greater than 3 but less than 10 minutes spent discussing cessation. Declines NRT.Discus sed Rx options if needed in the future. Acute exac erbation of chronic obstructive pulmonary disease [id number] J44.1 Discussed emergently reportable S/S Dependence on supplemental oxygen [id number] 07 Z99.81 2 liters at night and 2 liters with activity.6 MWT 05/2022We have discussed the risks of hypoxia, including .She has good use and clinical benefit [id number] Betsey Lyon, [facility] Pulmonolo gy Tila Acevedo [address] [place] [address] 02/24/2023 14:02:05 02/24/2023 15:20:11 Severe chronic obstructive pulmonary disease [id number] J44.9 Severe obstructio n.PFT 08/27/21 with FEV1 23%RV 258, TLC 137, FRC [...] compliance with maintenanc e medication sShe declines [place], has completed this previously and reports no clinical benefitShe is aware of reportable signs and symptomsAd vised vaccines this fall Long-term drug therapy [id number] Z79.899 May initiate DalirespLF T 12/2022 with very mildly elevated alk phos Chronic re spiratory failure 72060703 J96.10 Reports no benefit from NIV - she has returned this Dyspnea on exertion 6084 5006 R06.09 Multifacto ralOxygen as directedIn haled therapy as aboveWeigh t lossIncrea se activitySh e must quit smokingRAS T, QUantifero n GOLD, IGE, Alpha1, BNP, eosinophil s, HP panel all normal Dependence on supplemental oxygen [id number] 07 Z99.81 2 liters at night and 2 liters with activity.6 MWT 05/2022We have discussed the risks of hypoxia, including .She has good use and clinical benefit Fatigue 80311428 R53.83 Multifacto ralFollow with PCM for labsAHI per in lab sleep study 2019 was 2.7, negativeSh e declines re-study Wheezing 52273349 R06.2 Persistent and chronic.No improvemen t with steroids.C T chest 05/2022 with no evidence of nodule, mass, adenopathy , bronchiect asis, or other lesion.His tory of polyps on vocal cords, follow ENTSmoking cessation Immunoglob ulins outside reference range 150079465 R89.4 IGG total level low (497)Previ ous [...] the future.CT as detailed above Edema of l ower extremity 749840067 R60.0 BLE 2-3+ pittingShe refuses ERCalled PCM, set up appointmen t for first available Health Concerns Section Related Observation LastModified by Organization Norman choi LastModified Time None Recorded Concern Status LastModified by Organization Details LastModified Time None Recorded Advance Directives Directive N: Payers Insurance Date Sequence Insurance Name Policy Number Policy Webster Covered Member ID Webster Member ID Guarantor Name 02/21/2023 1 [facility] (MEDICAID HMO) [id number] Medina Cox [id number] Medina Cox Notes Date Note Type Note [...] cold for the last week Betsey Lyon, [facility] [address], [place], [address], [facility] 07/16/2022 20:24:17 3 text/html Medina presents to follow up on COVID19 infection diagnosed on April 03, severe COPD/emphysema, dyspnea, activity intolerance, cough, wheezing, nicotine dependenceSHe continues to have good and bad days, [...] she has good use and benefit Betsey Sonali, [facility] [address], [facility] [address], [place], [address], [facility] [employer] [facility] 09/18/2022 20:06:02 3 text/html Medina presents to follow up on COVID19 infection diagnosed on April 03, severe COPD/emphysema, dyspnea, activity intolerance, cough, wheezing, nicotine dependenceShe continues to have good and bad days, [...] also felt ill at that time. Betsey Sonali, [facility] [address], [facility] [address], [place], [address], [employer] 01/12/2023 16:08:49 3 text/html Medina presents to follow up on COVID19 infection diagnosed on April 03, severe COPD/emphysema, dyspnea, activity intolerance, cough, wheezing, nicotine dependenceShnicolás has been sick for 3 weeks with [...] liters with activity and sleep. Betsey Lyon, [facility] [address] [facility], [facility] [address], [place], [address], [facility] 02/24/2023 16:41:43 OBGyn Episode No OBEpisode recorded.
[2024-10-22 10:54] LABS: Cholesterol 170 mg/dL (0-200); HDL Direct 62 mg/dL; Triglycerides 150 mg/dL (<150)
== END 2024-10-22 09:31 | disposition home or self-care (01) ==
PROVIDERS: PCP Nurse Practitioner
DX: E78.2 Mixed hyperlipidemia (principal)
CPT/HCPCS: 36415; 80061